=== PATIENT | male | born 1965 | race Two or more races ===

== ENCOUNTER → 2024-06-13 | Outpatient (CLI) | payer MEDICARE, MEDICAID, SELFPAY ==
--- NOTE | 2024-06-13 10:34 | MRI_ITS ---
PROCEDURE: PELVIS W/WO CONTRAST REASON FOR EXAM: eval extent of disease, XRT planning TECHNIQUE: Multiplanar, multisequence MRI of the prostate was performed before and following intravenous gadolinium-based contrast. Axial, coronal, and sagittal high-resolution T2-weighted images, axial T1-weighted images, and diffusion-weighted images with high B value were performed. COMPARISON: None. FINDINGS: Variable overall mild/moderate motion limitation, moderately involving the axial T2 sequence which is notably a baldwin sequence. The effect is notably magnified by the small size of the gland. Diffusion imaging is additionally mildly degraded by artifact related to bowel gas. Note also that the exam is limited by the absence of dynamic post-contrast imaging. Small amount of T1 bright presumed post biopsy blood products in the left lateral prostate, limiting evaluation of that area. Prostate dimensions 4.3 x 2.9 x 3.8 cm for estimated volume 25 mL. Interval placement of spacing material between the left anterolateral rectum and the left posterolateral prostate extending from the level of the base to apex with good separation in those areas. There is persistent direct contact of the right posterolateral prostate and right anterior rectum. Question a tiny area of anterior rectal wall infiltration inferiorly, Grade 1 (series 8, image 2). Peripheral Zone: Background changes of likely prostatitis. Additional areas of apparent restricted diffusion are without correlate on T2 and favored technical/artifactual, potentially related to bowel gas. Additional lesions as below: *Lesion 1: Ill-defined T2 hypointensity in the left greater than right posterolateral peripheral zones centered at the level of the mid gland but extending from base to apex is difficult to measure, spanning roughly 2.0 cm in the axial plane (series 8 image 16-18). A portion of this lesion small probably correlates with the small focus of PSMA uptake on recent PET/CT. *T2 score: 3. *DWI score: 3. *DCE: Not applicable. *Overall PI-RADS: PI-RADS 3. *Extracapsular extension: No definite extracapsular extension allowing for limitations, however there is capsular abutment greater than 1 cm which can be associated with microscopic extracapsular extension. Note that this includes immediate abutment of the left neurovascular bundle without definite involvement. Transition zone: Limited evaluation due to motion. Likely PI-RADS 2 findings. No definite correlate for the region of interest annotated on the outside xam performed 01/28/2024. Additional lesions as below: *Lesion 2: Ill-defined lesion in the right anterior greater than posterior peripheral zone far base spanning 1.4 cm (series 8 image 14). This is more conspicuous than on the prior exam. *T2 score: 4. *DWI score: 3. *DCE: Not applicable. *Overall PI-RADS: PI-RADS 4. *Extracapsular extension: No definite extracapsular extension allowing for limitations, however there is again capsular abutment greater than 1 cm, which can be associated with microscopic extracapsular extension. Notes that this includes immediate abutment of the base of the right seminal vesicle and the bladder, without definite involvement. Seminal vesicles: As above, otherwise grossly unremarkable.. Neurovascular bundles: As above, otherwise grossly unremarkable. Lymph nodes: Grossly unremarkable. Bladder: Grossly unremarkable. Bone marrow: Unremarkable. Other: Atherosclerosis. MRI/Pelvis W/WO Contrast IMPRESSION: 1. Limited exam as above due to a combination of motion and artifact related to bowel gas, compounded by the small size of the gland and a small amount of presumed post biopsy blood products. Note also alondra t an alternative PI-RADS algorithm was utilized due to the absence of dynamic postcontrast imaging. 2. Interval placement of spacing material between the left anterolateral rectum and the left posterolateral prostate extending from the level of the base to apex with good separation in those areas. There i s persistent direct contact of the right posterolateral prostate and right anterior rectum. Question a tiny area of ant erior rectal wall infiltration inferiorly, Grade 1. 3. Ill-defined 2.0 cm PI-RADS 3 lesion centered in the mid [id number] [id number] posterolateral peripheral zones favored to correspond to the focus of uptake on recent PSMA PET/CT (lesion 1). 4. Ill-defined 1.4 cm PI-RADS 3 lesion in the right anterior greater than poste rior peripheral zone far base (lesion 2). 5. No definite extracapsular extension allowing for limitations, however there is capsular abutment greater than 1 cm by both lesions which can be associated with microscopic extracapsular extension. Note that this includes immediate abutment of the left neurovascular bundle, base of the right seminal vesicles, and bladder, without definite involvement of these structures. 6. No gross pelvic lymphadenopathy. 7. Additional description as above. Reading Location: [id number]
[2024-06-13 11:34] VITALS: BP 111/70; PULSE 84; RESP 18; O2SAT 97
[2024-06-13 11:50] VITALS: BP 129/67; PULSE 84; RESP 18; O2SAT 96
[2024-06-13 12:02] VITALS: BP 118/65; PULSE 85; O2SAT 94
[2024-06-13 12:15] VITALS: BP 109/71; PULSE 84; O2SAT 95
[2024-06-13 12:29] VITALS: BP 115/66; PULSE 84; O2SAT 96
[2024-06-13 12:42] VITALS: BP 120/67; PULSE 84; O2SAT 95
== END | disposition home or self-care (01) ==
LOC: MRI 10:31
PROVIDERS: PCP Family Medicine; Referring Provider Student in an Organized Health Care Education/Training Program; Visit Provider Student in an Organized Health Care Education/Training Program
DX: C61 Malignant neoplasm of prostate (principal)
CPT/HCPCS: 72197; A9575

== ENCOUNTER → 2024-10-07 | Outpatient (CLI) | payer MEDICARE, MEDICAID, SELFPAY ==
--- OUTSIDE RECORDS SUMMARY | 2024-10-07 08:19 | XMS RPT_ITS | CCD ---
Author Organization [facility] Care Team Providers Care Commercial Hvac Technician Name Role Phone Bubba Tran Unavailable Unavailable Unavailable Unavailable Jimmy Van Unavailable Unavailab jennifer No, Physician Unavailable Unavailable Tourlas, Mars Unavailable Unavailabl e Tourtiburcio, Mars Unavailable UnavailJean-Claude Oconnor Unavailable Unavailable Jean-Claude Joya Unavailable Unavailable Marcus Leung Unavailable Unavailable Marcus Leung Unavailable Unavailable Bubba Tran Primary Care Provider Millie Mars Unavailable UnavailBubba Rosario Primary Care Provider Monie Waite Unavailable Monie Waite Primary Care Provider Monie Waite Unavailable Unavailable Monie Waite CNP Unavailable Monie Waite CNP Primary Care Provider Monie Waite Unavailable Unavailable Unavailable RitchieWalter L Unavailable Monie Waite CNP Unavailable Monie Waite CNP Primary Care Provider Mendez, Ms. Monie Wyatt Primary Care Unavailgabino e Mendez, MsReynold Wyatt Attending Unavailabl e Mendez, MsReynold Wyatt Referring Unavailabl e Roma, MsReynold Lee Attending Unavailable Grassick, MsReynold Lee Referring Unavailable Mendez, Ms. Monie Wyatt Primary Care Unavailabl e RITCHIE, Mrs. WALTER ROMANON Referring Unavailabl e RITCHIE, Mrs. WALTER BRAY Primary Care Unavailabl e RITCHIE, Mrs. WALTER BRAY Attending Unavailabl e RITCHIE, Mrs. WALTER BRAY Referring Unavailabl e RITCHIE, Mrs. WALTER ROMANON Primary Care Unavailabl e RITCHIE, Mrs. WALTER ROMANON Attending Unavailabl e Mendez PLATE SETTER, Monie L. Unavailable [place] ANNE MARIE, Walter Bray Primary Care Provider Adán Gorman MD Unavailable [phone] [place] .NET ARCHITECT-PLATE SETTER, Walter Blackman Primary Care Provider Ritchie .NET ARCHITECT-ANNE MARIE, Walter Blackman Unavailable Ritchie PLATE SETTER, Walter Bray Primary Care Provider Jeri TUCKER MPH, [facility] Primary Care Pro vider Jeri TUCKER, Fatimah Primary Care Provider [phone] Nely Ricardo MD Primary Care Provider [place] .NET ARCHITECT-PLATE SETTER, Walter Blackman Unavailable [phone] [place] .NET ARCHITECT-PLATE SETTER, Walter Blackman Unavailable [phone] [place] .NET ARCHITECT-ANNE MARIE, Walter Blackman Unavailable BRINA JAUREGUI Attending Unavailab le MALLAPAREDDI, FATIMAH Primary Care Unavailable Nely Ricardo MD Primary Care Provider Unavailable Primary Care Provider UnavailADÁN Marin Attending Unavailabl ADÁN Sanchez Referring Unavailabl e RITCHIE, WALTER BRAY Primary Care Unavailable MALLAPAREDDI, FATIMAH Primary Care Unavailable MALLAPAREDDI, FATIMAH Primary Care Unavailable MALLAPAREDDI, FATIMAH Primary Care Unavailable [facility] Referring Unavailable URADSTONEY Zheng Attending Unavailable RITCHIE, WALTER BRAY Primary Care Unavailable [facility] Admitting Unavailab NAS Guzman Attending Unavailab le MALLAPAREDDI, FATIMAH Primary Care Unavailable DAVION, NELY RIC Primary Care Unavailable FRANKIE SAN JR. Attending Unava ilable MALLAPAREDDI, FATIMAH NAG S Primary Care Unavail able GONZALEZ, AARTI Zapien Referring Unavailable DAVION, NELY L Primary Care Unavailable DAVION, NELY L Referring Unavailable DAVION, NELY L Primary Care Unavailable DAVION, NELY L Referring Unavailable DAVION, NELY L Primary Care Unavailable DAVION, NELY RIC Primary Care Unavailable ADÁN GORMAN Attending Unavailabl e DAVION, NELY RIC Primary Care Unavailable CHERYL FELICIANO Attending Unavailable DAVION, NELY RIC Primary Care Unavailable ED TAYLOR Attending Unavailable DAVION, NELY RIC Primary Care Unavailable ED TAYLOR Attending Unavailable JEREMY GILL Attending Unavailable MALLAPAREDDI, FATIMAH Primary Care Unavailable DAVION, NELY RIC Primary Care [facility]available [facility] Attending Unavailable MALLAPAREDDI, FATIMAH Primary Care Unavailable DAVION, NELY RIC Primary Care Unavailable DAVION, NELY RIC Primary Care Unavailable ADÁN GORMAN Attending UnavailNely Carter MD Primary Care Provider GONZALEZ, AARTI Zapien Referring Unavailable DAVION, NELY L Primary Care Unavailable GONZALEZ, AARTI Zapien Admitting Unavailable GONZALEZ, AARTI Zapien Attending Unavailable DAVION, NELY L Primary Care Unavailable GONZALEZ, AARTI Zapien Admitting Unavailable GONZALEZ, AARTI Zapien Attending Unavailable DAVION, NELY L Primary Care Unavailable MALLAPAREDDI, FATIMAH NAG S Attending Unavail able MALLAPAREDDI, FATIMAH NAG S Primary Care Unavail able GONZALEZ, AARTI Zapien Attending Unavailable MALLAPAREDDI, FATIMAH NAG S Referring Unavail able MALLAPAREDDI, FATIMAH NAG S Primary Care Unavail able GONZALEZ, AARTI Zapien Attending Unavailable DAVION, NELY L Primary Care Unavailable KRISHAN HAMILTON Attending Unavailable DAVION, NELY L Primary Care Unavailable GONZALEZ, AARTI Zapien Attending Unavailable DAVION, NELY L Primary Care Unavailable GONZALEZ, AARTI Zapien Attending Unavailable DAVION, NELY L Primary Care Unavailable DAVION, NELY L Attending Unavailable DAVION, NELY L Primary Care Unavailable Joby Espino Attending Unavailable Davion, Nely Primary Care Unavailable Joby Espino Referring Unavailable Davion, Nely Primary Care Unavailable Joby Espino Referring Unavailable Joby Espino Attending Unavailable Davion, Nely Primary Care Unavailable Joby Espino Attending Unavailable Kamryn Hines Attending Unavailable SrinivasJoby orosco Attending Unavailable Davion, Nely Primary Care Unavailable Srinivas, Joby Referring Unavailable Srinivas, Joby Attending Unavailable Davion, Nely Primary Care Unavailable Srinivas, Joby Referring Unavailable Srinivas, Joby Attending Unavailable Davion, Nely Primary Care Unavailable Srinivas, Joby Referring Unavailable Srinivas, Joby Attending Unavailable Davion, Nely Primary Care Unavailable Srinivas, Joby Referring Unavailable Davion, Nely Primary Care Unavailable Davion, Nely Referring Unavailable Srinivas, Joby Attending Unavailable Davion, Nely Referring Unavailable Davion, Nely Primary Care Unavailable Srinivas, Joby Attending Unavailable Davion, Nely Primary Care Unavailable Srinivas, Joby Attending Unavailable Davion, Nely Primary Care Unavailable Srinivas, Joby Attending Unavailable Srinivas, Joby Attending Unavailable Gonzalez IIAarti Referring Unavailable Srinivas, Joby Attending Unavailable Davion, Nely Primary Care Unavailable Srinivas, Joby Referring Unavailable Allergies Allergy Classification Reported Allergen(s) Allergy Type Date of Onset Reaction(s) Facility Angiotensin Converting Enzyme (ALYSSA) Inhibitors (8 sources) Lisinopril Drug Allergy 0 Other (See Comments) [facility] (20 sources) lisinopril; Translations: [lisinopril] Drug Allergy 0 Cough, Other (See Comments) [facility] (1 source) No Known Allergies; Translations: [No Known Allergies] Propensity to adverse reactions to drug (disorder) [facility] Medications Current Medications Medication Drug Class(es) Dates Sig (Normalized) Sig (Original) acetaminophen 325 mg / HYDROcodone bitartrate 5 mg oral tablet (8 sources) Opioid Agonist Start: 03-08-2024 End: 08-24-2024 take 1 tablet by mouth every six hours for pain HYDROcodone-acetam inophen ([place]) 5-325 mg tablet Indications: Prostate cancer (Multi) Take 1 tablet by mouth every 6 hours if needed for severe pain (7 - 10). 20 tablet 05/31/2024 08/24/2024 Discontinued (Med List Cleanup) albuterol 0.83 mg/ml inhalation solution (20 sources) beta2-Adrenergic Agonist Start: 02-19-2024 End: 02-18-2025 take 2.5 mg by inhalation every six hours as needed for chronic obstructive pulmonary disease and chronic obstructive pulmonary disease albuterol 2.5 mg /3 mL (0.083 %) nebulizer solution Indications: Chronic obstructive pulmonary disease, unspecified COPD type (Multi) Take 3 mL (2.5 mg) by nebulization every 6 hours if needed for wheezing. Every 4 to 6 hours as needed 75 mL 11 02/19/2024 02/18/2025 Active Start: 12-21-2019 End: 02-19-2024 take 3 mL by inhalation every four to six hours as needed albuterol 2.5 mg /3 mL (0.083 %) nebulizer solution Inhale 3 mL (2.5 mg). Every 4 to 6 hours as needed 12/21/2019 02/19/2024 Discontinued (Reorder) Start: 12-21-2019 Albuterol Sulf ate (2.5 MG/3ML) 0.083% Inhalation Nebulization Solution USE 1 UNIT DOSE IN NEBULIZER EVERY 4 TO 6 HOURS NEEDED. Quantity: 1 Refills: 1 Ordered: 05-Jul-2021 Fabiana Xie Start : 21-Dec-2019 Active Start: 11-28-2019 End: 08-24-2024 albuterol 90 mcg/actuation i nhaler Inhale 2 puffs. Every 44-6 hours as needed 11/28/2019 08/24/2024 Discontinued (Med List Cleanup) Start: 11-28-2019 take 2 puff(s) by in halation every four to six hours as needed Albuterol Sulfate HFA 108 (90 Base) MCG/ACT Inhalation Aerosol Solution INHALE 2 PUFFS EVERY 4-6 HOURS NEEDED. Quantity: 1 Refills: 1 Ordered: 28-Nov-2019 Monie Ingram Start : 28-Nov-2019 Active Start: 11-28-2019 take 2 puff(s) by in halation every four to six hours as needed Albuterol Sulfate HFA 108 (90 Base) MCG/ACT Inhalation Aerosol Solution INHALE 2 PUFFS EVERY 4-6 HOURS NEEDED. Quantity: 1 Refills: 1 Monie Ingram Start : 28-Nov-2019 Active 6.7 GM Inhaler take 2 puff(s) by in halation every four hours as needed albuterol 90 mcg/actuation inhaler Inhale 2 (two) puffs every 4 (four) hours as needed for shortness of breath . Active take 2.5 mg by inhal ation every six hours as needed for wheezing albuterol (PROVENTIL) 2.5 mg /3 mL (0.083 %) nebulizer solution Take 2.5 mg by nebulization every 6 (six) hours as needed for wheezing . 0 Active albuterol 90 mcg/actuation inhaler (14 sources) take 2 puff(s) by inhalation every four hours as needed albuterol 90 mcg/actuation inhaler Inhale 2 puffs every 4 (four) hours as needed for shortness of breath . 0 Active apixaban 5 mg oral tablet (20 sources) Factor Xa Inhibitor Start: 12-15-19 End: 02-19-20 take 1 tablet by mouth twice daily apixaban (Eliquis) 5 mg Tab Take 1 (one) tablet (5 mg total) by mouth 2 (two) times a day Blood thinner . 180 tablet 3 10/19/2023 Active atorvastatin 10 mg oral tablet (20 sources) HMG-CoA Reductase Inhibitor Start: 10-19-19 End: 01-11-20 take 1 tablet by mouth at bedtime atorvastatin (LIPITOR) 10 MG tablet Take 1 (one) tablet (10 mg total) by mouth at bedtime . 90 tablet 1 01/11/2024 Active Start: 12-15-2019 End: 10-17-2023 take 1 tablet by mouth at bedtime atorvastatin (LIPITOR) 10 MG tablet Take 1 (one) tablet (10 mg total) by mouth at bedtime . 90 tablet 07/20/2023 10/17/2023 Discontinued (Reorder (Suppress CancelRx Message to Pharmacy)) Start: 10-12-2019 End: 10-13-2019 take 10 mg by mouth once daily 10 mg, Oral, Daily, Fir st dose on Thu10/12/19 at 1200 calcium chloride 0.0014 meq/ml / potassium chloride 0.004 meq/ml / sodium chloride 0.103 meq/ml / sodium lactate 0.028 meq/ml injectable solution (2 sources) Start: 05-31-2024 End: 06-01-2024 take 100 mL intravenously every hour 100 mL/hr, intravenous, Continuous, Starting on Thu05/31/24 at 1100, For 1 day, Recovery (only) Start: 03-08-2024 End: 03-09-2024 take 100 mL intravenously every hour 100 mL/hr, intravenous, Continuous, Starting on Thu03/08/24 at 0930, For 1 day, Recovery (only) carvedilol 12.5 mg oral tablet (20 sources) alpha-Adrenergic Gricel, beta-Adrenergic Gricel Start: 03-01-2020 End: 10-18-2024 take 1 tablet by mouth twice daily carvedilol (Coreg) 12.5 mg tablet Take 1 tablet (12.5 mg) by mouth 2 times a day. 11/02/2020 Active Start: 02-24-2020 End: 02-23-2021 take 1 tablet by mouth twice daily carvediloL (COREG) 25 MG tablet Take 1 (one) tablet (25 mg total) by mouth 2 (two) times a day . 60 tablet 11 02/24/2020 02/23/2021 Active Start: 12-15-2019 End: 02-24-2020 take 1 tablet by mouth twice daily carvediloL (COREG) 12.5 MG tablet Take 1 (one) tablet (12.5 mg total) by mouth 2 (two) times a day . 180 tablet 3 12/15/2019 02/24/2020 Discontinued Start: 10-12-2019 End: 10-13-2019 take 12.5 mg by mouth twice daily at mealtime 12.5 mg, Oral, 2 times daily, First dose on Thu10/12/19 at 1200 Give carvedilol with food to reduce risk of hypotension / dizziness. Separate from admin of ALYSSA inhibitors by two hours. ciprofloxacin 500 mg oral tablet (1 source) Quinolone Antimicrobial Start: 02-15-2024 End: 02-18-2024 take 1 tablet by mouth twice daily ciprofloxacin (Cipro) 500 mg tablet Indications: Elevated PSA, between 10 and less than 20 ng/ml Take 1 tablet (500 mg) by mouth 2 times a day for 3 days. 6 tablet 02/15/2024 02/18/2024 Active empagliflozin 10 mg oral tablet (20 sources) Sodium-Glucose Cotransporter 2 Inhibitor Start: 04-25-2022 End: 10-17-2023 take 1 tablet by mouth once daily empagliflozin (Jardiance) 10 mg Tab Take 1 (one) tablet (10 mg total) by mouth daily . 90 tablet 3 02/05/2024 Active eplerenone 25 mg oral tablet (20 sources) Aldosterone Antagonist Start: 10-19-2023 take 1 tablet by mouth once daily eplerenone (Inspra) 25 MG tablet Take 1 (one) tablet (25 mg total) by mouth daily Taking whole tablet daily . 90 tablet 3 10/19/2023 Active Start: 11-02-2020 End: 03-08-2021 eplerenone (Inspra) 25 MG ta blet Take 1/2 tablet daily. . 90 tablet 3 11/02/2020 03/08/2021 Discontinued Start: 07-27-2020 End: 10-17-2023 take 1 tablet by mouth once daily eplerenone (Inspra) 25 MG tablet Take 1 (one) tablet (25 mg total) by mouth daily Taking whole tablet daily . 90 tablet 07/20/2023 10/17/2023 Discontinued (Reorder (Suppress CancelRx Message to Pharmacy)) ergocalciferol 1.25 mg oral capsule (20 sources) Provitamin D2 Compound Start: 02-10-2022 End: 07-15-2024 take 1 capsule by mouth every week ergocalciferol (ERGOCALCIFEROL) 1,250 mcg (50,000 unit) capsule Take 1 (one) capsule (50,000 Units total) by mouth once a week . 02/10/2022 07/15/2024 Discontinued (Patient's Request) Start: 10-04-2021 End: 07-15-2023 take 1 capsule by mouth every week ergocalciferol (Vitamin D-2) 1.25 MG (77896 UT) capsule Take 1 capsule (1,250 mcg) by mouth 1 (one) time per week. 0 10/04/2021 07/15/2023 Discontinued (Therapy completed) Start: 10-04-2021 take 1 capsule by mo uth every week Vitamin D (Ergocalciferol) 1.25 MG (90152 UT) Oral Capsule TAKE 1 CAPSULE Weekly Quantity: 5 Refills: 5 Ordered: 04-Oct-2021 Walter Correa Start : 04-Oct-2021 Active 4 ml furosemide 10 mg/ml injection (5 sources) Loop Diuretic Start: 10-12-2019 40 mg, Intrave nous, Every 12 hours scheduled, First dose on Thu10/12/19 at 1045, For 3 doses End: 12-15-2019 take 1 tablet by mouth once daily furosemide (LASIX) 20 MG tablet Take 20 mg by mouth daily For 5 days starting 10/07/19 . 0 12/15/2019 Discontinued (Discontinued by another clinician) labetalol hydrochloride 5 mg/ml injectable solution (2 sources) beta-Adrenergic Gricel Start: 05-31-2024 5 mg, intravenous, Administer over 1 Minutes, Once as needed, systolic blood pressure greater than 180 mmHg, dystolic blood pressure greater than 100 mmHg and heart rate greater than 60 BPM, Starting on Thu05/31/24 at 1042, For 1 dose, Recovery (only) Start: 03-08-2024 5 mg, intraven ous, Administer over 1 Minutes, Once as needed, systolic blood pressure greater than 180 mmHg, dystolic blood pressure greater than 100 mmHg and heart rate greater than 60 BPM, Starting on Thu03/08/24 at 0910, For 1 dose, Recovery (only) methocarbamol 750 mg oral tablet (2 sources) Muscle Relaxant Start: 01-16-2020 End: 01-26-2020 take 1 tablet by mouth three times daily as needed for muscle spasms methocarbamoL (Robaxin-750) 750 MG tablet Take 1 (one) tablet (750 mg total) by mouth 3 (three) times a day as needed for muscle spasms . 30 tablet 0 01/16/2020 01/26/2020 Active 1 ml morphine sulfate 4 mg/ml prefilled syringe (5 sources) Opioid Agonist Start: 05-31-2024 2 mg, intraven ous, Every 5 min PRN, pain moderate (4-6), first line, Starting on Thu05/31/24 at 1042, Recovery (only), Max total of 20 mg regardless of dose. Start: 05-31-2024 4 mg, intraven ous, Every 5 min PRN, pain severe (7-10), first line, Starting on Thu05/31/24 at 1042, Recovery (only), Max total of 20 mg regardless of dose. Start: 03-08-2024 2 mg, intraven ous, Every 5 min PRN, pain moderate (4-6), first line, Starting on Thu03/08/24 at 0910, Recovery (only), Max total of 20 mg regardless of dose. Start: 03-08-2024 4 mg, intraven ous, Every 5 min PRN, pain severe (7-10), first line, Starting on Thu03/08/24 at 0910, Recovery (only), Max total of 20 mg regardless of dose. Start: 01-16-2020 End: 01-16-2020 morphine syringe 4 mg nitrofurantoin, macrocrystals 25 mg / nitrofurantoin, monohydrate 75 mg oral capsule (1 source) Nitrofuran Antibacterial Start: 05-31-2024 End: 06-03-2024 take 1 capsule by mouth twice daily nitrofurantoin, macrocrystal-monohydrate, (Macrobid) 100 mg capsule Indications: Prostate cancer (Multi) Take 1 capsule (100 mg) by mouth 2 times a day for 3 days. 6 capsule 05/31/2024 06/03/2024 Active nitroglycerin 0.4 mg sublingual tablet (20 sources) Nitrate Vasodilator Start: 11-02-2020 End: 03-21-2022 nitroglycerin (Nitrostat) 0.[address] 1 tablet (0.4 mg) under the tongue every 5 minutes if needed. 03/21/2022 Active 2 ml ondansetron 2 mg/ml injection (5 sources) Serotonin-3 Receptor Antagonist Start: 05-31-2024 End: 05-31-2024 4 mg, intravenous, Once as needed, nausea/vomiting, first line, Starting on Thu05/31/24 at 1042, For 1 dose, Recovery (only), When administering via IV Push, administer over 3-5 minutes. Start: 03-08-2024 4 mg, intraven ous, Once as needed, nausea/vomiting, first line, Starting on Thu03/08/24 at 0910, For 1 dose, Recovery (only), When administering via IV Push, administer over 3-5 minutes. Start: 01-16-2020 End: 01-16-2020 ondansetron (ZOFRAN) injecti on 4 mg Start: 10-12-2019 End: 10-13-2019 take 1 tablet by mouth every six hours as needed 4 mg, Oral, Every 6 hours PRN, nausea, vomiting, Starting Thu10/12/19 at 0954 Orally disintegrating tablet: Open blister pack and place tablet on the tongue; tablet is formulated to dissolve on the tongue without water; do not split tablet. Formulation requires tablet remain in sealed package until immediately prior to dose being administered. oxyCODONE hydrochloride 5 mg oral tablet (2 sources) Opioid Agonist Start: 05-31-2024 take 1 tablet by mouth every four hours as needed 5 mg, oral, Every 4 hours PRN, pain mild (1-3), first line, Starting on Thu05/31/24 at 1042, Recovery (only), When able to take oral medications., If ordered PRN for pain, nurse is permitted to administer this medication for higher pain scores based on patient preference? Yes Start: 03-08-2024 take 1 tablet by key th every four hours as needed 5 mg, oral, Every 4 hours PRN, pain mild (1-3), first line, Starting on Thu03/08/24 at 0910, Recovery (only), When able to take oral medications., If ordered PRN for pain, nurse is permitted to administer this medication for higher pain scores based on patient preference? Yes promethazine (Phenergan) 6.2 5 mg in sodium chloride 0.9% 50 mL IV (2 sources) Start: 05-31-2024 6.25 mg, intra venous, Administer over 15 Minutes, Once as needed, Nausea/vomiting, second line, Starting on Thu05/31/24 at 1042, For 1 dose, Recovery (only) Start: 03-08-2024 6.25 mg, intra venous, Administer over 15 Minutes, Once as needed, Nausea/vomiting, second line, Starting on Thu03/08/24 at 0910, For 1 dose, Recovery (only) sacubitril 24 mg / valsartan 26 mg oral tablet (20 sources) Angiotensin 2 Receptor Gricel Start: 12-29-2019 End: 10-18-2024 take 1 tablet by mouth twice daily sacubitriL-valsartan (Entresto) 24-26 mg per tablet Take 1 (one) tablet by mouth 2 (two) times a day . 180 tablet 3 10/19/2023 10/18/2024 Active sildenafil 100 mg oral tablet (20 sources) Phosphodiesterase 5 Inhibitor Start: 01-29-2024 End: 07-20-2024 sildenafil (Viagra) 100 mg tablet Indications: Male erectile dysfunction, unspecified TAKE 1/4 to 1/2 TABLET DAILY 1 HOUR BEFORE NEEDED 30 tablet 5 07/20/2024 Active Start: 06-01-2023 End: 11-04-2023 sildenafil (Viagra) 100 mg t ablet Indications: Male erectile dysfunction, unspecified TAKE 1/4 to 1/2 TABLET DAILY 1 HOUR BEFORE NEEDED 10 tablet 2 11/04/2023 Active Start: 01-14-2023 sildenafil (Vi agra) 100 mg tablet Indications: Male erectile dysfunction, unspecified TAKE 1/4 to 1/2 TABLET DAILY 1 HOUR BEFORE NEEDED 10 tablet 1 01/14/2023 Active Start: 10-15-2022 End: 01-14-2023 sildenafil (Viagra) 100 mg t ablet Indications: Male erectile dysfunction, unspecified TAKE 1/4 to 1/2 TABLET DAILY 1 HOUR BEFORE NEEDED 10 tablet 1 10/15/2022 01/14/2023 Discontinued (Reorder) Start: 05-29-2020 take 0.25-0.5 tablet s by mouth once daily sildenafil (Viagra) 100 mg tablet Take by mouth if needed. TAKE 1/4 to 1/2 TABLET DAILY 1 HOUR BEFORE NEEDED 0 05/29/2020 Active take 1 tablet by key th once daily as needed sildenafiL (VIAGRA) 25 MG tablet Take 1 (one) tablet (25 mg total) by mouth daily as needed for erectile dysfunction . Active spironolactone 25 mg oral tablet (12 sources) Aldosterone Antagonist Start: 12-15-2019 End: 04-25-2021 take 1 tablet by mouth once daily spironolactone (Aldactone) 25 MG tablet Take 1 (one) tablet (25 mg total) by mouth daily For heart . 90 tablet 3 04/25/2020 04/25/2021 Active tiotropium Br/olodaterol HCl (STIOLTO RESPIMAT INHL) (20 sources) tiotropium Br/olodaterol HCl (STIOLTO RESPIMAT INHL) Inhale . Active tiotropium Br/ol odaterol HCl (STIOLTO RESPIMAT INHL) Inhale . 0 Active Completed/Discontinued Medications Medication Drug Class(es) Dates Sig (Normalized) Sig (Original) acetaminophen 325 mg oral tablet (3 sources) Start: 05-31-2024 End: 05-31-2024 take 975 mg by mouth once as needed for pain 975 mg, oral, Once, On Thu05/31/24 at 0900, For 1 dose, Preprocedure, Administer with small amount of water preoperatively., If ordered PRN for pain, nurse is permitted to administer this medication for higher pain scores based on patient preference? Yes Start: 03-08-2024 End: 03-08-2024 take 975 mg by mouth once as needed for pain 975 mg, oral, Once, On Thu03/08/24 at 0730, For 1 dose, Preprocedure, Administer with small amount of water preoperatively., If ordered PRN for pain, nurse is permitted to administer this medication for higher pain scores based on patient preference? Yes Start: 10-12-2019 End: 10-13-2019 take 1 tablet by mouth every four hours as needed 650 mg, Oral, Every 4 hours PRN, fever 100.4 F or greater, headaches, Starting Thu10/12/19 at 0954 albuterol 0.833 mg/ml / ipratropium bromide 0.167 mg/ml inhalant solution (3 sources) Anticholinergic, beta2-Adrenergic Agonist Start: 10-12-2019 End: 10-13-2019 take 3 mL by inhalation four times daily 3 mL, Inhalation, 4 times daily (RT), First dose on Thu10/12/19 at 1200 Start: 10-12-2019 End: 10-13-2019 take 3 mL by inhalation every two hours as needed 3 mL, Inhalation, Every 2 hour PRN (RT), wheezing, shortness of breath, Starting Thu10/12/19 at 0954 Start: 10-12-2019 End: 10-12-2019 ipratropium-albuteroL (DUO-N EB) 0.5-2.5 mg/3 ml nebulizer solution 3 mL aluminum hydroxide 40 mg/ml / magnesium hydroxide 40 mg/ml / simethicone 4 mg/ml oral suspension (1 source) Start: 10-12-2019 End: 10-13-2019 take 30 mL by mouth every four hours as needed 30 mL, Oral, Every 4 hours PRN, indigestion, Starting Thu10/12/19 at 0954 amiodarone hydrochloride 200 mg oral tablet (16 sources) Antiarrhythmic End: 10-12-2019 take 1 tablet by mouth once daily amiodarone (CORDARONE) 200 MG tablet Take 200 mg by mouth daily 0 10/12/2019 Discontinued aspirin 81 mg delayed release oral tablet (20 sources) Nonsteroidal Anti-inflammatory Drug Start: 10-12-2019 End: 10-13-2019 take 81 mg by mouth once daily 81 mg, Oral, Daily, First dose on Thu10/12/19 at 1200 DO NOT CRUSH OR CHEW. Aspirin 81 MG TA BS TAKE 1 TABLET DAILY. Quantity: 30 Refills: 0 Ordered: 14-Nov-2019 DO Active azithromycin 250 mg oral tablet (3 sources) Macrolide Antimicrobial Start: 10-09-2019 End: 10-13-2019 take 1 tablet by mouth once daily azithromycin (ZITHROMAX) 250 MG tablet Take 1 (one) tablet (250 mg total) by mouth daily for 4 days . 4 tablet 0 10/09/2019 10/13/2019 Discontinued (Stop Taking at Discharge) Start: 10-09-2019 End: 10-09-2019 azithromycin (ZITHROMAX) tab let 500 mg cefTRIAXone 1000 mg injection (1 source) Cephalosporin Antibacterial Start: 10-12-2019 End: 10-12-2019 cefTRIAXone (ROCEPHIN) IVPB 1 g (premix) doxycycline monohydrate 100 mg oral capsule (2 sources) Tetracycline-class Drug End: 10-13-2019 take 1 capsule by mouth twice daily doxycycline monohydrate (MONODOX) 100 MG capsule Take 100 mg by mouth 2 (two) times a day For 10 days starting 10/07/19 . 0 10/13/2019 Discontinued (Stop Taking at Discharge) 0.4 ml enoxaparin sodium 100 mg/ml prefilled syringe (1 source) Low Molecular Weight Heparin Start: 10-12-2019 End: 10-13-2019 inject 40 mg by subcutaneous injection once daily 40 mg, Subcutaneous, Daily, First dose on Thu10/12/19 at 1200 Administer in abdomen unless otherwise directed by prescriber. Notify physician if patient refuses. Indication: VTE Prophylaxis gadoterate meglumine (Dotarem) 0.5 mmol/mL contrast injection 15 mL (1 source) Start: 01-28-2024 End: 01-28-2024 inject 15 mL intravenously once 15 mL, intravenous, Once in imaging, Starting on Thu01/28/24 at 1231, For 1 dose, Administer undiluted as rapid I.V. bolus injection 100 ml levoFLOXacin 5 mg/ml injection (3 sources) Quinolone Antimicrobial Start: 05-31-2024 End: 05-31-2024 500 mg, intravenous, at 100 mL/hr, Administer over 60 Minutes, Once, On Thu05/31/24 at 0830, For 1 dose, Intraprocedure, premix bag, Dosing of this medication varies based on severity of illness. Does this patient have sepsis or concern for sepsis (probable or documented infection plus systemic manifestations of infection)? No, Suspected Indication (Select all that apply): Surgical Prophylaxis, Indications: Surgical Prophylaxis Start: 10-13-2019 End: 10-20-2019 take 1 tablet by mouth once daily levoFLOXacin (LEVAQU IN) 750 MG tablet Take 1 (one) tablet (750 mg total) by mouth daily for 7 days . 7 tablet 0 10/13/2019 10/20/2019 Active Start: 10-12-2019 End: 10-13-2019 take 750 mg intravenous route every twenty-four hours 750 mg, Intravenous, at 100 mL/hr, Every 24 hours, First dose on Thu10/12/19 at 1200 Indication: Community Acquired Pneumonia (CAP) lisinopril 5 mg oral tablet (16 sources) Angiotensin Converting Enzyme Inhibitor End: 10-12-2019 take 1 tablet by mouth twice daily lisinopril (PRINIVIL,ZESTRIL) 5 MG tablet Take 5 mg by mouth 2 (two) times a day 0 10/12/2019 Discontinued (Error) losartan potassium 25 mg oral tablet (10 sources) Angiotensin 2 Receptor Gricel Start: 12-15-2019 End: 12-29-2019 take 1 tablet by mouth once daily losartan (COZAAR) 25 MG tablet Take 1 (one) tablet (25 mg total) by mouth daily . 90 tablet 3 12/15/2019 12/29/2019 Discontinued Start: 10-13-2019 End: 10-13-2019 take 25 mg by mouth once daily 25 mg, Oral, Daily, Fir st dose on Thu10/13/19 at 0900 10 actuat olodaterol 0.0025 mg/actuat / tiotropium 0.0025 mg/actuat inhalation spray (12 sources) Anticholinergic, beta2-Adrenergic Agonist Start: 12-12-2019 End: 07-15-2023 tiotropium-olodateroL (Stiolto Respimat) 2.5-2.5 mcg/actuation mist inhaler Inhale 2 Inhalations once daily. 0 12/12/2019 07/15/2023 Discontinued (Therapy completed) Start: 12-12-2019 Stiolto Respim at 2.5-2.5 MCG/ACT Inhalation Aerosol Solution INHALE 2 PUFFS Daily Quantity: 1 Refills: 5 Ordered: 12-Dec-2019 Monie Ingram Start : 12-Dec-2019 Active pantoprazole 40 mg delayed release oral tablet (16 sources) Proton Pump Inhibitor End: 10-12-2019 take 1 tablet by mouth once daily pantoprazole (PROTONIX) 40 MG tablet Take 40 mg by mouth daily 0 10/12/2019 Discontinued (Error) perflutren lipid microspheres (Microco.sm) 0.143 mg/mL solution 0-10 mL of mixture (1 source) Start: 10-12-2019 End: 10-13-2019 perflutren lipid microspheres (DEFINManifact) 0.143 mg/mL solution 0-10 mL of mixture predniSONE 20 mg oral tablet (7 sources) Start: 11-28-2019 take 3 tablets by mouth once daily, then take 2 tablets by mouth once daily, then take 1 tablet by mouth once daily predniSONE 20 MG Oral Tablet TAKE 3 TABLETS DAILY FOR 3 DAYS, THEN 2 TABLETS DAILY FOR 3 DAYS, THEN 1 TABLET DAILY FOR 3 DAYS. Quantity: 18 Refills: 0 Monie Ingram Start : 28-Nov-2019 Active Start: 10-09-2019 End: 12-15-2019 predniSONE (DELTASONE) 10 mg tablet pack Take 4 pills p.o. in a.m. x3 days; take 3 pills p.o. in a.m. x3 days; take 2 pills p.o. in a.m. x3 days; take 1 pill p.o. in the a.m. x3 days; take 1/2 pill p.o. in a.m. x3 days then stop . 32 tablet 0 10/09/2019 12/15/2019 Discontinued (Therapy completed) Start: 10-09-2019 End: 10-09-2019 predniSONE (DELTASONE) table t 60 mg End: 10-09-2019 take 1 tablet by mouth once daily predniSONE (DELTASONE) 20 MG tablet Take 20 mg by mouth daily For 5 days starting 10/07/19 . 0 10/09/2019 Discontinued 1000 ml sodium chloride 9 mg /ml injection (2 sources) Start: 01-16-2020 End: 01-16-2020 sodium chloride 0.9% (NS) Start: 10-12-2019 End: 10-12-2019 sodium chloride 0.9% (NS) chapincito demetra 500 mL Problems Active Problems Problem Classification Problem Date Documented Date Episodic/Chronic Acute myocardial infarction (20 sources) Acute myocardial infarction of anterolateral wall; Translations: [Acute myocardial infarction] Onset: 05-29-2022 03-28-2015 Chronic Cancer of prostate (20 sources) Malignant tumor of prostate; Translations: [Malignant neoplasm of prostate] Onset: 04-06-2024 04-06-2024 Chronic Cardiac dysrhythmias (20 sources) Atrial fibrillation; Translations: [Unspecified atrial fibrillation] Onset: 09-11-2021 Chronic Chronic obstructive pulmonary disease and bronchiectasis (20 sources) Chronic obstructive lung disease; Translations: [Chronic airway obstruction, not elsewhere classified] Onset: 05-29-2022 Resolved: 08-24-2024 01-14-2023 Chronic Conduction disorders (20 sources) Automatic implantable cardiac defibrillator in situ; Translations: [Presence of automatic (implantable) cardiac defibrillator] Onset: 03-18-2016 03-18-2016 Chronic Congestive heart failure; nonhypertensive (20 sources) Congestive heart failure; Translations: [Chronic systolic heart failure] Onset: 12-15-2019 Resolved: 08-24-2024 12-15-2019 Chronic Coronary atherosclerosis and other heart disease (20 sources) Coronary arteriosclerosis; Translations: [Coronary arteriosclerosis in seminole artery] Onset: 12-17-2019 09-18-2016 Chronic Disorders of lipid metabolism (5 sources) Hypercholesterolemia; Translations: [Pure hypercholesterolemia, unspecified] Onset: 08-12-2023 08-12-2023 Chronic Essential hypertension (20 sources) Hypertensive disorder; Translations: [Essential hypertension] Onset: 03-21-2016 03-21-2016 Chronic Heart valve disorders (3 sources) Mitral valve regurgitation; Translations: [Nonrheumatic mitral (valve) insufficiency] Onset: 05-19-2023 04-08-2023 Chronic Hyperplasia of prostate (16 sources) Benign prostatic hyperplasia; Translations: [Benign prostatic hyperplasia without lower urinary tract symptoms] Onset: 12-02-2023 12-02-2023 Chronic Hypertension with complications and secondary hypertension (3 sources) Hypertensive heart failure; Translations: [Hypertensive heart disease with heart failure] Onset: 08-24-2024 08-24-2024 Chronic Immunizations and screening for infectious disease (9 sources) Patient encounter status; Translations: [Other specified vaccination] Episodic Nutritional deficiencies (19 sources) Vitamin D deficiency; Translations: [Unspecified vitamin D deficiency] Onset: 05-29-2022 05-29-2022 Chronic Other and ill-defined heart disease (1 source) Diastolic dysfunction; Translations: [Other ill-defined heart diseases] 08-12-2023 Chronic Other and ill-defined heart disease (4 sources) Other ill-defined heart diseases; Translations: [Other ill-defined heart diseases] Onset: 08-12-2023 Chronic Other lower respiratory disease (6 sources) Persistent cough; Translations: [Cough] Episodic Other lower respiratory disease (5 sources) Dyspnea; Translations: [Shortness of breath] Episodic Other male genital disorders (20 sources) Male erectile dysfunction, unspecified; Translations: [Impotence] Onset: 05-29-2022 01-14-2023 Chronic Other nutritional; endocrine; and metabolic disorders (19 sources) Hypocalcemia; Translations: [Hypocalcemia] Onset: 05-29-2022 05-29-2022 Chronic Other screening for suspected conditions (not mental disorders or infectious disease) (20 sources) CT of chest abnormal; Translations: [Nonspecific (abnormal) findings on radiological and other examination of other intrathoracic organs] Onset: 05-29-2022 05-29-2022 Chronic Spondylosis; intervertebral disc disorders; other back problems (1 source) Acute thoracic back pain; Translations: [Acute right-sided thoracic back pain] Episodic Past or Other Problems Problem Classification Problem Date Documented Da te Episodic/Chronic Complication of device; implant or graft (2 sources) Unspecified complication of cardiac and vascular prosthetic device, implant and graft, initial encounter; Translations: [Unspecified complication of cardiac and vascular prosthetic device, implant and graft, initial encounter] Onset: 01-17-2024 Episodic Coronary atherosclerosis and other heart disease (2 sources) History of coronary artery bypass grafting; Translations: [History of coronary artery bypass graft] Episodic Diabetes mellitus without complication (5 sources) Prediabetes; Translations: [Prediabetes] Onset: 08-12-2023 08-12-2023 Episodic Genitourinary symptoms and ill-defined conditions (7 sources) Nocturia; Translations: [Nocturia] Onset: 04-06-2024 04-06-2024 Episodic Open wounds of extremities (2 sources) Puncture wound without foreign body of left hand, initial encounter; Translations: [Puncture wound without foreign body of left hand, initial encounter] Onset: 08-15-2023 Episodic Other aftercare (2 sources) ab initio etl developer (current) use of anticoagulants; Translations: [ab initio etl developer (current) use of anticoagulants] Onset: 11-04-2023 Episodic Other aftercare (2 sources) Post-discharge follow-up; Translations: [Hospital discharge follow-up] Other and unspecified benign neoplasm (16 sources) Dermoid cyst of face; Translations: [Other benign neoplasm of skin of unspecified part of face] Onset: 07-11-2022 07-11-2022 Episodic Other circulatory disease (6 sources) H/O: heart disorder; Translations: [Other postprocedural status] Onset: 05-29-2022 05-29-2022 Episodic Other circulatory disease (20 sources) History of cardiomyopathy; Translations: [Other postprocedural status] Onset: 05-29-2022 Episodic Other lower respiratory disease (20 sources) Dyspnea on exertion; Translations: [Dyspnea, unspecified] Onset: 12-15-2019 12-15-2019 Episodic Other lower respiratory disease (1 source) Hypoxia; Translations: [Hypoxia] Episodic Other lower respiratory disease (16 sources) Cough; Translations: [Cough] Onset: 07-11-2022 07-11-2022 Episodic Other screening for suspected conditions (not mental disorders or infectious disease) (20 sources) Laboratory test result abnormal; Translations: [Patient encounter status] Onset: 08-12-2023 07-15-2023 Episodic Pneumonia (except that caused by tuberculosis or sexually transmitted disease) (20 sources) Infective pneumonia; Translations: [Community acquired pneumonia] Onset: 10-12-2019 10-12-2019 Episodic Septicemia (except in labor) (1 source) Sepsis; Translations: [Sepsis, due to unspecified organism, unspecified whether acute organ dysfunction present (HCC)] Episodic Unclassified (14 sources) Onset: 07-15-2023 Resolved: 07-20-2024 07-15-2023 NEGATED: Highlighted row has not occurred!Residual codes; unclassified (2 sources) Disease Episodic Results Test Name Value Interpretation Reference Range Facility Radiation Oncology Visiton 0 08-05-2024 Radiation Oncology Visit [facility] [address] [place] [address] OFFICE VISIT Date of Service: 08/05/24 0932 MR#: [id number] Acct: [id number] Name: AARTI GARCIA Rep #: [id number] : 1965 From: Joby Espino DO Age/Sex: 59/M Location: [facility] [place] Status: Signed Intake Vital Signs 06/27/24 16:01 07/01/24 12:29 08/05/24 09:34 Height 5 ft 11 in 5 ft 11 in 5 ft 11 in Weight: 156 lb 2 oz BMI 21.7 BP 99/62 Blood Pressure Location Lt brachial Position Sitting Respiration 16 Pulse 76 Pulse Source Monitor Temp 97.4 F L Temperature Source Temporal Artery Pulse Oximetry (%) 95 Oxygen Delivery Method room air Intake Visit Reasons: 1 MONTH F/U POST RT Is patient in pain?: No Allergies lisinopril Allergy (Mild, Verified 08/05/24 09:35) cough Medications ???Medication ???Instructions ???Recorded ???Confirmed ???Type albuterol sulfate 2.5 mg/3 mL 2.5 mg inhalation Q6H PRN 04/21/24 08/05/24 History (0.083 %) solution for nebulization albuterol sulfate 90 mcg/actuation 2 puff inhalation Q4-6H PRN /06/1408/05/24 History aerosol inhaler aspirin 81 mg tablet,delayed 81 mg PO QDAY 04/21/24 08/05/24 Hi story release (Adult Low Dose Aspirin) atorvastatin 10 mg tablet 10 mg PO QHS 04/21/24 08/05/24 His tory carvedilol 12.5 mg tablet 12.5 mg PO BID 04/21/24 08/05/24 H istory empagliflozin 10 mg tablet 10 mg PO QAM 04/21/24 08/05/24 His tory (Jardiance) eplerenone 25 mg tablet (Inspra) 25 mg PO QDAY 04/21/24 08/05/24 Hi story nitroglycerin 0.4 mg sublingual 0.4 mg sublingual Q5M PRN 04/21/24 08/05/24 History tablet sacubitril 24 mg-valsartan 26 mg 1 tab PO BID 04/21/24 08/05/24 His tory tablet (Entresto) sildenafil 100 mg tablet 100 mg PO QDAY PRN 04/21/24 History calcium acetate 667 mg tablet 667 mg PO ONCE 04/28/24 08/05/24 H istory [facility] Medical History Bronchitis COPD (chronic obstructive pulmonary disease) Pneumonia High cholesterol ICD (implantable cardioverter-defibrillat or) battery depletion Heart attack Nocturia Home Medications ???Medication ???Instructions ???Recorded ???Last Taken ???Type albuterol sulfate 2.5 mg/3 mL 2.5 mg inhalation Q6H PRN 04/21/24 Unknown History (0.083 %) solution for nebulization albuterol sulfate 90 mcg/actuation 2 puff inhalation Q4-6H PRN 06/14 Unknown History aerosol inhaler aspirin 81 mg tablet,delayed 81 mg PO QDAY 04/21/24 Unknown His tory release (Adult Low Dose Aspirin) atorvastatin 10 mg tablet 10 mg PO QHS 04/21/24 Unknown Hist ory carvedilol 12.5 mg tablet 12.5 mg PO BID 04/21/24 Unknown Hi story empagliflozin 10 mg tablet 10 mg PO QAM 04/21/24 Unknown Hist ory (Jardiance) eplerenone 25 mg tablet (Inspra) 25 mg PO QDAY 04/21/24 Unknown His tory nitroglycerin 0.4 mg sublingual 0.4 mg sublingual Q5M PRN 04/21/24 Unknown History tablet sacubitril 24 mg-valsartan 26 mg 1 tab PO BID 04/21/24 Unknown Hist ory tablet (Entresto) sildenafil 100 mg tablet 100 mg PO QDAY PRN 04/21/24 Unknow n History calcium acetate 667 mg tablet 667 mg PO ONCE 04/28/24 Unknown Hi story Allergy/AdvReac Type Severity Reaction Status Date / Time lisinopril Allergy Mild cough Verified 08/05/24 09:35 Family History Father Leukemia Brother Diabetes TYPE 1 Surgical History History of prostate biopsy History of cardiac cath History of removal of cyst Social History household members: spouse current occupational status: disabled Smoking Status: Former smoker quit date: 06/10/13 Tobacco: How many years used: 12 substance use type: does not use Diagnosis: Aarti Garcia is a 59 year old male diagnosed with 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 From 06/21/2024 ??? 07/01/2024 he received prostate SBRT. History of Present Illness: 01/28/2024: Patient completed MRI prostate.??? This demonstrated a limited exam due to prominent gas content in the rectum and motion artifact.??? There is a heterogeneous appearance of the transition zone consistent with BPH.??? There is a 0.7 cm T2 hypointense focus within the left apical to mid gland transition zone showing equivocal findings on diffusion weighted imaging consistent with PI- RADS 3 lesion.??? No extracapsular extension.??? No seminal vesicle invasion.??? No abnormally enlarged lymph nodes.??? PI-RADS 3 03/08/2024: Patient completed prostate biopsy.??? Pathology demonstrated Cedric (more content not included)... [facility] CARDIAC REMOTE DEVICE CHECKo n 07-20-2024 Remote Interrogation of ICD Notes/Summary: Stable Device function Est. Battery/Charge Time: 9.3 years/3.9 seconds Presenting EGM: /VS rate 60-70s bpm DYNAMOMETER TUNER: <0.1% AT/AF [place]: <0.1% since 04/15/24 AHR: 0 VHR: 0 Other Episodes: SVT: 1, EGM appears as SVT with 1:[address] conduction[address] Reviewed with Dr. Li who agrees that it appears to be SVT. V-V: 0 Histograms: Appropriate rate distribution Heart Failure Alerts: No Next remote: 10/19/24 Next In-clinic: due January 2025 NOV: 01/20/[address] Gorman at the [place] office Signature: Modesto CHAVEZ RN I have reviewed the device function, programmed parameters, and heart rhythm. Patient will return to the Device Clinic &/or remote follow up and provider visit per protocol. Mark Paz MD - 07/20/2024 Remote Interrogation of ICD Notes/Summary: Stable Device function Est. Battery/Charge Time: 9.3 years/3.9 seconds Presenting EGM: /VS rate 60-70s bpm DYNAMOMETER TUNER: <0.1% AT/AF [place]: <0.1% since 04/15/24 AHR: 0 VHR: 0 Other Episodes: SVT: 1, EGM appears as SVT with 1:[address] with [address]. Li who agrees that it appears to be SVT. V-V: 0 Histograms: Appropriate rate distribution Heart Failure Alerts: No Next remote: 10/19/24 Next In-clinic: due January 2025 NOV: 01/20/[address] Gorman at the [facility] Signature: Modesto CHAVEZ RN I have reviewed the device function, programmed parameters, and heart rhythm. Patient will return to the Device Clinic &/or remote follow up and provider visit per protocol. [facility] CARDIAC REMOTE DEVICE CHECKO rdered By: Mark Hensley on 07-20-2024 [facility] Work Phone: Radiation Oncology Visiton 0 07-01-2024 Radiation Oncology Visit [facility] [place] [place] [address] OFFICE VISIT Date of Service: 07/01/24 1326 MR#: [id number] Acct: [id number] Name: LAURAAARTI Rep #: [id number] : 1965 From: Joby Espino DO Age/Sex: 59/M Location: [facility] [place] Status: Signed End of Treatment Summary: Diagnosis: Aarti Garcia is a 58 year old male diagnosed with 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 Oncologic History: 01/28/2024: Patient completed MRI prostate.??? This demonstrated a limited exam due to prominent gas content in the rectum and motion artifact.??? There is a heterogeneous appearance of the transition zone consistent with BPH.??? There is a 0.7 cm T2 hypointense focus within the left apical to mid gland transition zone showing equivocal findings on diffusion weighted imaging consistent with PI- RADS 3 lesion.??? No extracapsular extension.??? No seminal vesicle invasion.??? No abnormally enlarged lymph nodes.??? PI-RADS 3 03/08/2024: Patient completed prostate biopsy.??? Pathology demonstrated [place] 3+3 adenocarcinoma involving about 5% of 1/multiple fragments in the left prostate, and involving less than 5% of 1/multiple fragments in the area of interest biopsy.??? Within the right prostate biopsy there is no evidence of carcinoma. Radiation Treatment History: The patient completed a course of external beam radiotherapy in our department. This treatment was delivered for curative intent. Treatment was given according to the following parameters: AARTI GARCIA received prostate SBRT consisting of 3625 cGy delivered in 5 fractions. He was treated with a VMAT plan using 6 FFF MV photons. The patient did not receive concurrent chemotherapy. Date of First Treatment: 06/21/2024 Date of Last Treatment: 07/01/2024 Total Elapsed Days (including weekend and holidays): 10 Missed Treatments: none Response and Tolerance: The patient tolerated this course of radiotherapy well overall without developing apparent treatment associated toxicities. Total weight change during therapy: N/A Disposition: The patient tolerated the planned course of radiation therapy well without unexpected toxicity in an appropriate time course. I reviewed management of potential toxicities and discussed expected timing for toxicity resolution. I will have AARTI follow-up in one month for a routine visit. AARTI will maintain follow up with all other providers. AARTI was instructed to call with any further questions or concerns in the interim. If we can provide any further information on this patient's course of care, please do not hesitate to ask. We would like to thank you very much for allowing us to participate in the care of this patient. Sincerely, Joby Espino DO, MS [employer] Supervisor, Department of Radiation Oncology [facility] 07/01/24 1329 Date Joby Espino DO Cosigner Signature: Date (if applicable) CC: Dr. Nely Ricardo MD; Dr. Aarti Gonzalez II, MD Normal [facility] Radiation Oncology Visit [facility] [address] [address] OFFICE VISIT Date of Service: 07/01/24 1228 MR#: [id number] Acct: [id number] Name: AARTI GARCIA Jeff Rep #: [id number] : 1965 From: Joby Espino DO Age/Sex: 59/M Location: [facility] [place] Status: Signed Intake Vital Signs 06/29/24 15:30 Height 5 ft 11 in Intake Visit Reasons: Amb Documentation Allergies lisinopril Allergy (Mild, Verified 06/27/24 16:00) cough PFSH PFSH Medical History Bronchitis COPD (chronic obstructive pulmonary disease) Pneumonia High cholesterol ICD (implantable cardioverter-defibrillat or) battery depletion Heart attack Nocturia Allergy/AdvReac Type Severity Reaction Status Date / Time lisinopril Allergy Mild cough Verified 06/27/24 16:00 Family History Father Leukemia Brother Diabetes TYPE 1 Surgical History History of prostate biopsy History of cardiac cath History of removal of cyst Social History household members: spouse current occupational status: disabled Smoking Status: Former smoker quit date: 06/10/13 Tobacco: How many years used: 12 substance use type: does not use Stereotactic Body Radiation Therapy Procedure - Prostate: DATE OF PROCEDURE: 07/01/2024 RADIATION ONCOLOGIST: Joby Espino D.O., M.S. ASSISTANTS: Radiation Physicist PRE-PROCEDURE DIAGNOSIS(ES): Intermediate risk prostate cancer POST-PROCEDURE DIAGNOSIS(ES): Intermediate risk prostate cancer INDICATIONS FOR PROCEDURE: The patient has clinically localized prostate cancer and has chosen to proceed with definitive Stereotactic Body Radiation Therapy (SBRT). PROCEDURE PERFORMED: Stereotactic body radiation therapy to the prostate CONSENT: Informed consent was obtained prior to the procedure. Procedure risks, benefits, alternatives and expected outcomes were discussed with the patient. All options have been reviewed and consent had been obtained prior to the procedure. Consent(s) were scanned into the electronic medical record. UNIVERSAL PROTOCOL / TIMEOUT: Pre-procedure verification is complete: patient verified and consents confirmed, procedure site was identified, timeout was called before the start of the procedure. ANESTHESIA: None RADIATION DOSE GIVEN: 725 cGy FRACTION: 5 of 5 CUMULATIVE DOSE: 3625 cGy PLANNED TOTAL DOSE: 3625 cGy DETAILS OF PROCEDURE: Aarti Garcia is a 59 year-old male who presented to our clinic today for the fifth fraction of stereotactic body radiation therapy for clinically localized prostate cancer. The patient reports no interval symptoms or problems since the last evaluation in our department. The patient was aligned in the vac bag on the treatment table. The therapists completed patient positioning. The treatment team then exited the treatment room. After verification of treatment parameters, a cone beam CT scan was obtained and aligned to fiducials. After accurate localization, the treatment proceeded. Treatment was delivered with multiarc VMAT radiation therapy utilizing 6 MV FFF beams. A dose of 725 cGy was delivered. The patient tolerated the procedure well. There were no acute complications, no blood loss, and no specimens were removed. CONDITION: The patient tolerated the procedure well and was in stable condition. ATTESTATION: I was present for all critical portions of the procedure including time out, CBCT and treatment delivery. PLAN: The patient will continue with stereotactic body radiation therapy that will be given 2-3 times per week. A total of 3625 cGy in 5 fractions is planned. Joby Espino DO, MS [employer] M[employer] Supervisor, Department of Radiation Oncology [facility] Coding Level of Care Code Radiation Tx Management x5 07/01/24 1229 Date Joby Espino DO Cosigner Signature: Date (if applicable) CC: Normal [facility] Radiation Oncology Visiton 0 06-29-2024 Radiation Oncology Visit [facility] [address] [place] [id number] OFFICE VISIT Date of Service: 06/29/24 1528 MR#: [id number] Acct: [id number] Name: LAURAAARTI Rep #: [id number] : 1965 From: Joby Espino DO Age/Sex: 59/M Location: [facility] [place] Status: Signed Intake Vital Signs 06/27/24 16:01 Height 5 ft 11 in Weight: 152 lb 1 oz BMI 21.2 BP 125/80 H Blood Pressure Location Rt brachial Position Sitting Respiration 18 Pulse 85 Pulse Source Monitor Temp 97.1 F L Temperature Source Temporal Artery Pulse Oximetry (%) 97 Oxygen Delivery Method room air Intake Visit Reasons: Amb Documentation Allergies lisinopril Allergy (Mild, Verified 06/27/24 16:00) cough PFSH PFSH Medical History Bronchitis COPD (chronic obstructive pulmonary disease) Pneumonia High cholesterol ICD (implantable cardioverter-defibrillat or) battery depletion Heart attack Nocturia Allergy/AdvReac Type Severity Reaction Status Date / Time lisinopril Allergy Mild cough Verified 06/27/24 16:00 Family History Father Leukemia Brother Diabetes TYPE 1 Surgical History History of prostate biopsy History of cardiac cath History of removal of cyst Social History household members: spouse current occupational status: disabled Smoking Status: Former smoker quit date: 06/10/13 Tobacco: How many years used: 12 substance use type: does not use Stereotactic Body Radiation Therapy Procedure - Prostate: DATE OF PROCEDURE: 06/29/2024 RADIATION ONCOLOGIST: Joby Espino D.O., M.S. ASSISTANTS: Radiation Physicist PRE-PROCEDURE DIAGNOSIS(ES): Intermediate risk prostate cancer POST-PROCEDURE DIAGNOSIS(ES): Intermediate risk prostate cancer INDICATIONS FOR PROCEDURE: The patient has clinically localized prostate cancer and has chosen to proceed with definitive Stereotactic Body Radiation Therapy (SBRT). PROCEDURE PERFORMED: Stereotactic body radiation therapy to the prostate CONSENT: Informed consent was obtained prior to the procedure. Procedure risks, benefits, alternatives and expected outcomes were discussed with the patient. All options have been reviewed and consent had been obtained prior to the procedure. Consent(s) were scanned into the electronic medical record. UNIVERSAL PROTOCOL / TIMEOUT: Pre-procedure verification is complete: patient verified and consents confirmed, procedure site was identified, timeout was called before the start of the procedure. ANESTHESIA: None RADIATION DOSE GIVEN: 725 cGy FRACTION: 4 of 5 CUMULATIVE DOSE: 2900 cGy PLANNED TOTAL DOSE: 3625 cGy DETAILS OF PROCEDURE: Aarti Garcia is a 59 year-old male who presented to our clinic today for the fourth fraction of stereotactic body radiation therapy for clinically localized prostate cancer. The patient reports no interval symptoms or problems since the last evaluation in our department. The patient was aligned in the vac bag on the treatment table. The therapists completed patient positioning. The treatment team then exited the treatment room. After verification of treatment parameters, a cone beam CT scan was obtained and aligned to fiducials. After accurate localization, the treatment proceeded. Treatment was delivered with multiarc VMAT radiation therapy utilizing 6 MV FFF beams. A dose of 725 cGy was delivered. The patient tolerated the procedure well. There were no acute complications, no blood loss, and no specimens were removed. CONDITION: The patient tolerated the procedure well and was in stable condition. ATTESTATION: I was present for all critical portions of the procedure including time out, CBCT and treatment delivery. PLAN: The patient will continue with stereotactic body radiation therapy that will be given 2-3 times per week. A total of 3625 cGy in 5 fractions is planned. Joby Espino DO, MS [employer] Supervisor, Department of Radiation Oncology [facility] Coding Level of Care Code Attention Clinical Lab Technologist Comment SBRT treatment 06/29/24 1530 Date Joby Espino DO Cosigner Signature: Date (if applicable) CC: Normal [facility] Radiation Oncology Visiton 0 06-27-2024 Radiation Oncology Visit [facility] [address] [place] [id number] OFFICE VISIT Date of Service: 06/27/24 155 MR#: [id number] Acct: [id number] Name: AARTI GARCIA Rep #: [id number] : 1965 From: Joby Espion DO Age/Sex: 59/M Location: [facility] [place] Status: Signed Intake Vital Signs 04/28/24 09:49 06/27/24 15:57 06/27/24 16:01 Height 5 ft 11 in 5 ft 11 in 5 ft 11 in Weight: 152 lb 1 oz BMI 21.2 BP 125/80 H Blood Pressure Location Rt brachial Position Sitting Respiration 18 Pulse 85 Pulse Source Monitor Temp 97.1 F L Temperature Source Temporal Artery Pulse Oximetry (%) 97 Oxygen Delivery Method room air Intake Visit Reasons: OTV Is patient in pain?: No Allergies lisinopril Allergy (Mild, Verified 06/27/24 16:00) cough Medications ???Medication ???Instructions ???Recorded ???Confirmed ???Type albuterol sulfate 2.5 mg/3 mL 2.5 mg inhalation Q6H PRN 04/21/24 06/27/24 History (0.083 %) solution for nebulization albuterol sulfate 90 mcg/actuation 2 puff inhalation Q4-6H PRN 06/1406/27/24 History aerosol inhaler aspirin 81 mg tablet,delayed 81 mg PO QDAY 04/21/24 06/27/24 Hi story release (Adult Low Dose Aspirin) atorvastatin 10 mg tablet 10 mg PO QHS 04/21/24 06/27/24 His tory carvedilol 12.5 mg tablet 12.5 mg PO BID 04/21/24 06/27/24 H istory empagliflozin 10 mg tablet 10 mg PO QAM 04/21/24 06/27/24 His tory (Jardiance) eplerenone 25 mg tablet (Inspra) 25 mg PO QDAY 04/21/24 06/27/24 Hi story nitroglycerin 0.4 mg sublingual 0.4 mg sublingual Q5M PRN 04/21/24 06/27/24 History tablet sacubitril 24 mg-valsartan 26 mg 1 tab PO BID 04/21/24 06/27/24 His tory tablet (Entresto) sildenafil 100 mg tablet 100 mg PO QDAY PRN 04/21/24 History calcium acetate 667 mg tablet 667 mg PO ONCE 04/28/24 06/27/24 H istory PFSH PFSH Medical History Bronchitis COPD (chronic obstructive pulmonary disease) Pneumonia High cholesterol ICD (implantable cardioverter-defibrillat or) battery depletion Heart attack Nocturia Home Medications ???Medication ???Instructions ???Recorded ???Last Taken ???Type albuterol sulfate 2.5 mg/3 mL 2.5 mg inhalation Q6H PRN 04/21/24 Unknown History (0.083 %) solution for nebulization albuterol sulfate 90 mcg/actuation 2 puff inhalation Q4-6H PRN 06/14 Unknown History aerosol inhaler aspirin 81 mg tablet,delayed 81 mg PO QDAY 04/21/24 Unknown His tory release (Adult Low Dose Aspirin) atorvastatin 10 mg tablet 10 mg PO QHS 04/21/24 Unknown Hist ory carvedilol 12.5 mg tablet 12.5 mg PO BID 04/21/24 Unknown Hi story empagliflozin 10 mg tablet 10 mg PO QAM 04/21/24 Unknown Hist ory (Jardiance) eplerenone 25 mg tablet (Inspra) 25 mg PO QDAY 04/21/24 Unknown His tory nitroglycerin 0.4 mg sublingual 0.4 mg sublingual Q5M PRN 04/21/24 Unknown History tablet sacubitril 24 mg-valsartan 26 mg 1 tab PO BID 04/21/24 Unknown Hist ory tablet (Entresto) sildenafil 100 mg tablet 100 mg PO QDAY PRN 04/21/24 Unknow n History calcium acetate 667 mg tablet 667 mg PO ONCE 04/28/24 Unknown Hi story Allergy/AdvReac Type Severity Reaction Status Date / Time lisinopril Allergy Mild cough Verified 06/27/24 16:00 Family History Father Leukemia Brother Diabetes TYPE 1 Surgical History History of prostate biopsy History of cardiac cath History of removal of cyst Social History household members: spouse current occupational status: disabled Smoking Status: Former smoker quit date: 06/10/13 Tobacco: How many years used: 12 substance use type: does not use Diagnosis: Aarti Garcia is a 59 year old male diagnosed with 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 Plan: Plan was made to complete definitive radiation with prostate SBRT consisting of 3625 cGy delivered in 5 fractions Treatment Data: Treatment Site: Prostate Current total dose/Total dose planned: 2175 cGy / 3625 cGy Fraction number: 3 / 5 Chemotherapy: none Subjective: Pain: 0 / 10 Fatigue: none Skin: no erythema, rash, desquamation GI: no diarrhea/constipation. No rectal pain or bleeding. No bloating or increased gas : no increase urinary symptoms. No dysuria or hematuria Objective: Weight: 152 lbs 1 oz Physical Exam: Gen: NAD Skin: no erythema, rash, desquamation. Labs: None Assessment Plan Assessment/Plan (1) Cancer of prostate with interm (more content not included)... Normal [facility] Radiation Oncology Visit [facility] [place] [address] OFFICE VISIT Date of Service: 06/27/24 1557 MR#: [id number] Acct: [id number] Name: AARTI GARCIA Rep #: [id number] : 1965 From: Joby Espino DO Age/Sex: 59/M Location: [facility] [place] Status: Signed Intake Vital Signs 04/28/24 09:49 Height 5 ft 11 in Intake Visit Reasons: OTV Allergies lisinopril Allergy (Mild, Verified 04/28/24 09:41) cough PFSH PFSH Medical History (Updated 04/28/24 @ 10:[address] Joby Espino, ) Bronchitis COPD (chronic obstructive pulmonary disease) Pneumonia High cholesterol ICD (implantable cardioverter-defibrillat or) battery depletion Heart attack Nocturia Allergy/AdvReac Type Severity Reaction Status Date / Time lisinopril Allergy Mild cough Verified 04/28/24 09:41 Family History (Updated 04/28/24 @ 09:47 by Samantha Peterson) Father Leukemia Brother Diabetes TYPE 1 Surgical History (Updated 04/28/24 @ 09:45 by Samantha Peterson) History of prostate biopsy History of cardiac cath History of removal of cyst Social History (Updated 04/28/24 @ 09:49 by Samantha Peterson) household members: spouse current occupational status: disabled Smoking Status: Former smoker quit date: 06/10/13 Tobacco: How many years used: 12 substance use type: does not use Stereotactic Body Radiation Therapy Procedure - Prostate: DATE OF PROCEDURE: 06/27/2024 RADIATION ONCOLOGIST: Joby Espino D.O., M.S. ASSISTANTS: Radiation Physicist PRE-PROCEDURE DIAGNOSIS(ES): Intermediate risk prostate cancer POST-PROCEDURE DIAGNOSIS(ES): Intermediate risk prostate cancer INDICATIONS FOR PROCEDURE: The patient has clinically localized prostate cancer and has chosen to proceed with definitive Stereotactic Body Radiation Therapy (SBRT). PROCEDURE PERFORMED: Stereotactic body radiation therapy to the prostate CONSENT: Informed consent was obtained prior to the procedure. Procedure risks, benefits, alternatives and expected outcomes were discussed with the patient. All options have been reviewed and consent had been obtained prior to the procedure. Consent(s) were scanned into the electronic medical record. UNIVERSAL PROTOCOL / TIMEOUT: Pre-procedure verification is complete: patient verified and consents confirmed, procedure site was identified, timeout was called before the start of the procedure. ANESTHESIA: None RADIATION DOSE GIVEN: 725 cGy FRACTION: 3 of 5 CUMULATIVE DOSE: 2175 cGy PLANNED TOTAL DOSE: 3625 cGy DETAILS OF PROCEDURE: Aarti Garcia is a 59 year-old male who presented to our clinic today for the third fraction of stereotactic body radiation therapy for clinically localized prostate cancer. The patient reports no interval symptoms or problems since the last evaluation in our department. The patient was aligned in the vac bag on the treatment table. The therapists completed patient positioning. The treatment team then exited the treatment room. After verification of treatment parameters, a cone beam CT scan was obtained and aligned to fiducials. After accurate localization, the treatment proceeded. Treatment was delivered with multiarc VMAT radiation therapy utilizing 6 MV FFF beams. A dose of 725 cGy was delivered. The patient tolerated the procedure well. There were no acute complications, no blood loss, and no specimens were removed. CONDITION: The patient tolerated the procedure well and was in stable condition. ATTESTATION: I was present for all critical portions of the procedure including time out, CBCT and treatment delivery. PLAN: The patient will continue with stereotactic body radiation therapy that will be given 2-3 times per week. A total of 3625 cGy in 5 fractions is planned. Joby Espino DO, Found[employer] Melt Supervisor, Department of Radiation Oncology [facility] Coding Level of Care Code Attention Clinical Lab Technologist Comment SBRT treatment 06/27/24 1557 Date Joby Riderigngordo Signature: Date (if applicable) CC: Normal [facility] Radiation Oncology Visiton 0 06-23-2024 Radiation Oncology Visit [facility] [place] [address] OFFICE VISIT Date of Service: 06/23/24 1508 MR#: [id number] Acct: [id number] Name: AARTI GARCIA Rep #: [id number] : 1965 From: Joby Espino DO Age/Sex: 59/M Location: [facility] [place] Status: Signed Intake Vital Signs 06/21/24 09:47 Height 5 ft 11 in Intake Visit Reasons: Amb Documentation Allergies lisinopril Allergy (Mild, Verified 04/28/24 09:41) cough PFSH PFSH Medical History (Updated 04/28/24 @ 10:[address] Joby Espino DO) Bronchitis COPD (chronic obstructive pulmonary disease) Pneumonia High cholesterol ICD (implantable cardioverter-defibrillat or) battery depletion Heart attack Nocturia Allergy/AdvReac Type Severity Reaction Status Date / Time lisinopril Allergy Mild cough Verified 04/28/24 09:41 Family History (Updated 04/28/24 @ 09:47 by Samantha Peterson) Father Leukemia Brother Diabetes TYPE 1 Surgical History (Updated 04/28/24 @ 09:45 by Samantha Peterson) History of prostate biopsy History of cardiac cath History of removal of cyst Social History (Updated 04/28/24 @ 09:49 by Samantha Peterson) household members: spouse current occupational status: disabled Smoking Status: Former smoker quit date: 06/10/13 Tobacco: How many years used: 12 substance use type: does not use Stereotactic Body Radiation Therapy Procedure - Prostate: DATE OF PROCEDURE: 06/23/2024 RADIATION ONCOLOGIST: Joby Espino D.O., M.S. ASSISTANTS: Radiation Physicist PRE-PROCEDURE DIAGNOSIS(ES): Intermediate risk prostate cancer POST-PROCEDURE DIAGNOSIS(ES): Intermediate risk prostate cancer INDICATIONS FOR PROCEDURE: The patient has clinically localized prostate cancer and has chosen to proceed with definitive Stereotactic Body Radiation Therapy (SBRT). PROCEDURE PERFORMED: Stereotactic body radiation therapy to the prostate CONSENT: Informed consent was obtained prior to the procedure. Procedure risks, benefits, alternatives and expected outcomes were discussed with the patient. All options have been reviewed and consent had been obtained prior to the procedure. Consent(s) were scanned into the electronic medical record. UNIVERSAL PROTOCOL / TIMEOUT: Pre-procedure verification is complete: patient verified and consents confirmed, procedure site was identified, timeout was called before the start of the procedure. ANESTHESIA: None RADIATION DOSE GIVEN: 725 cGy FRACTION: 2 of 5 CUMULATIVE DOSE: 1450 cGy PLANNED TOTAL DOSE: 3625 cGy DETAILS OF PROCEDURE: Aarti Garcia is a 59 year-old male who presented to our clinic today for the second fraction of stereotactic body radiation therapy for clinically localized prostate cancer. The patient reports no interval symptoms or problems since the last evaluation in our department. The patient was aligned in the vac bag on the treatment table. The therapists completed patient positioning. The treatment team then exited the treatment room. After verification of treatment parameters, a cone beam CT scan was obtained and aligned to fiducials. After accurate localization, the treatment proceeded. Treatment was delivered with multiarc VMAT radiation therapy utilizing 6 MV FFF beams. A dose of 725 cGy was delivered. The patient tolerated the procedure well. There were no acute complications, no blood loss, and no specimens were removed. CONDITION: The patient tolerated the procedure well and was in stable condition. ATTESTATION: I was present for all critical portions of the procedure including time out, CBCT and treatment delivery. PLAN: The patient will continue with stereotactic body radiation therapy that will be given 2-3 times per week. A total of 3625 cGy in 5 fractions is planned. Joby Espino DO, MS [employer] Melt Supervisor, Department of Radiation Oncology [facility] Coding Level of Care Code Radiation Tx Management x5 06/23/24 1503 Date Joby Riderigngordo Signature: Date (if applicable) CC: Normal [facility] Radiation Oncology Visiton 0 06-21-2024 Radiation Oncology Visit [facility] [place] [address] OFFICE VISIT Date of Service: 06/21/24945 MR#: [id number] Acct: [id number] Name: ARATI GARCIA Rep #: [id number] : 1965 From: Joby Espino DO Age/Sex: 59/M Location: [facility] [place] Status: Signed Intake Vital Signs 04/28/24 09:49 Height 5 ft 11 in Intake Visit Reasons: Amb Documentation Allergies lisinopril Allergy (Mild, Verified 04/28/24 09:41) cough PFSH PFSH Medical History (Updated 04/28/24 @ 10:[address] Joby Espino, ) Bronchitis COPD (chronic obstructive pulmonary disease) Pneumonia High cholesterol ICD (implantable cardioverter-defibrillat or) battery depletion Heart attack Nocturia Allergy/AdvReac Type Severity Reaction Status Date / Time lisinopril Allergy Mild cough Verified 04/28/24 09:41 Family History (Updated 04/28/24 @ 09:47 by Samantha Peterson) Father Leukemia Brother Diabetes TYPE 1 Surgical History (Updated 04/28/24 @ 09:45 by Samantha Peterson) History of prostate biopsy History of cardiac cath History of removal of cyst Social History (Updated 04/28/24 @ 09:49 by Samantha Peterson) household members: spouse current occupational status: disabled Smoking Status: Former smoker quit date: 06/10/13 Tobacco: How many years used: 12 substance use type: does not use Stereotactic Body Radiation Therapy Procedure - Prostate: DATE OF PROCEDURE: 06/21/2024 RADIATION ONCOLOGIST: Joby Espino D.O., M.S. ASSISTANTS: Radiation Physicist PRE-PROCEDURE DIAGNOSIS(ES): Intermediate risk prostate cancer POST-PROCEDURE DIAGNOSIS(ES): Intermediate risk prostate cancer INDICATIONS FOR PROCEDURE: The patient has clinically localized prostate cancer and has chosen to proceed with definitive Stereotactic Body Radiation Therapy (SBRT). PROCEDURE PERFORMED: Stereotactic body radiation therapy to the prostate CONSENT: Informed consent was obtained prior to the procedure. Procedure risks, benefits, alternatives and expected outcomes were discussed with the patient. All options have been reviewed and consent had been obtained prior to the procedure. Consent(s) were scanned into the electronic medical record. UNIVERSAL PROTOCOL / TIMEOUT: Pre-procedure verification is complete: patient verified and consents confirmed, procedure site was identified, timeout was called before the start of the procedure. ANESTHESIA: None RADIATION DOSE GIVEN: 725 cGy FRACTION: 1 of 5 CUMULATIVE DOSE: 725 cGy PLANNED TOTAL DOSE: 3625 cGy DETAILS OF PROCEDURE: Aarti Garcia is a 59 year-old male who presented to our clinic today for the first fraction of stereotactic body radiation therapy for clinically localized prostate cancer. The patient reports no interval symptoms or problems since the last evaluation in our department. The patient was aligned in the vac bag on the treatment table. The therapists completed patient positioning. The treatment team then exited the treatment room. After verification of treatment parameters, a cone beam CT scan was obtained and aligned to fiducials. After accurate localization, the treatment proceeded. Treatment was delivered with multiarc VMAT radiation therapy utilizing 6 MV FFF beams. A dose of 725 cGy was delivered. The patient tolerated the procedure well. There were no acute complications, no blood loss, and no specimens were removed. CONDITION: The patient tolerated the procedure well and was in stable condition. ATTESTATION: I was present for all critical portions of the procedure including time out, CBCT and treatment delivery. PLAN: The patient will continue with stereotactic body radiation therapy that will be given 2-3 times per week. A total of 3625 cGy in 5 fractions is planned. Joby Espino DO, Found[employer] Melt Supervisor, Department of Radiation Oncology [facility] Coding Level of Care Code Attention Clinical Lab Technologist Comment SBRT treatment 06/21/24 0947 Date Joby Sweet Signature: Date (if applicable) CC: Normal [facility] Pelvis W/WO Contraston 06-13 Pelvis W/WO Contrast [facility] Imaging Services [address] [place] [address] Pelvis W/WO Contrast MR#: [id number] Acct: [id number] Name: AARTI GARCIA Rep #: [id number] : 1965 M 58 From: Álvaro Espinosa MD PCP: Dr. Nely Ricardo MD Status: DEP CLI Study: Pelvis W/WO Contrast Date of Exam: 06/13/24 Exam# [id number] Ordering Dr: Joby Espino DO ADDENDUM by Dr. Álvaro Espinosa MD on 06/28/24 at 1346 IV contrast dose: 14 mL Clariscan. END OF ADDENDUM Reading Location: [facility] 06/28/24 1347 Date cc: Dr. Nely Ricardo MD; Dr. Joby Espino DO * Signed PROCEDURE: PELVIS W/WO CONTRAST REASON FOR EXAM: eval extent of disease, XRT planning TECHNIQUE: Multiplanar, multisequence MRI of the prostate was performed before and following intravenous gadolinium-based contrast. Axial, coronal, and sagittal high-resolution T2-weighted images, axial T1-weighted images, and diffusion- weighted images with high B value were performed. COMPARISON: None. FINDINGS: Variable overall mild/moderate motion limitation, moderately involving the axial T2 sequence which is notably a baldwin sequence. The effect is notably magnified by the small size of the gland. Diffusion imaging is additionally mildly degraded by artifact related to bowel gas. Note also that the exam is limited by the absence of dynamic post-contrast imaging. Small amount of T1 bright presumed post biopsy blood products in the left lateral prostate, limiting evaluation of that area. Prostate dimensions 4.3 x 2.9 x 3.8 cm for estimated volume 25 mL. Interval placement of spacing material between the left anterolateral rectum and the left posterolateral prostate extending from the level of the base to apex with good separation in those areas. There is persistent direct contact of the right posterolateral prostate and right anterior rectum. Question a tiny area of anterior rectal wall infiltration inferiorly, Grade 1 (series 8, image 2). Peripheral Zone: Background changes of likely prostatitis. Additional areas of apparent restricted diffusion are without correlate on T2 and favored technical/artifactual, potentially related to bowel gas. Additional lesions as below: *Lesion 1: Ill-defined T2 hypointensity in the left greater than right posterolateral peripheral zones centered at the level of the mid gland but extending from base to apex is difficult to measure, spanning roughly 2.0 cm in the axial plane (series 8 image 16-18). A portion of this lesion small probably correlates with the small focus of PSMA uptake on recent PET/CT. *T2 score: 3. *DWI score: 3. *DCE: Not applicable. *Overall PI-RADS: PI-RADS 3. *Extracapsular extension: No definite extracapsular extension allowing for limitations, however there is capsular abutment greater than 1 cm which can be associated with microscopic extracapsular extension. Note that this includes immediate abutment of the left neurovascular bundle without definite involvement. Transition zone: Limited evaluation due to motion. Likely PI-RADS 2 findings. No definite correlate for the region of interest annotated on the outside xam performed 01/28/2024. Additional lesions as below: *Lesion 2: Ill-defined lesion in the right anterior greater than posterior peripheral zone far base spanning 1.4 cm (series 8 image 14). This is more conspicuous than on the prior exam. *T2 score: 4. *DWI score: 3. *DCE: Not applicable. *Overall PI-RADS: PI-RADS 4. *Extracapsular extension: No definite extracapsular extension allowing for limitations, however there is again capsular abutment greater than 1 cm, which can be associated with microscopic extracapsular extension. Notes that this includes immediate abutment of the base of the right seminal vesicle and the bladder, without definite involvement. Seminal vesicles: As above, otherwise grossly unremarkable.. Neurovascular bundles: As above, otherwise grossly unremarkable. Lymph nodes: Grossly unremarkable. Bladder: Grossly unremarkable. Bone marrow: Unremarkable. Other: Atherosclerosis. MRI/Pelvis W/WO Contrast IMPRESSION: 1. Limited exam as above due to a combination of motion and artifact related to bowel gas, compounded by the small size of the gland and a small amount of presumed post biopsy blood products. Note also that an alternative PI- RADS algorithm was utilized due to the absence of dynamic postcontrast imaging. 2. Interval placement of spacing material between the left anterolateral rectum and the left posterolateral prostate extending from the level of the base to apex with good separation in those areas. There is persistent direct contact of the right posterolateral prostate and right anterior rectum. Questi (more content not included)... Normal [facility] PET/CT Tumor Base -Thigh Ini ton 05-24-2024 PET/CT Tumor Base -Thigh Init [facility] Imaging Services [address] [place], [place] [address] PET/CT Tumor Base -Thigh Init MR#: [id number] Acct: [id number] Name: AARTI GARCIA Rep #: [id number] : 1965 M 58 From: Joon Fitzgerald PCP: Dr. Nely Ricardo MD Status: REG RCR Study: PET/CT Tumor Base -Thigh Init Date of Exam: Exam# [id number] Ordering Dr: Joby Espino DO ADDENDUM by Dr. Joon Traore MD on 06/09/24 at 1313 Correction: The study was performed from the level of the skull base to the mid thigh. Reading Location: [address] 06/09/24 1313 Date cc: Dr. Nely Ricardo MD; Dr. Joby Espino DO * Signed EXAM: Whole-body F-18 PYL PET-CT CLINICAL HISTORY: High-risk prostate cancer staging. COMPARISON: None. TECHNIQUE: Whole-body F-18 PYLARIFY PET-CT. Dose: 9.943 mCi F-18 PYLARIFY intravenous. FINDINGS: At the prostate bed, the left posterior (peripheral) prostate shows a focus of hypermetabolic activity, with SUV max of 12.8. Elsewhere in the pelvis, no area of abnormal uptake is seen. The abdomen shows no focus of abnormal uptake. The thorax and neck show no foci of abnormal uptake. Additional: Prominent arterial calcification is seen; no evidence of abdominal aortic aneurysm. At least moderate coronary artery calcification is seen. Degenerative changes of the spine are most prominent at the cervical spine. PET/PET/CT Tumor Base -Thigh Init IMPRESSION: 1. Prominent focus of hypermetabolic activity of the left posterior (peripheral) prostate gland most consistent with malignancy. 2. No additional focus of abnormal uptake is seen. Reading Location: [address] CC: Dr. Nely Ricardo MD; Dr. Joby Espino DO Padded Box Sewer: Signed [facility] CNPN Telephone (RADWrappS) -------- AARTI GARCIA ([id number]) 1965 M Date Time Provider Department 04/28/24 GABBY DAVIS During your visit today, we recorded the following information about you: Mello Malik 04/28/2024 9:17 AM Signed Received a fax from Dr Wyman office for Radiation Oncology. Called and left his office a message that we are not in network with [facility] and he would need to go somewhere else Allergies As of Date: 04/28/2024 (Not on File) Date Reviewed: Never Reviewed Reason for Visit: Appointment [[id number]] Problem List As Of Date: 04/28/2024 (None) Encounter Status:Closed by MELLO MALIK on 04/28/24 Normal [facility] [place] PSA,Total- Diagnosticon 01-0 PSA, DIAGNOSTIC 22.00 ng/mL High 0.0-4.0 [facility] Comment on above: Result Comment: This test was performed using the TPSA assay method for the [employer] chemistry system. Values obtained with different assay methods cannot be used interchangably. When changing PSA assays in the course of monitoring a patient, additional sequential testing should be carried out to confirm baseline values. Performed By: #### L [phone] #### [facility] [address] [place], [address] Radiation Oncology Visiton 0 04-28-2024 Radiation Oncology Visit [facility] [address] [place] [address] OFFICE VISIT Date of Service: 04/28/24 0937 MR#: [id number] Acct: [id number] Name: AARTI GARCIA Rep #: [id number] : 1965 From: Joby Espino DO Age/Sex: 58/M Location: [facility] [place] Status: Signed Intake Vital Signs 04/28/24 09:49 Height 5 ft 11 in Weight: 150 lb 4 oz BMI 20.9 BP 102/59 L Blood Pressure Location Rt brachial Position Sitting Respiration 18 Pulse 68 Pulse Source Monitor Temp 97.5 F L Temperature Source Temporal Artery Pulse Oximetry (%) 98 Oxygen Delivery Method room air Intake Visit Reasons: PROSTATE CA Accompanied by: Is patient in pain?: No Allergies lisinopril Allergy (Mild, Verified 04/28/24 09:41) cough Medications ???Medication ???Instructions ???Recorded ???Confirmed ???Type albuterol sulfate 2.5 mg/3 mL 2.5 mg inhalation Q6H PRN 04/21/24 04/28/24 History (0.083 %) solution for nebulization albuterol sulfate 90 mcg/actuation 2 puff inhalation Q4-6H PRN 04/21/24 04/28/24 History aerosol inhaler aspirin 81 mg tablet,delayed 81 mg PO QDAY 04/21/24 04/28/24 History release (Adult Low Dose Aspirin) atorvastatin 10 mg tablet 10 mg PO QHS 04/21/24 04/28/24 History carvedilol 12.5 mg tablet 12.5 mg PO BID 04/21/24 04/28/24 History empagliflozin 10 mg tablet 10 mg PO QAM 04/21/24 04/28/24 History (Jardiance) eplerenone 25 mg tablet (Inspra) 25 mg PO QDAY 04/21/24 04/28/24 History nitroglycerin 0.4 mg sublingual 0.4 mg sublingual Q5M PRN 04/21/24 04/28/24 History tablet sacubitril 24 mg-valsartan 26 mg 1 tab PO BID 04/21/24 04/28/24 History tablet (Entresto) sildenafil 100 mg tablet 100 mg PO QDAY PRN 04/21/24 04/28/24 History calcium acetate 667 mg tablet 667 mg PO ONCE 04/28/24 04/28/24 History PFSH PFSH Medical History (Updated 04/28/24 @ 10:[address] Joby Espino, DO) Bronchitis COPD (chronic obstructive pulmonary disease) Pneumonia High cholesterol ICD (implantable cardioverter-defibrillat or) battery depletion Heart attack Nocturia Home Medications ???Medication ???Instructions ???Recorded ???Last Taken ???Type albuterol sulfate 2.5 mg/3 mL 2.5 mg inhalation Q6H PRN 04/21/24 Unknown History (0.083 %) solution for nebulization albuterol sulfate 90 mcg/actuation 2 puff inhalation Q4-6H PRN 04/21/24 Unknown History aerosol inhaler aspirin 81 mg tablet,delayed 81 mg PO QDAY 04/21/24 Unknown History release (Adult Low Dose Aspirin) atorvastatin 10 mg tablet 10 mg PO QHS 04/21/24 Unknown History carvedilol 12.5 mg tablet 12.5 mg PO BID 04/21/24 Unknown History empagliflozin 10 mg tablet 10 mg PO QAM 04/21/24 Unknown History (Jardiance) eplerenone 25 mg tablet (Inspra) 25 mg PO QDAY 04/21/24 Unknown History nitroglycerin 0.4 mg sublingual 0.4 mg sublingual Q5M PRN 04/21/24 Unknown History tablet sacubitril 24 mg-valsartan 26 mg 1 tab PO BID 04/21/24 Unknown History tablet (Entresto) sildenafil 100 mg tablet 100 mg PO QDAY PRN 04/21/24 Unknown History calcium acetate 667 mg tablet 667 mg PO ONCE 04/28/24 Unknown History Allergy/AdvReac Type Severity Reaction Status Date / Time lisinopril Allergy Mild cough Verified 04/28/24 09:41 Family History (Updated 04/28/24 @ 09:47 by Samantha Peterson) Father Leukemia Brother Diabetes TYPE 1 Surgical History (Updated 04/28/24 @ 09:45 by Samantha Peterson) History of prostate biopsy History of cardiac cath History of removal of cyst Social History (Updated 04/28/24 @ 09:49 by Samantha Peterson) household members: spouse current occupational status: disabled Smoking Status: Former smoker quit date: 06/10/13 Tobacco: How many years used: 12 substance use type: does not use Referring Provider: Aarti Gonzalez MD Diagnosis: Aarti Garcia is a 58 year old male diagnosed with 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 History of Present Illness: 01/28/2024: Patient completed MRI prostate.??? This demonstrated a limited exam due to prominent gas content in the rectum and motion artifact.??? There is a heterogeneous appearance of the transition zone consistent with BPH.??? There is a 0.7 cm T2 hypointense focus within the left apical to mid gland transition zone showing equivocal findings on diffusion weighted imaging consistent with PI- RADS 3 lesion.??? No extracapsular extension.??? No seminal vesicle invasion.??? No abnormally enlarged lymph nodes.??? PI-RADS 3 03/08/2024: Patient completed prostate biopsy.??? Pathology demonstrated Cedric 3+3 adenocarcinoma involving about 5% of 1/multiple fragments in the left prostate, and involving less than 5% (more content not included)... Normal [facility] CARDIAC REMOTE DEVICE CHECKo n 04-19-2024 Remote Interrogation of ICD Notes/Summary: Stable Device function Est. Battery/Charge Time: 9.6 Years/ 4 sec Presenting EGM: AP/VS 60's bpm DYNAMOMETER TUNER: <0.1% AT/AF Tyler: <0.1% AHR: 0 VHR: 2, review of egms appear as 14 beats NSVT with median V rates 205-240 bpm, no therapies V-V: 0 Histograms: 60-110 bpm Heart Failure Alerts: OptiVol is below the threshold Next In-clinic: 01/2025 NOV: 06/10/[address] Gorman Signature: Wojciech RANKINN RN I have reviewed the device function, programmed parameters, and heart rhythm. Patient will return to the Device Clinic &/or remote follow up and provider visit per protocol. PACEART Hensley, Mark Krupesh, MD - 04/19/2024 Remote Interrogation of ICD Notes/Summary: Stable Device function Est. Battery/Charge Time: 9.6 Years/ 4 sec Presenting EGM: AP/VS 60's bpm DYNAMOMETER TUNER: <0.1% AT/AF Tyler: <0.1% AHR: 0 VHR: 2, review of egms appear as 14 beats NSVT with median V rates 205-240 bpm, no therapies V-V: 0 Histograms: 60-110 bpm Heart Failure Alerts: OptiVol is below the threshold Next In-clinic: 01/2025 NOV: 06/10/[address] Gorman Signature: Wojciech RANKINN RN I have reviewed the device function, programmed parameters, and heart rhythm. Patient will return to the Device Clinic &/or remote follow up and provider visit per protocol. [facility] CARDIAC REMOTE DEVICE CHECKO rdered By: Mark Hensley on 04-19-2024 [facility] Work Phone: Surgical pathology studyon 1 05-08-2023 Surgical pathology study Pathology report.total SEE COMMENT Surgical Pathology Case: [id number] Authorizing Provider: Aarti Gonzalez MD Collected: 03/08/2024 0843 Ordering Location: [facility] Received: 03/08/2024 1643 Center OR Pathologist: Dima Zavala MD Specimens: A) - PROSTATE NEEDLE BIOPSY RIGHT B) - PROSTATE NEEDLE BIOPSY LEFT C) - PROSTATE BIOPSY TARGETED MALAIKA, AREA OF INTEREST#1 Path report.final diagnosis SEE COMMENT A. Prostate, right, biopsy: -- BENIGN PROSTATIC TISSUE. B. Prostate, left, biopsy: -- PROSTATIC ADENOCARCINOMA, ACINAR TYPE, CEDRIC SCORE 3 + 3 = 6, GRADE GROUP 1, INVOLVING ONE OF MULTIPLE FRAGMENTS AND LESS THAN 5% OF THE TISSUE SUBMITTED. C. Prostate, area of interest #1, biopsy: -- PROSTATIC ADENOCARCINOMA, ACINAR TYPE, CEDRIC SCORE 3 + 3 = 6, GRADE GROUP 1, INVOLVING ONE OF MULTIPLE FRAGMENTS AND LESS THAN 5% OF THE TISSUE SUBMITTED. Camp Advisor (parts B and C): Dr. Maria L Phan M.D. Note: PIN4 cocktail immunohistochemical stain (P63, 34BE12, AMACR) is performed, and supports the above diagnosis. The International Society of Urologic Pathologists has developed a prostate cancer grading system (the Grade Group System) which has been accepted by the World Health Organization. Shown below is a correlation between conventional [place] grading/scoring and the new Grade Group system: ? Grade Group 1 ([place] score <=6) ? Grade Group 2 (Cedric score 3+4=7) ? Grade Group 3 (Cedric score 4+3=7) ? Grade Group 4 (Cedric score 8) ? Grade Group 5 (Cedric scores 9-10) Laboratory comment By the signature on this report, the individual or group listed as making the Final Interpretation/Diagnosis certifies that they have reviewed this case. Path report.relevant Hx SEE COMMENT Pre-op diagnosis: Elevated PSA [R97.20] Path report.gross observation SEE COMMENT A: Received in formalin, labeled with the patient's name and hospital number, are multiple cylindrical fragments of stiles soft tissue measuring 1.5 cm, 1.4 cm, 1.2 cm, 1.0 cm, and 0.9 cm in length by less than 0.1 cm in diameter. The specimen is submitted in toto in one cassette. JEK B: Received in formalin, labeled with the patient's name and hospital number, are multiple cylindrical fragments of stiles soft tissue measuring 1.5 cm, 1.0 cm, 1.0 cm, 0.7 cm, 0.7 cm, and 0.6 cm in length by less than 0.1 cm in diameter. The specimen is submitted in toto in one cassette. JEK C: Received in formalin, labeled with the patient's name and hospital number, are multiple cylindrical fragments of stiles soft tissue measuring 1.6 cm, 1.0 cm, and 0.6 cm in length by less than 0.1 cm in diameter. The specimen is submitted in toto in one cassette. [facility] ASR DISCLAIMER One or more of the reagents used to perform assays on this specimen MAY have contained components considered to be analyte specific reagents (ASR's). ASR's have not been cleared or approved by the U.S. Food and Drug Administration. These assays were developed and their performance characteristics determined by the Department of Pathology at [facility]. The FDA does not require this test to go through premarket FDA review. This test is used for clinical purposes. It should not be regarded as investigational or for research. This laboratory is certified under the Clinical Laboratory Improvement Amendments (CLIA) as qualified to perform high complexity clinical laboratory testing. The assays were performed with appropriate positive and negative controls which stained appropriately. [facility] Comment on above: Order Comment: Pre-o p diagnosis: Elevated PSA [R97.20] Cardiac Device Check - MRIOr dered By: Frederick Connelly on 01-29-2024 [facility] Work Phone: Cardiac Device Check - MRIOr dered By: Frederick Connelly on 01-28-2024 [facility] Work Phone: Cardiac Device Check - MRIon 01-28-2024 Radiology Study observation (narrative) [facility] Work Phone: Radiology Study observation (narrative) [facility] Work Phone: MR PROSTATE WITH MALAIKA BOUNDAR IES IF PIRADS 3 OR ABOVEon 01-28-2024 MR PROSTATE WITH MALAIKA BOUNDARIES IF PIRADS 3 OR ABOVE Interpreted By: Dallas Marlow and Sheng Max STUDY: MR PROSTATE WITH MALAIKA BOUNDARIES IF PIRADS 3 OR ABOVE; 01/28/2024 12:53 pm INDICATION: Signs/Symptoms:elevated psa. PSA 18.81 on 10/16/2023 ,R97.20 Elevated prostate specific antigen (PSA) COMPARISON: None. ACCESSION NUMBER(S): [id number] ORDERING CLINICIAN: AARTI GONZALEZ TECHNIQUE: Multiplanar MRI of the pelvis was obtained including axial, sagittal and coronal T2 weighted SSFSE, axial and sagittal T2 FSE, axial DWI, pre and post gadolinium dynamic T1 GRE sequences. Multiparametric analysis was performed. 15 mL of Dotarem was administered intravenously without immediate complications. 3D post-processing was performed using [employer], on an independent workstation, for the purpose of enabling fusion with ultrasound, and provided it for review. FINDINGS: Significantly limited examination, due to prominent gaseous content in the rectum and motion artifacts. PROSTATE VOLUME: The prostate measures 3.8 x 3.4 x 4.8 cm. Prostate weight is estimated at 32.4g. PSA density is 0.58 ng/mL/g. PROSTATE PARENCHYMA: There is heterogeneous appearance of the transition zone, consistent with benign prostatic hyperplasia. A 0.7 cm T2 hypointense focus with the obscured margins is noted in the left apical to midgland transition zone (series 6, image 23), showing equivocal findings on diffusion-weighted imaging, consistent with a PI-RADS 3 lesion. The peripheral zone is diffusely heterogenous on T2WI, with bilateral polygonal and wedge-shaped T2-hypointense areas, that show no signs of abnormally restricted diffusion (PI-RADS 2). EXTRACAPSULAR EXTENSION: None. SEMINAL VESICLES: Within normal limits. PELVIC LYMPH NODES: No abnormally enlarged pelvic lymph nodes are identified. PERITONEUM: No free or loculated fluid collections are evident in the pelvis. OTHER ORGANS: None. BONES: No focal lesions are noted in the bone. Exam Quality: Is T2WI weighted imaging of diagnostic quality: Yes. T2WI assessment: Adequate. Is DWI of diagnostic quality: No. DWI assessment: Inadequate. Is DCE of diagnostic quality: Yes. DCE assessment: Adequate. PI-QUAL score: At least two sequences taken together are of diagnostic quality Comments: IMPRESSION: 1. A PI-RADS 3 lesion in the left apical to midgland transition zone. No definite signs of gross extracapsular extension. 2. No evidence of enlarged pelvic lymph nodes. PI-RADS v2.1 Assessment Categories PI-RADS 1 - Very low (clinically significant cancer is highly unlikely to be present) PI-RADS 2 - Low (clinically significant cancer is unlikely to be present) PI-RADS 3 - Intermediate (the presence of clinically significant cancer is equivocal) PI-RADS 4 - High (clinically significant cancer is likely to be present) PI-RADS 5 - Very high (clinically significant cancer is highly likely to be present) I personally reviewed the images/study and I agree with the findings as stated by Dr. Gonzales Dumont. This study was interpreted at [facility], [place], [place]. MACRO: None Signed by: Dallas Espinoza 01/28/2024 2:02 PM Dictation workstation: [id number] Normal [facility] MR Prostateon 01-28-2024 1. A PI-RADS 3 lesio n in the left apical to midgland transition zone. No definite signs of gross extracapsular extension. 2. No evidence of enlarged pelvic lymph nodes. PI-RADS v2.1 Assessment Categories PI-RADS 1 - Very low (clinically significant cancer is highly unlikely to be present) PI-RADS 2 - Low (clinically significant cancer is unlikely to be present) PI-RADS 3 - Intermediate (the presence of clinically significant cancer is equivocal) PI-RADS 4 - High (clinically significant cancer is likely to be present) PI-RADS 5 - Very high (clinically significant cancer is highly likely to be present) I personally reviewed the images/study and I agree with the findings as stated by Dr. Gonzales Dumont. This study was interpreted at [place], [place]. MACRO: None Signed by: Dallas Espinoza 01/28/2024 2:02 PM Dictation workstation: [id number] Interpreted By: Dallas Coates and Sheng Max STUDY: MR PROSTATE WITH MALAIKA BOUNDARIES IF PIRADS 3 OR ABOVE; 01/28/2024 12:53 pm INDICATION: Signs/Symptoms:elevated psa. PSA 18.81 on 10/16/2023 ,R97.20 Elevated prostate specific antigen (PSA) COMPARISON: None. ACCESSION NUMBER(S): [id number] ORDERING CLINICIAN: AARTI GONZALEZ TECHNIQUE: Multiplanar MRI of the pelvis was obtained including axial, sagittal and coronal T2 weighted SSFSE, axial and sagittal T2 FSE, axial DWI, pre and post gadolinium dynamic T1 GRE sequences. Multiparametric analysis was performed. 15 mL of Dotarem was administered intravenously without immediate complications. 3D post-processing was performed using [employer], on an independent workstation, for the purpose of enabling fusion with ultrasound, and provided it for review. FINDINGS: Significantly limited examination, due to prominent gaseous content in the rectum and motion artifacts. PROSTATE VOLUME: The prostate measures 3.8 x 3.4 x 4.8 cm. Prostate weight is estimated at 32.4g. PSA density is 0.58 ng/mL/g. PROSTATE PARENCHYMA: There is heterogeneous appearance of the transition zone, consistent with benign prostatic hyperplasia. A 0.7 cm T2 hypointense focus with the obscured margins is noted in the left apical to midgland transition zone (series 6, image 23), showing equivocal findings on diffusion-weighted imaging, consistent with a PI-RADS 3 lesion. The peripheral zone is diffusely heterogenous on T2WI, with bilateral polygonal and wedge-shaped T2-hypointense areas, that show no signs of abnormally restricted diffusion (PI-RADS 2). EXTRACAPSULAR EXTENSION: None. SEMINAL VESICLES: Within normal limits. PELVIC LYMPH NODES: No abnormally enlarged pelvic lymph nodes are identified. PERITONEUM: No free or loculated fluid collections are evident in the pelvis. OTHER ORGANS: None. BONES: No focal lesions are noted in the bone. Exam Quality: Is T2WI weighted imaging of diagnostic quality: Yes. T2WI assessment: Adequate. Is DWI of diagnostic quality: No. DWI assessment: Inadequate. Is DCE of diagnostic quality: Yes. DCE assessment: Adequate. PI-QUAL score: At least two sequences taken together are of diagnostic quality Comments: [facility] Dallas Marlow MD - 01/28/2024 Interpreted By: Dallas Marlow and Sheng Max STUDY: MR PROSTATE WITH MALAIKA BOUNDARIES IF PIRADS 3 OR ABOVE; 01/28/2024 12:53 pm INDICATION: Signs/Symptoms:elevated psa. PSA 18.81 on 10/16/2023 ,R97.20 Elevated prostate specific antigen (PSA) COMPARISON: None. ACCESSION NUMBER(S): [id number] ORDERING CLINICIAN: AARTI GONZALEZ TECHNIQUE: Multiplanar MRI of the pelvis was obtained including axial, sagittal and coronal T2 weighted SSFSE, axial and sagittal T2 FSE, axial DWI, pre and post gadolinium dynamic T1 GRE sequences. Multiparametric analysis was performed. 15 mL of Dotarem was administered intravenously without immediate complications. 3D post-processing was performed using [employer], on an independent workstation, for the purpose of enabling fusion with ultrasound, and provided it for review. FINDINGS: Significantly limited examination, due to prominent gaseous content in the rectum and motion artifacts. PROSTATE VOLUME: The prostate measures 3.8 x 3.4 x 4.8 cm. Prostate weight is estimated at 32.4g. PSA density is 0.58 ng/mL/g. PROSTATE PARENCHYMA: There is heterogeneous appearance of the transition zone, consistent with benign prostatic hyperplasia. A 0.7 cm T2 hypointense focus with the obscured margins is noted in the left apical to midgland transition zone (series 6, image 23), showing equivocal findings on diffusion-weighted imaging, consistent with a PI-RADS 3 lesion. The peripheral zone is diffusely heterogenous on T2WI, with bilateral polygonal and wedge-shaped T2-hypointense areas, that show no signs of abnormally restricted diffusion (PI-RADS 2). EXTRACAPSULAR EXTENSION: None. SEMINAL VESICLES: Within normal limits. PELVIC LYMPH NODES: No abnormally enlarged pelvic lymph nodes are identified. PERITONEUM: No free or loculated fluid collections are evident in the pelvis. OTHER ORGANS: None. BONES: No focal lesions are noted in the bone. Exam Quality: Is T2WI weighted imaging of diagnostic quality: Yes. T2WI assessment: Adequate. Is DWI of diagnostic quality: No. DWI assessment: Inadequate. Is DCE of diagnostic quality: Yes. DCE assessment: Adequate. PI-QUAL score: At least two sequences taken together are of diagnostic quality Comments: IMPRESSION: 1. A PI-RADS 3 lesion in the left apical to midgland transition zone. No definite signs of gross extracapsular extension. 2. No evidence of enlarged pelvic lymph nodes. PI-RADS v2.1 Assessment Categories PI-RADS 1 - Very low (clinically significant cancer is highly unlikely to be present) PI-RADS 2 - Low (clinically significant cancer is unlikely to be present) PI-RADS 3 - Intermediate (the presence of clinically significant cancer is equivocal) PI-RADS 4 - High (clinically significant cancer is likely to be present) PI-RADS 5 - Very high (clinically significant cancer is highly likely to be present) I personally reviewed the images/study and I agree with the findings as stated by Dr. Gonzales Dumont. This study was interpreted at [place], [place]. MACRO: None Signed by: Dallas Espinoza 01/28/2024 2:02 PM Dictation workstation: [id number] [facility] Work Phone: Radiology Study observation (narrative) [facility] Work Phone: MR ProstateOrdered By: Arelis Espinoza on 01-28-2024 [facility] Work Phone: BASIC METABOLIC PANELon 09- Anion gap [Moles/Vol] 14 mmol/L Normal 10-20 [facility] Comment on above: Order Comment: [facility] has implemented the eGFR calculation approach that does not have a coefficient for race that conforms to the NKF-ASN Task Force Recommendations. Performed By: #### [id number] #### LAB [address] [address] Bernardo Stephenson M.D. [id number] Calcium [Mass/Vol] 9.3 mg/dL Normal 8.4-10.2 [facility] Comment on above: Order Comment: [facility] has implemented the eGFR calculation approach that does not have a coefficient for race that conforms to the NKF-ASN Task Force Recommendations. Performed By: #### 4 [id number] #### LAB [address] [address] Bernardo Stephenson M.D. [id number] Chloride [Moles/Vol] 102 mmol/L Normal 98-108 [facility] Comment on above: Order Comment: [facility] has implemented the eGFR calculation approach that does not have a coefficient for race that conforms to the NKF-ASN Task Force Recommendations. Performed By: #### 4 [id number] #### LAB [address] [place], [place] [address] Bernardo Stephenson M.D. [id number] Creatinine [Mass/Vol] 0.98 mg/dL Normal 0.50-1.30 [facility] Comment on above: Order Comment: [facility] has implemented the eGFR calculation approach that does not have a coefficient for race that conforms to the NKF-ASN Task Force Recommendations. Performed By: #### 4 [id number] #### LAB [address] [address] Bernardo Stephenson M.D. [id number] EGFR 90 mL/min/1.73 m2 Normal >=60 [facility] Comment on above: Order Comment: [facility] has implemented the eGFR calculation approach that does not have a coefficient for race that conforms to the NKF-ASN Task Force Recommendations. Result Comment: Sharad mated GFR was calculated using the 2020 CKD-EPI creatinine equation. Performed By: #### 4 [id number] #### LAB [address] [address] Bernardo Stephenson M.D. [id number] Glucose [Mass/Vol] 99 mg/dL Normal 65-99 [facility] Comment on above: Order Comment: [facility] has implemented the eGFR calculation approach that does not have a coefficient for race that conforms to the NKF-ASN Task Force Recommendations. Performed By: #### 4 [id number] #### LAB [address] [address] Bernardo Stephenson M.D. [id number] HCO3 (Bld) [Moles/Vol] 25 mmol/L Normal 21-32 [facility] Comment on above: Order Comment: [facility] has implemented the eGFR calculation approach that does not have a coefficient for race that conforms to the NKF-ASN Task Force Recommendations. Performed By: #### 4 [id number] #### LAB [address] [address] Bernardo Stephenson M.D. [id number] Potassium [Moles/Vol] 4.5 mmol/L Normal 3.5-5.1 [facility] Comment on above: Order Comment: [facility] has implemented the eGFR calculation approach that does not have a coefficient for race that conforms to the NKF-ASN Task Force Recommendations. Performed By: #### 4 [id number] #### LAB [address] [address] Bernardo Stephenson M.D. [id number] Sodium [Moles/Vol] 136 mmol/L Normal 135-145 [facility] Comment on above: Order Comment: [facility] has implemented the eGFR calculation approach that does not have a coefficient for race that conforms to the NKF-ASN Task Force Recommendations. Performed By: #### 4 [id number] #### LAB [address] [address] Bernardo Stephenson M.D. [id number] Urea nitrogen [Mass/Vol] 15 mg/dL Normal 8-25 [facility] Comment on above: Order Comment: [facility] has implemented the eGFR calculation approach that does not have a coefficient for race that conforms to the NKF-ASN Task Force Recommendations. Performed By: #### 4 [id number] #### LAB [address] [address] Bernardo Stephenson M.D. [id number] Urea nitrogen/Creatinin e [Mass ratio] 15.3 mg/mg Normal 10.0-20.0 [facility] Comment on above: Order Comment: [facility] has implemented the eGFR calculation approach that does not have a coefficient for race that conforms to the NKF-ASN Task Force Recommendations. Performed By: #### 4 [id number] #### LAB [address] [address] Bernardo Stephenson M.D. [id number] CBC WITH AUTO DIFFERENTIALon 01-17-2024 AUTO NRBC 0.0 % [facility] Comment on above: Performed By: #### L [id number] #### MH LAB [address] [address] Bernardo Stephenson M.D. [id number] AUTO NRBC ABS COUNT 0.00 K/mcL Normal 0.00-0.00 [facility] Comment on above: Performed By: #### L [id number] #### LAB [address] [address] Bernardo Stephenson M.D. [id number] BASOPHILS ABSOLUTE COUNT 0.03 K/mcL Normal 0.00-0.30 [facility] Comment on above: Performed By: #### L [id number] #### LAB [address] [address] Bernardo Stephenson M.D. [id number] Basophils/100 WBC (Bld) 0.5 % [facility] Comment on above: Performed By: #### L [id number] #### LAB [address] [address] Bernardo Stephenson M.D. [id number] Eosinophils (Bld) [#/Vol] 0.16 10*3/uL Normal 0.00-0.50 [facility] Comment on above: Performed By: #### L [id number] #### LAB [address] [address] Bernardo Stephenson M.D. [id number] Eosinophils/100 WBC (Bld) 2.7 % Normal [facility] Comment on above: Performed By: #### L [id number] #### LAB [address] [address] Bernardo Stephenson M.D. [id number] Erythrocyte distribution width (RBC) [Ratio] 13.2 % Normal 11.6-14.8 [facility] Comment on above: Performed By: #### L [id number] #### LAB [address] [address] Bernardo Stephenson M.D. [id number] Hematocrit (Bld) [Volume fraction] 43.9 % Normal 41.0-53.0 [facility] Comment on above: Performed By: #### L [id number] #### LAB [address] [address] Bernardo Stephenson M.D. [id number] Hemoglobin (Bld) [Mass/Vol] 14.6 g/dL Normal 13.5-17.5 [facility] Comment on above: Performed By: #### L [id number] #### LAB [address] [place] [address] Bernardo Stephenson M.D. [id number] IG ABSOLUTE 0.02 K/mcL Normal 0.00-0.30 [facility] Comment on above: Performed By: #### L [id number] #### LAB [address] [place] [address] Bernardo Stephenson M.D. [id number] IG PERCENT 0.30 % Normal [facility] Comment on above: Result Comment: The IG parameter is the percentage of metamyelocytes, myelocytes and promyelocytes. An immature granulocyte count (IG) of 1% or more suggests the possibility of infection, an IG count of 3% is very likely related to an infection. Performed By: #### L [id number] #### LAB [address] [address] Bernardo Stephenson M.D. [id number] Lymphocytes (Bld) [#/Vol] 1.23 10*3/uL Normal 0.90-4.00 [facility] Comment on above: Performed By: #### L [id number] #### LAB [address] [address] Bernardo Stephenson M.D. [id number] Lymphocytes/100 WBC (Bld) 20.7 % Normal [facility] Comment on above: Performed By: #### L [id number] #### LAB [address] [address] Bernardo Stephenson M.D. [id number] MCH (RBC) [Entitic mass] 29.6 pg Normal 26.0-34.0 [facility] Comment on above: Performed By: #### L [id number] #### LAB [address] [address] Bernardo Stephenson M.D. [id number] MCV (RBC) [Entitic vol] 89.0 fL Normal 80.0-100.0 [facility] Comment on above: Performed By: #### L [id number] #### LAB [address] [place] [address] Bernardo Stephenson M.D. [id number] MEAN CORPUSCULAR HEMOGLOBIN CONC 33.3 g/dL Normal 31.0-37.0 [facility] Comment on above: Performed By: #### L [id number] #### LAB [address] [address] Bernardo Stephenson M.D. [id number] Monocytes (Bld) [#/Vol] 0.56 10*3/uL Normal 0.30-0.90 [facility] Comment on above: Performed By: #### L [id number] #### MH LAB [address] [address] Bernardo Stephenson M.D. [id number] Monocytes/100 WBC (Bld) 9.4 % Normal [facility] Comment on above: Performed By: #### L [id number] #### LAB [address] [address] Bernardo Stephenson M.D. [id number] NEUTROPHILS ABSOLUTE COUNT 3.94 K/mcL Normal 1.70-7.00 [facility] Comment on above: Performed By: #### L [id number] #### LAB [address] [address] Bernardo Stephenson M.D. [id number] Neutrophils/100 WBC (Bld) 66.4 % Normal [facility] Comment on above: Performed By: #### L [id number] #### LAB [address] [address] Bernardo Stephenson M.D. [id number] Platelet mean volume (Bld) [Entitic vol] 9.6 fL Normal 9.4-12.4 [facility] Comment on above: Performed By: #### L [id number] #### LAB [address] [address] Bernardo Stephenson M.D. [id number] Platelets (Bld) [#/Vol] 218 10*3/uL Normal 150-400 [facility] Comment on above: Performed By: #### L [id number] #### LAB [address] [address] Bernardo Stephenson M.D. [id number] RBC (Bld) [#/Vol] 4.93 10*6/uL Normal 4.50-5.90 [facility] Comment on above: Performed By: #### L [id number] #### LAB [address] [address] Bernardo Stephenson M.D. [id number] WBC (Bld) [#/Vol] 5.94 10*3/uL Normal 4.50-11.00 [facility] Comment on above: Performed By: #### L [id number] #### MH LAB [address] [address] Bernardo Stephenson M.D. [id number] ED Prov Noteon 01-17-2024 ED Prov Note [facility] ATTENDING NOTE: NAME: Aarti Garcia CSN: [id number] 58 y.o. PCP: Nely Ricardo MD History: Chief Complaint: Pacemaker Problem HPI: The history was obtained from the patient. Aarti is a 58 y.o. male who presents with a chief complaint of Pacemaker Problem. He had his pacemaker battery exchanged a few days ago. Pacemaker has been in since 2013 when he had sudden cardiac . Since he is brought in he said he felt what he thought were electric shocks. He denies having any symptoms before these. Denies any palpitations lightheadedness chest pain or shortness of breath. The sensations have been brief intermittent and severe occur randomly. He send a handful of them since pacemaker was put in. He send to be more right near the pacemaker implantation site itself as opposed to deep in his chest. PMHx: Past Medical History: Diagnosis Date Acute anterolateral myocardial infarction (HCC) Anoxic encephalopathy (HCC) CAD (coronary artery disease) CABG Cardiac arrest (HCC) Hyperlipidemia Hypertension ICD (implantable cardioverter-defibrillat or) in place 03/18/2016 Vertigo PMSx: Past Surgical History: Procedure Laterality Date CABG CARDIAC CATHETERIZATION CARDIAC DEFIBRILLATOR PLACEMENT CORONARY ANGIOPLASTY 2013 CORONARY ARTERY BYPASS GRAFT BARAJAS to LAD, VG to OM of circ and RCA EYE SURGERY HC LEFT HEART CATH N/A 11/30/2020 Procedure: Left Heart Cath; Surgeon: Rubén Martinez MD; Location: [facility]; Service: Cardiovascular PACEMAKER INSERTION and defilibrator [place] INSJ/RPLCMT PERM DFB W/TRNSVNS LDS 1/DUAL CHMBR N/A 01/13/2024 Procedure: ICD Generator Change; Surgeon: Nas Suh DO; Location: EP LAB; Service: Cardiovascular FAM. Hx: Family History Problem Relation Age of Onset Heart attack Father SOC. Hx: Social History Socioeconomic History Marital status: Tobacco Use Smoking status: Former Current packs/day: 0.00 Types: Cigarettes Quit date: 10/08/2012 Years since quittin.3 Smokeless tobacco: Never Vaping Use Vaping status: Former Substance and Sexual Activity Alcohol use: Yes Drug use: No MEDs: Previous Medications Medication Sig albuterol (PROVENTIL) 2.5 mg /3 mL (0.083 %) nebulizer solution Take 3 mL (2.5 mg total) by nebulization every 6 (six) hours as needed for wheezing . albuterol 90 mcg/actuation inhaler Inhale 2 (two) puffs every 4 (four) hours as needed for shortness of breath . aspirin 81 MG EC tablet Take 1 (one) tablet (81 mg total) by mouth daily . atorvastatin (LIPITOR) 10 MG tablet Take 1 (one) tablet (10 mg total) by mouth at bedtime . carvediloL (COREG) 12.5 MG tablet Take 1 (one) tablet (12.5 mg total) by mouth 2 (two) times a day . eplerenone (Inspra) 25 MG tablet Take 1 (one) tablet (25 mg total) by mouth daily Taking whole tablet daily . ergocalciferol (ERGOCALCIFEROL) 1,250 mcg (50,000 unit) capsule Take 1 (one) capsule (50,000 Units total) by mouth once a week . nitroGLYCERIN (NITROSTAT) 0.[address] 1 (one) tablet (0.4 mg total) under the tongue every 5 (five) minutes as needed for chest pain . sacubitriL-valsartan (Entresto) 24-26 mg per tablet Take 1 (one) tablet by mouth 2 (two) times a day . sildenafiL (VIAGRA) 25 MG tablet Take 1 (one) tablet (25 mg total) by mouth daily as needed for erectile dysfunction . tiotropium Br/olodaterol HCl (STIOLTO RESPIMAT INHL) Inhale . ALL: Allergies Allergen Reactions Lisinopril Other (See Comments) Cough ROS: Review of Systems Positives and pertinent negatives as per HPI. All other systems were reviewed and are negative. Physical Exam: No data found. Physical Exam General alert and cooperative HEENT oral mucosa is moist. He has no JVD. Chest his lungs are bilateral air. Pacemaker site looks clean dry and intact. Steri-Strips in place. No overlying erythema or fluctuance. Heart is regular without murmur Musculoskeletal no pitting edema or tenderness extremities Neuro alert and oriented x 3. Normal speech and gait. Laboratory & Radiological Imaging (if done): Labs Reviewed BASIC METABOLIC PANEL - Normal Narrative: [facility] has implemented the eGFR calculation approach that does not have a coefficient for race that conforms to the NKF-ASN Task Force Recommendations. MAGNESIUM LEVEL - Normal CBC AND DIFFERENTIAL Narrative: The following orders were created for panel order CBC w/ Diff. Procedure Abnormality Status --------- ------ CBC Auto Differential[[id number]] Final result Please view results for these tests on the individual orders. TROPONIN CBC WITH AUTO DIFFERENTIAL XR Chest 1 View Final Result No radiographic evidence for acute cardiopulmonary disease on this single view of the chest. Workstation ID: [id number] Procedures: Procedures Showed EKG ventricular (more content not included)... Normal [facility] MAGNESIUM LEVELon 01-17-2024 Magnesium [Mass/Vol] 2.2 mg/dL Normal 1.6-2.4 [facility] Comment on above: Performed By: #### 4 [id number] #### LAB [address] [place], [place] [address] Bernardo Stephenson M.D. [id number] TROPONINon 01-17-2024 BASELINE TROPONIN T NG/L 8 ng/L Normal <=22 [facility] Comment on above: Performed By: #### 4 [id number] #### LAB [address] [address] Bernardo Stephenson M.D. [id number] TROPONIN T INTERPRETATION Normal Normal [facility] Comment on above: Performed By: #### 4 [id number] #### LAB [address] [place], [place] [address] Bernardo Stephenson M.D. [id number] XR CHEST PA/APon 01-17-2024 XR CHEST PA/AP EXAMINATION: XR CHEST PA/AP 02/02/2021 1:19 pm HISTORY: ORDERING SYSTEM PROVIDED HISTORY: Chest pain rule out pneumonia, TECHNOLOGIST PROVIDED HISTORY: Illness/Other Reason for exam: Chest pain rule out pneumonia Cancer History: no Surgery, RadiationHistory: no heart/lung surg Encounter Type: Unknown Additional signs and symptoms: unknown ORDERING SYSTEM PROVIDED DIAGNOSIS CODES: COMPARISON: Chest x-ray dated 10/12/2019 FINDINGS: The heart size is normal. Cardiac pacemaker seen in place. Patient is post median sternotomy. No dense focal consolidation, pneumothorax or pleural effusion is seen on this single view of the chest. No acute osseous abnormality is seen. IMPRESSION: No radiographic evidence for acute cardiopulmonary disease on this single view of the chest. Workstation ID: [id number] Dictated by: LYRIC LERMA on Erin Jan 17, 2024 5:24:34 PM EDT Transcribed by: LYRIC LERMA on Erin Jan 17, 2024 5:24:34 PM EDT Finalized by: LYRIC LERMA on Erin Jan 17, 2024 5:24:34 PM EDT Normal [facility] Comment on above: Order Comment: Injur y/Trauma or Illness?:Illness/Other How long have you had these symptoms (acute/chronic)?:Acute Reason for exam?:FEELING ABNORAL PULSES FROM ICD History of cancer?:u Surgeries, chemotherapy, or radiation?:u Type of Exam?:Initial Additional signs and symptoms?:ABN FEELING IN CHEST H AND Yousuf 01-13-2024 H AND P Heart & Vascular Pre-procedural H&P Note [facility] Visit Date: 01/13/2024 Patient Name: Aarti Garcia : 1965 Reason for Visit: ICD generator change ASSESSMENT/PLAN: Ischemic cardiomyopathy HFrEF CABG Dual Chamber ICD Patient with dual chamber ICD (10/14/2013) that is at [facility]. Patient has continued requirement for dual chamber ICD given HFrEF and LVEF of 31% despite GDMT. Did have out of hospital arrest in the setting of [place]/CAD and had CABG 06/09/2013. -Dual chamber ICD generator change HPI: Aarti Garcia is a 58 y.o. male who presents today for dual chamber ICD generator change. Originally implanted 10/14/2013 due to HFrEF with <35% LVEF despite GDMT. His LVEF remains 31%. His QRS is 108 msec on most recent ECG. Plan for generator change today. Histories Past Medical History: Diagnosis Date Acute anterolateral myocardial infarction (HCC) Anoxic encephalopathy (HCC) CAD (coronary artery disease) CABG Cardiac arrest (HCC) Hyperlipidemia Hypertension ICD (implantable cardioverter-defibrillat or) in place 03/18/2016 Vertigo Past Surgical History: Procedure Laterality Date CABG CARDIAC CATHETERIZATION CARDIAC DEFIBRILLATOR PLACEMENT CORONARY ANGIOPLASTY 2013 CORONARY ARTERY BYPASS GRAFT BARAJAS to LAD, VG to OM of circ and RCA EYE SURGERY HC LEFT HEART CATH N/A 11/30/2020 Procedure: Left Heart Cath; Surgeon: Rubén Martinez MD; Location: [facility]; Service: Cardiovascular PACEMAKER INSERTION and defilibrator Family History Problem Relation Age of Onset Heart attack Father Social History Socioeconomic History Marital status: Tobacco Use Smoking status: Former Current packs/day: 0.00 Types: Cigarettes Quit date: 10/08/2012 Years since quittin.2 Smokeless tobacco: Never Vaping Use Vaping status: Former Substance and Sexual Activity Alcohol use: Yes Drug use: No Lisinopril Current Discharge Medication List CONTINUE these medications which have NOT CHANGED Details apixaban (Eliquis) 5 mg Tab Take 1 (one) tablet (5 mg total) by mouth 2 (two) times a day Blood thinner . Qty: 180 tablet, Refills: 3 aspirin 81 MG EC tablet Take 1 (one) tablet (81 mg total) by mouth daily . atorvastatin (LIPITOR) 10 MG tablet Take 1 (one) tablet (10 mg total) by mouth at bedtime . Qty: 90 tablet, Refills: 1 carvediloL (COREG) 12.5 MG tablet Take 1 (one) tablet (12.5 mg total) by mouth 2 (two) times a day . Qty: 180 tablet, Refills: 3 empagliflozin (Jardiance) 10 mg Tab Take 1 (one) tablet (10 mg total) by mouth daily . Qty: 90 tablet, Refills: 3 eplerenone (Inspra) 25 MG tablet Take 1 (one) tablet (25 mg total) by mouth daily Taking whole tablet daily . Qty: 90 tablet, Refills: 3 ergocalciferol (ERGOCALCIFEROL) 1,250 mcg (50,000 unit) capsule Take 1 (one) capsule (50,000 Units total) by mouth once a week . sacubitriL-valsartan (Entresto) 24-26 mg per tablet Take 1 (one) tablet by mouth 2 (two) times a day . Qty: 180 tablet, Refills: 3 albuterol (PROVENTIL) 2.5 mg /3 mL (0.083 %) nebulizer solution Take 3 mL (2.5 mg total) by nebulization every 6 (six) hours as needed for wheezing . albuterol 90 mcg/actuation inhaler Inhale 2 (two) puffs every 4 (four) hours as needed for shortness of breath . nitroGLYCERIN (NITROSTAT) 0.[address] 1 (one) tablet (0.4 mg total) under the tongue every 5 (five) minutes as needed for chest pain . Qty: 25 tablet, Refills: 3 Associated Diagnoses: Essential hypertension sildenafiL (VIAGRA) 25 MG tablet Take 1 (one) tablet (25 mg total) by mouth daily as needed for erectile dysfunction . tiotropium Br/olodaterol HCl (STIOLTO RESPIMAT INHL) Inhale . Allergies Allergen Reactions Lisinopril Other (See Comments) Cough Review of Systems Constitutional: Negative for chills, diaphoresis and fever. Cardiovascular: Negative for chest pain, dyspnea on exertion, irregular heartbeat, leg swelling, near-syncope, orthopnea, palpitations and syncope. Respiratory: Negative for shortness of breath. Hematologic/Lymphatic: Negative for bleeding problem. Musculoskeletal: Negative for falls and muscle weakness. Neurological: Negative for dizziness, light-headedness and weakness. Psychiatric/Behavioral: Negative for altered mental status and substance abuse. All other systems reviewed and are negative. PACU Vitals 01/13/24 1132 BP: 121/70 Pulse: 73 Temp: 97.8 degrees F (36.6 degrees C) SpO2: 96% Physical Exam Vitals reviewed. Constitutional: Appearance: He is well-developed. HENT: Head: Normocephalic. Eyes: General: Lids are normal. Conjunctiva/sclera: Conjunctivae normal. Neck: Vascular: No JVD. Cardiovascular: (more content not included)... Normal [facility] ICD GENERATOR CHANGEon 01-12 ICD GENERATOR CHANGE This is a summary report. The complete report is available in the patient's medical record. If you cannot access the medical record, please contact the sending organization for a detailed fax or copy. Procedure: Dual chamber ICD Generator Replacement Indication: Dual chamber ICD Generator at [facility] Recommendation: Follow-up Device clinic Sedation: Moderate ASA Classification: ASA 3: A patient with severe systemic disease. Mallampati Score: Class I: The entire tonsillar pillars, uvula, hard and soft palates are visualized . Sedation plan completed and reviewed with team prior to sedation. ASA status unchanged immediately prior to sedation administration. Heart, lungs and airway assessed prior to sedation. ASA Classification: III Procedure Details: Patient was administered pre-procedural cefazolin IV. The area was draped in the usual sterile fashion. Local anesthesia was utilized. An incision was made over the old pulse generator and carried down to expose the device. Minimal local bleeding was controlled with electrocautery. The old ICD pulse generator was disconnected from the chronic lead(s) and sensing and capture threshold was verified to be adequate. The new pulse generator was brought to the field, the lead(s) were connected to the appropriate lead receptacles, and the set screws firmly tightened to ensure adequate contact and stability. The pocket was copiously irrigated with antibiotic solution. The lead(s) and pulse generator were placed in the previously formed pocket. Sharp and sponge counts were noted to be correct. At this time the wound was closed in three layers with 2-0 AND 4-0 Vicryl. The patient tolerated the procedure well. The patient left the laboratory in stable condition and returned to their room for further observation and monitoring. Estimated Blood Loss: <10ml Complications: No immediate complications. Normal [facility] BASIC METABOLIC PANELon 12-19 Anion gap [Moles/Vol] 12 mmol/L Normal - [facility] Comment on above: Order Comment: [facility] has implemented the eGFR calculation approach that does not have a coefficient for race that conforms to the NKF-ASN Task Force Recommendations. Performed By: #### 4 6124 #### LAB [address] [address] Bernardo Stephenson M.D. [id number] Calcium [Mass/Vol] 9.0 mg/dL Normal 8.4-10.2 [facility] Comment on above: Order Comment: [facility] has implemented the eGFR calculation approach that does not have a coefficient for race that conforms to the NKF-ASN Task Force Recommendations. Performed By: #### 4 6124 #### LAB [address] [address] Bernardo Stephenson M.D. [id number] Chloride [Moles/Vol] 102 mmol/L Normal 98-108 [facility] Comment on above: Order Comment: [facility] has implemented the eGFR calculation approach that does not have a coefficient for race that conforms to the NKF-ASN Task Force Recommendations. Performed By: #### 4 6124 #### LAB [address] [address] Bernardo Stephenson M.D. [id number] Creatinine [Mass/Vol] 1.11 mg/dL Normal 0.50-1.30 [facility] Comment on above: Order Comment: [facility] has implemented the eGFR calculation approach that does not have a coefficient for race that conforms to the NKF-ASN Task Force Recommendations. Performed By: #### 4 6124 #### LAB [address] [address] Bernardo Stephenson M.D. [id number] EGFR 77 mL/min/1.73 m2 Normal >=60 [facility] Comment on above: Order Comment: [facility] has implemented the eGFR calculation approach that does not have a coefficient for race that conforms to the NKF-ASN Task Force Recommendations. Result Comment: Sharad mated GFR was calculated using the 2020 CKD-EPI creatinine equation. Performed By: #### 4 6124 #### LAB [address] [address] Bernardo Stephenson M.D. [id number] Glucose [Mass/Vol] 103 mg/dL High 65-99 [facility] Comment on above: Order Comment: [facility] has implemented the eGFR calculation approach that does not have a coefficient for race that conforms to the NKF-ASN Task Force Recommendations. Performed By: #### 4 6124 #### LAB [address] [address] Bernardo Stephenson M.D. [id number] HCO3 (Bld) [Moles/Vol] 27 mmol/L Normal 21-32 [facility] Comment on above: Order Comment: [facility] has implemented the eGFR calculation approach that does not have a coefficient for race that conforms to the NKF-ASN Task Force Recommendations. Performed By: #### 4 6124 #### LAB [address] [address] Bernardo Stephenson M.D. [id number] Potassium [Moles/Vol] 4.5 mmol/L Normal 3.5-5.1 [facility] Comment on above: Order Comment: [facility] has implemented the eGFR calculation approach that does not have a coefficient for race that conforms to the NKF-ASN Task Force Recommendations. Performed By: #### 4 6198 #### LAB [address] [address] Bernardo Stephenson M.D. [id number] Sodium [Moles/Vol] 136 mmol/L Normal 135-145 [facility] Comment on above: Order Comment: [facility] has implemented the eGFR calculation approach that does not have a coefficient for race that conforms to the NKF-ASN Task Force Recommendations. Performed By: #### 4 6172 #### MH LAB [address] [address] Bernardo Stephenson M.D. [id number] Urea nitrogen [Mass/Vol] 9 mg/dL Normal 8-25 [facility] Comment on above: Order Comment: [facility] has implemented the eGFR calculation approach that does not have a coefficient for race that conforms to the NKF-ASN Task Force Recommendations. Performed By: #### 4 6105 #### MH LAB [address] [address] Bernardo Stephenson M.D. [id number] Urea nitrogen/Creatinin e [Mass ratio] 8.1 mg/mg Low 10.0-20.0 [facility] Comment on above: Order Comment: [facility] has implemented the eGFR calculation approach that does not have a coefficient for race that conforms to the NKF-ASN Task Force Recommendations. Performed By: #### 4 6124 #### LAB [address] [address] Bernardo Stephenson M.D. [id number] CBC WITH AUTO DIFFERENTIALon 01-06-2024 AUTO NRBC 0.0 % [facility] Comment on above: Performed By: #### 4 6124 #### LAB [address] [address] Bernardo Stephenson M.D. [id number] AUTO NRBC ABS COUNT 0.00 K/mcL Normal 0.00-0.00 [facility] Comment on above: Performed By: #### 4 6124 #### LAB [address] [address] Bernardo Stephenson M.D. [id number] BASOPHILS ABSOLUTE COUNT 0.05 K/mcL Normal 0.00-0.30 [facility] Comment on above: Performed By: #### 4 6124 #### LAB [address] [address] Bernardo Stephenson M.D. [id number] Basophils/100 WBC (Bld) 0.8 % Normal [facility] Comment on above: Performed By: #### 4 6124 #### LAB [address] [address] Bernardo Stephenson M.D. [id number] Eosinophils (Bld) [#/Vol] 0.17 10*3/uL Normal 0.00-0.50 [facility] Comment on above: Performed By: #### 4 6122 #### LAB [address] [place] [address] Bernardo Stephenson M.D. [id number] Eosinophils/100 WBC (Bld) 2.6 % Normal [facility] Comment on above: Performed By: #### 4 6124 #### LAB [address] [address] Bernardo Stephenson M.D. [id number] Erythrocyte distribution width (RBC) [Ratio] 13.2 % Normal 11.6-14.8 [facility] Comment on above: Performed By: #### 4 6131 #### LAB [address] [address] Bernardo Stephenson M.D. [id number] Hematocrit (Bld) [Volume fraction] 46.7 % Normal 41.0-53.0 [facility] Comment on above: Performed By: #### 4 6124 #### LAB [address] [address] Bernardo Stephenson M.D. [id number] Hemoglobin (Bld) [Mass/Vol] 15.5 g/dL Normal 13.5-17.5 [facility] Comment on above: Performed By: #### 4 6126 #### LAB [address] [address] Bernardo Stephenson M.D. [id number] IG ABSOLUTE 0.01 K/mcL Normal 0.00-0.30 [facility] Comment on above: Performed By: #### 4 6124 #### LAB [address] [address] Bernardo Stephenson M.D. [id number] IG PERCENT 0.20 % Normal [facility] Comment on above: Result Comment: The IG parameter is the percentage of metamyelocytes, myelocytes and promyelocytes. An immature granulocyte count (IG) of 1% or more suggests the possibility of infection, an IG count of 3% is very likely related to an infection. Performed By: #### 4 3036 #### LAB [address] [address] Bernardo Stephenson M.D. [id number] Lymphocytes (Bld) [#/Vol] 1.07 10*3/uL Normal 0.90-4.00 [facility] Comment on above: Performed By: #### 4 4194 #### LAB [address] [address] Bernardo Stephenson M.D. [id number] Lymphocytes/100 WBC (Bld) 16.4 % Normal [facility] Comment on above: Performed By: #### 4 6124 #### MH LAB [address] [address] Bernardo Stephenson M.D. [id number] MCH (RBC) [Entitic mass] 30.3 pg Normal 26.0-34.0 [facility] Comment on above: Performed By: #### 4 6124 #### LAB [address] [address] Bernardo Stephenson M.D. [id number] MCV (RBC) [Entitic vol] 91.4 fL Normal 80.0-100.0 [facility] Comment on above: Performed By: #### 4 6124 #### LAB [address] [address] Bernardo Stephenson M.D. [id number] MEAN CORPUSCULAR HEMOGLOBIN CONC 33.2 g/dL Normal 31.0-37.0 [facility] Comment on above: Performed By: #### 4 5840 #### LAB [address] [address] Bernardo Stephenson M.D. [id number] Monocytes (Bld) [#/Vol] 0.57 10*3/uL Normal 0.30-0.90 [facility] Comment on above: Performed By: #### 4 0042 #### LAB [address] [address] Bernardo Stephenson M.D. [id number] Monocytes/100 WBC (Bld) 8.7 % Normal [facility] Comment on above: Performed By: #### 4 1234 #### LAB [address] [address] Bernardo Stephenson M.D. [id number] NEUTROPHILS ABSOLUTE COUNT 4.66 K/mcL Normal 1.70-7.00 [facility] Comment on above: Performed By: #### 4 2815 #### MH LAB [address] [id number] Bernardo Stephenson M.D. [id number] Neutrophils/100 WBC (Bld) 71.3 % Normal [facility] Comment on above: Performed By: #### 4 6124 #### LAB [address] [id number] Bernardo Stephenson M.D. [id number] Platelet mean volume (Bld) [Entitic vol] 9.6 fL Normal 9.4-12.4 [facility] Comment on above: Performed By: #### 4 6124 #### LAB [address] [id number] Bernardo Stephenson M.D. [id number] Platelets (Bld) [#/Vol] 215 10*3/uL Normal 150-400 [facility] Comment on above: Performed By: #### 4 6124 #### LAB [address] [address] Bernardo Stephenson M.D. [id number] RBC (Bld) [#/Vol] 5.11 10*6/uL Normal 4.50-5.90 [facility] Comment on above: Performed By: #### 4 6124 #### MH LAB [address] [address] Bernardo Stephenson M.D. [id number] WBC (Bld) [#/Vol] 6.53 10*3/uL Normal 4.50-11.00 [facility] Comment on above: Performed By: #### 4 6124 #### LAB [address] [address] Bernardo Stephenson M.D. [id number] XR CHEST 2 VIEWSon XR CHEST 2 VIEWS Interpreted By: Nando Flynn, STUDY: XR CHEST 2 VIEWS; 12/23/2023 3:47 pm INDICATION: Signs/Symptoms:CAD, elevated PSA. ,R97.20 Elevated prostate specific antigen (PSA),I25.10 Atherosclerotic heart disease of seminole coronary artery without angina pectoris COMPARISON: 11/30/2019 ACCESSION NUMBER(S): [id number] ORDERING CLINICIAN: AARTI GONZALEZ FINDINGS: Left-sided pacemaker in place. The sternal wires present CARDIOMEDIASTINAL SILHOUETTE: Cardiomediastinal silhouette is normal in size and configuration. LUNGS: The lungs are hyperinflated. There is no consolidation or effusion. There is no edema ABDOMEN: No remarkable upper abdominal findings. BONES: No acute osseous changes. IMPRESSION: Emphysematous changes in the lungs. No evidence of acute cardiopulmonary process. MACRO: None Signed by: Nando Birmingham 12/26/2023 5:34 PM Dictation workstation: [id number] [facility] CARDIAC REMOTE DEVICE CHECKo n 11-06-2023 Remote Interrogation of ICD - nearing THOM Notes/Summary: Stable Device function Presenting EGM: AP/VS rate 60s bpm AT/AF Tyler: 0% since 10/05/23 AHR: 0 VHR: 0 V-V: 0 Histograms: Appropriate rate distribution Heart Failure Alerts: No, OptiVol <60 Signature: Modesto CHAVEZ RN I have reviewed the device function, programmed parameters, and heart rhythm. Patient will return to the Device Clinic &/or remote follow up and provider visit per protocol. Mark Paz MD - 11/06/2023 Remote Interrogation of ICD - nearing THOM Notes/Summary: Stable Device function Presenting EGM: AP/VS rate 60s bpm AT/AF Tyler: 0% since 10/05/23 AHR: 0 VHR: 0 V-V: 0 Histograms: Appropriate rate distribution Heart Failure Alerts: No, OptiVol <60 Signature: Modesto CHAVEZ RN I have reviewed the device function, programmed parameters, and heart rhythm. Patient will return to the Device Clinic &/or remote follow up and provider visit per protocol. [facility] CARDIAC REMOTE DEVICE CHECKO rdered By: Mark Hensley on 11-06-2023 [facility] Work Phone: CARDIAC REMOTE DEVICE CHECKo n 11-05-2023 Radiology Study observation (narrative) [facility] CBC WITH AUTO DIFFERENTIALon 11-04-2023 AUTO NRBC 0.0 % [facility] Comment on above: Performed By: #### L [id number] #### MH LAB [address] [address] Bernardo Stephenson M.D. [id number] AUTO NRBC ABS COUNT 0.00 K/mcL Normal 0.00-0.00 [facility] Comment on above: Performed By: #### L [id number] #### LAB [address] [address] Bernardo Stephenson M.D. [id number] BASOPHILS ABSOLUTE COUNT 0.05 K/mcL Normal 0.00-0.30 [facility] Comment on above: Performed By: #### L [id number] #### LAB [address] [address] Bernardo Stephenson M.D. [id number] Basophils/100 WBC (Bld) 0.7 % Normal [facility] Comment on above: Performed By: #### L [id number] #### LAB [address] [place] [address] Bernardo Stephenson M.D. [id number] Eosinophils (Bld) [#/Vol] 0.13 10*3/uL Normal 0.00-0.50 [facility] Comment on above: Performed By: #### L [id number] #### LAB [address] [address] Bernardo Stephenson M.D. [id number] Eosinophils/100 WBC (Bld) 1.8 % Normal [facility] Comment on above: Performed By: #### L [id number] #### LAB [address] [place] [address] Bernardo Stephenson M.D. [id number] Erythrocyte distribution width (RBC) [Ratio] 13.2 % Normal 11.6-14.8 [facility] Comment on above: Performed By: #### L [id number] #### LAB [address] [address] Bernardo Stephenson M.D. [id number] Hematocrit (Bld) [Volume fraction] 45.3 % Normal 41.0-53.0 [facility] Comment on above: Performed By: #### L [id number] #### LAB [address] [address] Bernardo Stephenson M.D. [id number] Hemoglobin (Bld) [Mass/Vol] 15.4 g/dL Normal 13.5-17.5 [facility] Comment on above: Performed By: #### L [id number] #### MH LAB [address] [address] Bernardo Stephenson M.D. [id number] IG ABSOLUTE 0.04 K/mcL Normal 0.00-0.30 [facility] Comment on above: Performed By: #### L [id number] #### LAB [address] [address] Bernardo Stephenson M.D. [id number] IG PERCENT 0.50 % Normal [facility] Comment on above: Result Comment: The IG parameter is the percentage of metamyelocytes, myelocytes and promyelocytes. An immature granulocyte count (IG) of 1% or more suggests the possibility of infection, an IG count of 3% is very likely related to an infection. Performed By: #### L [id number] #### LAB [address] [address] Bernardo Stephenson M.D. [id number] Lymphocytes (Bld) [#/Vol] 1.11 10*3/uL Normal 0.90-4.00 [facility] Comment on above: Performed By: #### L [id number] #### LAB [address] [address] Bernardo Stephenson M.D. [id number] Lymphocytes/100 WBC (Bld) 15.1 % Normal [facility] Comment on above: Performed By: #### L [id number] #### LAB [address] [address] Bernardo Stephenson M.D. [id number] MCH (RBC) [Entitic mass] 29.9 pg Normal 26.0-34.0 [facility] Comment on above: Performed By: #### L [id number] #### LAB [address] [address] Bernardo Stephenson M.D. [id number] MCV (RBC) [Entitic vol] 88.0 fL Normal 80.0-100.0 [facility] Comment on above: Performed By: #### L [id number] #### LAB [address] [address] Bernardo Stephenson M.D. [id number] MEAN CORPUSCULAR HEMOGLOBIN CONC 34.0 g/dL Normal 31.0-37.0 [facility] Comment on above: Performed By: #### L [id number] #### LAB [address] [address] Bernardo Stephenson M.D. [id number] Monocytes (Bld) [#/Vol] 0.65 10*3/uL Normal 0.30-0.90 [facility] Comment on above: Performed By: #### L [id number] #### LAB [address] [address] Bernardo Stephenson M.D. [id number] Monocytes/100 WBC (Bld) 8.9 % Normal [facility] Comment on above: Performed By: #### L [id number] #### LAB [address] [address] Bernardo Stephenson M.D. [id number] NEUTROPHILS ABSOLUTE COUNT 5.36 K/mcL Normal 1.70-7.00 [facility] Comment on above: Performed By: #### L [id number] #### LAB [address] [address] Bernardo Stephenson M.D. [id number] Neutrophils/100 WBC (Bld) 73.0 % Normal [facility] Comment on above: Performed By: #### L [id number] #### LAB [address] [address] Bernardo Stephenson M.D. [id number] Platelet mean volume (Bld) [Entitic vol] 9.5 fL Normal 9.4-12.4 [facility] Comment on above: Performed By: #### L [id number] #### LAB [address] [address] Bernardo Stephenson M.D. [id number] Platelets (Bld) [#/Vol] 211 10*3/uL Normal 150-400 [facility] Comment on above: Performed By: #### L [id number] #### LAB [address] [place], [place] [address] Bernardo Stephenson M.D. [id number] RBC (Bld) [#/Vol] 5.15 10*6/uL Normal 4.50-5.90 [facility] Comment on above: Performed By: #### L [id number] #### MH LAB [address] [place], [place] [address] Bernardo Stephenson M.D. [id number] WBC (Bld) [#/Vol] 7.34 10*3/uL Normal 4.50-11.00 [facility] Comment on above: Performed By: #### L [id number] #### LAB [address] [place], [place] [address] Bernardo Stephenson M.D. [id number] Basic metabolic 2000 panelon 10-16-2023 Anion gap [Moles/Vol] 9 mmol/L Low 10-20 [facility] Comment on above: Performed By: #### 2 4321-2 #### MOISE THEODORE ([id number]) [facility] ([facility]) [facility] [place] [address] Calcium [Mass/Vol] 9.1 mg/dL Normal 8.6-10.3 [facility] Comment on above: Performed By: #### 2 4321-2 #### MOISE THEODORE ([id number]) [facility] ([facility]) [address] [place] [address] Chloride [Moles/Vol] 102 mmol/L Normal 98-107 [facility] Comment on above: Performed By: #### 2 4321-2 #### MOISE THEODORE ([id number]) [facility] ([facility]) [facility] [place] [address] CO2 [Moles/Vol] 29 mmol/L Normal 21-32 [facility] Comment on above: Performed By: #### 2 4321-2 #### MOISE THEODORE ([id number]) [facility] ([facility]) [address] [place] [address] Creatinine [Mass/Vol] 0.89 mg/dL Normal 0.50-1.30 [facility] Comment on above: Performed By: #### 2 4321-2 #### MOISE THEODORE ([id number]) [facility] ([facility]) [address] [place] [address] GFR/1.73 sq M.predicted MDRD (S/P/Bld) [Vol rate/Area] mL/min/{1.73_m2} Normal >60 [facility] Comment on above: Result Comment: Calc ulations of estimated GFR are performed using the 2020 CKD-EPI Study Refit equation without the race variable for the IDMS-Traceable creatinine methods. https://jasn.asnjournals.org/content//ASN.906219952 8 Performed By: #### 2 4321-2 #### MOISE THEODORE ([id number]) [facility] ([facility]) [address] [place] [address] Glucose [Mass/Vol] 87 mg/dL Normal 74-99 [facility] Comment on above: Performed By: #### 2 4321-2 #### MOISE THEODORE ([id number]) [facility] ([facility]) [address] [place] [address] Potassium [Moles/Vol] 4.2 mmol/L Normal 3.5-5.3 [facility] Comment on above: Performed By: #### 2 4321-2 #### MOISE THEODORE ([id number]) [facility] ([facility]) [address] [place] [address] Sodium [Moles/Vol] 136 mmol/L Normal 136-145 [facility] Comment on above: Performed By: #### 2 4321-2 #### MOISE THEODORE ([id number]) [facility] ([facility]) [address] [place] [address] Urea nitrogen [Mass/Vol] 12 mg/dL Normal 6-23 [facility] Comment on above: Performed By: #### 2 4321-2 #### MOISE THEODORE ([id number]) [facility] ([facility]) [facility] [place] [address] Lipid 1996 panelon 4 Cholesterol [Mass/Vol] 112 mg/dL Normal 0-199 [facility] Comment on above: Result Comment: Age Desirable Borderline High High 0-19 Y 0 - 169 170 - 199 >/= 200 20-24 Y 0 - 189 190 - 224 >/= 225 >24 Y 0 - 199 200 - 239 >/= 240 All ranges are based on fasting samples. Specific therapeutic targets will vary based on patient-specific cardiac risk. Pediatric guidelines reference:Pediatrics 2011, 128(S5).Adult guidelines reference: NCEP ATPIII Guidelines,LAURE 2001, 258:2486-97 Venipuncture immediately after or during the administration of Metamizole may lead to falsely low results. Testing should be performed immediately prior to Metamizole dosing. Performed By: #### 2 4331-1 #### MOISE THEODORE ([id number]) [facility] ([facility]) [address] [place] [address] Cholesterol in HDL [Mass/Vol] 41.0 mg/dL Normal [facility] Comment on above: Result Comment: Age Very Low Low Normal High 0-19 Y < 35 < 40 40-45 ---- 20-24 Y ---- < 40 >45 ---- >24 Y ---- < 40 40-60 >60 Performed By: #### 2 4331-1 #### MOISE THEODORE ([id number]) [facility] ([facility]) [facility] [place] [address] Cholesterol in LDL [Mass/Vol] 55 mg/dL Normal <=99 [facility] Comment on above: Result Comment: Near Borderline AGE Desirable Optimal High High Very High 0-19 Y 0 - 109 --- 110-129 >/= 130 ---- 20-24 Y 0 - 119 --- 120-159 >/= 160 ---- >24 Y 0 - 99 100-129 130-159 160-189 >/=190 Performed By: #### 2 4331-1 #### MOISE THEODORE (15228) [facility] ([facility]) [address] [place] [address] Cholesterol in VLDL [Mass/Vol] 16 mg/dL Normal 0-40 [facility] Comment on above: Performed By: #### 2 4331-1 #### MOISE THEODORE ([id number]) [facility] ([facility]) [address] [place] [address] CHOLESTEROL/HDL RATIO 2.7 Normal [facility] Comment on above: Result Comment: Ref Values Desirable < 3.4 High Risk > 5.0 Performed By: #### 2 4331-1 #### MOISE THEODORE ([id number]) [facility] ([facility]) [address] [place] [address]63 NON HDL CHOLESTEROL 71 mg/dL Normal 0-149 [facility] Comment on above: Result Comment: Age Desirable Borderline High High Very High 0-19 Y 0 - 119 120 - 144 >/= 145 >/= 160 20-24 Y 0 - 149 150 - 189 >/= 190 ---- >24 Y 30 mg/dL above LDL Cholesterol goal Performed By: #### 2 4331-1 #### MOISE THEODORE ([id number]) [facility] ([facility]) [address] [place] [address] Triglyceride [Mass/Vol] 78 mg/dL Normal 0-149 [facility] Comment on above: Result Comment: Age Desirable Borderline High High Very High 0 D-90 D 19 - 174 ---- ---- ---- 91 D- 9 Y 0 - 74 75 - 99 >/= 100 ---- 10-19 Y 0 - 89 90 - 129 >/= 130 ---- 20-24 Y 0 - 114 115 - 149 >/= 150 ---- >24 Y 0 - 149 150 - 199 200- 499 >/= 500 Venipuncture immediately after or during the administration of Metamizole may lead to falsely low results. Testing should be performed immediately prior to Metamizole dosing. Performed By: #### 2 4331-1 #### MOISE THEODORE ([id number]) [facility] ([facility]) [address] [place] [address] Prostate specific Agon 10-15 Prostate specific Ag [Mass/Vol] 18.81 ng/mL High <=4.00 [facility] Comment on above: Order Comment: The F DA requires that the method used for PSA assay be reported to the physician. Values obtained with different assay methods must not be used interchangeably. This test was performed at [facility] using the [employer] PSA assay is a two-site immunoenzymatic sandwich assay. The assay is approved for measurement of prostate-specific antigen (PSA)in serum and may be used in conjunction with a digital rectal examination in men 50 years and older as an aid in detection of prostate cancer. 7-[id number] inhibitors (e.g. Proscar, Finasteride, Avodart, Dutasteride and Kianna) for the treatment of BPH have been shown to lower PSA levels by an average of 50% after 6 months of treatment. Performed By: #### 2 [id number] #### PHIPPS EWELINA ([id number]) [facility] ([facility]) [address] [id number] ECG 12 leadon 04-25-2022 Atrial Rate [facility] P Wanette [facility] P-R Interval [facility] Q-T Interval [facility] Q-T Interval (corrected) [facility] QRS Duration [facility] QTC Calculation (Bezet) [facility] R Wanette [facility] T Wanette [facility] Ventricular Rate [facility] Office Visit (Family Medicin e)on 01-10-2022 Follow-up visit Diagnoses/Problems Hypocalcemia (275.41) (E83.51) Vitamin D deficiency (268.9) (E55.9) COPD (chronic obstructive pulmonary disease) (496) (J44.9) HTN (hypertension) (401.9) (I10) Orders COPD (chronic obstructive pulmonary disease), HTN (hypertension), Hypocalcemia, Vitamin D deficiency Follow-up visit in 6 months Outpatient Follow-up Status: Hold For - Scheduling Requested for: [id number] Hypocalcemia Basic Metabolic Panel; Status:Active; Requested for:[id number]; Vitamin D deficiency Vitamin D 25-Hydroxy; Status:Active; Requested for:[id number]; Provider Impressions COPD: Symptoms controlled, continue on Stiolto Respimat daily and albuterol inhaler and nebulizer as needed. Hypocalcemia: Will recheck BMP, instructed to follow high calcium diet. Vitamin D deficiency: Will recheck Vitamin D level, continue on Vitamin D3 supplement 56680 unit weekly HTN: Blood pressure well controlled no change to antihypertensive regimen. Follow up in 6 months Chief Complaint 3 month follow-up. History of Present Illness Aarti is a 56 yo male, here today fro 3 month follow up, at last appointment we discussed high calcium diet. Vitamin D was low he started on Vitamin D3 supplement. is compliant with medication. Has not changed diet. He states he is feeling good, blood pressure well controlled Follows with cardiology in [place], [facility] and is on Entresto Reports he has used nebulizer a few times in last three months due to coughing. denies swelling, SOB, or CP Review of Systems Constitutional: no chills, no fever and no night sweats. Cardiovascular: no chest pain, no intermittent leg claudication, no lower extremity edema, no palpitations and no syncope. Respiratory: no cough, no shortness of breath during exertion, no shortness of breath at rest and no wheezing. Gastrointestinal: no abdominal pain, no blood in stools, no constipation, no diarrhea, no melena, no nausea, no rectal pain and no vomiting. Genitourinary: no dysuria, no change in urinary frequency, no urinary hesitancy and no feelings of urinary urgency. Integumentary: no new skin lesions and no rashes. Neurological: no difficulty walking, no headache, no limb weakness, no numbness and no tingling. Psychiatric: no anxiety, no depression, no anhedonia and no substance use disorders. Active Problems Abnormal chest xray (793.2) (R93.89) Abnormal CT of the chest (793.2) (R93.89) Abnormal laboratory test (796.4) (R89.9) Acute [place] (410.90) (I21.9) AICD (automatic cardioverter/defibrillat or) present (V45.02) (Z95.810) CAD (coronary artery disease) (414.00) (I25.10) Colon cancer screening (V76.51) (Z12.11) COPD (chronic obstructive pulmonary disease) (496) (J44.9) Encounter for immunization (V03.89) (Z23) History of coronary artery bypass graft (V45.81) (Z95.1) History of ischemic cardiomyopathy (V45.89) (Z86.79) HTN (hypertension) (401.9) (I10) Hypocalcemia (275.41) (E83.51) Impotence (607.84) (N52.9) Vitamin D deficiency (268.9) (E55.9) Surgical History History of Cardiac catheterization History of Coronary artery bypass graft History of Eye surgery Family History Family history of malignant neoplasm of female genital organ (V16.49) (Z80.49) Family history of cardiac disorder (V17.49) (Z82.49) Family history of type 2 diabetes mellitus (V18.0) (Z83.3) Family history of type 1 diabetes mellitus (V18.0) (Z83.3) Social History Former smoker (V15.82) (Z87.891) No alcohol use No illicit drug use Allergies lisinopril Cough; Recorded By: Kaitlin Judge; 11/14/2019 7:42:27 AM Current Meds Medication NameInstructionReason Aspirin 81 MG TABSTAKE 1 TABLET DAILY.CAD (coronary artery disease) Atorvastatin Calcium 10 MG Oral TabletTAKE 1 TABLET DAILY.CAD (coronary artery disease) Albuterol Sulfate (2.5 MG/3ML) 0.083% Inhalation Nebulization SolutionUSE 1 UNIT DOSE IN NEBULIZER EVERY 4 TO 6 HOURS NEEDED.COPD (chronic obstructive pulmonary disease) Stiolto Respimat 2.5-2.5 MCG/ACT Inhalation Aerosol SolutionINHALE 2 PUFFS DailyCOPD (chronic obstructive pulmonary disease) Eliquis 5 MG Oral TabletTake 1 tablet twice dailyHistory of coronary artery bypass graft, History of ischemic cardiomyopathy Entresto 24-26 MG Oral TabletTAKE 1 TABLET BY MOUTH TWICE A DAYHTN (hypertension) Sildenafil Citrate 100 MG Oral TabletTAKE 1/4 to 1/2 TABLET DAILY 1 HOUR BEFORE NEEDEDImpotence Albuterol Sulfate HFA 108 (90 Base) MCG/ACT Inhalation Aerosol SolutionINHALE 2 PUFFS EVERY 4-6 HOURS NEEDED.PMH: History of persistent cough, PMH: History of shortness of breath Vitamin D (Ergocalciferol) 1.25 MG (79767 UT) Oral CapsuleTAKE 1 CAPSULE WeeklyVitamin D deficiency Carvedilol 12.5 MG Oral TabletTake 1 (one) tablet (12.5 mg total) by mouth 2 (two) times a day. Eplerenone 25 MG Oral TabletTAKE 1 TABLET DAILY. Vitals Vital Signs Recorded: 10Jan2022 09:15AM Heart Rate69 Bvwxyayz014 Tkitenebw26 Height5 ft 11 in Ffbxev205 (more content not included)... Normal Touchworks Tobacco Screening.on 022 Tobacco use status CPHS b) No -[facility] Work Phone: CALCIUM, IONIZEDon 2 CALCIUM, IONIZED 1.19 mmol/L Normal 1.10 - 1.33 [facility] Comment on above: Performed By: #### I ONC1 #### [facility] [address] [place] [address] Calcium, Ionized Levelon Calcium, Ionized Level 1.19 mmol/L See Below [facility] Work Phone: Comment on above: Reference Range: 1.1 0 - 1.33 Office Visit ([facility] Medicin e)on 10-04-2021 Follow-up visit Diagnoses/Problems COPD (chronic obstructive pulmonary disease) (496) (J44.9) CAD (coronary artery disease) (414.00) (I25.10) HTN (hypertension) (401.9) (I10) Hypocalcemia (275.41) (E83.51) Orders CAD (coronary artery disease), HTN (hypertension), Hypocalcemia Follow-up visit in 3 months Outpatient Follow-up Status: Hold For - Scheduling Requested for: 04Oct2021 Hypocalcemia Calcium, Ionized Level; Status:Active; Requested for:04Oct2021; Vitamin D 25-Hydroxy; Status:Active; Requested for:04Oct2021; Provider Impressions HTN: blood pressure well controlled, no change to antihypertensive regimen. COPD: continue on Stiolto daily and albuterol as needed. Hypocalcemia: will check ionized calcium and vitamin D3, encouraged increase dietary consumption of calcium . Follow up in 3 months. Chief Complaint 3 month follow-up. History of Present Illness Aarti is a 56 yo male here today fro 3 month follow up. PMHx significant fro COPD, CAD s/p CABG, [place], and HTN. Aarti reports he remains a nonsmoker, he denies any acute health concerns, Labs reviewed calcium level is low, patient reports poor dietary consumption. States he does not eat much nor does he eat dairy products. Review of Systems Constitutional: no chills, no fever and no night sweats. Cardiovascular: no chest pain, no intermittent leg claudication, no lower extremity edema, no palpitations and no syncope. Respiratory: no cough, no shortness of breath during exertion, no shortness of breath at rest and no wheezing. Gastrointestinal: no abdominal pain, no blood in stools, no constipation, no diarrhea, no melena, no nausea, no rectal pain and no vomiting. Genitourinary: no dysuria, no change in urinary frequency, no urinary hesitancy and no feelings of urinary urgency. Psychiatric: no anxiety, no depression, no anhedonia and no substance use disorders. Endocrine: no changes in appetite, no recent weight gain and no recent weight loss. Active Problems Abnormal chest xray (793.2) (R93.89) Abnormal CT of the chest (793.2) (R93.89) Abnormal laboratory test (796.4) (R89.9) Acute [place] (410.90) (I21.9) AICD (automatic cardioverter/defibrillat or) present (V45.02) (Z95.810) CAD (coronary artery disease) (414.00) (I25.10) Colon cancer screening (V76.51) (Z12.11) COPD (chronic obstructive pulmonary disease) (496) (J44.9) Encounter for immunization (V03.89) (Z23) History of coronary artery bypass graft (V45.81) (Z95.1) History of ischemic cardiomyopathy (V45.89) (Z86.79) HTN (hypertension) (401.9) (I10) Impotence (607.84) (N52.9) Surgical History History of Cardiac catheterization History of Coronary artery bypass graft History of Eye surgery Family History Family history of malignant neoplasm of female genital organ (V16.49) (Z80.49) Family history of cardiac disorder (V17.49) (Z82.49) Family history of type 2 diabetes mellitus (V18.0) (Z83.3) Family history of type 1 diabetes mellitus (V18.0) (Z83.3) Social History Former smoker (V15.82) (Z87.891) No alcohol use No illicit drug use Allergies lisinopril Cough; Recorded By: Kaitlin Judge; 11/14/2019 7:42:27 AM Current Meds Medication NameInstructionReason Aspirin 81 MG TABSTAKE 1 TABLET DAILY.CAD (coronary artery disease) Atorvastatin Calcium 10 MG Oral TabletTAKE 1 TABLET DAILY.CAD (coronary artery disease) Albuterol Sulfate (2.5 MG/3ML) 0.083% Inhalation Nebulization SolutionUSE 1 UNIT DOSE IN NEBULIZER EVERY 4 TO 6 HOURS NEEDED.COPD (chronic obstructive pulmonary disease) Stiolto Respimat 2.5-2.5 MCG/ACT Inhalation Aerosol SolutionINHALE 2 PUFFS DailyCOPD (chronic obstructive pulmonary disease) Eliquis 5 MG Oral TabletTake 1 tablet twice dailyHistory of coronary artery bypass graft, History of ischemic cardiomyopathy Entresto 24-26 MG Oral TabletTAKE 1 TABLET BY MOUTH TWICE A DAYHTN (hypertension) Sildenafil Citrate 100 MG Oral TabletTAKE 1/4 to 1/2 TABLET DAILY 1 HOUR BEFORE NEEDEDImpotence Albuterol Sulfate HFA 108 (90 Base) MCG/ACT Inhalation Aerosol SolutionINHALE 2 PUFFS EVERY 4-6 HOURS NEEDED.PMH: History of persistent cough, PMH: History of shortness of breath Carvedilol 12.5 MG Oral TabletTake 1 (one) tablet (12.5 mg total) by mouth 2 (two) times a day. Eplerenone 25 MG Oral TabletTAKE 1 TABLET DAILY. Vitals Vital Signs Recorded: 04Oct2021 08:52AM Heart Rate71 Wqqfvfal281 Pamiqorlb30 Height5 ft 11 in Uwqbpg012 lb 8 oz BMI Wwerodvjef09.85 kg/m2 BSA Calculated1.86 Tobacco Useb) No Physical Exam Constitutional: Alert and in no acute distress. Well developed, well nourished. Cardiovascular: Heart rate and rhythm were normal, normal S1 and S2, no gallops, no murmurs and no pericardial rub. Pedal pulses: Normal. No peripheral edema. Pulmonary: No respiratory distress. Auscultation of lungs: Abnormal. Auscultation of the lungs revealed expiratory wheezing. wheezing over both bases. Abdomen: Soft nontender; no abdominal mass palpated (more content not included)... Normal Ifbyphone Tobacco Screening.on 022 Tobacco use status CPHS b) No [facility] Work Phone: VITAMIN D, 25-HYDROXYon 09-18 VITAMIN D, 25-HYDROXY 20 ng/mL Abnormal [facility] Comment on above: Result Comment: . DEFICIENCY: < 20 NG/ML INSUFFICIENCY: 20-29 NG/ML SUFFICIENCY: 30-100 NG/ML THIS ASSAY ACCURATELY QUANTIFIES THE SUM OF VITAMIN D3, 25-HYDROXY AND VIT D2,25-HYDROXY. Performed By: #### V TDOH #### [address] [address] Vitamin D 25-Hydroxyon 10-04 25-hydroxyvitamin D3 [Mass/Vol] 20 ng/mL Abnormal [facility] Work Phone: Comment on above: .DEFICIENCY: < 20 NG /MLINSUFFICIENCY: 20-29 NG/MLSUFFICIENCY: 30-100 NG/MLTHIS ASSAY ACCURATELY QUANTIFIES THE SUM OFVITAMIN D3, 25-HYDROXY AND VIT D2,25-HYDROXY. ALBUMIN, URINE SPOTon 2021 ALBUMIN,URINE <7.0 Normal Not Established [facility] Comment on above: Performed By: #### A LBSP #### [address] [address] ALBUMIN/CREAT RATIO SEE COMMENT Normal 0.0 - 30.0 [facility] Comment on above: Result Comment: One or more analytes used in this calculation is outside of the analytical measurement range. Calculation cannot be performed. Performed By: #### A LBSP #### [address] [address] CREATININE,URINE 131.0 mg/dL Normal 20.0 - 370.0 [facility] Comment on above: Performed By: #### A LBSP #### [address] [address] COMPREHENSIVE PANELon 2021 Albumin [Mass/Vol] 4.0 g/dL Normal 3.4 - 5.0 [facility] Comment on above: Performed By: #### C MP #### [address] [address] ALP [Catalytic activity/Vol] 51 U/L Normal 33 - 120 [facility] Comment on above: Performed By: #### C MP #### [address] [address] ALT [Catalytic activity/Vol] 15 U/L Normal 10 - 52 [facility] Comment on above: Result Comment: Aimee ents treated with Sulfasalazine may generate falsely decreased results for ALT. Performed By: #### C MP #### [address] [address] Anion gap [Moles/Vol] 9 mmol/L Low 10 - 20 [facility] Comment on above: Performed By: #### C MP #### [address] [address] AST [Catalytic activity/Vol] 14 U/L Normal 9 - 39 [facility] Comment on above: Performed By: #### C MP #### [address] [address] Bilirubin [Mass/Vol] 1.5 mg/dL High 0.0 - 1.2 [facility] Comment on above: Performed By: #### C MP #### [address] [address] Calcium [Mass/Vol] 8.2 mg/dL Low 8.6 - 10.3 [facility] Comment on above: Performed By: #### C MP #### [address] [address] Chloride [Moles/Vol] 103 mmol/L Normal 98 - 107 [facility] Comment on above: Performed By: #### C MP #### [address] [address] Creatinine [Mass/Vol] 0.85 mg/dL Normal 0.50 - 1.30 [facility] Comment on above: Performed By: #### C MP #### [address] [address] eGFR MALE >90 Normal >90 [facility] Comment on above: Result Comment: CALC ULATIONS OF ESTIMATED GFR ARE PERFORMED USING THE 2020 CKD-EPI STUDY REFIT EQUATION WITHOUT THE RACE VARIABLE FOR THE IDMS-TRACEABLE CREATININE METHODS. https://jasn.asnjournals.org/content//ASN.346426613 8 Performed By: #### C MP #### [address] [address] Glucose [Mass/Vol] 90 mg/dL Normal 74 - 99 [facility] Comment on above: Performed By: #### C MP #### [address] [address] HCO3 (Bld) [Moles/Vol] 28 mmol/L Normal 21 - 32 [facility] Comment on above: Performed By: #### C MP #### [address] [address] Potassium [Moles/Vol] 3.9 mmol/L Normal 3.5 - 5.3 [facility] Comment on above: Performed By: #### C MP #### [address] [address] Protein [Mass/Vol] 6.6 g/dL Normal 6.4 - 8.2 [facility] Comment on above: Performed By: #### C MP #### [address] [address] Sodium [Moles/Vol] 136 mmol/L Normal 136 - 145 [facility] Comment on above: Performed By: #### C MP #### [address] [address] Urea nitrogen [Mass/Vol] 11 mg/dL Normal 6 - 23 [facility] Comment on above: Performed By: #### C MP #### [address] [address] Office Visit (Family Medicin e)on 07-05-2021 Follow-up visit Diagnoses/Problems COPD (chronic obstructive pulmonary disease) (496) (J44.9) HTN (hypertension) (401.9) (I10) at goal, continue current medication regimen. Orders COPD (chronic obstructive pulmonary disease) Renew: Albuterol Sulfate (2.5 MG/3ML) 0.083% Inhalation Nebulization Solution; USE 1 UNIT DOSE IN NEBULIZER EVERY 4 TO 6 HOURS NEEDED COPD (chronic obstructive pulmonary disease), HTN (hypertension) Follow-up visit in 3 months Outpatient Follow-up Status: Complete Done: 05Jul2021 History of coronary artery bypass graft, History of ischemic cardiomyopathy Renew: Eliquis 5 MG Oral Tablet; Take 1 tablet twice daily HTN (hypertension) Renew: Entresto 24-26 MG Oral Tablet; TAKE 1 TABLET BY MOUTH TWICE A DAY Albumin, Urine Spot; Status:Active; Requested for:05Jul2021; Comprehensive Metabolic Panel; Status:Active; Requested for:05Jul2021; Impotence Renew: Sildenafil Citrate 100 MG Oral Tablet; TAKE 1/4 to 1/2 TABLET DAILY 1 HOUR BEFORE NEEDED Provider Impressions follow up 3 months. CMP and albumin urine spot before next appt. We discussed signs and symptoms that would require an ER visit verses follow up here. He voiced understanding and agreement with the above plan. Chief Complaint 3 month med check. History of Present Illness Comorbid Illnesses: [place] 2013. Symptoms: denies impaired vision, denies dyspnea, denies chest pain, denies intermittent leg claudication and denies lower extremity edema. Associated symptoms include no headache, no focal neurologic deficits and no memory loss. Home monitoring: The patient is not checking blood pressure at home. Lifestyle: Diet: He does not have a healthy diet.Weight Issues: He does not have any weight concerns.Exercise: He does not exercise regularly.Smoking: He uses tobacco.Alcohol: He denies alcohol use.Drug Use: He denies drug use. Disease Management: the patient is doing well with his blood pressure goals. Goals for hypertension management: Blood pressure: at or near goal. Weight: at or near goal. Exercise: at or near goal. Diet: at or near goal. Review of Systems Cardiovascular: as noted in HPI. Respiratory: no cough, no shortness of breath during exertion, no shortness of breath at rest and no wheezing. Active Problems Abnormal chest xray (793.2) (R93.89) Abnormal CT of the chest (793.2) (R93.89) Abnormal laboratory test (796.4) (R89.9) Acute [place] (410.90) (I21.9) AICD (automatic cardioverter/defibrillat or) present (V45.02) (Z95.810) CAD (coronary artery disease) (414.00) (I25.10) Colon cancer screening (V76.51) (Z12.11) COPD (chronic obstructive pulmonary disease) (496) (J44.9) Encounter for immunization (V03.89) (Z23) History of coronary artery bypass graft (V45.81) (Z95.1) History of ischemic cardiomyopathy (V45.89) (Z86.79) HTN (hypertension) (401.9) (I10) Impotence (607.84) (N52.9) Surgical History History of Cardiac catheterization History of Coronary artery bypass graft History of Eye surgery Family History Family history of malignant neoplasm of female genital organ (V16.49) (Z80.49) Family history of cardiac disorder (V17.49) (Z82.49) Family history of type 2 diabetes mellitus (V18.0) (Z83.3) Family history of type 1 diabetes mellitus (V18.0) (Z83.3) Social History Former smoker (V15.82) (Z87.891) No alcohol use No illicit drug use Allergies lisinopril Cough; Recorded By: Kaitlin Judge; 11/14/2019 7:42:27 AM Current Meds Medication NameInstructionReason Aspirin 81 MG TABSTAKE 1 TABLET DAILY.CAD (coronary artery disease) Atorvastatin Calcium 10 MG Oral TabletTAKE 1 TABLET DAILY.CAD (coronary artery disease) Albuterol Sulfate (2.5 MG/3ML) 0.083% Inhalation Nebulization SolutionUSE 1 UNIT DOSE IN NEBULIZER EVERY 4 TO 6 HOURS NEEDED.COPD (chronic obstructive pulmonary disease) Stiolto Respimat 2.5-2.5 MCG/ACT Inhalation Aerosol SolutionINHALE 2 PUFFS DailyCOPD (chronic obstructive pulmonary disease) Eliquis 5 MG Oral TabletTake 1 tablet twice dailyHistory of coronary artery bypass graft, History of ischemic cardiomyopathy Entresto 24-26 MG Oral TabletTAKE 1 TABLET BY MOUTH TWICE A DAYHTN (hypertension) Sildenafil Citrate 100 MG Oral TabletTAKE 1/4 to 1/2 TABLET DAILY 1 HOUR BEFORE NEEDEDImpotence Albuterol Sulfate HFA 108 (90 Base) MCG/ACT Inhalation Aerosol SolutionINHALE 2 PUFFS EVERY 4-6 HOURS NEEDED.PMH: History of persistent cough, PMH: History of shortness of breath Carvedilol 12.5 MG Oral TabletTake 1 (one) tablet (12.5 mg total) by mouth 2 (two) times a day. Eplerenone 25 MG Oral TabletTAKE 1 TABLET DAILY. Vitals Vital Signs Recorded: 05Jul2021 09:54AM Heart Rate72 Qwgdggyv703 Daiedkkze53 Height5 ft 11 in Gupdrz492 lb 15.84 oz BMI Jblulfzdne65.48 kg/m2 BSA Calculated1.89 Tobacco Useb) No PHQ-2 #1. Over the last 2 weeks have you felt down, depressed or hopeless? (If yes, answer PHQ-9 below)No PHQ-2 #2. Over the last 2 weeks have you felt little interest or pl (more content not included)... Normal Ifbyphone Tobacco Screening.on Adult depression screening assessment No [facility] Work Phone: Tobacco use status CPHS b) No [email or web address] Work Phone: CBCon 06-19-2021 Erythrocyte distribution width (RBC) [Ratio] 14.0 % Normal 11.5 - 14.5 [facility] Comment on above: Performed By: #### C BC #### [address] [address] Hematocrit (Bld) [Volume fraction] 46.7 % Normal 41.0 - 52.0 [facility] Comment on above: Performed By: #### C BC #### [address] [address] Hemoglobin (Bld) [Mass/Vol] 15.5 g/dL Normal 13.5 - 17.5 [facility] Comment on above: Performed By: #### C BC #### [address] [address] MCHC (RBC) [Mass/Vol] 33.2 g/dL Normal 32.0 - 36.0 [facility] Comment on above: Performed By: #### C BC #### [address] [address] MCV (RBC) [Entitic vol] 92 fL Normal 80 - 100 [facility] Comment on above: Performed By: #### C BC #### [address] [address] Platelets (Bld) [#/Vol] 274 10*3/uL Normal 150 - 450 [facility] Comment on above: Performed By: #### C BC #### [address] [address] RBC 5.11 x10E12/L Normal 4.50 - 5.90 [facility] [place] Comment on above: Performed By: #### C BC #### [address] [address] WBC (Bld) [#/Vol] 5.2 10*3/uL Normal 4.4 - 11.3 [facility] Comment on above: Performed By: #### C BC #### [place] [id number] COMPREHENSIVE PANELon 2021 Albumin [Mass/Vol] 4.0 g/dL Normal 3.4 - 5.0 [facility] Comment on above: Performed By: #### C MP #### [address] [address] ALP [Catalytic activity/Vol] 65 U/L Normal 33 - 120 [facility] Comment on above: Performed By: #### C MP #### [address] [address] ALT [Catalytic activity/Vol] 31 U/L Normal 10 - 52 [facility] Comment on above: Result Comment: Aimee ents treated with Sulfasalazine may generate falsely decreased results for ALT. Performed By: #### C MP #### [address] [address] Anion gap [Moles/Vol] 10 mmol/L Normal 10 - 20 [facility] Comment on above: Performed By: #### C MP #### [address] [address] AST [Catalytic activity/Vol] 22 U/L Normal 9 - 39 [facility] Comment on above: Performed By: #### C MP #### [address] [address] Bilirubin [Mass/Vol] 1.4 mg/dL High 0.0 - 1.2 [facility] Comment on above: Performed By: #### C MP #### [address] [address] Calcium [Mass/Vol] 9.1 mg/dL Normal 8.6 - 10.3 [facility] Comment on above: Performed By: #### C MP #### [address] [address] Chloride [Moles/Vol] 103 mmol/L Normal 98 - 107 [facility] Comment on above: Performed By: #### C MP #### [address] [address] Creatinine [Mass/Vol] 0.79 mg/dL Normal 0.50 - 1.30 [facility] Comment on above: Performed By: #### C MP #### [address] [address] eGFR MALE >90 Normal >90 [facility] Comment on above: Result Comment: CALC ULATIONS OF ESTIMATED GFR ARE PERFORMED USING THE 2020 CKD-EPI STUDY REFIT EQUATION WITHOUT THE RACE VARIABLE FOR THE IDMS-TRACEABLE CREATININE METHODS. https://jasn.asnjournals.org/content/early//ASN.[email or web address] 8 Performed By: #### C MP #### [address] [address] Glucose [Mass/Vol] 93 mg/dL Normal 74 - 99 [facility] Comment on above: Performed By: #### C MP #### [address] [address] HCO3 (Bld) [Moles/Vol] 29 mmol/L Normal 21 - 32 [facility] Comment on above: Performed By: #### C MP #### [address] [place] [address] Potassium [Moles/Vol] 4.7 mmol/L Normal 3.5 - 5.3 [facility] Comment on above: Performed By: #### C MP #### [address] [address] Protein [Mass/Vol] 7.0 g/dL Normal 6.4 - 8.2 [facility] Comment on above: Performed By: #### C MP #### [address] [address] Sodium [Moles/Vol] 137 mmol/L Normal 136 - 145 [facility] Comment on above: Performed By: #### C MP #### [address] [address] Urea nitrogen [Mass/Vol] 6 mg/dL Normal 6 - 23 [facility] Comment on above: Performed By: #### C MP #### [address] [address] Laboratory - Chemistry and C hemistry - challengeon 06-19-2021 Albumin BCP dye [Mass/Vol] 4.0 g/dL 3.4 - 5.0 [facility] Work Phone: ALP [Catalytic activity/Vol] 65 U/L 33 - 120 [facility] Work Phone: [phone] ALT With P-5'-P [Catalytic activity/Vol] 31 U/L 10 - 52 [facility] Work Phone: [phone] Comment on above: Patients treated wit h Sulfasalazine may generate falsely decreased results for ALT. Anion gap [Moles/Vol] 10 mmol/L 10 - 20 [facility] Work Phone: AST With P-5'-P [Catalytic activity/Vol] 22 U/L 9 - 39 [facility] Work Phone: [phone] Bilirubin [Mass/Vol] 1.4 mg/dL above high threshold 0.0 - 1.2 [facility] Work Phone: Calcium [Mass/Vol] 9.1 mg/dL 8.6 - 10.3 [facility] Work Phone: Chloride [Moles/Vol] 103 mmol/L 98 - 107 [facility] Work Phone: CO2 [Moles/Vol] 29 mmol/L 21 - 32 [facility] Work Phone: Creatinine [Mass/Vol] 0.79 mg/dL See Below [facility] Work Phone: Comment on above: Reference Range: 0.5 0 - 1.30 Glucose [Mass/Vol] 93 mg/dL 74 - 99 [facility] Work Phone: Potassium [Moles/Vol] 4.7 mmol/L 3.5 - 5.3 [facility] Work Phone: Protein [Mass/Vol] 7.0 g/dL 6.4 - 8.2 [facility] Work Phone: Sodium [Moles/Vol] 137 mmol/L 136 - 145 [facility] Work Phone: Urea nitrogen [Mass/Vol] 6 mg/dL 6 - 23 [facility] Work Phone: Laboratory - Hematology and Cell countson 06-19-2021 Erythrocyte distribution width (RBC) [Ratio] 14.0 % See Below [facility] Work Phone: Comment on above: Reference Range: 11. 5 - 14.5 Hematocrit (Bld) [Volume fraction] 46.7 % See Below [facility] Work Phone: Comment on above: Reference Range: 41. 0 - 52.0 Hemoglobin (Bld) [Mass/Vol] 15.5 g/dL See Below [facility] Work Phone: [phone] Comment on above: Reference Range: 13. 5 - 17.5 MCHC (RBC) [Mass/Vol] 33.2 g/dL See Below [facility] Work Phone: Comment on above: Reference Range: 32. 0 - 36.0 MCV (RBC) [Entitic vol] 92 fL 80 - 100 [facility] Work Phone: Platelets (Bld) [#/Vol] 274 10*3/uL 150 - 450 [facility] Work Phone: RBC (Bld) [#/Vol] 5.11 {x10E12/L} See Below [facility] Work Phone: Comment on above: Reference Range: 4.5 0 - 5.90 WBC (Bld) [#/Vol] 5.2 10*3/uL 4.4 - 11.3 [facility] Work Phone: No Panel Informationon 06-19 >90 >90 [facility] Work Phone: Comment on above: CALCULATIONS OF SHARAD MATED GFR ARE PERFORMED USING THE 2020 CKD-EPI STUDY REFIT EQUATION WITHOUT THE RACE VARIABLE FOR THE IDMS-TRACEABLE CREATININE METHODS.https://jasn.asnjournals.org/content///ASN.[email or web address] Office Visit ([facility])on 03-20-2021 Follow-up visit Diagnoses/Problems HTN (hypertension) (401.9) (I10) AICD (automatic cardioverter/defibrillat or) present (V45.02) (Z95.810) CAD (coronary artery disease) (414.00) (I25.10) COPD (chronic obstructive pulmonary disease) (496) (J44.9) History of ischemic cardiomyopathy (V45.89) (Z86.79) Impotence (607.84) (N52.9) Orders AICD (automatic cardioverter/defibrillat or) present, CAD (coronary artery disease), COPD (chronic obstructive pulmonary disease), History of ischemic cardiomyopathy, HTN (hypertension), Impotence Follow-Up, Recheck Outpatient Follow-up 3 months Nonfasting labs soon Status: Hold For - Scheduling Requested for: 20Mar2021 HTN (hypertension) Complete Blood Count; Status:Active; Requested for:20Mar2021; Comprehensive Metabolic Panel; Status:Active; Requested for:20Mar2021; Provider Impressions Has been feeling well. Still at [facility] for cardiology. Sees Dr. Gorman and Ashanti FONG. COPD stable. No recent need for rescue inhaler or Stiolto LIpids and TSH OK UTD Cologuard 12/18/20 Recommended flu shot and COVID booster.. Follow up 3 months and as needed Chief Complaint 2 month. A telephone visit (audio only) between the patient (at the originating site) and the provider (at the distant site) was utilized to provide this telehealth service. Verbal consent was requested and obtained from AARTI GARCIA on this date, 03/20/2021 11:00 AM , for a telehealth visit. History of Present Illness Here per virtual visit telephone only with She for routine medcheck CAD/AICD/HISTORY [place] and CABG/ISCHEMIC CARDIOMYOPATHY/HTN - Had heart cath done 11/30/20 at [facility]. Finished cardiac rehab. Still sees Ashanti FONG and Dr. Gorman. Last visit 03/08/21. Said everything looks good. BP good at home <130/80. Has been checking about 3-4 times a week. Denies CP or SOB COPD - No further SOB. No problems. No recent need for breathing treatments. No further cough at night but will cough a little before going to bed. Has been doing well. Only using the Stiolto as needed. Hasn't seen the boxer operator recently. Has had virtual visit with Dr. Pride 01/04/2020. Discussed follow up with boxer operator. PFT's done 12/20/2019. IMPOTENCE - Viagra has been working well. If he takes it with food it seems to make him vomit. Takes it with gatorade. Sent the Cologuard in and report showing negative results 12/18/20. Has had both COVID vaccines. Hasn't had a booster yet. Hasn't had his flu shot yet. Encouraged to get this and his booster. Feeling well Review of Systems Review of Systems Constitutional: No fever. Eye: No recent visual problem. Respiratory: No shortness of breath. Cardiovascular: No chest pain. Gastrointestinal: No reflux, No nausea, No vomiting, No diarrhea, No constipation, No heartburn, No abdominal pain. Neurologic: No headache. Active Problems Abnormal chest xray (793.2) (R93.89) Abnormal CT of the chest (793.2) (R93.89) Abnormal laboratory test (796.4) (R89.9) Acute [place] (410.90) (I21.9) AICD (automatic cardioverter/defibrillat or) present (V45.02) (Z95.810) CAD (coronary artery disease) (414.00) (I25.10) Colon cancer screening (V76.51) (Z12.11) COPD (chronic obstructive pulmonary disease) (496) (J44.9) Encounter for immunization (V03.89) (Z23) History of coronary artery bypass graft (V45.81) (Z95.1) History of ischemic cardiomyopathy (V45.89) (Z86.79) HTN (hypertension) (401.9) (I10) Impotence (607.84) (N52.9) Surgical History History of Cardiac catheterization History of Coronary artery bypass graft History of Eye surgery Family History Family history of malignant neoplasm of female genital organ (V16.49) (Z80.49) Family history of cardiac disorder (V17.49) (Z82.49) Family history of type 2 diabetes mellitus (V18.0) (Z83.3) Family history of type 1 diabetes mellitus (V18.0) (Z83.3) Social History Former smoker (V15.82) (Z87.891) No alcohol use No illicit drug use Allergies lisinopril Cough; Recorded By: Kaitlin Judge; 11/14/2019 7:42:27 AM Current Meds Medication NameInstructionReason Aspirin 81 MG TABSTAKE 1 TABLET DAILY.CAD (coronary artery disease) Atorvastatin Calcium 10 MG Oral TabletTAKE 1 TABLET DAILY.CAD (coronary artery disease) Albuterol Sulfate (2.5 MG/3ML) 0.083% Inhalation Nebulization SolutionUSE 1 UNIT DOSE IN NEBULIZER EVERY 4 TO 6 HOURS NEEDED.COPD (chronic obstructive pulmonary disease) Stiolto Respimat 2.5-2.5 MCG/ACT Inhalation Aerosol SolutionINHALE 2 PUFFS DailyCOPD (chronic obstructive pulmonary disease) Eliquis 5 MG Oral TabletTake 1 tablet twice dailyHistory of coronary artery bypass graft, History of ischemic cardiomyopathy Entresto 24-26 MG Oral TabletTAKE 1 TABLET BY MOUTH TWICE A DAYHTN (hypertension) Sildenafil Citrate 100 MG Oral TabletTAKE 1/4 to 1/2 TABLET DAILY 1 HOUR BEFORE NEEDEDImpotence Albuterol Sulfate HFA 108 (90 Base) MCG/ACT Inhalation Aerosol SolutionINHALE 2 PUFFS EVERY 4-6 HOURS NEED (more content not included)... Normal Ifbyphone LIPID PANEL (CORONARY RISK 2 )on 03-06-2021 Cholesterol [Mass/Vol] 138 mg/dL Normal 0 - 199 [facility] Comment on above: Result Comment: . AGE DESIRABLE BORDERLINE HIGH HIGH 0-19 Y 0 - 169 170 - 199 >/= 200 20-24 Y 0 - 189 190 - 224 >/= 225 >24 Y 0 - 199 200 - 239 >/= 240 All ranges are based on fasting samples. Specific therapeutic targets will vary based on patient-specific cardiac risk. . Pediatric guidelines reference:Pediatrics 2011, 128(S5). Adult guidelines reference: NCEP ATPIII Guidelines, LAURE 2001, 258:2486-97 . Venipuncture immediately after or during the administration of Metamizole may lead to falsely low results. Testing should be performed immediately prior to Metamizole dosing. Performed By: #### L IPID #### [address] [address] Cholesterol in HDL [Mass/Vol] 54.0 mg/dL Normal [facility] Comment on above: Result Comment: . AGE VERY LOW LOW NORMAL HIGH 0-19 Y < 35 < 40 40-45 ---- 20-24 Y ---- < 40 >45 ---- >24 Y ---- < 40 40-60 >60 . Performed By: #### L IPID #### [address] [address] Cholesterol in LDL [Mass/Vol] 66 mg/dL Normal 0 - 99 [facility] Comment on above: Result Comment: . NEAR BORD AGE DESIRABLE OPTIMAL HIGH HIGH VERY HIGH 0-19 Y 0 - 109 --- 110-129 >/= 130 ---- 20-24 Y 0 - 119 --- 120-159 >/= 160 ---- >24 Y 0 - 99 100-129 130-159 160-189 >/=190 . Performed By: #### L IPID #### [address] [address] Cholesterol in VLDL [Mass/Vol] 18 mg/dL Normal 0 - 40 [facility] Comment on above: Performed By: #### L IPID #### [address] [address] Cholesterol.total/ Cholesterol in HDL [Mass ratio] 2.6 {ratio} Normal [facility] Comment on above: Result Comment: REF VALUES DESIRABLE < 3.4 HIGH RISK > 5.0 Performed By: #### L IPID #### [address] [address] Triglyceride [Mass/Vol] 91 mg/dL Normal 0 - 149 [facility] Comment on above: Result Comment: . AGE DESIRABLE BORDERLINE HIGH HIGH VERY HIGH 0 D-90 D 19 - 174 ---- ---- ---- 91 D- 9 Y 0 - 74 75 - 99 >/= 100 ---- 10-19 Y 0 - 89 90 - 129 >/= 130 ---- 20-24 Y 0 - 114 115 - 149 >/= 150 ---- >24 Y 0 - 149 150 - 199 200- 499 >/= 500 . Venipuncture immediately after or during the administration of Metamizole may lead to falsely low results. Testing should be performed immediately prior to Metamizole dosing. Performed By: #### L IPID #### [address] [address] Laboratory - Chemistry and C hemistry - challengeon 03-06-2021 TSH Qn 1.61 m[IU]/L See Below [facility] Work Phone: Comment on above: Reference Range: 0.4 4 - 3.98 TSH testing is performed using different testing methodology at [facility] than at other [facility]. Direct result comparisons should only be made within the same method. Lipid Panelon 03-06-2021 Cholesterol [Mass/Vol] 138 mg/dL 0 - 199 [facility] Work Phone: Comment on above: . AGE DESIRABLE BORD JOVANI HIGH HIGH 0-19 Y 0 - 169 170 - 199 >/= 200 20-24 Y 0 - 189 190 - 224 >/= 225 >24 Y 0 - 199 200 - 239 >/= 240 All ranges are based on fasting samples. Specific therapeutic targets will vary based on patient-specific cardiac risk.. Pediatric guidelines reference:Pediatrics 2011, 128(S5). Adult guidelines reference: NCEP ATPIII Guidelines, LAURE 2001, 258:2486-97. Venipuncture immediately after or during the administration of Metamizole may lead to falsely low results. Testing should be performed immediately prior to Metamizole dosing. Cholesterol in HDL [Mass/Vol] 54.0 mg/dL [facility] Work Phone: Comment on above: . AGE VERY LOW LOW N ORMAL HIGH 0-19 Y < 35 < 40 40-45 ---- 20- 24 Y ---- < 40 >45 ---- >24 Y ---- < 40 40-60 >60. Cholesterol in LDL [Mass/Vol] 66 mg/dL 0 - 99 [facility] Work Phone: Comment on above: . NEAR BORD AGE ELVER RABLE OPTIMAL HIGH HIGH VERY HIGH 0-19 Y 0 - 109 --- 110-129 >/= 130 ---- 20-24 Y 0 - 119 --- 120-159 >/= 160 ---- >24 Y 0 - 99 100-129 130-159 160-189 >/=190. Cholesterol.total/ Cholesterol in HDL [Mass ratio] 2.6 {ratio} [facility] Work Phone: Comment on above: REF VALUESDESIRABLE < 3.4HIGH RISK > 5.0 Triglyceride [Mass/Vol] 91 mg/dL 0 - 149 [facility] [employer] Phone: Comment on above: . AGE DESIRABLE BORD JOVANI HIGH HIGH VERY HIGH 0 D-90 D 19 - 174 ---- ---- ----91 D- 9 Y 0 - 74 75 - 99 >/= 100 ---- 10-19 Y 0 - 89 90 - 129 >/= 130 ---- 20-24 Y 0 - 114 115 - 149 >/= 150 ---- >24 Y 0 - 149 150 - 199 200- 499 >/= 500. Venipuncture immediately after or during the administration of Metamizole may lead to falsely low results. Testing should be performed immediately prior to Metamizole dosing. Lipid Panel 18 mg/dL 0 - 40 [facility] Work Phone: TSH WITH REFLEX TO FREE T4 I F ABNORMALon 03-06-2021 TSH Qn 1.61 m[IU]/L Normal 0.44 - 3.98 [facility] Comment on above: Result Comment: TSH testing is performed using different testing methodology at [facility] than at other [facility]. Direct result comparisons should only be made within the same method. Performed By: #### [facility] #### [id number] [place] [address] Tobacco Screening.on 021 Tobacco use status CPHS b) No [facility] Work Phone: Laboratory - Molecular patho logyon 12-10-2020 Noninvasive colorectal cancer DNA and occult blood screening Werner (Stl) [Interp] Negative Negative [facility] Work Phone: Comment on above: [facility] [employer] (CLIA #:[id number])[address] [place] [address] RACHELLE KWON , Clinical Laboratory Medical DirectorNEGATIVE TEST RESULT. A negative Cologuard result indicates a low likelihood that a colorectal cancer (CRC) or advanced adenoma (adenomatous polyps with more advanced pre-malignant features) is present. The chance that a person with a negative Cologuard test has a colorectal cancer is less than 1 in 1500 (negative predictive value >99.9%) or has an advanced adenoma is less than 5.3% (negative predictive value 94.7%). These data are based on a prospective cross-sectional study of 10,000 individuals at average risk for colorectal cancer who were screened with both Cologuard and colonoscopy. (Chelsea Lombardi, N Engl J Med 2014;370(14):5198-7532) The normal value (reference range) for this assay is negative.COLOGUARD RE-SCREENING RECOMMENDATION: Periodic colorectal cancer screening is an important part of preventive healthcare for asymptomatic individuals at average risk for colorectal cancer. Following a negative Cologuard result, the [place] [employer] and U.S. Multi-Society Task Force screening guidelines recommend a Cologuard re-screening interval of 3 years. References: [employer] [employer] Guideline for Colorectal Cancer Screening: https://www.cancer.org/cancer/hsgug-tziuyq-ahzevl/detection-diagnos is-staging/acs-recommendations.html.; Maurice DK, Kamini VAUGHN, Mary VELASCO, Colorectal Cancer Screening: Recommendations for Physicians and Patients from the U.S. Multi-Society Task Force on Colorectal Cancer Screening , Am J Gastroenterology 2017; 112:4910-2546.TEST DESCRIPTION: Composite algorithmic analysis of stool DNA-biomarkers with hemoglobin immunoassay. Quantitative values of individual biomarkers are not reportable and are not associated with individual biomarker result reference ranges. Cologuard is intended for colorectal cancer screening of adults of either sex, 45 years or older, who are at average-risk for colorectal cancer (CRC). Cologuard has been approved for use by the U.S. FDA. The performance of Cologuard was established in a cross sectional study of average-risk adults aged 50-84. Cologuard performance in patients ages 45 to 49 years was estimated by sub-group analysis of near-age groups. Colonoscopies performed for a positive result may find as the most clinically significant lesion: colorectal cancer [4.0%], advanced adenoma (including sessile serrated polyps greater than or equal to 1cm diameter) [20%] or non- advanced adenoma [31%]; or no colorectal neoplasia [45%]. These estimates are derived from a prospective cross-sectional screening study of 10,000 individuals at average risk for colorectal cancer who were screened with both Cologuard and colonoscopy. (Chelsea Land al, N Engl J Med 2014;370(14):6943-7755.) Cologuard may produce a false negative or false positive result (no colorectal cancer or precancerous polyp present at colonoscopy follow up). A negative Cologuard test result does not guarantee the absence of CRC or advanced adenoma (pre-cancer). The current Cologuard screening interval is every 3 years. ([place] [employer] and U.S. Multi-Society Task Force). Cologuard performance data in a 10,000 patient pivotal study using colonoscopy as the reference method can be accessed at the following location: [email or web address]/results. Additional description of the Cologuard test process, warnings and precautions can be found at [email or web address]. Basic metabolic 2000 panelOr dered By: Adán Gorman on 11-15-2020 Anion gap [Moles/Vol] 12 mmol/L 10 - 20 mmol/L [facility] Calcium [Mass/Vol] 8.9 mg/dL 8.4 - 10. 2 mg/dL [facility] Chloride [Moles/Vol] 104 mmol/L 98 - 108 mmol/L [facility] Creatinine [Mass/Vol] 0.84 mg/dL 0.50 - 1.30 [facility] GFR/1.73 sq M.predicted CKD-EPI (S/P/Bld) [Vol rate/Area] 99 >=60 mL/min/1.73 m2 [facility] Glucose [Mass/Vol] 97 mg/dL 65 - 99 mg/dL [facility] HCO3 [Moles/Vol] 27 mmol/L 21 - 32 mmol/L [facility] Interpretation and review of laboratory results Normal [facility] Potassium [Moles/Vol] 4.6 mmol/L 3.5 - 5.1 mmol/L [facility] Sodium [Moles/Vol] 138 mmol/L 135 - 145 mmol/L [facility] Urea nitrogen [Mass/Vol] 9 mg/dL 8 - 25 mg/dL [facility] Urea nitrogen/Creatinin e [Mass ratio] 10.7 mg/mg [facility] The eGFR should be u sed for monitoring renal function only and not for medication dosing. [facility] Otheron 07-04-2020 Implantable Lead Implant Date [facility] Implantable Lead Medical Transcriptionist [employer] [facility] Outpatient Device Clinic Ref erralon 07-04-2020 Date Time Interrogation Session [id number] [facility] Implantable Lead Model 5076 [employer] Novus [facility] Implantable Lead Model 6935M Sprint Quattro Secure S [facility] Implantable Lead Serial Number [id number] [facility] Implantable Lead Serial Number [id number] [facility] HEPATIC FUNCTION PANELon Albumin [Mass/Vol] 4.1 g/dL Normal 3.4 - 5.0 [facility] Comment on above: Performed By: #### H EPFP #### [address] [address] ALP [Catalytic activity/Vol] 65 U/L Normal 33 - 120 [facility] Comment on above: Performed By: #### H EPFP #### [address] [address] ALT [Catalytic activity/Vol] 32 U/L Normal 10 - 52 [facility] Comment on above: Result Comment: Aimee ents treated with Sulfasalazine may generate falsely decreased results for ALT. Performed By: #### H EPFP #### [address] [address] AST [Catalytic activity/Vol] 37 U/L Normal 9 - 39 [facility] Comment on above: Performed By: #### H EPFP #### [address] [address] Bilirubin [Mass/Vol] 0.9 mg/dL Normal 0.0 - 1.2 [facility] Comment on above: Performed By: #### H EPFP #### [address] [address] Bilirubin.direct [Mass/Vol] 0.1 mg/dL Normal 0.0 - 0.3 [facility] Comment on above: Performed By: #### H EPFP #### [address] [address] Protein [Mass/Vol] 6.8 g/dL Normal 6.4 - 8.2 [facility] Comment on above: Performed By: #### H EPFP #### [address] [address] LIPID PANEL (CORONARY RISK 2 )on 03-09-2020 Cholesterol [Mass/Vol] 165 mg/dL Normal 0 - 199 [facility] Comment on above: Result Comment: . AGE DESIRABLE BORDERLINE HIGH HIGH 0-19 Y 0 - 169 170 - 199 >/= 200 20-24 Y 0 - 189 190 - 224 >/= 225 >24 Y 0 - 199 200 - 239 >/= 240 All ranges are based on fasting samples. Specific therapeutic targets will vary based on patient-specific cardiac risk. . Pediatric guidelines reference:Pediatrics 2011, 128(S5). Adult guidelines reference: NCEP ATPIII Guidelines, LAURE 2001, 258:2486-97 . Venipuncture immediately after or during the administration of Metamizole may lead to falsely low results. Testing should be performed immediately prior to Metamizole dosing. Performed By: #### L IPID #### [address] [address] Cholesterol in HDL [Mass/Vol] 80.0 mg/dL Normal [facility] Comment on above: Result Comment: . AGE VERY LOW LOW NORMAL HIGH 0-19 Y < 35 < 40 40-45 ---- 20-24 Y ---- < 40 >45 ---- >24 Y ---- < 40 40-60 >60 . Performed By: #### L IPID #### [address] [address] Cholesterol in LDL [Mass/Vol] 52 mg/dL Normal 0 - 99 [facility] Comment on above: Result Comment: . NEAR BORD AGE DESIRABLE OPTIMAL HIGH HIGH VERY HIGH 0-19 Y 0 - 109 --- 110-129 >/= 130 ---- 20-24 Y 0 - 119 --- 120-159 >/= 160 ---- >24 Y 0 - 99 100-129 130-159 160-189 >/=190 . Performed By: #### L IPID #### [address] [address] Cholesterol in VLDL [Mass/Vol] 33 mg/dL Normal 0 - 40 [facility] Comment on above: Performed By: #### L IPID #### [address] [address] Cholesterol.total/ Cholesterol in HDL [Mass ratio] 2.1 {ratio} Normal [facility] Comment on above: Result Comment: REF VALUES DESIRABLE < 3.4 HIGH RISK > 5.0 Performed By: #### L IPID #### [address] [address] Triglyceride [Mass/Vol] 165 mg/dL High 0 - 149 [facility] Comment on above: Result Comment: . AGE DESIRABLE BORDERLINE HIGH HIGH VERY HIGH 0 D-90 D 19 - 174 ---- ---- ---- 91 D- 9 Y 0 - 74 75 - 99 >/= 100 ---- 10-19 Y 0 - 89 90 - 129 >/= 130 ---- 20-24 Y 0 - 114 115 - 149 >/= 150 ---- >24 Y 0 - 149 150 - 199 200- 499 >/= 500 . Venipuncture immediately after or during the administration of Metamizole may lead to falsely low results. Testing should be performed immediately prior to Metamizole dosing. Performed By: #### L IPID #### [address] [address] TSH WITH REFLEX TO FREE T4 I F ABNORMALon 03-09-2020 TSH Qn 1.06 m[IU]/L Normal 0.44 - 3.98 [facility] Comment on above: Result Comment: TSH testing is performed using different testing methodology at [facility] than at other [facility]. Direct result comparisons should only be made within the same method. Performed By: #### T HYDS #### [address] [address] BMPon 01-16-2020 Anion gap [Moles/Vol] 11 mmol/L 10 - 20 mmol/L [facility] Calcium [Mass/Vol] 9.2 mg/dL 8.4 - 10. 2 mg/dL [facility] Chloride [Moles/Vol] 107 mmol/L 98 - 108 mmol/L [facility] Creatinine [Mass/Vol] 0.90 mg/dL 0.50 - 1.30 [facility] GFR/1.73 sq M predicted among non-blacks MDRD (S/P/Bld) [Vol rate/Area] The eGFR should be used for monitoring renal function only and not for medication dosing. [facility] GFR/1.73 sq M.predicted CKD-EPI (S/P/Bld) [Vol rate/Area] 97 >=60 mL/min/1.73 m2 [facility] Glucose [Mass/Vol] 83 mg/dL 65 - 99 mg/dL [facility] HCO3 [Moles/Vol] 24 mmol/L 21 - 32 mmol/L [facility] Potassium [Moles/Vol] 4.7 mmol/L 3.5 - 5.1 mmol/L [facility] Sodium [Moles/Vol] 137 mmol/L 135 - 145 mmol/L [facility] Urea nitrogen [Mass/Vol] 9 mg/dL 8 - 25 mg/dL [facility] Urea nitrogen/Creatinin e [Mass ratio] 10.0 mg/mg [facility] CBC WITH AUTO DIFFERENTIALon 01-16-2020 Basophils (Bld) [#/Vol] 0.04 10*3/uL [facility] Basophils/100 WBC (Bld) 0.5 % [facility] Eosinophils (Bld) [#/Vol] 0.18 10*3/uL [facility] Eosinophils/100 WBC (Bld) 2.3 % [facility] Erythrocyte distribution width (RBC) [Entitic vol] 12.6 % 11.6 - 14.8 % [facility] Hematocrit (Bld) [Volume fraction] 44.4 % 41 - 53 % [facility] Hemoglobin (Bld) [Mass/Vol] 15.0 g/dL 13.5 - 17.5 g/dL [facility] Immature granulocytes (Bld) [#/Vol] 0.04 10*3/uL [facility] Immature granulocytes/100 WBC (Bld) 0.50 % [facility] Comment on above: The IG parameter is the percentage of metamyelocytes, myelocytes and promyelocytes. An immature granulocyte count (IG) of 1% or more suggests the possibility of infection, an IG count of 3% is very likely related to an infection. Lymphocytes (Bld) [#/Vol] 1.09 10*3/uL [facility] Lymphocytes/100 WBC (Bld) 13.6 % [facility] MCH (RBC) [Entitic mass] 31.1 pg 26 - 34 pg [facility] MCHC (RBC) [Mass/Vol] 33.8 g/dL 31 - 37 g/dL [facility] MCV (RBC) [Entitic vol] 92.1 fL 80 - 100 fL [facility] Monocytes (Bld) [#/Vol] 0.66 10*3/uL [facility] Monocytes/100 WBC (Bld) 8.3 % [facility] Neutrophils (Bld) [#/Vol] 5.98 10*3/uL [facility] Neutrophils/100 WBC (Bld) 74.8 % [facility] Nucleated RBC (Bld) [#/Vol] 0.00 10*3/uL [facility] Nucleated RBC/100 WBC (Bld) [Ratio] 0.0 % [facility] Platelet mean volume (Bld) [Entitic vol] 9.8 fL 9.4 - 12.4 fL [facility] Platelets (Bld) [#/Vol] 264 10*3/uL [facility] RBC (Bld) [#/Vol] 4.82 10*6/uL [facility] WBC (Bld) [#/Vol] 7.99 10*3/uL [facility] Hepatic Function Panel (LFT) on 01-16-2020 Albumin [Mass/Vol] 3.4 g/dL 3.2 - 5.2 g/dL [facility] ALP [Catalytic activity/Vol] 87 U/L 40 - 150 U/L [facility] ALT [Catalytic activity/Vol] 41 U/L 14 - 65 U/L [facility] AST [Catalytic activity/Vol] 34 U/L 0 - 45 U/L [facility] Bilirubin [Mass/Vol] 0.9 mg/dL 0 - 1.3 mg/dL [facility] Bilirubin.conjugat ed [Mass/Vol] 0.2 mg/dL 0 - 0.4 mg/dL [facility] Protein [Mass/Vol] 7.8 g/dL 6 - 8 g/dL [facility] Otheron 01-16-2020 Interpretation and review of laboratory results Normal [facility] PT/INRon 01-16-2020 INR Coag (PPP) [Relative time] 1.2 {INR} High [facility] Interpretation and review of laboratory results Abnormal [facility] PT Coag (PPP) [Time] 14.8 s High [facility] During the induction phase of oral anticoagulation, the INR may not reflect the anticoagulation status of the patient. Therapeutic ranges for INR's are: Most clinical situations: INR 2.0-3.0 Mechanical Prosthetic Valve: INR 2.5-3.5 Critical: INR >5.0 [facility] URINALYSISon 01-16-2020 Bacteria Auto Ql (U) None Seen None Seen /hpf [facility] Bilirubin Ql (U) Negative Negative [facility] Clarity Refractometry automated (U) Clear Clear [facility] Color (U) Alicja Abnormal Colorless, Yellow [facility] Glucose Auto test strip (U) [Mass/Vol] Negative Negative mg/dL [facility] Hemoglobin Auto test strip Ql (U) Negative Negative [facility] Hyaline casts Auto (Urine sed) [#/Area] 11-20 Abnormal 0 - 2 /lpf [facility] Interpretation and review of laboratory results Abnormal [facility] Ketones (U) [Mass/Vol] Negative Negative mg/dL [facility] Leukocyte esterase Auto test strip Ql (U) Negative Negative [facility] Mucus Auto (Urine sed) [#/Area] Rare None Seen, Rare /lpf [facility] Nitrite Auto test strip Ql (U) Negative Negative [facility] pH (U) 5.0 [pH] [facility] Protein (U) [Mass/Vol] Negative Negative mg/dL [facility] RBC Auto (Urine sed) [#/Area] 2 [facility] Specific gravity (U) [Rel density] 1.018 [facility] Urobilinogen (U) [Mass/Vol] <2.0 <2.0 mg/dL [facility] WBC Auto (Urine sed) [#/Area] 1 [facility] Microscopic examinat ion is performed on all urinalysis samples and only positive findings are reported. The test for blood on the chemical analytic portion of urinalysis may also be positive due to hemoglobinuria and myoglobinuria and if red blood cells are present they are quantified by microscopic examination. [facility] Narrative Note - Outpatient- Respiratory Therapyon 01-12-2020 Narrative Note - Outpatient-Respira tory Therapy Narrative Note: Discipline/ClinicRespira tory Therapy Description Was called to CPS by [employer] to give agitated saline and Definity IVP during and Echo. A #[id number] IV was started in the left forearm with one attempt, IV site flushed with sodium chloride without difficulty. Per the direction of the global position system technician 9ml of agitated saline was given IVP. Once the global position system technician was ready for the Definity 2ml was given per his direction, follow by a sodium chloride flush. Exam was then completed, IV was discontinued with the angio cath intact. IV site covered with 2x2 guaze and secured with band aide. Patient tolerated procedure well. Electronic Signatures: Darlene Momin (KORTNEY) (Signed 12-Jan-2020 09:01) Authored: Narrative Note - OP Last Updated: 12-Jan-2020 09: by Darlene Momin (KORTNEY) [facility] CT CHEST W CONTRASTon 2019 CT CHEST W CONTRAST Patient Name: AARTI GARCIA STUDY: CT CHEST W CONTRAST; 12/06/2019 2:54 pm INDICATION: Cough, SOB. COMPARISON: None. ACCESSION NUMBER(S): [id number] ORDERING CLINICIAN: MONIE WAITE TECHNIQUE: CT of the chest was performed. Sagittal and coronal reconstructions were generated. 90 cc Omnipaque 350 intravenous contrast given for the examination. FINDINGS: CHEST WALL AND LOWER NECK: Status post sternotomy. Left anterior chest wall pacer port. Surrounding streak artifact limits assessment of adjacent structures. No gross axillary adenopathy. MEDIASTINUM AND SHADY: 1.1 cm right paratracheal node image 78/[id number]. 1.6 cm precarinal node image 107/385. 1.1 cm right hilar node image 117/385. Probable small hiatal hernia. HEART AND VESSELS: Intracardiac pacer wires with tips in the right atrium and ventricle. Multifocal atherosclerotic calcifications including the coronary arteries. The heart is normal in size. No significant pericardial effusion. LUNGS, PLEURA, LARGE AIRWAYS: Moderate emphysematous changes. Patchy biapical presumed scarring. 1.3 cm nodular consolidation in the anteromedial right upper lobe. Additional small ill-defined nodular and ground-glass opacities scattered in both lungs. Patchy/nodular ill-defined infiltrate in the right lower lobe. Small area of ill-defined pleural-based thickening in the medial left lower lobe. Moderate left pleural effusion. Small right pleural effusion. Central airways are patent. Mild central bronchial wall thickening. UPPER ABDOMEN: Included liver is hypodense/fatty infiltrated. Isodense presumed splenule in the anterior left upper quadrant. Probable partial fold or septation in the gallbladder on the most caudal images. BONES: No focal concerning lytic or blastic lesion. IMPRESSION: Emphysema and scattered indeterminate infiltrates with [id number]-right pleural effusions. Correlation with clinical findings and follow-up to ensure resolution after appropriate treatment recommended. Mild lymphadenopathy, may be reactive. Attention at follow-up suggested. Probable small hiatal hernia. Other findings as described above. Electronically signed by: LACHELLE URBAN MD [facility] CHEST 2 VIEW PA AND LATon CHEST 2 VIEW PA AND LAT Patient Name: AARTI GARCIA STUDY: TH CHEST 2 VIEW PA AND LAT; 11/30/2019 4:27 pm INDICATION: COUGH. COMPARISON: 11/14/2019 ACCESSION NUMBER(S): [id number] ORDERING CLINICIAN: MONIE WAITE FINDINGS: The lungs are hyperinflated. There is biapical pleural thickening/scarring. No consolidation seen. There is a small left pleural effusion versus pleural thickening. The study pacemaker and median sternotomy wires present. The cardiac silhouette is within normal limits for size. There is no edema. IMPRESSION: Emphysematous changes in the lungs including hyperinflation and biapical scarring. Left pleural effusion versus pleural thickening Electronically signed by: NANDO BIRMINHGAM MD Normal [facility] IO EKG Electrocardiogram- 12 Leadon 11-28-2019 EKG study -[facility] Work Phone: Comment on above: Result document to b e provided separately IO EKG Electrocardiogram- 12 Lead -[facility] Work Phone: Comment on above: Result document to b e provided separately BASIC METABOLIC PANELon 10-19 Anion gap [Moles/Vol] 9 mmol/L Low 10 - 20 [facility] Comment on above: Performed By: #### B MP #### [address] [address] Calcium [Mass/Vol] 9.6 mg/dL Normal 8.6 - 10.3 [facility] Comment on above: Performed By: #### B MP #### [address] [address] Chloride [Moles/Vol] 103 mmol/L Normal 98 - 107 [facility] Comment on above: Performed By: #### B MP #### [address] [address] Creatinine [Mass/Vol] 1.06 mg/dL Normal 0.50 - 1.30 [facility] Comment on above: Performed By: #### B MP #### [address] [address] GFR- AM. >60 Normal >60 [facility] Comment on above: Result Comment: CALC ULATIONS OF ESTIMATED GFR ARE PERFORMED USING THE MDRD STUDY EQUATION FOR THE IDMS-TRACEABLE CREATININE METHODS. CLIN CHEM 2007;53:766-72 Performed By: #### B MP #### [address] [address] GFR-NON AM. >60 Normal >60 [facility] Comment on above: Performed By: #### B MP #### [address] [address] Glucose [Mass/Vol] 100 mg/dL High 74 - 99 [facility] Comment on above: Performed By: #### B MP #### [address] [address] HCO3 (Bld) [Moles/Vol] 28 mmol/L Normal 21 - 32 [facility] Comment on above: Performed By: #### B MP #### [address] [address] Potassium [Moles/Vol] 4.2 mmol/L Normal 3.5 - 5.3 [facility] Comment on above: Performed By: #### B MP #### [address] [address] Sodium [Moles/Vol] 136 mmol/L Normal 136 - 145 [facility] Comment on above: Performed By: #### B MP #### [address] [address] Urea nitrogen [Mass/Vol] 9 mg/dL Normal 6 - 23 [facility] Comment on above: Performed By: #### B MP #### [address] [address] BNPon 11-14-2019 Natriuretic peptide B (Bld) [Mass/Vol] 743 pg/mL High 0 - 99 [facility] Comment on above: Result Comment: . <1 00 pg/mL - Heart failure unlikely 100-299 pg/mL - Intermediate probability of acute heart . failure exacerbation. Correlate with clinical . context and patient history. >=300 pg/mL - Heart Failure likely. Correlate with clinical . context and patient history. BNP testing is performed using different testing methodology at [facility] than at other [facility]. Direct result comparisons should only be made within the same method. Performed By: #### B NP2 #### [address] [address] CBCon 11-14-2019 Erythrocyte distribution width (RBC) [Ratio] 13.1 % Normal 11.5 - 14.5 [facility] Comment on above: Performed By: #### C BC #### [address] [address] Hematocrit (Bld) [Volume fraction] 46.4 % Normal 41.0 - 52.0 [facility] Comment on above: Performed By: #### C BC #### [address] [address] Hemoglobin (Bld) [Mass/Vol] 15.6 g/dL Normal 13.5 - 17.5 [facility] Comment on above: Performed By: #### C BC #### [address] [address] MCHC (RBC) [Mass/Vol] 33.7 g/dL Normal 32.0 - 36.0 [facility] Comment on above: Performed By: #### C BC #### [address] [address] MCV (RBC) [Entitic vol] 93 fL Normal 80 - 100 [facility] Comment on above: Performed By: #### C BC #### [address] [address] Platelets (Bld) [#/Vol] 244 10*3/uL Normal 150 - 450 [facility] Comment on above: Performed By: #### C BC #### [address] [address] RBC (Bld) [#/Vol] 5.01 x10E12/L Normal 4.50 - 5.90 [facility] Comment on above: Performed By: #### C BC #### [address] [address] WBC (Bld) [#/Vol] 6.7 10*3/uL Normal 4.4 - 11.3 [facility] Comment on above: Performed By: #### C BC #### [address] [address] CHEST 2 VIEW PA AND LATon CHEST 2 VIEW PA AND LAT Patient Name: AARTI GARCIA STUDY: TH CHEST 2 VIEW PA AND LAT; 11/14/2019 9:40 am INDICATION: persistent cough. COMPARISON: 10/07/2019 ACCESSION NUMBER(S): [id number] ORDERING CLINICIAN: MONIE WAITE FINDINGS: PA and lateral chest. No focal infiltrate, pleural effusion or evidence of pneumothorax. Median sternotomy wires, surgical clips, left-sided pacing device. Hyperinflation of the lungs. The cardiac silhouette is normal in size. Osseous thorax appears intact. IMPRESSION: No acute cardiopulmonary process. Chronic changes of COPD. Electronically signed by: TESSA ROSS MD [facility] Cardiacon 11-14-2019 Natriuretic peptide B (Bld) [Mass/Vol] 743 pg/mL above high threshold 0 - 99 [facility] Work Phone: Comment on above: . <100 pg/mL - Heart failure [id number] pg/mL - Intermediate probability of acute heart. failure exacerbation. Correlate with clinical. context and patient history. >=300 pg/mL - Heart Failure likely. Correlate with clinical. context and patient history.BNP testing is performed using different testing methodology at [facility] than at other [facility]. Direct result comparisons should only be made within the same method. Hematologyon 11-14-2019 Hematocrit (Bld) [Volume fraction] 46.4 % See Below [facility] Work Phone: [phone] Comment on above: Reference Range: 41. 0 - 52.0 Hemoglobin (Bld) [Mass/Vol] 15.6 g/dL See Below [facility] Work Phone: [phone] Comment on above: Reference Range: 13. 5 - 17.5 MCV (RBC) [Entitic vol] 93 fL 80 - 100 [facility] Work Phone: [phone] Platelets (Bld) [#/Vol] 244 {x10E9/L} 150 - 450 [facility] Work Phone: [phone] RBC (Bld) [#/Vol] 5.01 {x10E12/L} See Below [facility] Work Phone: [phone] Comment on above: Reference Range: 4.5 0 - 5.90 WBC (Bld) [#/Vol] 6.7 {x10E9/L} 4.4 - 11.3 [facility] Work Phone: Metabolic Panelon 11-14-2019 Anion gap [Moles/Vol] 9 mmol/L below low threshold 10 - 20 [facility] Work Phone: Calcium [Mass/Vol] 9.6 mg/dL 8.6 - 10.3 [facility] Work Phone: Chloride [Moles/Vol] 103 mmol/L 98 - 107 [facility] Work Phone: CO2 [Moles/Vol] 28 mmol/L 21 - 32 [facility] Work Phone: Creatinine [Mass/Vol] 1.06 mg/dL See Below [facility] Work Phone: Comment on above: Reference Range: 0.5 0 - 1.30 Glucose [Mass/Vol] 100 mg/dL above high threshold 74 - 99 [facility] Work Phone: Potassium [Moles/Vol] 4.2 mmol/L 3.5 - 5.3 [facility] Work Phone: Sodium [Moles/Vol] 136 mmol/L 136 - 145 [facility] Work Phone: Urea nitrogen [Mass/Vol] 9 mg/dL 6 - 23 [facility] Work Phone: Otheron 11-14-2019 XR Chest 2 views Interpreted by: CODY11/14/19 11:22MRN: [id number] Name: AARTI GARCIA STUDY: CHEST 2 VIEW PA AND LAT; 11/14/2019 9:40 am INDICATION:persistent cough. COMPARISON:10/07/2019 ORDERING CLINICIAN:MONIE WAITE FINDINGS:PA and lateral chest. No focal infiltrate, pleural effusion orevidence of pneumothorax. Median sternotomy wires, surgical clips,left-sided pacing device. Hyperinflation of the lungs. The cardiacsilhouette is normal in size. Osseous thorax appears intact. IMPRESSION:No acute cardiopulmonary process. Chronic changes of COPD.Electronically signed by: CODY 11/14/19 11:22 Normal [facility] Work Phone: Erythrocyte distribution width (RBC) [Ratio] 13.1 % See Below [facility] Work Phone: Comment on above: Reference Range: 11. 5 - 14.5 MCHC (RBC) [Mass/Vol] 33.7 g/dL See Below [facility] Work Phone: Comment on above: Reference Range: 32. 0 - 36.0 >60 >60 [facility] Work Phone: Comment on above: CALCULATIONS OF SHARAD MATED GFR ARE PERFORMED USING THE MDRD STUDY EQUATION FOR THE IDMS-TRACEABLE CREATININE METHODS. CLIN CHEM 2007;53:766-72 EKGon 10-13-2019 Ordered by an unspecified provider. [facility] Sputum Aerobic Cultureon Bacteria identified Aer cx Nom (Sput) See Gram Stain Result [facility] Microscopic observation Gram stain Nom (Sput) Specimen screened and found unsatisfactory for culture. [facility] CBC WITH AUTO DIFFERENTIALon 10-12-2019 Basophils (Bld) [#/Vol] 0.04 10*3/uL [facility] Basophils/100 WBC (Bld) 0.3 % [facility] Eosinophils (Bld) [#/Vol] 0.09 10*3/uL [facility] Eosinophils/100 WBC (Bld) 0.7 % [facility] Erythrocyte distribution width (RBC) [Entitic vol] 13.2 % 11.6 - 14.8 % [facility] Hematocrit (Bld) [Volume fraction] 49.0 % 41 - 53 % [facility] Hemoglobin (Bld) [Mass/Vol] 16.0 g/dL 13.5 - 17.5 g/dL [facility] Immature granulocytes (Bld) [#/Vol] 0.12 10*3/uL [facility] Immature granulocytes/100 WBC (Bld) 0.90 % [facility] Comment on above: The IG parameter is the percentage of metamyelocytes, myelocytes and promyelocytes. An immature granulocyte count (IG) of 1% or more suggests the possibility of infection, an IG count of 3% is very likely related to an infection. Interpretation and review of laboratory results Abnormal [facility] Lymphocytes (Bld) [#/Vol] 1.69 10*3/uL [facility] Lymphocytes/100 WBC (Bld) 12.8 % [facility] MCH (RBC) [Entitic mass] 30.7 pg 26 - 34 pg [facility] MCHC (RBC) [Mass/Vol] 32.7 g/dL 31 - 37 g/dL [facility] MCV (RBC) [Entitic vol] 94.0 fL 80 - 100 fL [facility] Monocytes (Bld) [#/Vol] 0.90 10*3/uL [facility] Monocytes/100 WBC (Bld) 6.8 % [facility] Neutrophils (Bld) [#/Vol] 10.34 10*3/uL High [facility] Neutrophils/100 WBC (Bld) 78.5 % [facility] Nucleated RBC (Bld) [#/Vol] 0.00 10*3/uL [facility] Nucleated RBC/100 WBC (Bld) [Ratio] 0.0 % [facility] Platelet mean volume (Bld) [Entitic vol] 10.1 fL 9.4 - 12.4 fL [facility] Platelets (Bld) [#/Vol] 282 10*3/uL [facility] RBC (Bld) [#/Vol] 5.21 10*6/uL [facility] WBC (Bld) [#/Vol] 13.18 10*3/uL [facility] COVID-19, Molecular2019 Interpretation and review of laboratory results Normal [facility] SARS-CoV-2 Not Detected Not Detected [facility] Comment on above: This test was perfor med under the FDA's Emergency Use Authorization (EUA). Testing was performed using the [employer] ID NOW COVID-19 assay on the ID NOW platform. This test has not been approved for use in asymptomatic patients and its performance in this patient population has not been evaluated. Negative results do not rule out the presence of SARS-CoV-2/COVID-19. Fact sheets for the EUA can be found at the following links: For Healthcare Providers: https://www.fda.gov/media/126991/download For Patients: https://www.fda.gov/media/422194/download Chem 10-12-2019 Anion gap [Moles/Vol] 10 mmol/L 10 - 20 mmol/L [facility] Chloride [Moles/Vol] 106 mmol/L 98 - 108 mmol/L [facility] Creatinine [Mass/Vol] 1.01 mg/dL 0.50 - 1.30 [facility] GFR/1.73 sq M predicted among non-blacks MDRD (S/P/Bld) [Vol rate/Area] The eGFR should be used for monitoring renal function only and not for medication dosing. [facility] GFR/1.73 sq M.predicted CKD-EPI (S/P/Bld) [Vol rate/Area] 85 >=60 mL/min/1.73 m2 [facility] Glucose [Mass/Vol] 118 mg/dL High 65 - 99 mg/dL [facility] HCO3 [Moles/Vol] 26 mmol/L 21 - 32 mmol/L [facility] Interpretation and review of laboratory results Abnormal [facility] Potassium [Moles/Vol] 4.2 mmol/L 3.5 - 5.1 mmol/L [facility] Sodium [Moles/Vol] 138 mmol/L 135 - 145 mmol/L [facility] Urea nitrogen [Mass/Vol] 14 mg/dL 8 - 25 mg/dL [facility] Urea nitrogen/Creatinin e [Mass ratio] 13.9 mg/mg [facility] ECG 12-LEADon 10-12-2019 Atrial Rate 95 BPM [facility] P-R Interval 136 ms [facility] Q-T Interval 366 ms [facility] QRS Duration 100 ms [facility] QTC Calculation (Bezet) 459 ms [facility] R [place] 149 degrees [facility] T [place] 117 degrees [facility] Ventricular Rate 95 BPM [facility] Suspect arm lead reversal, interpretation assumes no reversal Normal sinus rhythm Anterolateral infarct , age undetermined Abnormal ECG ECG Cart Interpretation see physician note for interpretation. Confirmed by Carmelina Beach ([id number]) on 10/12/2019 11:14:22 AM [facility] Atrial Rate 94 BPM [facility] P [place] 53 degrees [facility] P-R Interval 142 ms [facility] Q-T Interval 362 ms [facility] QRS Duration 98 ms [facility] QTC Calculation (Bezet) 452 ms [facility] R [place] 33 degrees [facility] T [place] 95 degrees [facility] Ventricular Rate 94 BPM [facility] Normal sinus rhythm Left atrial enlargement Cannot rule out Anterior infarct , age undetermined Abnormal ECG ECG Cart Interpretation see physician note for interpretation. Confirmed by Carmelina Beach ([id number]) on 10/12/2019 11:14:13 AM [facility] ECHOCARDIOGRAM 2D COMPLETEon 10-12-2019 Aortic valve area 2.15952 cm [facility] AV mean gradient 1.06473 mmHg [facility] AV peak gradient 1.8765 mmHg [facility] EF 31.2201 % [facility] Patient Info Name: Clark GARCIA Age: 54 years : 1965 Gender: Male Ht: 180 cm Wt: 65 kg BSA: 1.79 m2 HR: 102 bpm BP: 112 / 70 mmHg Heart Rhythm: Sinus Rhythm Technical Quality: Poor Exam Date: 10/12/2019 12:09 PM Patient Status: Inpatient Ordering Physician: ALINE MCCLAIN Meat Inspector: Sarahi Montgomery RN, RCS Exam Type: ECHOCARDIOGRAM COMPLETE W CONTRAST Study Info Indications R06.00 - Dyspnea, unspecified Referring Physician: ALINE MCCLAIN; [id number] BMI: 20.00 kg/m2 Summary 1. Technically difficult echo windows, Definity used to optimize study. 2. LV appears dilated with global dysfunction with segmental features. Biplane LVEF 31%. 3. Mild RV enlargement with mild RV dysfunction. Device wire noted in right heart. 4. Elevated left atrial pressure. 5. There is mild tricuspid valve regurgitation. 6. There is pulmonary hypertension, estimated pulmonary arterial systolic pressure is 45 mmHg. 7. There is moderate mitral valve regurgitation. 8. Prior ejection fraction of 30% noted from nuclear stress perfusion study from 2016. History/Risk Factors Hypertension: Yes Myocardial Infarction ([place]): Yes Coronary Artery Disease (CAD) Yes History/Risk Factors Patient has prior CABG. Cardiac Arrest: Out of Hospital Prior Interventions CABG: Yes ICD: Yes Procedure(s): Complete two-dimensional, color flow and Doppler transthoracic echocardiogram is performed with contrast. Definity explained to patient. Patient verbalizes understanding and agrees to proceed. Definity 1.3ml/8.7ml normal sterile saline 2 ml total given IV over 30-60 seconds. Left Ventricle Left ventricular chamber dimension is mildly enlarged. Left ventricular systolic function is moderately reduced with an ejection fraction by Biplane Method of Discs of 31 %. Normal left ventricular mass. Left ventricular segmental wall motion is abnormal. The inferolateral wall, apical septum, apical anterior wall, apical cap, mid anterior wall, mid anterolateral wall, and mid anteroseptal are akinetic. The inferior wall, basal anterior wall, basal inferoseptal, mid inferoseptal, basal anterolateral wall, and basal anteroseptal are hypokinetic. The average E:e is >14 suggesting elevated left atrial pressure. Right Ventricle Device wire noted in right heart. Right ventricular chamber dimension is enlarged. Right ventricular systolic function is reduced. Left Atria Left atrial chamber dimension is mildly enlarged. Right Atria Right atrial chamber dimension is normal. Aortic Valve The aortic valve is trileaflet. There is no aortic valve stenosis with a peak velocity of 0.7 m/s, mean gradient of 1 mmHg, and aortic valve area of 2.08 cm2. There is no aortic valve regurgitation. Pulmonic Valve The pulmonic valve is normal. There is no pulmonic valve stenosis. There is no pulmonic regurgitation. Mitral Valve The mitral valve has normal leaflets. There is no mitral valve stenosis. There is moderate mitral valve regurgitation. Tricuspid Valve The tricuspid valve leaflets are normal. There is no significant tricuspid valve stenosis. There is mild tricuspid valve regurgitation. There is pulmonary hypertension, estimated pulmonary arterial systolic pressure is 45 mmHg. Pericardium/Pleural The pericardium appears normal. There is no pericardial effusion. Inferior Vena Cava Dilated inferior vena cava with <50% collapse upon inspiration consistent with elevated right atrial pressure. Aorta The aortic measurements are indexed to age and body surface area. The aortic root is normal measuring 2.99 cm with an index of 1.66 cm/m2. Wall Motion Scoring Wall Motion Scoring Index: 2.53 Left Ventricular Outflow Tract Name Value Normal LVOT 2D LVOT Diameter 2.11 cm LVOT Doppler LVOT Peak Velocity 0.50 m/s LVOT Peak Gradient 1 mmHg LVOT Mean Gradient 0 mmHg LVOT VTI 6.03 cm LVOT VTI/AV VTI Ratio 0.60 LVOT Stroke Volume 21.11 ml LVOT Stroke Index 11.54 ml/m2 LVOT CO 2.32 l/min LVOT CI 1.30 L/min/m2 Pulmonic Valve Name Value Normal PV Doppler PV Peak Velocity 47.96 cm/s PV Peak Gradient 1 mmHg Mitral Valve Name Value Normal MV Doppler MV Peak Velocity 121.10 cm/s MV Peak Gradient 6 mmHg MV Mean Gradient 2 mmHg MV VTI 14.59 cm MV Decel Hancock 1,046.05 cm/s2 MV PHT 27 ms MV Area (PHT) 8.08 cm2 4.00-5.00 MV Area (Cont Eq VTI) 1.45 cm2 MV Area Index (Cont Eq VTI) 0.81 cm2/m2 MV Regurgitation Doppler MR VTI 110.82 cm MR PISA Radius 0.65 cm MR PISA Alias Velocity 38.22 cm/s MR ERO (PISA) 0.24 cm2 MR Volume (PISA) 26.53 ml MV Diastolic Function MV E Peak Velocity 98.20 cm/s MV A Peak Velocity 44.26 cm/s MV E/A 2.22 MV Decel Time 94 ms MV Annular TDI MV Septal e' Velocity 4.86 cm/s >=8.00 MV E/e' (Septal) 20.20 <=8.00 MV Lateral e' Velocity 3.68 cm/s >=10.00 MV E/e' (Lateral) 26.67 <=8.00 MV e' Average 4.27 MV E/e' (Average) 23.43 Tricuspid Valve Name Value Normal TV Regurgitation Doppler TR Peak Velocity 304.91 cm/s TR Peak Gradient 37 mmHg Estimated PAP/RSVP RA Pressure 8 mmHg <=5 PA Systolic Pressure 45 mmHg <=36 RV Systolic Pressure 45 mmHg <36 TV Annular TDI TV Lateral Carmelina s' Velocity 5.37 cm/s 9.50-18.70 Aorta Name Value Normal Ascending Aorta Ao Root Diameter (2D) 2.99 cm 3.10-3.70 Ao Root Diam Index (2D) 1.66 cm/m2 1.50-1.90 Venous Name Value Normal IVC/SVC IVC Diameter (Exp 2D) 1.96 cm <=2.10 Aortic Valve Name Value Normal AV Doppler AV Peak Velocity 0.7 m/s AV Peak Gradient 2 mmHg AV Mean Gradient 1 mmHg AV VTI 10.13 cm AV Area (Cont Eq VTI) 2.08 cm2 AV Area Index (Cont Eq VTI) 1 cm2/m2 AV Area (Cont Eq Adrienne) 2.54 cm2 AV Area Index (Cont Eq Adrienne) 1 cm2/m2 LVOT Vmax/AV Vmax 0.73 LVOT VTI/AV VTI Ratio 0.60 AV Regurgitation 2D LVOT Area 3.50 cm2 Ventricles Name Value Normal LV Dimensions 2D/MM IVS Diastolic Thickness (2D) 0.82 cm 0.60-1.00 LVID Diastole (2D) 5.60 cm 4.20-5.80 LVIW Diastolic Thickness (2D) 0.88 cm 0.60-1.00 LVID Systole (2D) 4.76 cm 2.50-4.00 LVOT Diameter 2.11 cm LV Mass (2D Cubed) 177 g 88-224 LV Mass Index (2D Cubed) 99 g/m2 49-115 Relative Wall Thickness (2D) 0.31 <=0.42 LV Fractional Shortening/Ejection Fraction 2D/MM LV Fractional Shortening (2D) 15 % 25-43 LV EF (2D Teichshanez) 31 % 52-72 LV Diastolic Volume (4C MOD) 145 ml LV Systolic Volume (4C MOD) 101 ml LV EF (4C MOD) 30 % LV Diastolic Volume (2C MOD) 157 ml LV Systolic Volume (2C MOD) 109 ml LV EF (2C MOD) 30 % LV Diastolic Volume (BP MOD) 157.56 ml 62.00-150.00 LV Diastolic Volume Index (BP MOD) 87.84 ml/m2 34.00-74.00 LV Systolic Volume (BP MOD) 108.37 ml 21.00-61.00 LV Systolic Volume Index (BP MOD) 60.41 ml/m2 11.00-31.00 LV EF (BP MOD) 31 % 55-70 LV Diastolic Length (4C) 8.34 cm LV Systolic Length (4C) 7.92 cm LV Stroke Volume (4C MOD) 43.26 ml RV Dimensions 2D/MM RV Basal Diastolic Dimension 4.42 cm 2.50-4.10 TAPSE 1.44 cm >=1.70 Report Signatures Finalized by Kenzie Chambers MD on 10/12/2019 01:29 PM [place] - 10/12/2019 1:30 PM EDT Patient Info Name: AARTI GARCIA Age: 54 years : 1965 Gender: Male Ht: 180 cm Wt: 65 kg BSA: 1.79 m2 HR: 102 bpm BP: 112 / 70 mmHg Heart Rhythm: Sinus Rhythm Technical Quality: Poor Exam Date: 10/12/2019 12:09 PM Patient Status: Inpatient Ordering Physician: ALINE MCCLAIN Meat Inspector: Sarahi Montgomery RN, [facility] Exam Type: ECHOCARDIOGRAM COMPLETE W CONTRAST Study Info Indications R06.00 - Dyspnea, unspecified Referring Physician: ALINE MCCLAIN; [id number] BMI: 20.00 kg/m2 Summary 1. Technically difficult echo windows, Definity used to optimize study. 2. LV appears dilated with global dysfunction with segmental features. Biplane LVEF 31%. 3. Mild RV enlargement with mild RV dysfunction. Device wire noted in right heart. 4. Elevated left atrial pressure. 5. There is mild tricuspid valve regurgitation. 6. There is pulmonary hypertension, estimated pulmonary arterial systolic pressure is 45 mmHg. 7. There is moderate mitral valve regurgitation. 8. Prior ejection fraction of 30% noted from nuclear stress perfusion study from 2016. History/Risk Factors Hypertension: Yes Myocardial Infarction ([place]): Yes Coronary Artery Disease (CAD) Yes History/Risk Factors Patient has prior CABG. Cardiac Arrest: Out of Hospital Prior Interventions CABG: Yes ICD: Yes Procedure(s): Complete two-dimensional, color flow and Doppler transthoracic echocardiogram is performed with contrast. Definity explained to patient. Patient verbalizes understanding and agrees to proceed. Definity 1.3ml/8.7ml normal sterile saline 2 ml total given IV over 30-60 seconds. Left Ventricle Left ventricular chamber dimension is mildly enlarged. Left ventricular systolic function is moderately reduced with an ejection fraction by Biplane Method of Discs of 31 %. Normal left ventricular mass. Left ventricular segmental wall motion is abnormal. The inferolateral wall, apical septum, apical anterior wall, apical cap, mid anterior wall, mid anterolateral wall, and mid anteroseptal are akinetic. The inferior wall, basal anterior wall, basal inferoseptal, mid inferoseptal, basal anterolateral wall, and basal anteroseptal are hypokinetic. The average E:e is >14 suggesting elevated left atrial pressure. Right Ventricle Device wire noted in right heart. Right ventricular chamber dimension is enlarged. Right ventricular systolic function is reduced. Left Atria Left atrial chamber dimension is mildly enlarged. Right Atria Right atrial chamber dimension is normal. Aortic Valve The aortic valve is trileaflet. There is no aortic valve stenosis with a peak velocity of 0.7 m/s, mean gradient of 1 mmHg, and aortic valve area of 2.08 cm2. There is no aortic valve regurgitation. Pulmonic Valve The pulmonic valve is normal. There is no pulmonic valve stenosis. There is no pulmonic regurgitation. Mitral Valve The mitral valve has normal leaflets. There is no mitral valve stenosis. There is moderate mitral valve regurgitation. Tricuspid Valve The tricuspid valve leaflets are normal. There is no significant tricuspid valve stenosis. There is mild tricuspid valve regurgitation. There is pulmonary hypertension, estimated pulmonary arterial systolic pressure is 45 mmHg. Pericardium/Pleural The pericardium appears normal. There is no pericardial effusion. Inferior Vena Cava Dilated inferior vena cava with <50% collapse upon inspiration consistent with elevated right atrial pressure. Aorta The aortic measurements are indexed to age and body surface area. The aortic root is normal measuring 2.99 cm with an index of 1.66 cm/m2. Wall Motion Scoring Wall Motion Scoring Index: 2.53 Left Ventricular Outflow Tract Name Value Normal LVOT 2D LVOT Diameter 2.11 cm LVOT Doppler LVOT Peak Velocity 0.50 m/s LVOT Peak Gradient 1 mmHg LVOT Mean Gradient 0 mmHg LVOT VTI 6.03 cm LVOT VTI/AV VTI Ratio 0.60 LVOT Stroke Volume 21.11 ml LVOT Stroke Index 11.54 ml/m2 LVOT CO 2.32 l/min LVOT CI 1.30 L/min/m2 Pulmonic Valve Name Value Normal PV Doppler PV Peak Velocity 47.96 cm/s PV Peak Gradient 1 mmHg Mitral Valve Name Value Normal MV Doppler MV Peak Velocity 121.10 cm/s MV Peak Gradient 6 mmHg MV Mean Gradient 2 mmHg MV VTI 14.59 cm MV Decel Hancock 1,046.05 cm/s2 MV PHT 27 ms MV Area (PHT) 8.08 cm2 4.00-5.00 MV Area (Cont Eq VTI) 1.45 cm2 MV Area Index (Cont Eq VTI) 0.81 cm2/m2 MV Regurgitation Doppler MR VTI 110.82 cm MR PISA Radius 0.65 cm MR PISA Alias Velocity 38.22 cm/s MR ERO (PISA) 0.24 cm2 MR Volume (PISA) 26.53 ml MV Diastolic Function MV E Peak Velocity 98.20 cm/s MV A Peak Velocity 44.26 cm/s MV E/A 2.22 MV Decel Time 94 ms MV Annular TDI MV Septal e' Velocity 4.86 cm/s >=8.00 MV E/e' (Septal) 20.20 <=8.00 MV Lateral e' Velocity 3.68 cm/s >=10.00 MV E/e' (Lateral) 26.67 <=8.00 MV e' Average 4.27 MV E/e' (Average) 23.43 Tricuspid Valve Name Value Normal TV Regurgitation Doppler TR Peak Velocity 304.91 cm/s TR Peak Gradient 37 mmHg Estimated PAP/RSVP RA Pressure 8 mmHg <=5 PA Systolic Pressure 45 mmHg <=36 RV Systolic Pressure 45 mmHg <36 TV Annular TDI TV Lateral Carmelina s' Velocity 5.37 cm/s 9.50-18.70 Aorta Name Value Normal Ascending Aorta Ao Root Diameter (2D) 2.99 cm 3.10-3.70 Ao Root Diam Index (2D) 1.66 cm/m2 1.50-1.90 Venous Name Value Normal IVC/SVC IVC Diameter (Exp 2D) 1.96 cm <=2.10 Aortic Valve Name Value Normal AV Doppler AV Peak Velocity 0.7 m/s AV Peak Gradient 2 mmHg AV Mean Gradient 1 mmHg AV VTI 10.13 cm AV Area (Cont Eq VTI) 2.08 cm2 AV Area Index (Cont Eq VTI) 1 cm2/m2 AV Area (Cont Eq Adrienne) 2.54 cm2 AV Area Index (Cont Eq Adrienne) 1 cm2/m2 LVOT Vmax/AV Vmax 0.73 LVOT VTI/AV VTI Ratio 0.60 AV Regurgitation 2D LVOT Area 3.50 cm2 Ventricles Name Value Normal LV Dimensions 2D/MM IVS Diastolic Thickness (2D) 0.82 cm 0.60-1.00 LVID Diastole (2D) 5.60 cm 4.20-5.80 LVIW Diastolic Thickness (2D) 0.88 cm 0.60-1.00 LVID Systole (2D) 4.76 cm 2.50-4.00 LVOT Diameter 2.11 cm LV Mass (2D Cubed) 177 g 88-224 LV Mass Index (2D Cubed) 99 g/m2 49-115 Relative Wall Thickness (2D) 0.31 <=0.42 LV Fractional Shortening/Ejection Fraction 2D/MM LV Fractional Shortening (2D) 15 % 25-43 LV EF (2D Teicholz) 31 % 52-72 LV Diastolic Volume (4C MOD) 145 ml LV Systolic Volume (4C MOD) 101 ml LV EF (4C MOD) 30 % LV Diastolic Volume (2C MOD) 157 ml LV Systolic Volume (2C MOD) 109 ml LV EF (2C MOD) 30 % LV Diastolic Volume (BP MOD) 157.56 ml 62.00-150.00 LV Diastolic Volume Index (BP MOD) 87.84 ml/m2 34.00-74.00 LV Systolic Volume (BP MOD) 108.37 ml 21.00-61.00 LV Systolic Volume Index (BP MOD) 60.41 ml/m2 11.00-31.00 LV EF (BP MOD) 31 % 55-70 LV Diastolic Length (4C) 8.34 cm LV Systolic Length (4C) 7.92 cm LV Stroke Volume (4C MOD) 43.26 ml RV Dimensions 2D/MM RV Basal Diastolic Dimension 4.42 cm 2.50-4.10 TAPSE 1.44 cm >=1.70 Report Signatures Finalized by Kenzie Chambers MD on 10/12/2019 01:29 PM [facility] LEGIONELLA ANTIGEN, URINEon 10-12-2019 L. pneumophila Ag Ql (U) Negative Negative for Legionella antigen [facility] Comment on above: COMMENT: Results may be affected if patient is on diuretics. INTERPRETATION OF RESULTS: Test detects Legionella pneumophilia serogroup 1 antigens in urine. Legionnaires disease cannot be ruled out since other serogroups and species may also cause disease. Lactic Acid, Plasmaon 2019 Interpretation and review of laboratory results Normal [facility] Lactate [Moles/Vol] 1.7 mmol/L 0.6 - 2 mmol/L [facility] NT Pro BNPon 10-12-2019 Interpretation and review of laboratory results Abnormal [facility] Natriuretic peptide.B prohormone N-Terminal [Mass/Vol] 3202 pg/mL High 0 - 300 pg/mL [facility] Pride Study Cut-offs Rule In: < /= 50 Years >450 pg/mL 51 Years - 75 Years >900 pg/mL 76 Years - 99 Years >1800 pg/mL Rule Out: All patients <300 pg/mL [facility] Otheron 10-12-2019 Interpretation and review of laboratory results Normal [facility] Extra Tube Hold for add-ons. [facility] Comment on above: Auto resulted. S.PNEUMONIAE URINE ANTIGENon 10-12-2019 S. pneumoniae Ag Ql (U) Negative Presumptive Negative for Pneumococcal pneumoniae [facility] Comment on above: A negative result key ggests no current or recent pneumococcal infection. A negative result does not rule out Streptococcus pneumoniae infection since the antigen present in the sample may be below the detection limit of the test. XR CHEST AP/PA AND LATon Interface, Rad In Fu ji Speechq - 10/12/2019 9:28 AM EDT EXAMINATION: XR CHEST AP/PA AND LAT 10/12/2019 8:06 am HISTORY: ORDERING SYSTEM PROVIDED HISTORY: pna, TECHNOLOGIST PROVIDED HISTORY: Illness/Other Reason for exam: cough x 1 day, former smoker, SOB, on oxygen Cancer History: u Surgery, RadiationHistory: u Encounter Type: Initial Additional signs and symptoms: n ORDERING SYSTEM PROVIDED DIAGNOSIS CODES: COMPARISON: 10/09/2019 FINDINGS: Upright frontal and lateral views of the chest were obtained. CABG changes are present. Median sternotomy wires are intact. Left-sided dual-lead cardiac AICD is unchanged. Cardiac silhouette is unchanged. No pneumothorax or pulmonary vascular congestion. Prominent background interstitial markings are unchanged. They is similar to slightly increased patchy airspace disease in the left lung base. Right lung is clear. No sizable pleural effusion. IMPRESSION: Patchy airspace disease in the left lower lobe consistent with pneumonia in the appropriate clinical setting. This is superimposed on chronic interstitial lung disease. [facility]/s Workstation ID: [id number] [facility] Patchy airspace dise ase in the left lower lobe consistent with pneumonia in the appropriate clinical setting. This is superimposed on chronic interstitial lung disease. [facility]/[employer] Workstation ID: [id number] [facility] EXAMINATION: XR CHES T AP/PA AND LAT 10/12/2019 8:06 am HISTORY: ORDERING SYSTEM PROVIDED HISTORY: pna, TECHNOLOGIST PROVIDED HISTORY: Illness/Other Reason for exam: cough x 1 day, former smoker, SOB, on oxygen Cancer History: u Surgery, RadiationHistory: u Encounter Type: Initial Additional signs and symptoms: n ORDERING SYSTEM PROVIDED DIAGNOSIS CODES: COMPARISON: 10/09/2019 FINDINGS: Upright frontal and lateral views of the chest were obtained. CABG changes are present. Median sternotomy wires are intact. Left-sided dual-lead cardiac AICD is unchanged. Cardiac silhouette is unchanged. No pneumothorax or pulmonary vascular congestion. Prominent background interstitial markings are unchanged. They is similar to slightly increased patchy airspace disease in the left lung base. Right lung is clear. No sizable pleural effusion. [facility] BMPon 10-09-2019 Anion gap [Moles/Vol] 12 mmol/L 10 - 20 mmol/L [facility] Calcium [Mass/Vol] 8.6 mg/dL 8.4 - 10. 2 mg/dL [facility] Chloride [Moles/Vol] 105 mmol/L 98 - 108 mmol/L [facility] Creatinine [Mass/Vol] 1.03 mg/dL 0.50 - 1.30 [facility] GFR/1.73 sq M predicted among non-blacks MDRD (S/P/Bld) [Vol rate/Area] The eGFR should be used for monitoring renal function only and not for medication dosing. [facility] GFR/1.73 sq M.predicted CKD-EPI (S/P/Bld) [Vol rate/Area] 83 >=60 mL/min/1.73 m2 [facility] Glucose [Mass/Vol] 116 mg/dL High 65 - 99 mg/dL [facility] HCO3 [Moles/Vol] 24 mmol/L 21 - 32 mmol/L [facility] Interpretation and review of laboratory results Abnormal [facility] Potassium [Moles/Vol] 4.6 mmol/L 3.5 - 5.1 mmol/L [facility] Sodium [Moles/Vol] 136 mmol/L 135 - 145 mmol/L [facility] Urea nitrogen [Mass/Vol] 14 mg/dL 8 - 25 mg/dL [facility] Urea nitrogen/Creatinin e [Mass ratio] 13.6 mg/mg [facility] CBC WITH AUTO DIFFERENTIALon 10-09-2019 Basophils (Bld) [#/Vol] 0.05 10*3/uL [facility] Basophils/100 WBC (Bld) 0.4 % [facility] Eosinophils (Bld) [#/Vol] 0.06 10*3/uL [facility] Eosinophils/100 WBC (Bld) 0.4 % [facility] Erythrocyte distribution width (RBC) [Entitic vol] 13.3 % 11.6 - 14.8 % [facility] Hematocrit (Bld) [Volume fraction] 49.6 % 41 - 53 % [facility] Hemoglobin (Bld) [Mass/Vol] 16.5 g/dL 13.5 - 17.5 g/dL [facility] Immature granulocytes (Bld) [#/Vol] 0.10 10*3/uL [facility] Immature granulocytes/100 WBC (Bld) 0.70 % [facility] Comment on above: The IG parameter is the percentage of metamyelocytes, myelocytes and promyelocytes. An immature granulocyte count (IG) of 1% or more suggests the possibility of infection, an IG count of 3% is very likely related to an infection. Interpretation and review of laboratory results Abnormal [facility] Lymphocytes (Bld) [#/Vol] 0.77 10*3/uL Low [facility] Lymphocytes/100 WBC (Bld) 5.5 % [facility] MCH (RBC) [Entitic mass] 30.8 pg 26 - 34 pg [facility] MCHC (RBC) [Mass/Vol] 33.3 g/dL 31 - 37 g/dL [facility] MCV (RBC) [Entitic vol] 92.7 fL 80 - 100 fL [facility] Monocytes (Bld) [#/Vol] 0.64 10*3/uL [facility] Monocytes/100 WBC (Bld) 4.6 % [facility] Neutrophils (Bld) [#/Vol] 12.26 10*3/uL High [facility] Neutrophils/100 WBC (Bld) 88.4 % [facility] Nucleated RBC (Bld) [#/Vol] 0.00 10*3/uL [facility] Nucleated RBC/100 WBC (Bld) [Ratio] 0.0 % [facility] Platelet mean volume (Bld) [Entitic vol] 10.5 fL 9.4 - 12.4 fL [facility] Platelets (Bld) [#/Vol] 292 10*3/uL [facility] RBC (Bld) [#/Vol] 5.35 10*6/uL [facility] ealth WBC (Bld) [#/Vol] 13.88 10*3/uL [facility] COVID-19, Molecularon 2019 Interpretation and review of laboratory results Normal [facility] SARS-CoV-2 Not Detected Not Detected [facility] Comment on above: This test was perfor med under the FDA's Emergency Use Authorization (EUA). Testing was performed using the [place] ID NOW COVID-19 assay on the ID NOW platform. This test has not been approved for use in asymptomatic patients and its performance in this patient population has not been evaluated. Negative results do not rule out the presence of SARS-CoV-2/COVID-19. Fact sheets for the EUA can be found at the following links: For Healthcare Providers: https://www.fda.gov/media/108430/download For Patients: https://www.fda.gov/media/067517/download D-DIMER, QUANTITATIVEon 09-19 Fibrin D-dimer FEU (PPP) [Mass/Vol] 0.35 0.27 - 0.49 mcg/mL FEU [facility] Interpretation and review of laboratory results Normal [facility] A D-dimer concentrat ion of <0.5 micrograms per milliliter FEU is considered a low probability for pulmonary embolus (PE) and deep venous thrombosis (DVT). Results of this test should always be interpreted in conjunction with the patient's medical history,clinical presentation, and other findings. Clinical diagnosis should not be based on the results of the D-dimer alone. [facility] ECG 12-LEADon 10-09-2019 Atrial Rate 101 BPM [facility] P [place] 55 degrees [facility] P-R Interval 140 ms [facility] Q-T Interval 326 ms [facility] QRS Duration 98 ms [facility] QTC Calculation (Bezet) 422 ms [facility] R [place] 25 degrees [facility] T [place] 96 degrees [facility] Ventricular Rate 101 BPM [facility] Sin[facility] tachycardia wi th occasional Premature ventricular complexes Biatrial enlargement Septal infarct , age undetermined T wave abnormality, consider lateral ischemia Abnormal ECG ECG Cart Interpretation see physician note for interpretation. Confirmed by Carmelina Beach ([id number]) on 10/09/2019 3:36:33 PM [facility] Hepatic Function Panel (LFT) on 10-09-2019 Albumin [Mass/Vol] 3.3 g/dL 3.2 - 5.2 g/dL [facility] ALP [Catalytic activity/Vol] 77 U/L 40 - 150 U/L [facility] ALT [Catalytic activity/Vol] 43 U/L 14 - 65 U/L [facility] AST [Catalytic activity/Vol] 21 U/L 0 - 45 U/L [facility] Bilirubin [Mass/Vol] 1.0 mg/dL 0 - 1.3 mg/dL [facility] Bilirubin.conjugat ed [Mass/Vol] 0.2 mg/dL 0 - 0.4 mg/dL [facility] Interpretation and review of laboratory results Normal [facility] Protein [Mass/Vol] 7.3 g/dL 6 - 8 g/dL [facility] Otheron 10-09-2019 Extra Tube Hold for add-ons. [facility] Comment on above: Auto resulted. XR Chest 1 Viewon 10-09-2019 Interface, Rad In Fu ji Speechq - 10/09/2019 12:53 PM EDT EXAMINATION: XR CHEST PA/AP 10/09/2019 12:44 pm HISTORY: ORDERING SYSTEM PROVIDED HISTORY: sob, TECHNOLOGIST PROVIDED HISTORY: Illness/Other Reason for exam: sob Cancer History: u Surgery, RadiationHistory: u Encounter Type: Initial Additional signs and symptoms: n ORDERING SYSTEM PROVIDED DIAGNOSIS CODES: COMPARISON: 03/18/2016 FINDINGS: Left subclavian venous dual lead AICD remains unchanged, with leads in the RA and RV apex. Post CABG changes are again noted, with midline sternotomy wires. Left basilar atelectasis or airspace consolidation is noted, as well as a small left basilar pleural effusion. There is mild prominence of the interstitial markings in the lower lungs, suggestive of mild pulmonary edema. The heart is borderline enlarged. No pneumothorax. IMPRESSION: 1. Borderline cardiomegaly with mild prominence of the interstitial markings in the lower lungs, suggestive of mild pulmonary edema. AICD and post CABG changes. 2. Left basilar atelectasis or airspace consolidation, which may represent pneumonia, and a small left basilar pleural effusion. I recommend follow-up PA and lateral view chest radiographs in 6-8 weeks to further evaluate. Workstation ID: [id number] [facility] EXAMINATION: XR CHES T PA/AP 10/09/2019 12:44 pm HISTORY: ORDERING SYSTEM PROVIDED HISTORY: sob, TECHNOLOGIST PROVIDED HISTORY: Illness/Other Reason for exam: sob Cancer History: u Surgery, RadiationHistory: u Encounter Type: Initial Additional signs and symptoms: n ORDERING SYSTEM PROVIDED DIAGNOSIS CODES: COMPARISON: 03/18/2016 FINDINGS: Left subclavian venous dual lead AICD remains unchanged, with leads in the RA and RV apex. Post CABG changes are again noted, with midline sternotomy wires. Left basilar atelectasis or airspace consolidation is noted, as well as a small left basilar pleural effusion. There is mild prominence of the interstitial markings in the lower lungs, suggestive of mild pulmonary edema. The heart is borderline enlarged. No pneumothorax. [facility] 1. Borderline cardiomegaly with mild prominence of the interstitial markings in the lower lungs, suggestive of mild pulmonary edema. AICD and post CABG changes. 2. Left basilar atelectasis or airspace consolidation, which may represent pneumonia, and a small left basilar pleural effusion. I recommend follow-up PA and lateral view chest radiographs in 6-8 weeks to further evaluate. Workstation ID: [id number] [facility] BASIC METABOLIC PANELon - Anion gap [Moles/Vol] 12 mmol/L Normal 10 - 20 [facility] Comment on above: Performed By: #### B MP #### [address] [address] Calcium [Mass/Vol] 8.5 mg/dL Low 8.6 - 10.3 [facility] Comment on above: Performed By: #### B MP #### [address] [address] Chloride [Moles/Vol] 100 mmol/L Normal 98 - 107 [facility] Comment on above: Performed By: #### B MP #### [address] [address] Creatinine [Mass/Vol] 0.94 mg/dL Normal 0.50 - 1.30 [facility] Comment on above: Performed By: #### B MP #### [address] [address] GFR- AM. >60 Normal >60 [facility] Comment on above: Result Comment: CALC ULATIONS OF ESTIMATED GFR ARE PERFORMED USING THE MDRD STUDY EQUATION FOR THE IDMS-TRACEABLE CREATININE METHODS. CLIN CHEM 2007;53:766-72 Performed By: #### B MP #### [address] [address] GFR-NON AM. >60 Normal >60 [facility] Comment on above: Performed By: #### B MP #### [address] [address] Glucose [Mass/Vol] 103 mg/dL High 74 - 99 [facility] Comment on above: Performed By: #### B MP #### [address] [address] HCO3 (Bld) [Moles/Vol] 23 mmol/L Normal 21 - 32 [facility] Comment on above: Performed By: #### B MP #### [place] [address] Potassium [Moles/Vol] 4.5 mmol/L Normal 3.5 - 5.3 [facility] Comment on above: Performed By: #### B MP #### [place] [address] Sodium [Moles/Vol] 130 mmol/L Low 136 - 145 [facility] Comment on above: Performed By: #### B MP #### [place] [address] Urea nitrogen [Mass/Vol] 17 mg/dL Normal 6 - 23 [facility] Comment on above: Performed By: #### B MP #### [place] [address] BNPon 10-07-2019 Natriuretic peptide B (Bld) [Mass/Vol] 968 pg/mL High 0 - 99 [facility] Comment on above: Result Comment: . <1 00 pg/mL - Heart failure unlikely 100-299 pg/mL - Intermediate probability of acute heart . failure exacerbation. Correlate with clinical . context and patient history. >=300 pg/mL - Heart Failure likely. Correlate with clinical . context and patient history. BNP testing is performed using different testing methodology at [facility] than at other [facility]. Direct result comparisons should only be made within the same method. Performed By: #### B NP2 #### [place] [address] CBC AND DIFFERENTIALon 10-06 Basophils (Bld) [#/Vol] 0.10 10*3/uL Normal 0.00 - 0.10 [facility] Comment on above: Performed By: #### C BCDF #### [place] [id number] Basophils/100 WBC (Bld) 0.7 % Normal 0.0 - 2.0 [facility] Comment on above: Performed By: #### C BCDF #### [place] [address] Eosinophils (Bld) [#/Vol] 0.10 10*3/uL Normal 0.00 - 0.70 [facility] Comment on above: Performed By: #### C BCDF #### [address] [address] Eosinophils/100 WBC (Bld) 1.5 % Normal 0.0 - 6.0 [facility] Comment on above: Performed By: #### C BCDF #### [address] [address] Erythrocyte distribution width (RBC) [Ratio] 13.6 % Normal 11.5 - 14.5 [facility] Comment on above: Performed By: #### C BCDF #### [address] [address] Hematocrit (Bld) [Volume fraction] 43.7 % Normal 41.0 - 52.0 [facility] Comment on above: Performed By: #### C BCDF #### [address] [address] Hemoglobin (Bld) [Mass/Vol] 14.7 g/dL Normal 13.5 - 17.5 [facility] Comment on above: Performed By: #### C BCDF #### [address] [address] Lymphocytes (Bld) [#/Vol] 1.00 10*3/uL Low 1.20 - 4.80 [facility] Comment on above: Performed By: #### C BCDF #### [address] [address] Lymphocytes/100 WBC (Bld) 11.7 % Normal 13.0 - 44.0 [facility] Comment on above: Performed By: #### C BCDF #### [address] [address] MCHC (RBC) [Mass/Vol] 33.7 g/dL Normal 32.0 - 36.0 [facility] Comment on above: Performed By: #### C BCDF #### [address] [address] MCV (RBC) [Entitic vol] 93 fL Normal 80 - 100 [facility] Comment on above: Performed By: #### C BCDF #### [address] [address] Monocytes (Bld) [#/Vol] 0.70 10*3/uL Normal 0.10 - 1.00 [facility] Comment on above: Performed By: #### C BCDF #### [address] [address] Monocytes/100 WBC (Bld) 8.1 % Normal 2.0 - 10.0 [facility] Comment on above: Performed By: #### C BCDF #### [address] [address] Neutrophils (Bld) [#/Vol] 6.30 10*3/uL Normal 1.20 - 7.70 [facility] Comment on above: Result Comment: Perc ent differential counts (%) should be interpreted in the context of the absolute cell counts (cells/L). Performed By: #### C BCDF #### [address] [address] Neutrophils/100 WBC (Bld) 78.0 % Normal 40.0 - 80.0 [facility] Comment on above: Performed By: #### C BCDF #### [address] [address] Nucleated RBC/100 WBC (Bld) [Ratio] 0.1 /100 WBC Normal [facility] Comment on above: Performed By: #### C BCDF #### [address] [address] Platelets (Bld) [#/Vol] 227 10*3/uL Normal 150 - 450 [facility] Comment on above: Performed By: #### C BCDF #### [address] [address] RBC (Bld) [#/Vol] 4.72 x10E12/L Normal 4.50 - 5.90 [facility] Comment on above: Performed By: #### C BCDF #### [address] [address] WBC (Bld) [#/Vol] 8.1 10*3/uL Normal 4.4 - 11.3 [facility] Comment on above: Performed By: #### C BCDF #### [address] [address] CHEST 1 VIEWon 10-07-2019 CHEST 1 VIEW STUDY: Chest Radiograph; 10/07/2019 04:18 AM INDICATION: Line Placement. COMPARISON: 10/06/2019 XR Chest. ACCESSION NUMBER(S): [id number] ORDERING CLINICIAN: DAVID SCHMIDT MD TECHNIQUE: Frontal chest was obtained at 03:59 hours. FINDINGS: CARDIOMEDIASTINAL SILHOUETTE: Cardiomediastinal silhouette is normal in size and configuration. LUNGS: There is mild left basilar opacification suggesting a very small effusion and underlying atelectasis. Mild vascular congestion is questioned. There is left basilar opacification suggesting a small effusion and underlying volume loss, as well as possible consolidation. ABDOMEN: No remarkable upper abdominal findings. BONES: No acute osseous changes. IMPRESSION: Suspect mild vascular congestion. Very small left-sided pleural effusion. Signed by Basilia Sandhu M.D. Electronically signed by: BASILIA SANDHU MD [facility] Provider Note - ED v2on 09-18 Provider Note - ED v2 Provider Note - ED v2: Chart Review ED NOTES ED NOTES: HPI: 54-year-old male chief complaint of shortness of breath. Complains of primarily exertional dyspnea for about the past week. States he was seen in an urgent care 3 to 4 days ago and was diagnosed with bronchitis. He states they gave him a medicine for bronchitis and while he was taking that he was feeling much better. He is not sure of the medication. He does not use an inhaler. Does not report any wheezes. Does not report any chest pain. No radiating symptoms. He did have an open heart surgery about 6 years ago as well as a pacemaker. He quit smoking at that time. No back pain or jaw pain. No abdominal pain. No neurologic complaints. ROS: All systems are negative other than as noted in HPI. Physical Exam I have reviewed the triage vital signs. Const: Well nourished, well developed, appears stated age, no acute distress Eyes: PERRL, EOM intact, no conjunctival injection, vision grossly normal HENT: Neck supple without meningismus , Moist mucous membranes, no pharyengeal swelling or exudate CV: Regular rate and rhythm, Warm, well-perfused extremities. Chest non tender RESP: Lungs clear bilaterally, Unlabored respiratory effort. No wheezes. GI: soft, non-tender, non-distended, no masses : MSK: No gross deformities appreciated Skin: Warm, dry. No rashes Neuro: Alert and oriented x4, GCS 15 , cistern room operator II-XII grossly intact. Sensation and motor function of extremities grossly intact. Psych: Appropriate mood and affect. HISTORY OF PRESENTING ILLNESS AARTI is a 54 year old Male and was seen by me at 07-Oct-2019 04:22 for a chief complaint of shortness of breath (Seen at urgent care 4 days ago and received 4 pills. States SOB continues now that the pills are gone.)(1). Triage Information: Most recent Vital Sign Value Date Temp (F): 97.4 10-07-2019 04:27 Temp (C): 36.3 10-07-2019 04:27 Heart Rate (beats/min): 81 10-07-2019 04:27 Respirations (breaths/min): 20 10-07-2019 04:27 SpO2 (%): 99 10-07-2019 04:27 BP Systolic (mm Hg): 96 10-07-2019 04:27 BP Diastolic (mm Hg): 73 10-07-2019 04:27 PAST MEDICAL HISTORY ATTESTATION: I have reviewed and confirmed nurse's/medic's notes for patient's medications, allergies, medical history, and surgical history ALLERGIES/INTOLERANCES: No Known Allergies HEALTH HISTORY: No documented data. OUTPATIENT MEDICATIONS: Home Medications Review Status for Reconciliation: Not Done Med Status: Patient Currently Takes Medications Drug Name: Azithromycin 250 Mg Tablet Instructions: TAKE 2 TABLETS by mouth today, THEN take 1 TABLET once a day FOR the n Drug Name: albuterol 90 mcg/inh inhalation aerosol Instructions: 2 puff(s) inhaled every 4 hours, As Needed -for shortness of breath Drug Name: Deltasone 20 mg oral tablet Instructions: 1 tab(s) orally once a day Drug Name: doxycycline monohydrate 100 mg oral capsule Instructions: 1 cap(s) orally 2 times a day SIGNIFICANT EVENTS: Past Medical History Description:open heart Description:Bronchitis RESULTS/VITAL SIGNS RESULTS: Recent Lab Results: I have reviewed these laboratory results: Complete Blood Count + Differential 07-Oct-2019 04:47:00 ResultValue White Blood Cell Count 8.1 Nucleated Erythrocyte Count 0.1 Red Blood Cell Count 4.72 HGB 14.7 HCT 43.7 MCV 93 MCHC 33.7 PLT 227 RDW-CV 13.6 Neutrophil % 78.0 Lymphocyte % 11.7 Monocyte % 8.1 Eosinophil % 1.5 Basophil % 0.7 Neutrophil Count 6.30 Lymphocyte Count 1.00 L Monocyte Count 0.70 Eosinophil Count 0.10 Basophil Count 0.10 Basic Metabolic Panel 07-Oct-2019 04:47:00 ResultValue Glucose, Serum 103 H NA 130 L K 4.5 CL 100 Bicarbonate, Serum 23 Anion Gap, Serum 12 BUN 17 CREAT 0.94 GFR-Non >60 GFR- >60 Calcium, Serum 8.5 L Troponin I, Serum 07-Oct-2019 04:47:00 ResultValue Troponin I, Serum 0.03 Radiology Results: Impression: Suspect mild vascular congestion. Very small left-sided pleural effusion. Signed by Basilia Sandhu M.D. Xray Chest 1 View [Oct 07 2019 5:14AM] VITAL SIGNS: T PRBP SpO2O2(LPM) %FiO2 Method 07-Oct-2019 04:27:[id number] 99 room air, no respiratory support EKG INTERPRETATION: Impression: Sinus rhythm rate of 84, narrow complex, no ST elevation no ectopy. No chest pain. MEDICAL DECISION MAKING/ED COURSE MDM/ED COURSE: Patient without chest pain or increase edema or swelling. He was able to recall the antibiotic/medication that he was on. He states he was on azithromycin. States he was doing much better when taking that medication but shortly after he stopped his symptoms started to return. No fevers or chills. Will prescribe doxycycline, short course of prednisone and albuterol. Patient is also strongly recommended to follow-up with his primary care physician. He is probably overdue for a cardiology visit as well. CLINICAL IMPRESSION Diagnosis/Annotation: ED Dx Name:Dyspnea Code:R06.00 Dispostion: discharged Type: home ATTESTATION CRITICAL CARE TIME Is this a critically ill patient: no Electronic Signatures for Addendum Section: David Schmidt) (Signed Addendum 07-Oct-2019 06:49) Patient's BNP is elevated. His lungs however are very clear. There is no rails. No diminished breath sounds. He has no swelling in his legs. He is strongly recommended to follow-up with his marine design engineer. Electronic Signatures: David Schmidt) (Signed 07-Oct-2019 06:34) Authored: Provider Note - ED v2 Last Updated: 07-Oct-2019 06:49 by David Schmidt) References: 1. Data Referenced From Triage - ED 07-Oct-2019 04:27 Normal [facility] Risk Screen - Adult Emergenc yon 10-07-2019 Risk Screen - Adult Emergency Preferred Language: Preferred Language: Preferred Language for Discussing Health Care (patient/designee)Johan albrecht Advanced Directives: Advance Directive/DNRno Family Violence Adult: Abuse Screen: Are you or have you been threatened or abused physically, emotionally, or sexually by anyoneno Learning Assessment (Patient): Learning Assessment (Patient): Patient is Able to be Assessed for Learningyes Factors Influencing Readiness to Learnnone Factors that Impact Ability to Learnnone Devices/Methods Used to Communicatenone Learning Preferenceswritten material Cultural Considerationsnone Developmental Considerationsnone Episcopalian Considerationsnone Other Learnersnone Learning Assessment (Other Learner): Learning Assessment (Other Learner): Other learner availableno Pressure Injury/TB/Substance: Pressure Injury: Pressure Injury Present on Admissionno Do you have a coughyes... Has your cough lasted longer than 2 weeksno Admission Risk Screen: Significant IndicatorsComplete CAGE: CAGE: Is this an injured patient at a Trauma Center ([facility] /[place]): no Electronic Signatures: Roberta Trevino (SUPV) (Signed 07-Oct-2019 04:37) Authored: Preferred Language, Advanced Directives, Family Violence Adult, Learning Assessment (Patient), Learning Assessment (Other Learner), Pressure Injury/TB/Substance, CAGE Last Updated: 07-Oct-2019 04:37 by Roberta Trevino (SUPV) Normal [facility] TROPONIN Ion 10-07-2019 Troponin I.cardiac [Mass/Vol] 0.03 ng/mL Normal 0.00 - 0.03 [facility] Comment on above: Result Comment: LESS THAN 0.04 NG/ML: NEGATIVE REPEAT TESTING IN THREE TO SIX HOURS IF CLINICALLY INDICATED. 0.04 - 0.5 NG/ML: CONSISTENT WITH POSSIBLE CARDIAC DAMAGE AND POSSIBLE INCREASED CLINICAL RISK. SERIAL MEASUREMENTS MAY HELP ASSESS EXTENT OF MYOCARDIAL DAMAGE. >0.5 NG/ML: CONSISTENT WITH CARDIAC DAMAGE, INCREASED CLINICAL RISK AND MYOCARDIAL INFARCTION. SERIAL MEASUREMENTS MAY HELP ASSESS EXTENT OF MYOCARDIAL DAMAGE. . Note: Troponin I testing is performed using different testing methodology at [facility] than at other [facility]. Direct result comparisons should only be made within the same method. Performed By: #### T ROP2 #### [place] [id number] [place] [address] Triage - EDon 10-07-2019 Triage - ED Chart Review: CHIEF COMPLAINT AARTI GARCIA is a Male patient with a chief complaint of shortness of breath (Seen at urgent care 4 days ago and received 4 pills. States SOB continues now that the pills are gone.). Onset of the Complaint: 03-Oct-2019 Triage Date/Time: 07-Oct-2019 04:27 Pain Rating (0-10): 0 = None Vital Signs: Temperature: 97.4F ( 36.3C) taken oral Blood Pressure: 96/73 Mean: Heart Rate: 81 Respiratory Rate: 20 Pulse Oximetry: 99% on room air, no respiratory support. Height: 5 feet 11.00 inches. 180.3 CM Weight: 136.6 pounds. Calculated 62.0 kg. (stated) Calculated BMI (kg/m2): 19.072 Calculated BSA (m2) 1.76 Dylan Coma Scale: Best Eye Response: (E4) spontaneous Best Motor Response: (M6) obeys commands Best Verbal Response: (V5) oriented [place] Score: 15 Cough lasting greater than 3 weeks: yes Patient immunocompromised related to: N/A Allergies: no Mask applied: yes Patient has homicidal thoughts: no DERREK: 3 Symptoms Are POSITIVE For: dyspnea. Risk Screens Suicide Risk Screen In the Past Month: Have you wished you were or wished you could go to sleep and not wake up no In the Past Month: Have you had any actual thoughts of killing yourself no In Your Lifetime: Have you ever done anything, started to do anything, or prepared to do anything to end your life no Araiza Fall Scale Screening Has the patient fallen before (or is the patient in the ED as a result of a fall) has not had a fall Does the patient have an impaired gait does not have impaired gait Is the patient cognitively impaired not cognitively impaired Interventions: Araiza Fall Interventions: *patient oriented to surroundings and call system, * patient/family falls education completed and documented, *patients fall status communicated during bedside handoff, *whiteboard updated, *mode of toileting discussed with patient, *bed in low position with brakes locked, *call light in reach, * non-skid footwear PAIN Pain Scale Used: TRESA Pain Rating (0-10): 0 = None TRAVEL HISTORY Travel History Coronavirus Screening: no exposure or symptoms Past Medical History: Past Medical History Reviewedyes Bronchitis: Past Medical History, Active open heart: Past Medical History, Active Electronic Signatures: Roberta Trevino (SUPV) (Signed 07-Oct-2019 04:34) Authored: Triage, Past Medical History Last Updated: 07-Oct-2019 04:34 by Roberta Trevino (SUPV) [facility] FINGER, 3RD (MIDDLE)on 04-08 FINGER, 3RD (MIDDLE) Final ReportAccession No: [id number] Performed: Apr 08 2018 3:08PMExamination: LEFT FINGER, 3RD (MIDDLE)EXAM: FINGER, 3RD (MIDDLE) LEFTREASON FOR EXAM: injury.TECHNIQUE: 3 views left third digit.COMPARISON: None.FINDINGS: There is no evidence of acute displaced fracture or dislocation.There is soft tissues on about the digit. No foreign body identified.IMPRESSION:Ne gative radiographic evaluation for fracture.Interpreting Physician: MATILDE YO M.D.Trans: n/a : cc: Normal [facility] Device Checkon 01-03-2017 Date Time Interrogation Session [id number] 1 Invalid Interpretation Code [facility] Implantable Lead Implant Date [id number] 1 Invalid Interpretation Code [facility] Implantable Lead Medical Transcriptionist Medtronic Invalid Interpretation Code [facility] Implantable Lead Model 5076 CapSureFix Novus Invalid Interpretation Code [facility] Implantable Lead Model 6935M Sprint Quattro Secure S Invalid Interpretation Code [facility] Implantable Lead Serial Number [id number] Invalid Interpretation Code [facility] Implantable Lead Serial Number [id number] Invalid Interpretation Code [facility] Pulse (Heart Rate) Medtronic Invalid Interpretation Code [facility] Pulse (Heart Rate) [id number] Bib [address] Invalid Interpretation Code [facility] Pulse (Heart Rate) [id number] Invalid Interpretation Code [facility] Pulse (Heart Rate) Defibrillator Invalid Interpretation Code [facility] Pulse (Heart Rate) [id number] /min Invalid Interpretation Code [facility] Vital Signs Date Time Vital Sign Value Performing Clinician Facility 08-24-2024 10:130400 Body mass index (BMI) [Ratio] 21.42 kg/m2 Nely Ricardo MD Work Phone: [facility] 08-24-2024 10:13040 Body weight 69.4 kg Nely Ricardo MD Work Phone: [facility] 08-24-2024 10:13040 Diastolic blood pressure 68 mm[Hg] Nely Ricardo MD Work Phone: [facility] 08-24-2024 10:13040 Heart rate 68 /min Nely Ricardo MD Work Phone: [facility] 08-24-2024 10:13040 SaO2% (BldA) [Mass fraction] 95 % Nely Ricardo MD Work Phone: [facility] 08-24-2024 10:13-0400 Systolic blood pressure 110 mm[Hg] Nely Ricardo MD Work Phone: [facility] 07-15-2024 08:15-0400 Body height 180.3 cm Adán Gorman MD Work Phone: [facility] 07-15-2024 08:15-0400 Body mass index (BMI) [Ratio] 21.06 kg/m2 Adán Gorman MD Work Phone: [facility] 07-15-2024 08:15-0400 Body weight 68.49 kg Adán Gorman MD Work Phone: [facility] 07-15-2024 08:15-0400 Diastolic blood pressure 61 mm[Hg] Adán Gorman MD Work Phone: [facility] 07-15-2024 08:15-0400 Heart rate 70 /min Adán Gorman MD Work Phone: [facility] 07-15-2024 08:15-0400 SaO2% (BldA) [Mass fraction] 94 % Adán Gorman MD Work Phone: [facility] 07-15-2024 08:15-0400 Systolic blood pressure 99 mm[Hg] Adán Gorman MD Work Phone: [facility] 05-31-2024 11:45-0500 Diastolic blood pressure 68 mm[Hg] Aarti Gonzalez MD Work Phone: [facility] 05-31-2024 11:45-0500 Heart rate 68 /min Aarti Gonzalez MD Work Phone: [facility] 05-31-2024 11:45-0500 Respiratory rate 16 /min Aarti Gonzalez MD Work Phone: [facility] 05-31-2024 11:45-0500 SaO2% (BldA) [Mass fraction] 98 % Aarti Gonzalez MD Work Phone: [facility] 05-31-2024 11:45-0500 Systolic blood pressure 103 mm[Hg] Aarti Gonzalez MD Work Phone: [facility] 05-31-2024 10:58-0500 Body temperature 97.9 [degF] Aarti Gonzalez MD Work Phone: [facility] 05-31-2024 08:24-0500 Body height 180 cm Aarti Gonzalez MD Work Phone: [facility] 05-31-2024 08:24-0500 Body mass index (BMI) [Ratio] 21.08 kg/m2 Aarti Gonzalez MD Work Phone: [phone] [place] [address] 05-31-2024 08:24-0500 Body weight 68.3 kg Aarti Gonzalez MD Work Phone: [phone] [address] 04-06-2024 12:08-0500 Body mass index (BMI) [Ratio] 21 kg/m2 Aarti Gonzalez MD Work Phone: [facility] 04-06-2024 12:08-0500 Body weight 68.04 kg Aarti Gonzalez MD Work Phone: [facility] 04-06-2024 12:08-0500 Diastolic blood pressure 74 mm[Hg] Aarti Gonzalez MD Work Phone: [facility] 04-06-2024 12:08-0500 Respiratory rate 16 /min Aarti Gonzalez MD Work Phone: [facility] 04-06-2024 12:08-0500 Systolic blood pressure 122 mm[Hg] Aarti Gonzalez MD Work Phone: [facility] 03-08-2024 09:30-0500 Diastolic blood pressure 54 mm[Hg] Aarti Gonzalez MD Work Phone: [facility] 03-08-2024 09:30-0500 Heart rate 62 /min Aarti Gonzalez MD Work Phone: [facility] 03-08-2024 09:30-0500 Respiratory rate 18 /min Aarti Gonzalez MD Work Phone: [facility] 03-08-2024 09:30-0500 SaO2% (BldA) [Mass fraction] 98 % Aarti Gonzalez MD Work Phone: [facility] 03-08-2024 09:30-0500 Systolic blood pressure 108 mm[Hg] Aarti Gonzalez MD Work Phone: [facility] 03-08-2024 08:49-0500 Body temperature 97.3 [degF] Aarti Gonzalez MD Work Phone: [facility] 03-08-2024 07:26-0500 Body height 180 cm Aarti Gonzalez MD Work Phone: [facility] 03-08-2024 07:26-0500 Body mass index (BMI) [Ratio] 20.99 kg/m2 Aarti Gonzalez MD Work Phone: [facility] 03-08-2024 07:26-0500 Body weight 68 kg Aarti Gonzalez MD Work Phone: [facility] 02-19-2024 08:44-0400 Body height 180.3 cm Krishan Hamilton .NET ARCHITECT-PLATE SETTER Work Phone: [facility] 02-19-2024 08:44-0400 Body mass index (BMI) [Ratio] 21.03 kg/m2 Krishan Hamilton .NET ARCHITECT-PLATE SETTER Work Phone: [facility] 02-19-2024 08:44-0400 Body weight 68.4 kg Krishan Hamilton .NET ARCHITECT-PLATE SETTER Work Phone: [facility] 02-19-2024 08:44-0400 Diastolic blood pressure 63 mm[Hg] Krishan Hamilton .NET ARCHITECT-PLATE SETTER Work Phone: [facility] 02-19-2024 08:44-0400 Heart rate 78 /min Krishan Hamilton .NET ARCHITECT-PLATE SETTER Work Phone: [facility] 02-19-2024 08:44-0400 SaO2% (BldA) [Mass fraction] 97 % Krishan Hamilton .NET ARCHITECT-PLATE SETTER Work Phone: [facility] 02-19-2024 08:44-0400 Systolic blood pressure 117 mm[Hg] Krishan Hamilton .NET ARCHITECT-PLATE SETTER Work Phone: [facility] 01-28-2024 12:10-0400 Diastolic blood pressure 80 mm[Hg] [address] 01-28-2024 12:10-0400 Heart rate 70 /min [address] 01-28-2024 12:10-0400 SaO2% (BldA) [Mass fraction] 98 % [address] 01-28-2024 12:10-0400 Systolic blood pressure 132 mm[Hg] [address] 12-02-2023 14:03-0400 Body mass index (BMI) [Ratio] 20.78 kg/m2 Aarti Gonzalez MD Work Phone: [facility] 12-02-2023 14:03-0400 Body weight 67.59 kg Aarti Gonzalez MD Work Phone: [facility] 12-02-2023 14:03-0400 Diastolic blood pressure 50 mm[Hg] Aarti Gonzalez MD Work Phone: [facility] 12-02-2023 14:03-0400 Heart rate 73 /min Aarti Gonzalez MD Work Phone: [facility] 12-02-2023 14:03-0400 Systolic blood pressure 84 mm[Hg] Aarti Gonzalez MD Work Phone: [facility] 11-04-2023 10:21-0400 Body height 180.3 cm Fatimah Wilcox MD MPH Work Phone: [facility] 11-04-2023 10:21-0400 Body mass index (BMI) [Ratio] 20.93 kg/m2 Fatimah Wilcox MD MPH Work Phone: [facility] 11-04-2023 10:21-0400 Body weight 68.08 kg Fatimah Wilcox MD MPH Work Phone: [facility] 11-04-2023 10:21-0400 Diastolic blood pressure 50 mm[Hg] Fatimah Wilcox MD MPH Work Phone: [facility] 11-04-2023 10:21-0400 Heart rate 79 /min Fatimah Wilcox MD MPH Work Phone: [facility] 11-04-2023 10:21-0400 SaO2% (BldA) [Mass fraction] 97 % Fatimah Wilcox MD MPH Work Phone: [facility] 11-04-2023 10:21-0400 Systolic blood pressure 100 mm[Hg] Fatimah Wilcox MD MPH Work Phone: [facility] 08-12-2023 07:58-0400 Body mass index (BMI) [Ratio] 21.05 kg/m2 Klaus Bucio CNP Work Phone: [facility] 08-12-2023 07:58-0400 Body weight 68.45 kg Klaus Bucio CNP Work Phone: [facility] 08-12-2023 07:57-0400 Diastolic blood pressure 71 mm[Hg] Klaus Bucio CNP Work Phone: [facility] Comment on above: taken morning meds 08-12-2023 07:57-0400 Heart rate 71 /min Klaus Bucio CNP Work Phone: [facility] 08-12-2023 07:57-0400 SaO2% (BldA) [Mass fraction] 97 % Klaus Bcuio CNP Work Phone: [facility] 08-12-2023 07:57-0400 Systolic blood pressure 102 mm[Hg] Klaus Bucio CNP Work Phone: [facility] Comment on above: taken morning meds 07-15-2023 09:26-0400 Body mass index (BMI) [Ratio] 20.95 kg/m2 Fatimah Wilcox MD MPH Work Phone: [facility] 07-15-2023 09:26-0400 Body weight 68.13 kg Fatimah Wilcox MD MPH Work Phone: [facility] 07-15-2023 09:26-0400 Diastolic blood pressure 58 mm[Hg] Fatimah Wilcox MD MPH Work Phone: [facility] 07-15-2023 09:26-0400 Heart rate 69 /min Fatimah Wilcox MD MPH Work Phone: [facility] 07-15-2023 09:26-0400 SaO2% (BldA) [Mass fraction] 96 % Fatimah Wilcox MD MPH Work Phone: [facility] 07-15-2023 09:26-0400 Systolic blood pressure 106 mm[Hg] Fatimah Wilcox MD MPH Work Phone: [facility] 04-08-2023 13:08-0500 Body height 180.3 cm Adán Gorman MD Work Phone: [facility] 04-08-2023 13:08-0500 Body mass index (BMI) [Ratio] 21.09 kg/m2 Adán Gorman MD Work Phone: [facility] 04-08-2023 13:08-0500 Body weight 68.58 kg Adná Gorman MD Work Phone: [facility] 04-08-2023 13:08-0500 Diastolic blood pressure 71 mm[Hg] Adán Gorman MD Work Phone: [facility] 04-08-2023 13:08-0500 Heart rate 75 /min Adán Gorman MD Work Phone: [facility] 04-08-2023 13:08-0500 SaO2% (BldA) [Mass fraction] 98 % Adán Gorman MD Work Phone: [facility] 04-08-2023 13:08-0500 Systolic blood pressure 113 mm[Hg] Adán Gorman MD Work Phone: [facility] 01-14-2023 08:00-0400 Body height 180.3 cm Walter Fermin .NET ARCHITECT-PLATE SETTER Work Phone: [facility] 01-14-2023 08:00-0400 Body mass index (BMI) [Ratio] 20.52 kg/m2 Walter Fermin .NET ARCHITECT-PLATE SETTER Work Phone: [facility] 01-14-2023 08:00-0400 Body weight 66.72 kg Walter Fermin .NET ARCHITECT-PLATE SETTER Work Phone: [facility] 01-14-2023 08:00-0400 Diastolic blood pressure 64 mm[Hg] Walter Fermin .NET ARCHITECT-PLATE SETTER Work Phone: [facility] 01-14-2023 08:00-0400 Heart rate 71 /min Walter Fermin APRN-PLATE SETTER Work Phone: [facility] 01-14-2023 08:00-0400 SaO2% (BldA) [Mass fraction] 97 % Walter Cottond .NET ARCHITECT-PLATE SETTER Work Phone: [facility] 01-14-2023 08:00-0400 Systolic blood pressure 118 mm[Hg] Walter Cottond .NET ARCHITECT-PLATE SETTER Work Phone: [facility] 11-14-2022 08:51-0400 Body mass index (BMI) [Ratio] 20.47 kg/m2 Klaus Bucio PLATE SETTER Work Phone: [facility] 11-14-2022 08:51-0400 Body weight 66.59 kg Klaus Bucio PLATE SETTER Work Phone: [facility] 11-14-2022 08:51-0400 Diastolic blood pressure 56 mm[Hg] Klaus Bucio CNP Work Phone: [facility] 11-14-2022 08:51-0400 Heart rate 62 /min Klaus Bucio CNP Work Phone: [facility] 11-14-2022 08:51-0400 SaO2% (BldA) [Mass fraction] 95 % Klaus Bucio CNP Work Phone: [facility] 11-14-2022 08:51-0400 Systolic blood pressure 97 mm[Hg] Klaus Bucio CNP Work Phone: [facility] 07-11-2022 08:56-0400 Body height 180.3 cm Walteranna Cottond .NET ARCHITECT-PLATE SETTER Work Phone: [facility] 07-11-2022 08:56-0400 Body mass index (BMI) [Ratio] 21.35 kg/m2 Walteranna Cottond .NET ARCHITECT-PLATE SETTER Work Phone: [facility] 07-11-2022 08:56-0400 Body weight 69.45 kg Walter [place] .NET ARCHITECT-PLATE SETTER Work Phone: [facility] 07-11-2022 08:56-0400 Diastolic blood pressure 80 mm[Hg] Walter Fermin .NET ARCHITECT-PLATE SETTER Work Phone: [facility] 07-11-2022 08:56-0400 Heart rate 60 /min Walter Fermin .NET ARCHITECT-PLATE SETTER Work Phone: [facility] 07-11-2022 08:56-0400 Systolic blood pressure 118 mm[Hg] Walter Fermin .NET ARCHITECT-PLATE SETTER Work Phone: [facility] 04-25-2022 09:49-0500 Body mass index (BMI) [Ratio] 21.52 kg/m2 Klaus [facility] Work Phone: [facility] 04-25-2022 09:49-0500 Body weight 69.99 kg Klaus [facility] Work Phone: [facility] 04-25-2022 09:49-0500 Diastolic blood pressure 72 mm[Hg] Klaus [facility] Work Phone: [facility] 04-25-2022 09:49-0500 Heart rate 69 /min Klaus [facility] Work Phone: [facility] 04-25-2022 09:49-0500 SaO2% (BldA) [Mass fraction] 97 % Klaus [facility] Work Phone: [facility] 04-25-2022 09:49-0500 Systolic blood pressure 116 mm[Hg] Klaus [facility] PLATE SETTER Work Phone: [facility] 03-21-2022 07:38-0500 Body height 180.3 cm Adán Gorman MD Work Phone: [facility] 03-21-2022 07:38-0500 Body mass index (BMI) [Ratio] 21.62 kg/m2 Adán Gorman MD Work Phone: [facility] 03-21-2022 07:38-0500 Body weight 70.31 kg Adán Gorman MD Work Phone: [facility] 03-21-2022 07:38-0500 Diastolic blood pressure 55 mm[Hg] Adán Gorman MD Work Phone: [facility] 03-21-2022 07:38-0500 Heart rate 69 /min Adán Gorman MD Work Phone: [facility] 03-21-2022 07:38-0500 SaO2% (BldA) [Mass fraction] 97 % Adán Gorman MD Work Phone: [facility] 03-21-2022 07:38-0500 Systolic blood pressure 108 mm[Hg] Adán Gorman MD Work Phone: [facility] 01-10-2022 09:15-0400 Body height 180.34 cm Walter Blackman [place] Work Phone: [facility] Work Phone: 01-10-2022 09:15-0400 Body mass index (BMI) [Ratio] 22.1 kg/m2 Walter L Ritchie Work Phone: [facility] Work Phone: 01-10-2022 09:15-0400 Body surface area Derived from formula 1.91 m2 Walter Blackman Ritchie Work Phone: [facility] Work Phone: 01-10-2022 09:15-0400 Body weight 71.87 kg Walter Cottond Work Phone: [facility] Work Phone: 01-10-2022 09:15-0400 Diastolic blood pressure 62 mm[Hg] Walter L [place] Work Phone: [facility] Work Phone: 01-10-2022 09:15-0400 Heart rate 69 /min Walter L [place] Work Phone: [facility] Work Phone: 01-10-2022 09:15-0400 Systolic blood pressure 114 mm[Hg] Walter L [place] Work Phone: [facility] Work Phone: 10-04-2021 08:52-0400 Body height 180.34 cm Walter Fermin Work Phone: [facility] Work Phone: 10-04-2021 08:52-0400 Body mass index (BMI) [Ratio] 20.85 kg/m2 Walter Fermin Work Phone: [facility] Work Phone: 10-04-2021 08:52-0400 Body surface area Derived from formula 1.86 m2 Walter Fermin Work Phone: [facility] Work Phone: 10-04-2021 08:52-0400 Body weight 67.81 kg Walter Fermin Work Phone: [facility] Work Phone: 10-04-2021 08:52-0400 Diastolic blood pressure 64 mm[Hg] Walter Fermin Work Phone: [facility] Work Phone: 10-04-2021 08:52-0400 Heart rate 71 /min Walter Fermin Work Phone: [facility] Work Phone: 10-04-2021 08:52-0400 Systolic blood pressure 122 mm[Hg] Walter Cottond Work Phone: [facility] Work Phone: 09-11-2021 10:04-0400 Body height 180.3 cm Alicja Ream PLATE SETTER Work Phone: [facility] 09-11-2021 10:04-0400 Body mass index (BMI) [Ratio] 21.65 kg/m2 Alicja Ream PLATE SETTER Work Phone: [facility] 09-11-2021 10:04-0400 Body weight 70.4 kg Alicja Ream PLATE SETTER Work Phone: [facility] 09-11-2021 10:04-0400 Diastolic blood pressure 62 mm[Hg] Alicja Ream PLATE SETTER Work Phone: [facility] 09-11-2021 10:04-0400 Heart rate 81 /min Alicja Ream PLATE SETTER Work Phone: [facility] 09-11-2021 10:04-0400 SaO2% (BldA) [Mass fraction] 97 % Alicja Ream PLATE SETTER Work Phone: [facility] 09-11-2021 10:04-0400 Systolic blood pressure 101 mm[Hg] Alicja Ream PLATE SETTER Work Phone: [facility] 07-26-2021 07:49-0400 Body height 180.3 cm Jade Nicole CUSTOMER SUPPORT COORDINATOR Work Phone: [facility] 07-26-2021 07:49-0400 Body mass index (BMI) [Ratio] 21.34 kg/m2 Jade Nicole CUSTOMER SUPPORT COORDINATOR Work Phone: [facility] 07-26-2021 07:49-0400 Body weight 69.4 kg Jade Nicole CUSTOMER SUPPORT COORDINATOR Work Phone: [facility] 07-26-2021 07:49-0400 Diastolic blood pressure 70 mm[Hg] Jade Nicole CUSTOMER SUPPORT COORDINATOR Work Phone: [facility] 07-26-2021 07:49-0400 Heart rate 83 /min Jade Nicole CUSTOMER SUPPORT COORDINATOR Work Phone: [facility] 07-26-2021 07:49-0400 SaO2% (BldA) [Mass fraction] 98 % Jade Nicole CUSTOMER SUPPORT COORDINATOR Work Phone: [facility] 07-26-2021 07:49-0400 Systolic blood pressure 114 mm[Hg] Jade Nicole CUSTOMER SUPPORT COORDINATOR Work Phone: [facility] 07-05-2021 09:54-0400 Body height 180.34 cm Walter Fermin Work Phone: [facility] Work Phone: 07-05-2021 09:54-0400 Body mass index (BMI) [Ratio] 21.48 kg/m2 Walter Fermin Work Phone: [facility] Work Phone: 07-05-2021 09:54-0400 Body surface area Derived from formula 1.89 m2 Walter Fermin Work Phone: [facility] Work Phone: 07-05-2021 09:54-0400 Body weight 69.85 kg Walter Fermin Work Phone: [facility] Work Phone: 07-05-2021 09:54-0400 Diastolic blood pressure 68 mm[Hg] Waletr Fermin Work Phone: [facility] Work Phone: 07-05-2021 09:54-0400 Heart rate 72 /min Walter Fermin Work Phone: [facility] Work Phone: 07-05-2021 09:54-0400 Systolic blood pressure 122 mm[Hg] Walter Fermin Work Phone: [facility] Work Phone: 03-08-2021 08:18-0500 Body mass index (BMI) [Ratio] 21.62 kg/m2 Jade Nicole CUSTOMER SUPPORT COORDINATOR Work Phone: [facility] 03-08-2021 08:18-0500 Body weight 70.31 kg Jade Incole CUSTOMER SUPPORT COORDINATOR Work Phone: [facility] 03-08-2021 08:18-0500 Diastolic blood pressure 63 mm[Hg] Jade Nicole CUSTOMER SUPPORT COORDINATOR Work Phone: [facility] 03-08-2021 08:18-0500 Heart rate 70 /min Jade Nicole CUSTOMER SUPPORT COORDINATOR Work Phone: [facility] 03-08-2021 08:18-0500 SaO2% (BldA) [Mass fraction] 98 % Jade Nicole CUSTOMER SUPPORT COORDINATOR Work Phone: [facility] 03-08-2021 08:18-0500 Systolic blood pressure 114 mm[Hg] Jade FONG Work Phone: [facility] 01-17-2021 09:22-0400 Body height 180.34 cm Monie Waite Work Phone: [facility] Work Phone: 01-17-2021 09:22-0400 Body mass index (BMI) [Ratio] 21.56 kg/m2 Monie L Mendez Work Phone: [facility] Work Phone: 01-17-2021 09:22-0400 Body surface area Derived from formula 1.89 m2 Monie L Mendez Work Phone: [facility] Work Phone: 01-17-2021 09:22-0400 Body weight 70.11 kg Monie L Mendez Work Phone: [facility] Work Phone: 01-17-2021 09:22-0400 Diastolic blood pressure 72 mm[Hg] Monie L Mendez Work Phone: [facility] Work Phone: 01-17-2021 09:22-0400 Heart rate 84 /min Monie L Mendez Work Phone: [facility] Work Phone: 01-17-2021 09:22-0400 Systolic blood pressure 114 mm[Hg] Monie L Mendez Work Phone: [facility] Work Phone: 12-07-2020 08:13-0400 Body height 180.3 cm Isabella Darby RN [facility] 12-07-2020 08:13-0400 Body mass index (BMI) [Ratio] 20.93 kg/m2 Isabella Darby RN [facility] 12-07-2020 08:13-0400 Body weight 68.08 kg Isabella Darby RN [facility] 12-07-2020 08:13-0400 Diastolic blood pressure 56 mm[Hg] Isabella Wilner RN [facility] 12-07-2020 08:13-0400 Heart rate 79 /min Isabellalaurie Darby RN [facility] 12-07-2020 08:13-0400 Respiratory rate 14 /min Isabella Darby RN [facility] 12-07-2020 08:13-0400 SaO2% (BldA) [Mass fraction] 99 % Isabellalaurie Darby RN [facility] 12-07-2020 08:13-0400 Systolic blood pressure 117 mm[Hg] Isabellalaurie Alaston RN [facility] 11-15-2020 09:06-0400 Body height 180.3 cm Adán Gorman MD Work Phone: [facility] 11-15-2020 09:06-0400 Body mass index (BMI) [Ratio] 20.92 kg/m2 Adán Gorman MD Work Phone: [facility] 11-15-2020 09:06-0400 Body weight 68.04 kg Adán Gorman MD Work Phone: [facility] 11-15-2020 09:06-0400 Diastolic blood pressure 69 mm[Hg] Adán Gorman MD Work Phone: [facility] 11-15-2020 09:06-0400 Heart rate 72 /min Adán Gorman MD Work Phone: [facility] 11-15-2020 09:06-0400 SaO2% (BldA) [Mass fraction] 98 % Adán Gorman MD Work Phone: [facility] 11-15-2020 09:06-0400 Systolic blood pressure 111 mm[Hg] Adán Gorman MD Work Phone: [facility] 11-02-2020 08:25-0400 Body height 180.3 cm Isabella Darby RN [facility] 11-02-2020 08:25-0400 Body mass index (BMI) [Ratio] 20.52 kg/m2 Isabella Darby RN [facility] 11-02-2020 08:25-0400 Body weight 66.72 kg Isabellalaurie Alaston RN [facility] 11-02-2020 08:25-0400 Diastolic blood pressure 64 mm[Hg] Isabellalaurie Alaston RN [facility] 11-02-2020 08:25-0400 Heart rate 74 /min Isabellalaurie Alaston RN [facility] 11-02-2020 08:25-0400 Respiratory rate 14 /min Isabellalaurie Alaston RN [facility] 11-02-2020 08:25-0400 SaO2% (BldA) [Mass fraction] 97 % Isabellalaurie Alaston RN [facility] 11-02-2020 08:25-0400 Systolic blood pressure 100 mm[Hg] Isabella Wilner SHEETS [facility] 07-04-2020 02:27-0400 Heart rate Medtronic Stoney Pedersenvarinder [facility] 07-04-2020 02:27-0400 Heart rate [id number] [address] XT DR Stoney Li [facility] 07-04-2020 02:27-0400 Heart rate [id number] Stoney Souzarogerio [facility] 07-04-2020 02:27-0400 Heart rate Defibrillator Stoney Souzarogerio [facility] 07-04-2020 02:27-0400 Heart rate [id number] /min Stoney Souzarogerio [facility] 04-27-2020 07:54-0500 BMI (Body Mass Index) 21.48 kg/m2 Jade Whitex [facility] 04-27-2020 07:54-0500 Body weight 69.85 kg Jade Nicole [facility] 04-27-2020 07:54-0500 BP Diastolic 55 mm[Hg] Jade Nicole [facility] 04-27-2020 07:54-0500 BP Systolic 102 mm[Hg] Jade Nicole [facility] 04-27-2020 07:54-0500 Height 180.3 cm Jade Nicole [facility] 04-27-2020 07:54-0500 Pulse (Heart Rate) 77 /min Jade Nicole [facility] 04-27-2020 07:54-0500 Pulse Oximetry 94 % Jade Nicole [facility] 04-25-2020 16:12-0500 BMI (Body Mass Index) 21.2 kg/m2 Adán Gorman [facility] 04-25-2020 16:12-0500 Body weight 68.95 kg Adán Gorman [facility] 04-25-2020 16:12-0500 BP Diastolic 69 mm[Hg] Adán Gorman [facility] 04-25-2020 16:12-0500 BP Systolic 119 mm[Hg] Adán Gorman [facility] 04-25-2020 16:12-0500 Height 180.3 cm Adán Gorman [facility] 04-25-2020 16:12-0500 Pulse (Heart Rate) 84 /min Adán Gorman [facility] 04-25-2020 16:12-0500 Pulse Oximetry 97 % Adán Gorman [facility] 02-24-2020 08:52-0500 BMI (Body Mass Index) 20.18 kg/m2 Jade Whitex [facility] 02-24-2020 08:52-0500 Body weight 65.64 kg Jade Nicole [facility] 02-24-2020 08:52-0500 BP Diastolic 67 mm[Hg] Jade Nicole [facility] 02-24-2020 08:52-0500 BP Systolic 116 mm[Hg] Jade Nicole [facility] 02-24-2020 08:52-0500 Height 180.3 cm Jade Nicole [facility] 02-24-2020 08:52-0500 Pulse (Heart Rate) 76 /min Jade Nicole [facility] 02-24-2020 08:52-0500 Pulse Oximetry 97 % Jade Nicole [facility] 01-20-2020 09:09-0400 BP Diastolic 72 mm[Hg] Jade Nicole [facility] 01-20-2020 09:09-0400 BP Systolic 104 mm[Hg] Jade Nicole [facility] 01-20-2020 08:51-0400 BMI (Body Mass Index) 20.36 kg/m2 Jade Nicole [facility] 01-20-2020 08:51-0400 Body weight 66.22 kg Jade Nicole [facility] 01-20-2020 08:51-0400 Height 180.3 cm Jade Nicole [facility] 01-20-2020 08:51-0400 Pulse (Heart Rate) 87 /min Jade Nicole [facility] 01-20-2020 08:51-0400 Pulse Oximetry 98 % Jade Whitex [facility] 01-16-2020 10:02-0400 BP Diastolic 60 mm[Hg] Lilly Ahumada [facility] 01-16-2020 10:02-0400 BP Systolic 123 mm[Hg] Lilly Ahumada [facility] 01-16-2020 10:02-0400 Pulse (Heart Rate) 80 /min Lilly Ahumada [facility] 01-16-2020 10:02-0400 Pulse Oximetry 98 % Lilly Ahumada [facility] 01-16-2020 10:02-0400 Respiratory Rate 16 /min Lillyvirgilio Ahumada [facility] 01-16-2020 07:29-0400 BMI (Body Mass Index) 19.53 kg/m2 [facility] 01-16-2020 07:29-0400 Body Temperature 98.01 [degF] Lilly Ahumada [facility] 01-16-2020 07:29-0400 Body weight 63.5 kg Lilly [facility] 01-16-2020 07:29-0400 Height 180.3 cm Lilly [facility] 12-29-2019 14:34-0400 BMI (Body Mass Index) 19.67 kg/m2 Jade Whitex [facility] 12-29-2019 14:34-0400 Body weight 63.96 kg Jade Nicole [facility] 12-29-2019 14:34-0400 BP Diastolic 78 mm[Hg] Jade Nicole [facility] 12-29-2019 14:34-0400 BP Systolic 118 mm[Hg] Jade Nicole [facility] 12-29-2019 14:34-0400 Height 180.3 cm Jade Nicole [facility] 12-29-2019 14:34-0400 Pulse (Heart Rate) 89 /min Jade Nicole [facility] 12-29-2019 14:34-0400 Pulse Oximetry 98 % Jade Whitex [facility] 12-15-2019 16:30-0400 BMI (Body Mass Index) 19.67 kg/m2 Adán Gorman [facility] 12-15-2019 16:30-0400 Body weight 63.96 kg Adán Gorman [facility] 12-15-2019 16:30-0400 BP Diastolic 64 mm[Hg] Adán Gorman [facility] 12-15-2019 16:30-0400 BP Systolic 116 mm[Hg] Adán Gorman [facility] 12-15-2019 16:30-0400 Height 180.3 cm Adán Gorman [facility] 12-15-2019 16:30-0400 Pulse (Heart Rate) 94 /min Adán Gorman [facility] 12-15-2019 16:30-0400 Pulse Oximetry 97 % Adán Gorman [facility] 11-28-2019 16:58-0400 BMI (Body Mass Index) 19.87 kg/m2 Monie Waite [facility] Work Phone: 11-28-2019 16:58-0400 Body weight 64.61 kg Monie Waite [facility] Work Phone: 11-28-2019 16:58-0400 BP Diastolic 84 mm[Hg] Monie Waite [facility] Work Phone: 11-28-2019 16:58-0400 BP Systolic 128 mm[Hg] Monie Waite [facility] Work Phone: 11-28-2019 16:58-0400 BSA (Body Surface Area) 1.83 m2 Monie Waite [facility] Work Phone: 11-28-2019 16:58-0400 Height 180.34 cm Monie Waite [facility] Work Phone: 11-28-2019 16:58-0400 Pulse (Heart Rate) 120 /min Monie Waite [facility] Work Phone: 11-14-2019 10:17-0400 BMI (Body Mass Index) 19.43 kg/m2 Mars Pinto [facility] Work Phone: 11-14-2019 10:17-0400 Body weight 63.19 kg Mars Pinto [facility] Work Phone: 11-14-2019 10:17-0400 BP Diastolic 62 mm[Hg] Mars Caiolas [facility] Work Phone: 11-14-2019 10:17-0400 BP Systolic 108 mm[Hg] Mars Pinto [facility] Work Phone: 11-14-2019 10:17-0400 BSA (Body Surface Area) 1.81 m2 Mars Pinto [facility] Work Phone: 11-14-2019 10:17-0400 Height 180.34 cm Mars Pinto [facility] Work Phone: 11-14-2019 10:17-0400 Pulse (Heart Rate) 68 /min Mars Pinto [facility] Work Phone: 10-13-2019 07:21-0400 Respiratory Rate 16 /min [facility] 10-13-2019 06:56-0400 Body Temperature 97.5 [degF] [facility] 10-13-2019 06:56-0400 BP Diastolic 62 mm[Hg] [facility] 10-13-2019 06:56-0400 BP Systolic 116 mm[Hg] [facility] 10-13-2019 06:56-0400 Pulse (Heart Rate) 92 /min [facility] 10-13-2019 06:56-0400 Pulse Oximetry 93 % [facility] 10-13-2019 05:27-0400 BMI (Body Mass Index) 19.92 kg/m2 [facility] 10-13-2019 05:27-0400 Body weight 64.8 kg [facility] 10-12-2019 09:00-0400 Height 180.3 cm [facility] 10-09-2019 13:00-0400 BP Diastolic 74 mm[Hg] [facility] 10-09-2019 13:00-0400 BP Systolic 120 mm[Hg] [facility] 10-09-2019 13:00-0400 Pulse (Heart Rate) 96 /min [facility] 10-09-2019 13:00-0400 Pulse Oximetry 93 % [facility] 10-09-2019 11:42-0400 BMI (Body Mass Index) 18.13 kg/m2 [facility] 10-09-2019 11:42-0400 Body Temperature 97.5 [degF] [facility] 10-09-2019 11:42-0400 Body weight 58.[address] [facility] 10-09-2019 11:42-0400 Height 180.[address] [facility] 10-09-2019 11:42-0400 Respiratory Rate 20 /min [facility] Encounters Encounter Date Encounter Type Care Provider Facility Start: 08-24-2024 End: 08-24-2024 Office outpatient visit 25 minutes Nely Ricardo MD Work Phone: [facility] Comment on above: Hypertensive heart d isease with heart failure; Chronic systolic congestive heart failure; Chronic obstructive pulmonary disease, unspecified COPD type (Multi) Start: 08-24-2024 End: 08-24-2024 ambulatory [facility] Amb[facility] Start: 08-05-2024 End: 08-05-2024 ambulatory [facility] Start: 07-20-2024 End: 07-20-2024 ambulatory [facility] Ambulatory Start: 07-20-2024 End: 07-20-2024 Office outpatient visit 25 minutes Aarti Gonzalez MD Work Phone: [facility] Comment on above: Malignant neoplasm o f prostate (Multi) (Primary Dx); Male erectile dysfunction, unspecified; Elevated PSA, between 10 and less than 20 ng/ml Start: 07-19-2024 End: 07-20-2024 Cardiac Device Check Adán Gorman MD Work Phone: [facility] Start: 07-19-2024 End: 07-20-2024 Cardiac Device Check Adán Gorman MD Work Phone: [facility] Start: 07-15-2024 End: 07-15-2024 Office outpatient visit 25 minutes Adán Gorman MD Work Phone: [facility] Comment on above: Prostate cancer (HCC ) (Primary Dx); Atrial fibrillation, unspecified type (HCC); Ischemic cardiomyopathy; 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 Start: 07-15-2024 End: 07-15-2024 ambulatory NELY REED [facility] Ambulatory Start: 07-01-2024 ambulatory Nely Ricardo [facility] Start: 06-29-2024 ambulatory Nely Ricardo [facility] Start: 06-27-2024 End: 06-27-2024 ambulatory Nely Ricardo [facility] Start: 06-23-2024 ambulatory Nely Ricardo [facility] Start: 06-21-2024 ambulatory Joby [place] [facility]: [facility] Start: 06-17-2024 ambulatory Joby [place] Facility: [facility] Start: 2024 ambulatory Joby [place] [facility]: [facility] Start: 06-13-2024 End: 06-13-2024 ambulatory Joby [place] Facility:[facility] Start: 06-07-2024 ambulatory Joby [place] [facility] Start: 05-31-2024 End: 05-31-2024 Subsequent hospital visit by physician Aarti Gonzalez MD Work Phone: [facility] [place] Comment on above: Prostate cancer (Mul ti) (Primary Dx) Start: 05-26-2024 ambulatory [facility] Start: 05-13-2024 ambulatory NELY REED [facility] Ambulatory Start: 05-12-2024 ambulatory NELY [facility] Ambulatory Start: 04-28-2024 End: 04-28-2024 Telephone encounter Gabby Davis MD Work Phone: [facility] Comment on above: Appointment Start: 04-28-2024 End: 04-28-2024 ambulatory Joby Srinivas [facility] Start: 04-21-2024 ambulatory Kamryn Hines Facility [facility] Start: 04-15-2024 End: 04-19-2024 Cardiac Device Check Adán Gorman MD Work Phone: [facility] Start: 04-15-2024 End: 04-19-2024 Cardiac Device Check Adán Gorman MD Work Phone: [facility] Start: 04-06-2024 End: 04-06-2024 Office outpatient visit 15 minutes Aarti Gonzalez MD Work Phone: [facility] Comment on above: Elevated PSA, betwee n 10 and less than 20 ng/ml; Malignant neoplasm of prostate (Multi); Nocturia Start: 04-06-2024 End: 04-06-2024 ambulatory [facility] Ambulatory Start: 03-08-2024 End: 03-08-2024 Subsequent hospital visit by physician Aarti Gonzalez MD Work Phone: [facility] [place] Comment on above: Elevated PSA Start: 02-22-2024 ambulatory [facility] Start: 02-19-2024 End: 02-19-2024 Office outpatient visit 25 minutes Krishan Hamilton APRN-PLATE SETTER Work Phone: [facility] Comment on above: Colon cancer screeni ng (Primary Dx); Chronic obstructive pulmonary disease, unspecified COPD type (Multi); Elevated PSA, between 10 and less than 20 ng/ml Start: 02-19-2024 End: 02-19-2024 ambulatory KRISHAN HAMILTON [facility] Ambulatory Start: 02-19-2024 ambulatory [facility] Ambulatory Start: 02-15-2024 End: 02-15-2024 Office outpatient visit 25 minutes Aarti Gonzalez MD Work Phone: [facility] Comment on above: Elevated PSA, betwee n 10 and less than 20 ng/ml; BPH without obstruction/lower urinary tract symptoms Start: 02-15-2024 End: 02-15-2024 ambulatory [facility] Ambulatory Start: 02-05-2024 End: 02-05-2024 ambulatory [facility] Ambulatory Start: 01-28-2024 End: 01-28-2024 Subsequent hospital visit by physician [facility] Device Bedside [facility] Comment on above: Elevated PSA Start: 01-28-2024 End: 01-28-2024 ambulatory [facility] Start: 01-28-2024 End: 01-28-2024 Subsequent hospital visit by physician [facility] Device Bedside [facility] Comment on above: Elevated PSA Start: 01-28-2024 End: 01-28-[facility] Start: 01-28-2024 End: 01-28-2024 Subsequent hospital visit by physician [facility] Mri 3 [facility] Comment on above: Elevated PSA, betwee n 10 and less than 20 ng/ml Start: 01-28-2024 End: 01-28-2024 ambulatory AARTI GONZALEZ [facility] Start: 01-20-2024 End: 01-24-2024 ambulatory NELY REED [facility] Start: 01-17-2024 End: 01-17-2024 Emergency department patient visit [facility] Start: 01-13-2024 End: 01-13-2024 ambulatory NAS KENNEDY [facility] Start: 01-11-2024 End: 01-11-2024 Refill Maria Lares MA [facility] Comment on above: Medication Refill Start: 01-11-2024 ambulatory JEREMY [facility] Start: 01-08-2024 End: 01-08-2024 Documentation procedure Stoney Li MD Work Phone: [facility] Start: 01-06-2024 End: 01-10-2024 ambulatory [facility] Start: 01-05-2024 End: 01-11-2024 Admission to same day surgery center Sakshi Day RN [facility] Comment on above: ICD (implantable car dioverter-defibrillator) battery depletion (Primary Dx) Start: 12-23-2023 End: 12-23-2023 ambulatory AARTI Rupali GONZALEZ [facility] Start: 12-23-2023 End: 12-23-2023 Subsequent hospital visit by physician Joni X-Ray Fluoro 1 [facility] Comment on above: Elevated PSA, betwee n 10 and less than 20 ng/ml; Coronary artery disease, unspecified vessel or lesion type, unspecified whether angina present, unspecified whether seminole or transplanted heart Start: 12-02-2023 End: 12-02-2023 Office outpatient new 45 minutes Aarti Gonzalez MD Work Phone: [facility] Comment on above: BPH without obstruct ion/lower urinary tract symptoms (Primary Dx); Elevated PSA, between 10 and less than 20 ng/ml; Screening for prostate cancer Start: 12-02-2023 End: 12-02-2023 ambulatory [facility] Ambulatory Start: 11-05-2023 End: 11-06-2023 Cardiac Device Check Adán Gorman MD Work Phone: [facility] Start: 11-05-2023 End: 11-06-2023 Cardiac Device Check Adán Gorman MD Work Phone: [facility] Start: 11-04-2023 End: 11-08-2023 ambulatory [facility] Start: 11-04-2023 End: 11-04-2023 Office outpatient visit 25 minutes Fatimah Wilcox MD MPH Work Phone: [facility] Comment on above: Elevated PSA, betwee n 10 and less than 20 ng/ml (Primary Dx); Male erectile dysfunction, unspecified Start: 11-04-2023 End: 11-04-2023 ambulatory [facility] Ambulatory Start: 10-17-2023 End: 10-19-2023 Refill Adán Gorman MD Work Phone: [facility] Comment on above: Medication Refill Start: 10-16-2023 End: 10-16-2023 ambulatory [facility] Start: 09-11-2023 Refill Klaus ponce PLATE SETTER Work Phone: [facility] Comment on above: Medication Refill Start: 08-15-2023 End: 08-15-2023 Emergency department patient visit BRINA ARAIZA JAUREGUI [facility] Start: 08-12-2023 End: 08-12-2023 Office outpatient visit 25 minutes Klaus Bucio CNP Work Phone: [facility] Comment on above: Chronic systolic con gestive heart failure (HCC) (Primary Dx); Diastolic dysfunction; Screening for diabetes mellitus; Hypercholesterolemia; Prediabetes Start: 08-12-2023 End: 08-16-2023 [facility] Start: 07-27-2023 End: 07-28-2023 [facility] Start: 07-20-2023 Refill Adán lazcano MD Work Phone: [facility] Comment on above: Medication Refill Start: 07-15-2023 End: 07-15-2023 Office outpatient visit 25 minutes Fatimah Wilcox MD MPH Work Phone: [facility] Comment on above: Lipid screening (Patty kirstie Dx); Prostate cancer screening; Chronic obstructive pulmonary disease, unspecified COPD type (CMS/HCC); Atrial fibrillation, unspecified type (CMS/HCC); Primary hypertension Start: 05-19-2023 End: 05-19-2023 ambulatory ADÁNRONDA DAVIS [facility] Start: 04-08-2023 Documentation procedure Ed Amin tt RN [facility] Start: 04-08-2023 End: 04-08-2023 Office outpatient visit 25 minutes Adán Gorman MD Work Phone: [facility] Comment on above: Mitral valve insuffi ciency, unspecified etiology (Primary Dx); Atrial fibrillation, unspecified type (HCC); 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 Start: 01-14-2023 End: 01-14-2023 Office outpatient visit 15 minutes Walter Fermin APRN-PLATE SETTER Work Phone: [facility] Comment on above: Chronic obstructive pulmonary disease, unspecified COPD type (CMS/HCC) (Primary Dx); Male erectile dysfunction, unspecified; Primary hypertension Start: 11-14-2022 End: 11-14-2022 Office outpatient visit 25 minutes Klaus Bucio PLATE SETTER Work Phone: [facility] Comment on above: Chronic systolic con gestive heart failure (HCC) (Primary Dx) Start: 10-15-2022 Refill Jade Villafuerte ax CUSTOMER SUPPORT COORDINATOR Work Phone: [facility] Comment on above: Medication Refill Start: 07-11-2022 End: 07-11-2022 Office outpatient visit 15 minutes Walter Fermin .NET ARCHITECT-PLATE SETTER Work Phone: [facility] Comment on above: Chronic obstructive pulmonary disease, unspecified COPD type (CMS/HCC) (Primary Dx); Primary hypertension Start: 04-25-2022 End: 04-25-2022 Office outpatient visit 25 minutes Klaus Moy Fortunato PLATE SETTER Work Phone: [facility] Comment on above: Ischemic cardiomyopa thy (Primary Dx) Start: 03-21-2022 Documentation procedure Ed Amin tt RN [facility] Start: 03-21-2022 End: 03-21-2022 Office outpatient visit 25 minutes Adán Gorman MD Work Phone: [facility] Comment on above: Essential hypertensi on (Primary Dx); Ischemic cardiomyopathy; 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 WALTER BRAY RITCHIE Fa cility:[id number] Start: 11-07-2021 Refill Maria Lares MA [facility] Comment on above: Medication Refill Start: 10-04-2021 Office outpatient vi sit 15 minutes Walter Fermin Work Phone: [facility] Work Phone: Start: 10-04-2021 ambulatory Mrs. WALTER BRAY RITCHIE Fa cility:[id number] Start: 09-11-2021 End: 09-11-2021 Office outpatient visit 15 minutes Alicja Elena Sukhdev Ream PLATE SETTER Work Phone: [facility] Comment on above: Coronary artery dise ase, unspecified vessel or lesion type, unspecified whether angina present, unspecified whether seminole or transplanted heart (Primary Dx); Atrial fibrillation, unspecified type (HCC); HFrEF (heart failure with reduced ejection fraction) (HCC); History of ischemic cardiomyopathy; ICD (implantable cardioverter-defibrillator) in place; Benign essential HTN Start: 07-26-2021 End: 07-26-2021 Office outpatient visit 25 minutes Jade FONG Work Phone: [facility] Comment on above: Ischemic cardiomyopa thy (Primary Dx); Essential hypertension; ICD (implantable cardioverter-defibrillator) in place Start: 07-05-2021 Office outpatient vi sit 25 minutes Walter Fermin Work Phone: [facility] Work Phone: Start: 07-05-2021 ambulatory Ms. Rosa Brandon Fac ility:[id number] Start: 06-25-2021 Chart Update Monie Waite Work Phone: [facility] Work Phone: Start: 06-07-2021 Documentation procedure Zara davis RN [facility] Start: 03-20-2021 ambulatory Ms. Monie Wyatt Mendez Fa cility:[id number] Start: 03-08-2021 End: 03-08-2021 Office outpatient visit 25 minutes Jade Rivera CUSTOMER SUPPORT COORDINATOR Work Phone: [facility] Comment on above: Chronic systolic con gestive heart failure (HCC) (Primary Dx); Essential hypertension; ICD (implantable cardioverter-defibrillator) in place Start: 03-06-2021 Chart Update Monie Waite Work Phone: [facility] Work Phone: Start: 01-17-2021 Office outpatient vi sit 25 minutes Monie Waite Work Phone: [facility] Work Phone: Start: 01-17-2021 Patient encounter procedure Monie Waite Work Phone: [facility] Work Phone: Start: 12-18-2020 Chart Update Monie Waite Work Phone: [facility] Work Phone: Start: 12-07-2020 End: 12-07-2020 Clinical Support Isabella Darby RN [facility] Comment on above: Chronic systolic con gestive heart failure (HCC) (Primary Dx) Start: 11-15-2020 End: 11-15-2020 Documentation procedure Cheryl Feliciano RN [facility] Start: 11-15-2020 End: 11-15-2020 Office outpatient visit 40 minutes Adná Gorman MD Work Phone: [facility] Comment on above: Coronary artery dise ase involving seminole coronary artery of seminole heart without angina pectoris Start: 11-02-2020 End: 11-02-2020 Orders Only Jade Downing Nicole CUSTOMER SUPPORT COORDINATOR Work Phone: [facility] Comment on above: Chronic systolic con gestive heart failure (HCC) (Primary Dx) Start: 10-17-2020 End: 10-17-2020 Subsequent hospital visit by physician Bushra Hicks MD Work Phone: [facility] Comment on above: Arrived Start: 10-08-2020 End: 10-08-2020 Refill Adán Gorman MD Work Phone: [facility] Comment on above: Medication Refill Start: 07-04-2020 End: 07-04-2020 Orders Only Haleigh Sandoval Work Phone: [facility] Comment on above: Arrived Start: 04-27-2020 End: 04-27-2020 Office outpatient visit 25 minutes Jade Blackman. Nicole Work Phone: [facility] Comment on above: Chronic systolic con gestive heart failure (HCC) (Primary Dx); Essential hypertension; ICD (implantable cardioverter-defibrillator) in place Start: 04-25-2020 End: 04-25-2020 Office outpatient visit 25 minutes Adán Gorman Work Phone: [facility] Comment on above: Coronary artery dise ase involving seminole coronary artery of seminole heart without angina pectoris Start: 03-26-2020 End: 03-26-2020 Subsequent hospital visit by physician Bushra Hicks Work Phone: [facility] Comment on above: Arrived Start: 02-24-2020 End: 02-24-2020 Office outpatient visit 25 minutes Jade Rivera Work Phone: [facility] Comment on above: Chronic systolic con gestive heart failure (HCC) (Primary Dx); Essential hypertension; ICD (implantable cardioverter-defibrillator) in place Start: 01-20-2020 End: 01-20-2020 Office outpatient visit 25 minutes Jade Rivera Work Phone: [facility] Comment on above: Chronic systolic con gestive heart failure (HCC) (Primary Dx); Essential hypertension; ICD (implantable cardioverter-defibrillator) in place Start: 01-16-2020 End: 01-16-2020 Emergency department patient visit Lilly Ahumada Work Phone: [facility] Emergency Department Comment on above: Acute right-sided th oracic back pain (Primary Dx) Start: 12-29-2019 End: 12-29-2019 Office outpatient visit 40 minutes Adán Gorman Work Phone: [facility] Comment on above: Essential hypertensi on (Primary Dx); Chronic systolic congestive heart failure (HCC); ICD (implantable cardioverter-defibrillator) in place Start: 12-15-2019 End: 12-15-2019 Office outpatient visit 40 minutes Adán Gorman Work Phone: [facility] Comment on above: Coronary artery dise ase involving seminole coronary artery of seminole heart without angina pectoris (Primary Dx); Chronic systolic congestive heart failure (HCC); LOPEZ (dyspnea on exertion); ICD (implantable cardioverter-defibrillator) in place; Ischemic cardiomyopathy Start: 12-15-2019 End: 12-15-2019 Subsequent hospital visit by physician Bushra Hicks Work Phone: [facility] Comment on above: Arrived Start: 12-15-2019 End: 12-15-2019 Documentation procedure George Daniel [facility] Start: 11-28-2019 Patient encounter procedure Monie Waite -[facility] Work Phone: Start: 11-14-2019 Patient encounter procedure Monie Waite -[facility] Work Phone: Start: 10-12-2019 End: 10-13-2019 Emergency department patient visit Oswald Dominique Work Phone: [facility] Med Surg Oncology Comment on above: Sepsis, due to unspe cified organism, unspecified whether acute organ dysfunction present (HCC) (Primary Dx); Hypoxia; Pneumonia of left lower lobe due to infectious organism (HCC) Start: 10-09-2019 End: 10-09-2019 Emergency department patient visit Dianne Mulligan Work Phone: [facility] Emergency Department Comment on above: Pneumonia of left lo wer lobe due to infectious organism (HCC) (Primary Dx) Start: 04-08-2018 Patient encounter procedure Jean-Claude Joya Facility:[place] Start: 04-08-2018 End: 04-08-2018 Patient encounter procedure Jean-Claude Joya Work Phone: [facility] Start: 10-05-2017 End: 10-06-2017 Ambulatory Mars Pinto Facility:[facility] Start: 05-04-2017 Patient encounter procedure Marcus Leung Facility:[place] Start: 01-03-2017 Ambulatory REMOTE [facility] Start: 01-03-2017 End: 01-03-2017 Ambulatory Marcus Leung Work Phone: [facility] Start: 08-28-2016 End: 08-28-2016 Ambulatory Marcus Leung Work Phone: [facility] Start: 03-21-2016 End: 03-21-2016 Ambulatory Shellie Ko Work Phone: [facility] Start: 03-20-2016 End: 03-20-2016 Ambulatory Roshan Schroeder Work Phone: [facility] Start: 03-18-2016 End: 03-18-2016 Ambulatory Marcus Leung Work Phone: [facility] Start: 12-03-2015 End: 12-03-2015 Ambulatory Mark Hensley Work Phone: [facility] Start: 09-03-2015 End: 09-03-2015 Ambulatory Marcus Leung Work Phone: [facility] Start: 08-24-2015 End: 08-24-2015 Ambulatory Waqas Percy Herrera Work Phone: [facility] Start: 08-23-2015 End: 08-23-2015 Ambulatory Aaydshantelle Davis Kurt Work Phone: [facility] Start: 06-25-2015 End: 06-25-2015 Ambulatory Marcus Leung Work Phone: [facility] Start: 05-31-2015 End: 05-31-2015 Ambulatory Marcus Leung Work Phone: [facility] Procedures Date Procedure Procedure Detail Performing Clinician Start: 07-19-2024 CARDIAC REMOTE DEVICE CHECK Adán Gorman MD Work Phone: Start: 04-15-2024 CARDIAC REMOTE DEVICE CHECK Adán Gorman MD Work Phone: Start: 03-08-2024 PULSE OXIMETRY, SPOT Aarti Gonzalez MD Work Phone: Start: 02-05-2024 Follow-up visit Follow-up ADÁN GORMAN Start: 01-28-2024 Adrianna-px dev eval & prog sing/dual/multi lead dfb Nely Ricardo MD Work Phone: Start: 01-28-2024 Mri pelvis w/o & w/contrast material Aarti Gonzalez MD Work Phone: Start: 01-28-2024 Adrianna-px dev eval & prog sing/dual/multi lead dfb Nely Ricardo MD Work Phone: Start: 11-05-2023 CARDIAC REMOTE DEVICE CHECK Adán Gorman MD Work Phone: Start: 10-16-2023 Lipid 1996 panel - Serum or Plasma Fatimah Wilcox MD MPH Work Phone: Start: 05-29-2022 History of coronary artery bypass grafting History of coronary artery bypass graft Walter Fermin .NET ARCHITECT-PLATE SETTER Work Phone: Start: 05-29-2022 Laboratory test result abnormal Abnormal laboratory test Walter Fermin APRN-PLATE SETTER Work Phone: Start: 04-25-2022 Ecg routine ecg w/least 12 lds w/i&r Klaus Bucio PLATE SETTER Work Phone: Start: 03-06-2021 Lipid 1996 panel - Serum or Plasma Walter Fermin .NET ARCHITECT-PLATE SETTER Work Phone: Start: 07-04-2020 OUTPATIENT DEVICE CLINIC REFERRAL Device [facility] Start: 01-16-2020 Ct angiography chest w/contrast/noncontrast Lilly Ahumada Work Phone: Start: 01-16-2020 Urinalysis Lilly Ahumada Work Phone: Start: 01-16-2020 CT of urinary tract Lilly Ahumada Work Phone: Start: 01-16-2020 Basic metabolic 2000 panel - Serum or Plasma Lilly Ahumada Work Phone: Start: 01-16-2020 Complete blood count with white cell differential, automated Lilly Ahumada Work Phone: Start: 01-16-2020 Complete blood count with white cell differential, manual Lilly Ahumada Work Phone: Start: 01-16-2020 Hepatic function 2000 panel - Serum or Plasma Lilly Ahumada Work Phone: Start: 01-16-2020 INR in Platelet poor plasma by Coagulation assay Lilly Ahumada Work Phone: Start: 01-12-2020 Echocardiography Start: 11-28-2019 Xray Chest 2 View PA + Lateral Monie Waite Start: 10-13-2019 Electrocardiogram Provider Not In Syst em Start: 10-12-2019 Bacteria identified in Sputum by Aerobe culture Landon Syd Work Phone: Start: 10-12-2019 Contrast echocardiography Aline Bailey ller Work Phone: Start: 10-12-2019 Legionella antigen assay Alinerodolfo Reed David clarissa Work Phone: Start: 10-12-2019 Streptococcus pneumoniae antigen assay Alinerodolfo Reed Dimitri Work Phone: Start: 10-12-2019 End: 10-12-2019 Bacteria identified in Blood by Culture Aline Reed Dimitri Work Phone: Start: 10-12-2019 End: 10-12-2019 12 lead ECG Oswald Dominique Work Phone: Start: 10-12-2019 COVID-19, MOLECULAR Oswald Dominique Work Phone: Start: 10-12-2019 Lactate [Moles/volume] in Serum or Plasma Oswald Dominique Work Phone: Start: 10-12-2019 Standard chest X-ray Oswald Dominique Work Phone: Start: 10-12-2019 Basic metabolic 1998 panel - Serum or Plasma Oswald Dominique Work Phone: Start: 10-12-2019 Complete blood count with white cell differential, automated Oswald Dominique Work Phone: Start: 10-12-2019 Complete blood count with white cell differential, manual Oswald Dominique Work Phone: Start: 10-12-2019 LAVENDER TOP Oswald Dominique Work Phone: Start: 10-12-2019 LIGHT BLUE TOP Oswald Dominique Work Phone: Start: 10-12-2019 MINT GREEN TOP Oswald Dominique Work Phone: Start: 10-12-2019 Natriuretic peptide.B prohormone N-Terminal [Mass/volume] in Serum or Plasma Oswald Dominique Work Phone: Start: 10-12-2019 RAINBOW DRAW Oswald Syd Work Phone: Start: 10-09-2019 Radiologic exam chest single view Dianne uMlligan Work Phone: Start: 10-09-2019 Basic metabolic 2000 panel - Serum or Plasma Dianne Mulligan Work Phone: Start: 10-09-2019 Complete blood count with white cell differential, automated Dianne Mulligan Work Phone: Start: 10-09-2019 Complete blood count with white cell differential, manual Dianne Mulligan Work Phone: Start: 10-09-2019 COVID-19, MOLECULAR Dianne Mulligan Work Phone: Start: 10-09-2019 D-dimer assay, quantitative Dianne Mulligan Work Phone: Start: 10-09-2019 Hepatic function 2000 panel - Serum or Plasma Dianne Mulligan Work Phone: Start: 10-09-2019 LAVENDER TOP Dianne Mulligan Work Phone: Start: 10-09-2019 LIGHT BLUE TOP Dianne Mulligan Work Phone: Start: 10-09-2019 LIGHT GREEN TOP Dianne Mulligan Work Phone: Start: 10-09-2019 MINT GREEN TOP Dianne Mulligan Work Phone: Start: 10-09-2019 RAINBOW DRAW Dianne Mulligan Work Phone: Start: 10-09-2019 12 lead ECG Dianne Mulligan Work Phone: Start: 01-03-2017 End: 01-03-2017 PACEART DEVICE CHECK DEVICE CLINIC [facility] Cardiac catheterization Vera Waite Work Phone: Coronary artery bypass graft Mars Pinto History of coronary artery bypass grafting History of coronary artery bypass graft Monie Blackman Mendez Work Phone: Laboratory test resu lt abnormal Abnormal laboratory test Monie L Mendez Work Phone: Surgical procedure o n eye proper Mars Pinto Plan of Treatment Date Care Activity Detail Author Start: 2031 Pneumococcal Vaccine : Ped or At-Risk (2 of 2 - PPSV23) Pneumococcal Vaccine: Ped or At-Risk (2 of 2 - PPSV23) [facility] Start: 05-30-2031 DTaP/Tdap/Td Vaccine s (2 - Td or Tdap) DTaP/Tdap/Td Vaccines (2 - Td or Tdap) [facility] Start: 05-30-2031 Tetanus vaccination Tetanus: Every 1 0yrs [facility] Start: 05-30-2031 Urine microalbumin profile DTaP,Tdap,Td Vaccine (2 - Td or Tdap) [facility] Start: 10-15-2028 Lipid panel [facility] Start: 04-09-2027 Screening for malign ant neoplasm of colon [facility] Start: 01-16-2027 Diabetes Screening Diabetes Screenin g [facility] Start: 03-06-2026 Lipid panel Lipid Panel [facility] Start: 01-20-2025 End: 01-20-2025 Patient encounter procedure 01/20/2025 8:20 AM EDT Office Visit [facility] [address] [place] [phone] Adán Gorman MD [address] [address] [facility] Start: 12-19-2024 Influenza vaccination Influenz a Vaccine (Season Ended) [facility] Start: 10-19-2024 End: 07-20-2025 Prostate specific Ag [Mass/volume] in Serum or Plasma Prostate Specific Antigen Lab Routine Malignant neoplasm of prostate (Multi) Expected: 10/19/2024 (Approximate), Expires: 07/20/2025 [facility] Service Area Work Phone: Comment on above: Expected: 10/19/2024 (Approximate), Expires: 07/20/2025 Start: 10-15-2024 Creatinine measurement Creatinine Jennifer deleon [facility] Start: 10-15-2024 Potassium measurement Potassium Korin blackman [facility] Start: 08-24-2024 End: 08-24-2024 Patient encounter procedure 08/24/2024 10:20 AM EDT Office Visit [facility] [address] [place] [phone] Nely Ricardo MD [address] [facility], [address] [place] [address] [facility] Start: 08-18-2024 End: 02-18-2025 Basic metabolic 2000 panel - Serum or Plasma Basic Metabolic Panel Lab Routine Chronic obstructive pulmonary disease, unspecified COPD type (Multi) Expected: 08/18/2024 (Approximate), Expires: 02/18/2025 [facility] Work Phone: Comment on above: Expected: 08/18/2024 (Approximate), Expires: 02/18/2025 Start: 08-18-2024 End: 02-18-2025 CBC panel - Blood by Automated count CBC Lab Routine Chronic obstructive pulmonary disease, unspecified COPD type (Multi) Expected: 08/18/2024 (Approximate), Expires: 02/18/2025 [facility] Work Phone: Comment on above: Expected: 08/18/2024 (Approximate), Expires: 02/18/2025 Start: 08-18-2024 End: 02-18-2025 Prostate specific Ag [Mass/volume] in Serum or Plasma Prostate Specific Antigen Lab Routine Elevated PSA, between 10 and less than 20 ng/ml Expected: 08/18/2024 (Approximate), Expires: 02/18/2025 [facility] Work Phone: Comment on above: Expected: 08/18/2024 (Approximate), Expires: 02/18/2025 Start: 08-11-2024 Diabetes mellitus screening Diabetes Screening [facility] Start: 08-03-2024 End: 08-03-2024 Patient encounter procedure 08/03/2024 1:00 PM EDT Office Visit [facility] [address] [facility] [address] [place] [phone] Aarti Gonzalez MD [address] [place] [address] [facility] Start: 06-10-2024 End: 06-10-2024 Patient encounter procedure 06/10/2024 8:20 AM EST Office Visit [facility] [address] [place] [phone] Adán Gorman MD [address] [place] [id number] [facility] Start: 05-31-2024 End: 05-31-2024 Plmt interstitial dev radiat tx prostate 1/mult Insertion Fiducial Marker Prostate Prostate cancer (Multi) 05/31/2024 10:00 AM EST [facility] Start: 05-11-2024 End: 05-11-2024 Patient encounter procedure 05/11/2024 11:20 AM EST Office Visit [facility] [address] [place] [phone] Nely Ricardo MD [address] [facility], [address] [place] [phone] [facility] Start: 03-08-2024 End: 03-08-2024 Prostate needle biopsy any approach Biopsy Prostate Elevated PSA 03/08/2024 8:35 AM EST [facility] Start: 03-08-2024 End: 03-08-2024 Us guidance needle placement img s&i Creation [place] Hole with Insertion Electrography Lead and Navigation Elevated PSA 03/08/2024 8:35 AM EST [facility] Start: 03-08-2024 End: 03-08-2024 Us transrectal Ultrasonography Transrectal Prostate Elevated PSA 03/08/2024 8:35 AM EST [facility] Start: 02-19-2024 End: 02-18-2025 Cologuard colon cancer screening Cologuard colon cancer screening Lab Routine Colon cancer screening Expected: 02/19/2024 (Approximate), Expires: 02/18/2025 [facility] Service Area Work Phone: Comment on above: Expected: 02/19/2024 (Approximate), Expires: 02/18/2025 Start: 02-19-2024 End: 02-19-2024 Clinical Support [facility] Start: 02-05-2024 End: 02-05-2024 Patient encounter procedure 02/05/2024 9:00 AM EDT Office Visit [facility] [address] [place] [phone] Adán Gorman MD [address] [address] [facility] Start: 01-13-2024 End: 01-13-2024 Patient encounter procedure 01/13/2024 3:20 PM EDT Office Visit [facility] [address] [place] [address] [place] [phone] Adán Gorman MD [address] [place] [id number] [facility] Start: 01-13-2024 End: 01-13-2024 Admission to same day surgery center 01/13/2024 2:05 PM EDT - 01/13/2024 3:05 PM EDT Surgery [facility] Services [address] [place] [phone] Nas Suh DO [address] [place] [phone] ICD Generator Change [facility] Comment on above: ICD Generator Change Start: 01-13-2024 Subsequent hospital visit by physician 01/13/2024 2:05 PM EDT Hospital Encounter [facility] Procedural Care Unit [address] [place] [phone] Nas Suh DO [address] [place] [phone] [facility] Start: 12-20-2023 COVID-19 Vaccine ( season) COVID-19 Vaccine () [facility] Start: 12-20-2023 COVID-19 Vaccine () COVID-19 Vaccine () [facility] Start: 12-20-2023 Influenza vaccination [facility] Start: 12-11-2023 Screening for malign ant neoplasm of colon [facility] Start: 12-02-2023 End: 12-01-2024 MR Prostate MR prostate with malaika boundaries if pirads 3 or above Imaging Routine Elevated PSA, between 10 and less than 20 ng/ml Expected: 12/02/2023 (Approximate), Expires: 12/01/2024 [facility] Service Area Work Phone: Comment on above: Expected: 12/02/2023 (Approximate), Expires: 12/01/2024 Start: 11-05-2023 End: 11-05-2023 Patient encounter procedure 11/05/2023 5:30 AM EDT Appointment [facility] [address] [place] [address] [place] [phone] Stoney Li MD [address] [place], [place] [phone] [facility] Start: 10-21-2023 End: 10-21-2023 Patient encounter procedure 10/21/2023 9:00 AM EDT Office Visit [facility] [address] [place] [phone] Fatimah Wilcox MD MPH [address] [facility], [address] [place] [address] [facility] Start: 10-05-2023 End: 10-05-2023 Patient encounter procedure 10/05/2023 6:15 AM EDT Appointment [facility] [address] [facility] [place] [phone] Stoney Li MD [address] [place] [address] [facility] Start: 08-26-2023 End: 08-26-2023 Patient encounter procedure 08/26/2023 8:00 AM EDT Appointment [facility] [address] [facility] [place] [phone] Stoney Li MD [address] [place] [address] [facility] Start: 08-12-2023 End: 08-11-2024 Hemoglobin A1c/Hemoglobin.total in Blood [facility] Comment on above: Expected: 08/12/2023 , Expires: 08/11/2024 Start: 08-12-2023 End: 08-12-2023 Patient encounter procedure 08/12/2023 8:00 AM EDT Office Visit [facility] [address] [place] [address] [place] [phone] Klaus Bucio CNP [address] [place] [address] [facility] Start: 07-27-2023 End: 07-27-2023 Patient encounter procedure 07/27/2023 5:15 AM EDT Appointment [facility] [address] [place] [address] [place] [phone] Stoney Li MD [facility] [place] [address] [facility] Start: 07-15-2023 End: 07-14-2024 Basic metabolic 2000 panel - Serum or Plasma Basic Metabolic Panel Lab Routine Atrial fibrillation, unspecified type (CMS/HCC) Primary hypertension Expected: 07/15/2023 (Approximate), Expires: 07/14/2024 [facility] Work Phone: Comment on above: Expected: 07/15/2023 (Approximate), Expires: 07/14/2024 Start: 07-15-2023 End: 07-14-2024 Lipid 1996 panel - Serum or Plasma Lipid Panel Lab Routine Lipid screening Expected: 07/15/2023 (Approximate), Expires: 07/14/2024 [facility] Service Area Work Phone: Comment on above: Expected: 07/15/2023 (Approximate), Expires: 07/14/2024 Start: 07-15-2023 End: 07-14-2024 Prostate specific Ag [Mass/volume] in Serum or Plasma Prostate Specific Antigen, Screen Lab Routine Prostate cancer screening Expected: 07/15/2023 (Approximate), Expires: 07/14/2024 [facility] Work Phone: Comment on above: Expected: 07/15/2023 (Approximate), Expires: 07/14/2024 Start: 07-15-2023 End: 07-15-2023 Patient encounter procedure 07/15/2023 9:30 AM EDT Office Visit [facility] [address] [place] [id number] Walter Fermin, .NET ARCHITECT-PLATE SETTER [address] [facility], [address] [place] [address] [facility] Start: 05-19-2023 End: 05-19-2023 Patient encounter procedure 05/19/2023 8:00 AM EST Appointment [facility] [address] [place] [address] Adán Gorman MD [address] [address] [facility] Start: 05-12-2023 End: 05-12-2023 Patient encounter procedure 05/12/2023 9:45 AM EST Appointment [facility] [address] [place] [address] [place] [address] Stoney Li MD [address] [place] [address] [facility] Start: 04-08-2023 End: 04-08-2023 Patient encounter procedure 04/08/2023 1:40 PM EST Office Visit [facility] [address] [place] [address] [place] [address] Adán Gorman MD [address] [address] [facility] Start: 01-14-2023 End: 01-14-2023 Patient encounter procedure 01/14/2023 8:15 AM EDT Office Visit [facility] [address] [place] [address] Walter Fermin, .NET ARCHITECT-PLATE SETTER [address] [facility], [address] [place] [address] [facility] Start: 12-19-2022 COVID-19 Vaccine ( season) COVID-19 Vaccine ( season) [facility] Start: 12-19-2022 Influenza vaccination [facility] Start: 11-20-2022 End: 11-20-2022 Patient encounter procedure 11/20/2022 5:00 AM EDT Appointment [facility] [address] [place] [address] [place] [address] Stoney Li MD [address] [place] [address] [facility] Start: 11-14-2022 End: 11-14-2022 Patient encounter procedure 11/14/2022 9:00 AM EDT Office Visit [facility] [address] [place] [address] [place] [address] Klaus Bucio CNP [address] [place] [address] [facility] Start: 11-07-2022 End: 11-07-2022 Patient encounter procedure 11/07/2022 Office Visit Cardiology Klaus Bucio CNP [address] [place] [address] [facility] Start: 09-06-2022 Creatinine measurement Creatinine Le adrienne [facility] Start: 09-06-2022 Potassium measurement Potassium Leve l [facility] Start: 07-11-2022 EPV, Provider: Walter Fermin, Status: Pen, Time: 9:15 AM EPV, Provider: Walter Fermin, Status: Pen, Time: 9:15 AM [facility] Work Phone: Start: 06-27-2022 End: 06-27-2022 Patient encounter procedure 06/27/2022 Appointment Cardiology Stoney Li MD [address] [place] [id number] [facility] Start: 04-25-2022 End: 04-25-2022 Patient encounter procedure 04/25/2022 Office Visit Cardiology Klaus Bucio CNP [address] [place] [address] [facility] Start: 03-21-2022 End: 03-21-2022 Patient encounter procedure 03/21/2022 Office Visit Cardiology Adán Gorman MD [address] [address] [facility] Start: 03-14-2022 End: 09-11-2022 Complete blood count with white cell differential, manual CBC and differential Lab Routine Coronary artery disease, unspecified vessel or lesion type, unspecified whether angina present, unspecified whether seminole or transplanted heart Expected: 03/14/2022, Expires: 09/11/2022 [facility] Comment on above: Expected: 03/14/2022 , Expires: 09/11/2022 Start: 03-14-2022 End: 09-11-2022 Comprehensive metabolic 2000 panel - Serum or Plasma Comprehensive metabolic panel Lab Routine Coronary artery disease, unspecified vessel or lesion type, unspecified whether angina present, unspecified whether seminole or transplanted heart Expected: 03/14/2022, Expires: 09/11/2022 [facility] Comment on above: Expected: 03/14/2022 , Expires: 09/11/2022 Start: 03-14-2022 End: 09-11-2022 Lipid 1996 panel - Serum or Plasma Lipid Panel Lab Routine Coronary artery disease, unspecified vessel or lesion type, unspecified whether angina present, unspecified whether seminole or transplanted heart Expected: 03/14/2022, Expires: 09/11/2022 [facility] Work Phone: Comment on above: Expected: 03/14/2022 , Expires: 09/11/2022 Start: 01-03-2022 EPV, Provider: Walter Fermin, Status: Pen, Time: 8:45 AM EPV, Provider: Walter Fermin, Status: Pen, Time: 8:45 AM [facility] Work Phone: Start: 12-20-2021 End: 12-20-2021 Patient encounter procedure 12/20/2021 Appointment Cardiology Bushra Hicks MD [address] [place] [id number] [facility] Start: 12-19-2021 Influenza vaccination [facility] Start: 09-27-2021 EPV, Provider: Walter Fermin, Status: Pen, Time: 9:00 AM EPV, Provider: Walter Fermin, Status: Pen, Time: 9:00 AM [facility] Work Phone: Start: 09-13-2021 End: 09-13-2021 Patient encounter procedure 09/13/2021 Appointment Cardiology Stoney Li MD [address] [place] [address] [facility] Start: 09-09-2021 End: 09-09-2021 Patient encounter procedure 09/09/2021 Office Visit Cardiology Alicja Torres CNP [address] [place] [address] [facility] Start: 07-26-2021 End: 07-26-2021 Patient encounter procedure 07/26/2021 Office Visit Cardiology Jade Rivera CNS [address] [place] [address] [facility] Start: 07-17-2021 End: 07-17-2021 Patient encounter procedure 07/17/2021 Appointment Cardiology Stoney Li MD [address] [place] [address] [facility] Start: 07-05-2021 FUV, Provider: Fabiana Cade, Status: Pen, Time: 10:00 AM FUV, Provider: Fabiana Cade, Status: Pen, Time: 10:00 AM [facility] Work Phone: Start: 2021 Prostate specific antigen measurement Prostate Cancer Screening Discussion [facility] Start: 06-05-2021 End: 06-05-2021 Patient encounter procedure 06/05/2021 Appointment Cardiology Bushra Hicks MD [address] [place] [address] [facility] Start: 03-24-2021 COVID-19 Vaccine (3 - Booster for Moderna series) COVID-19 Vaccine (3 - Booster for Moderna series) [facility] Start: 03-20-2021 EPV, Provider: Monie Waite, Status: Pen, Time: 11:00 AM EPV, Provider: Monie Waite, Status: Pen, Time: 11:00 AM [facility] Work Phone: Start: 03-08-2021 End: 03-08-2021 Patient encounter procedure 03/08/2021 Office Visit Cardiology Jade Rivera, CUSTOMER SUPPORT COORDINATOR [address] [place] [address] [facility] Start: 02-22-2021 COVID-19 Vaccine (3 - Booster for Moderna series) COVID-19 Vaccine (3 - Booster for Moderna series) [facility] Start: 02-21-2021 End: 02-21-2021 Patient encounter procedure [facility] Start: 01-24-2021 End: 01-24-2021 Patient encounter procedure 01/24/2021 Appointment Cardiology Bushra Hicks MD [address] [place] [address] [phone] [facility] Start: 01-17-2021 EPV, Provider: Monie Waite, Status: Pen, Time: 9:30 AM EPV, Provider: Monie Waite, Status: Pen, Time: 9:30 AM [facility] Work Phone: Start: 01-11-2021 Echocardiography Echocardiogram [facility] Start: 12-19-2020 Influenza vaccination [facility] Start: 12-11-2020 Pneumococcal vaccination Pneumococcal Vaccine (2 of 2 - PCV) [facility] Start: 12-11-2020 Pneumococcal Vaccine : 50+ (2 of 2 - PCV) Pneumococcal Vaccine: 50+ (2 of 2 - PCV) [facility] Start: 12-11-2020 Pneumococcal Vaccine : Age 50+ (2 of 2 - PCV) Pneumococcal Vaccine: Age 50+ (2 of 2 - PCV) [facility] Start: 12-11-2020 Pneumococcal Vaccine : Ped or At-Risk (2 - PCV) Pneumococcal Vaccine: Ped or At-Risk (2 - PCV) [facility] Start: 12-11-2020 Pneumococcal Vaccine : Ped or At-Risk (2 of 2 - PCV) Pneumococcal Vaccine: Ped or At-Risk (2 of 2 - PCV) [facility] Start: 12-11-2020 Pneumococcal Vaccine : Pediatrics (0 to 5 Years) and At-Risk Patients (6 to 64 Years) (2 - PCV) Pneumococcal Vaccine: Pediatrics (0 to 5 Years) and At-Risk Patients (6 to 64 Years) (2 - PCV) [facility] Start: 12-11-2020 Pneumococcal Vaccine : Pediatrics (0 to 5 Years) and At-Risk Patients (6 to 64 Years) (2 of 2 - PCV) Pneumococcal Vaccine: Pediatrics (0 to 5 Years) and At-Risk Patients (6 to 64 Years) (2 of 2 - PCV) [facility] Start: 12-07-2020 End: 12-07-2020 Patient encounter procedure 12/07/2020 Office Visit Cardiology Jade Rivera CNS [address] [place] [address] [phone] [facility] Start: 11-30-2020 Subsequent hospital visit by physician 11/30/2020 Hospital Encounter Cardiology Rubén Martinez MD [address] [place] [address] [phone] [facility] Start: 11-17-2020 COVID-19 Vaccine (3 - Booster for Moderna series) COVID-19 Vaccine (3 - Booster for Moderna series) [facility] Start: 11-17-2020 COVID-19 Vaccine (3 - Moderna series) COVID-19 Vaccine (3 - Moderna series) [facility] Start: 11-15-2020 End: 11-15-2020 Patient encounter procedure [facility] Start: 11-02-2020 End: 11-02-2020 Patient encounter procedure 11/02/2020 Office Visit Cardiology Jade Rivera, CUSTOMER SUPPORT COORDINATOR [address] [place] [address] [phone] [facility] Start: 10-17-2020 End: 10-17-2020 Appointment 10/17/2020 Appointment Cardiology Bushra Hicks MD [address] [place] [address] [phone] [facility] Start: 07-27-2020 End: 07-27-2020 Office Visit 07/27/2020 Office Visit Cardiology Jade Rivera, CUSTOMER SUPPORT COORDINATOR [address] [place] [address] [phone] [facility] Start: 07-04-2020 End: 07-04-2020 Appointment 07/04/2020 Appointment Cardiology Stoney Li MD [address] [place] [address] [phone] [facility] Start: 04-27-2020 End: 04-27-2020 Office Visit 04/27/2020 Office Visit Cardiology Jade Rivera, CUSTOMER SUPPORT COORDINATOR [address] [place] [address] [phone] [facility] Start: 04-25-2020 End: 04-25-2020 Office Visit 04/25/2020 Office Visit Cardiology Adán Gorman MD [address] [place] [address] [phone] [facility] Start: 03-26-2020 End: 03-26-2020 Appointment 03/26/2020 Appointment Cardiology Bushra Hicks MD [address] [place] [address] [phone] [facility] Start: 02-24-2020 End: 02-24-2020 Office Visit 02/24/2020 Office Visit Cardiology Jade Rivera, CUSTOMER SUPPORT COORDINATOR [address] [place] [address] [phone] [facility] Start: 01-20-2020 End: 01-20-2020 Office Visit 01/20/2020 Office Visit Cardiology Jade Rivera, CUSTOMER SUPPORT COORDINATOR [address] [place] [address] [phone] [facility] Start: 12-29-2019 End: 12-29-2019 Office Visit 12/29/2019 Office Visit Cardiology Adán Gorman MD [address] [address] [phone] Jade Rivera, CUSTOMER SUPPORT COORDINATOR [address] [place] [address] [phone] [facility] Start: 12-20-2019 Influenza vaccinatio n given [facility] Start: 11-28-2019 Xray Chest 2 V iew PA + Lateral [facility] Work Phone: Start: 12-19-2017 Influenza vaccination SEQUENTI AL INFLUENZA VACCINE (#1) [facility] Start: 09-18-2017 CLASS III : OFFICE VISIT CLASS III : OFFICE VISIT [facility] Work Phone: Start: 05-04-2017 End: 05-04-2017 Ambulatory [facility] Start: 03-30-2017 End: 03-30-2017 [facility] Start: 03-02-2017 End: 03-02-2017 Ambulatory [facility] Start: 01-02-2017 Ambulatory 01/02/2017 Pac eArt Device Check Cardiology [facility] Start: 12-19-2016 Influenza vaccination SEQUENTI AL INFLUENZA VACCINE (#1) [facility] Work Phone: Start: 12-19-2016 SEQUENTIAL INFLUENZA VACCINE (#1) SEQUENTIAL INFLUENZA VACCINE (#1) [facility] Work Phone: Start: 2016 Administration of herpes zoster vaccine Zoster Vaccines (1 of 2) [facility] Start: 2016 Screening for malign ant neoplasm of colon [facility] Start: 2016 Shingrix Vaccine (1 of 2) Shingrix Vaccine (1 of 2) [facility] Start: 2016 Zoster Vaccines (1 o f 2) Zoster Vaccines (1 of 2) [facility] Start: 2011 Screening for malign ant neoplasm of colon [facility] Start: 1985 Hepatitis B Vaccine (1 of 3 - 19+ 3-dose series) Hepatitis B Vaccine (1 of 3 - 19+ 3-dose series) [facility] Start: 1985 Hepatitis B Vaccines (1 of 3 - 19+ 3-dose series) Hepatitis B Vaccines (1 of 3 - 19+ 3-dose series) [facility] Start: 1984 Anxiety Screening Anxiety Screening [facility] Start: 1984 Depression Screening Depression Scre ening [facility] Start: 1984 Diabetes mellitus screening Diabetes Screening [facility] Start: 1984 Hepatitis C antibody , confirmatory test Hepatitis C Screening [facility] Start: 1984 Hepatitis C screening Hepatitis C Sc reening [facility] Start: 1984 HIV screening HIV Screening [facility] Start: 1982 COVID-19 Vaccine (1 of 2) COVID-19 Vaccine (1 of 2) [facility] Start: 1981 HIV screening [facility] Scre[facility] Start: 1978 Adolescent depressio n screening assessment Depression Screening (PHQ9) [facility] Start: 1978 COVID-19 Vaccine (1) COVID-19 Vaccin e (1) [facility] Start: 1978 Depression screening using PHQ-9 (Patient Health Questionnaire 9) score [facility] Start: 1972 Pneumococcal Vaccine : Ped or At-Risk (1 of 2 - PPSV23) Pneumococcal Vaccine: Ped or At-Risk (1 of 2 - PPSV23) [facility] Start: 1969 History and physical examination, annual for health maintenance Wellness Visit [facility] Start: 1969 Medicare Wellness Visit Medicare Wel lness Visit [facility] Start: 1967 MMR Vaccines (1 of 1 - Standard series) MMR Vaccines (1 of 1 - Standard series) [facility] Start: 1966 CLASS III : ALT CLASS III : ALT [employer] Phone: Start: 1966 CLASS III : AST CLASS III : AST [employer] Work Phone: Start: 1966 CLASS III : CXR CLASS III : CXR [employer] Phone: Start: 1966 CLASS III : EKG CLASS III : EKG [employer] Phone: Start: 1966 CLASS III : PFT CLASS III : PFT [employer] Work Phone: Start: 1966 CLASS III : TSH CLASS III : TSH [employer] Phone: Start: 1966 Colonoscopy COLONOSCOPY [facility] Work Phone: Start: 1966 Hepatitis B Vaccines (1 of 3 - 3-dose series) Hepatitis B Vaccines (1 of 3 - 3-dose series) [facility] Start: 1966 HIV screening HIV Screening [facility] Start: 1966 Medicare Annual Wellness Visit Medicare Annual Wellness Visit (AWV) [facility] Start: 1966 Prostate specific antigen measurement PSA Level [facility] Start: 1966 Scre[facility] Work [facility]: Start: 1966 Screening for malign ant neoplasm of colon [facility] Start: 1966 TETANUS EVERY 10 YR TETANUS EVERY 10 YR [facility] Work Phone: Start: 1966 Tetanus vaccination [facility] Start: 1966 Yearly Adult Physical Yearly Adult P hysical [facility] Bacteria identified Cx Nom (Bld) [facility] End: 12-15-2020 Basic metabolic 2000 panel Basic Metabolic Panel Lab Routine 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 1 Occurrences starting 12/15/2019 until 12/15/2020 [facility] Comment on above: 1 Occurrences starti ng 12/15/2019 until 12/15/2020 End: 11-15-2021 Basic metabolic 2000 panel - Serum or Plasma Basic metabolic panel Lab Routine 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 1 Occurrences starting 11/15/2020 until 11/15/2021 [facility] Comment on above: 1 Occurrences starti ng 11/15/2020 until 11/15/2021 End: 12-15-2020 Complete blood count (hemogram) panel - Blood by Automated count CBC Lab Routine 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 1 Occurrences starting 12/15/2019 until 12/15/2020 [facility] Comment on above: 1 Occurrences starti ng 12/15/2019 until 12/15/2020 End: 11-15-2021 Complete blood count with white cell differential, manual CBC and differential Lab Routine 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 1 Occurrences starting 11/15/2020 until 11/15/2021 [facility] Comment on above: 1 Occurrences starti ng 11/15/2020 until 11/15/2021 End: 08-11-2024 Comprehensive metabolic 2000 panel - Serum or Plasma Comprehensive Metabolic Panel Lab Routine Chronic systolic congestive heart failure (HCC) Diastolic dysfunction 1 Occurrences starting 08/12/2023 until 08/11/2024 [facility] Work Phone: Comment on above: 1 Occurrences starti ng 08/12/2023 until 08/11/2024 Comprehensive metabo lic 2000 panel - Serum or Plasma Comprehensive Metabolic Panel Lab Routine Chronic systolic congestive heart failure (HCC) Diastolic dysfunction 08/12/2023 8:35 AM EDT [facility] End: 03-08-2024 Continuous Pulse oximetry, In Phase 1 Continuous Pulse oximetry, In Phase 1 Respiratory Care Routine Continuous until discontinued starting 03/08/2024 [facility] Work Phone: Comment on above: Continuous until dis continued starting 03/08/2024 End: 05-31-2024 Continuous Pulse oximetry, In Phase 1 Continuous Pulse oximetry, In Phase 1 Respiratory Care Routine Continuous until discontinued starting 05/31/2024 [facility] Work Phone: Comment on above: Continuous until dis continued starting 05/31/2024 CT of urinary tract CT Kidney St one [facility] 01/16/2020 8:03 AM EDT [facility] CTA Pulm Art and CT Abd Pelvis with IV contrast CTA Pulm Art and CT Abd Pelvis with IV contrast Imaging [facility] 01/16/2020 9:23 AM EDT [facility] End: 04-08-2024 Echocardiography Echocardiogram complete Echocardiography Routine Mitral valve insufficiency, unspecified etiology 1 Occurrences starting 04/08/2023 until 04/08/2024 [facility] Work Phone: Comment on above: 1 Occurrences starti ng 04/08/2023 until 04/08/2024 End: 03-08-2024 Glucose [Mass/volume] in Serum or Plasma POCT Glucose Point of Care Testing - Docked Device Routine Once (Lab) for 1 Occurrences starting 03/08/2024 until 03/08/2024 [facility] Service Area Work Phone: Comment on above: Once (Lab) for 1 Occ urrences starting 03/08/2024 until 03/08/2024 End: 05-31-2024 Glucose [Mass/volume] in Serum or Plasma POCT Glucose Point of Care Testing - Docked Device Routine Once (Lab) for 1 Occurrences starting 05/31/2024 until 05/31/2024 [facility] Service Area Work Phone: Comment on above: Once (Lab) for 1 Occ urrences starting 05/31/2024 until 05/31/2024 End: 12-15-2020 Lipid 1996 panel Lipid Panel Lab Routine 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 1 Occurrences starting 12/15/2019 until 12/15/2020 [facility] Comment on above: 1 Occurrences starti ng 12/15/2019 until 12/15/2020 End: 08-11-2024 Lipid 1996 panel - Serum or Plasma Lipid Panel Lab Routine Chronic systolic congestive heart failure (HCC) Hypercholesterolemia 1 Occurrences starting 08/12/2023 until 08/11/2024 [facility] Comment on above: 1 Occurrences starti ng 08/12/2023 until 08/11/2024 Lipid 1996 panel - Serum or Plasma Lipid Panel Lab Routine Chronic systolic congestive heart failure (HCC) Hypercholesterolemia 08/12/2023 8:35 AM EDT [facility] End: 12-14-2020 Natriuretic peptide.B prohormone N-Terminal [Mass/Vol] NT PRO BNP Lab Routine LOPEZ (dyspnea on exertion) 1 Occurrences starting 12/15/2019 until 12/14/2020 [facility] Comment on above: 1 Occurrences starti ng 12/15/2019 until 12/14/2020 End: 05-31-2024 Pulse oximetry, spot Pulse oximetry, spot Respiratory Care Routine Once for 1 Occurrences starting 05/31/2024 until 05/31/2024 [facility] Work Phone: Comment on above: Once for 1 Occurrenc es starting 05/31/2024 until 05/31/2024 Surgical pathology study Surgical Pathology Exam Pathology and Cytology Timed Elevated PSA Release Upon Ordering for 1 Occurrences starting 03/08/2024 [facility] Service Area Work Phone: Comment on above: Release Upon Orderin g for 1 Occurrences starting 03/08/2024 End: 12-23-2023 XR Chest 2 Views [facility] Area Work Phone: Comment on above: Once for 1 Occurrenc es starting 12/23/2023 until 12/23/2023 NEGATED: Highlighted row has been ruled out! Planned Goals not documented [facility] Work Phone: Immunizations Immunization Date Immunization Notes Care Provider Fa [facility] 05-30-2021 tetanus toxoid, redu sathya diphtheria toxoid, and acellular pertussis vaccine, adsorbed Zara Pandey RN [facility] 09-22-2020 Moderna SARS-CoV-2 Vaccination Adán Gorman MD Work Phone: [facility] 08-25-2020 Moderna SARS-CoV-2 Vaccination Adán Gorman MD Work Phone: [facility] 12-12-2019 pneumococcal polysaccharide vaccine, 23 valent; Translations: [Pneumococcal polysaccharide vaccine, 23 valent] Monie Waite Work Phone: [facility] Work Phone: Comment on above: Series: Payers Date Payer Category Payer Self-pay 2023 Medicare (Managed Care) 1.2. [id number] 2023 Medicare [id number] 2023 Unknown [id number] 2022 Medicare [id number] 2022 Medicare [id number] 2019 Medicaid [id number] 2019 Medicaid [id number]. [id number] 2019 Unknown [id number] 2017 Unknown 1966 Unknown [id number] 2. 840.1.789594.3.579.2.356 1966 Unknown [id number] 2. 840.1.287014.3.579.2.356 1966 Unknown [id number] 2. 840.1.669456.3.579.2.356 1966 Unknown [id number] 2.0.1.315969.3.579.2.356 1966 Unknown [id number] 2. 840.1.989349.3.579.2.902 1966 Unknown [id number] 2.16 840.1.578500.3.579.2.903 1966 Unknown [id number] 2.16 840.1.111690.3.579.2.903 1966 Unknown [id number] 2.16 840.1.528970.3.579.2.903 1966 Unknown [id number] 2.16. 840.1.887174.3.579.2.903 1966 Unknown [id number] 2.16. 840.1.527477.3.579.2.903 1966 Unknown [id number] 2.16. 840.1.777797.3.579.2.903 1966 Unknown [id number] 2.16. 840.1.420475.3.579.2.903 1966 Unknown [id number] 2.16. 840.1.191619.3.579.2.1245 1966 Unknown [id number] 2.16.8 40.1.397763.3.579.2.1245 1966 Unknown [id number] 2.16.8 40.1.736882.3.579.2.1245 1966 Unknown [id number] 2.16.8 40.1.538412.3.579.2.1245 1966 Unknown [id number] 2.16. 840.1.980421.3.579.2.903 1966 Unknown [id number] 2.16. 840.1.772936.3.579.2.903 1966 Unknown [id number] 2.16. 840.1.279506.3.579.2.903 1966 Unknown [id number] 2.16. 840.1.587115.3.579.2.903 1966 Unknown [id number] 2.16. 840.1.226986.3.579.2.903 1966 Unknown [id number] 2.16. 840.1.581952.3.579.2.903 1966 Unknown [id number] 2.16. 840.1.609425.3.579.2.903 1966 Unknown [id number] 2.16. 840.1.994841.3.579.2.903 1966 Unknown [id number] 2.16. 840.1.351139.3.579.2.903 1966 Unknown [id number] 2.16.8 40.1.672830.3.579.2.1243 1966 Unknown [id number] 2.16.8 40.1.922079.3.579.2.1243 1966 Unknown [id number] 2.16.8 40.1.354254.3.579.2.1243 1966 Unknown [id number] 2.16. 840.1.793631.3.579.2.1244 1966 Unknown [id number] 2.16. 840.1.888367.3.579.2.1244 1966 Unknown [id number] 2.16. 840.1.291479.3.579.2.124 1966 Unknown [id number] 2.16. 840.1.089408.3.579.2.1244 1966 Unknown [id number] 2.16. 840.1.782933.3.579.2.1244 1966 Unknown [id number] 2.16.8 40.1.552083.3.579.2.1244 1966 Unknown [id number] 2.16.8 40.1.318082.3.579.2.1244 Medicaid [id number] 2.1 6.840.1.692195.3.249.13 Unknown [id number] Unknown [id number] 2.16.8 40.1.491132.3.579.2.462 Unknown [id number] 2.16.8 40.1.574715.3.579.2.462 Unknown [id number] 2.16.8 40.1.622008.3.579.2.462 Unknown [id number] 2.16.8 40.1.150283.3.579.2.462 Unknown [id number] 2.16.8 40.1.395992.3.579.2.462 Unknown [id number] 2.16.8 40.1.717543.3.579.2.462 Unknown [id number] 2.16.8 40.1.718494.3.579.2.462 Unknown [id number] 2.16.8 40.1.488942.3.579.2.462 Unknown [id number] 2.16.8 40.1.201898.3.579.2.462 Unknown [id number] 2.16.8 40.1.313515.3.579.2.462 Unknown [id number] 2.16.8 40.1.146974.3.579.2.462 Unknown [id number] 2.16.8 40.1.062187.3.579.2.462 Unknown [id number] 2.16.8 40.1.450982.3.579.2.462 Social History Date Type Detail Facility Start: 09-18-2016 End: 05-31-2024 Tobacco smoking status NMIS Former smoker [facility] Work Phone: End: 10-08-2012 History of tobacco use Cigarette Smoker [facility] Work Phone: Start: 1965 Sex Assigned At Not on file [facility] [employer] Work Phone: Start: 10-09-2019 End: 04-25-2022 Alcohol intake Current non-drinker of alcohol (finding) [facility] Start: 09-01-2021 End: 08-24-2024 Exposure to SARS-CoV-2 (event) Not sure [facility] End: 10-08-2012 History of tobacco use Current smoker [facility] Start: 12-15-2019 End: 05-31-2024 Tobacco use and exposure Never used [facility] Start: 07-27-2020 End: 08-24-2024 Alcohol intake [facility] Start: 02-05-2024 End: 02-15-2024 Exposure to SARS-CoV-2 (event) Unable to assess [facility] Start: 04-25-2022 End: 08-24-2024 Tobacco use panel [facility] Start: 11-15-2020 Gender identity Identifies as male gender (finding) [facility] Start: 11-15-2020 Sexual orientation Heterosexual (fin ding) [facility] Start: 11-14-2022 End: 02-05-2024 Alcohol intake Current drinker of alcohol (finding) [facility] Start: 07-11-2022 Tobacco smoking status NHIS Never smoked tobacco [facility] Work Phone: Start: 07-15-2023 End: 08-24-2024 Alcohol intake Ex-drinker (finding) [facility] Work Phone: Tobacco smoking status NHIS Tobacco smoking consumption unknown [facility] NEGATED: Highlighted row - - -[facility] Work Phone: Medical Equipment Procedure Code Equipment Code Equipment Origin al Text Equipment Identifier Dates Mdt [id number] Ever a Xt Dr [id number] Start: 10-14-2013 Mdt 5076 Caps[employer] Novus [id number] Mdt 6935m [employer] Secure S [id number] t [id number] Ever a Xt Dr [id number] Start: 10-14-2013 Mdt 5076 [employer] Novus [id number] Mdt 6935m [employer] S [id number] t [id number] Ever a Xt Dr [id number] Start: 10-14-2013 Mdt 5076 [employer] Novus [id number] Mdt 6935m [employer] S [id number] t [id number] Ever a Xt Dr [id number] Start: 10-14-2013 Mdt 5076 [employer] Novus [id number] Mdt 6935m [employer] Secure S [id number] t [id number] Ever a Xt Dr [id number] Start: 10-14-2013 Mdt 5076 [employer] Novus [id number] Mdt 6935m [employer] Secure S [id number] Glen Kiva3n6 Ever a Xt Dr [id number] Start: 10-14-2013 Mdt 5076 [employer] Novus [id number] Mdt 6935m [employer] Secure S [id number] Mdt Cujm4o9 Ever a [address] [id number] Start: 10-14-2013 Mdt 5076 [employer] Novus [id number] Mdt 6935m [employer] S [id number] Mdt Vwqu4r1 Ever a Xt Dr [id number] Start: 10-14-2013 Mdt 5076 [employer] Novus [id number] Mdt 6935m [employer] S [id number] Mdt Pgzq4k0 Ever a Xt Dr [id number] Start: 10-14-2013 Mdt 5076 [employer] Novus [id number] Mdt 6935m [employer] S [id number] Mdt Ddfx0d0 Ever a [address] Dr [id number] Start: 10-14-2013 Mdt 5076 [employer] Novus [id number] Mdt 6935m [employer] S [id number] Mdt Rpeh9w2 Ever a Xt Dr [id number] Start: 10-14-2013 Mdt 5076 [employer] Novus [id number] Mdt 6935m [employer] S [id number] Mdt Pofd4c4 Ever a Xt Dr [id number] Start: 10-14-2013 Mdt 5076 [employer] Novus [id number] Mdt 6935m [employer] S [id number] Mdt Rovx1n2 Ever a Xt Dr [id number] Start: 10-14-2013 Mdt 5076 [employer] Novus [id number] Mdt 6935m [employer] S [id number] Mdt Hbqf8q7 Ever a Xt Dr [id number] Start: 10-14-2013 Mdt 5076 Caps[employer]fix Novus [id number] Mdt 6935m [employer] S [id number] Mdt Bhvq2k9 Ever a X[address] Dr [id number] 167486_imp Start: 10-14-2013 t 5076 Adalberto Gamboa [id number] 167487_[facility] Start: 10-13-2013 t 6935m [employer] Quwin Secure S [id number] 167488_[facility] Start: 10-13-2013 Closure 6/7fr Vascular Mynx W/Extra Leach Tank Tender Min Order 10 - [id number], 1324058_[facility] FDA Start: 11-30-2020 Cardiac Pacemaker-[id number]_[facility] Start: 01-13-2024 Defib Dsdi1s5 Evera Mri Xt - [id number] [id number]_[facility] Start: 01-13-2024 Comment on above: Description: AAIR<=> DDDR VF 1-6 35J Gold Markers, 1.2mm, Soft Tissue, 20cm 17ga [place], 3-Pk, Strl - [id number] 248313_[facility] Start: 05-31-2024 Functional Status Date Assessment Result Facility 08-24-2024 Patient Health Questionnaire 2 item (PHQ-2) [Reported] [facility] Work Phone: NEGATED: Highlighted row Functional performance Functional status health issues are not documented [facility] Work Phone: Mental Status Date Assessment Result Facility NEGATED: Highlighted row Cognitive function [Interpretation] Cognitive status health issues are not documented [facility] Work Phone: Clinical Notes 10-08-2020 to 08-24-2024 Nely Ricardo MD - 08/24/2024 10:20 AM Brien Gonzalez MD - 07/20/2024 3:15 PM EDTAssessment & Plan Note - Adán Gorman MD - 07/15/2024 8:58 AM EDTPatient Instructions Note Date & Type Note Facility 08-24-2024 History of Present illness Narrative Subjective Patient ID: Aarti Garcia is a 59 y.o. male who presents for COPD, Hypertension, and Hyperlipidemia. HPI Patient Health Questionnaire-2 Score: 0 (08/24/2024 10:12 AM) Cardiac disability On medicare hx of prostate cancer. S/P SBRT at [facility] finished on 07/01/24. Complaint of weaker urinary stream since finishing SBRT. PT had prostate MRI fusion bx and Path showed prostate cancer. [place] 6. Most recent PSA was 18.81 on 10/11. ED on viagra 100 mg CARD Automatic implanatable cardiac defibrillator ICD reports reviewed. 2 episodes NSVT on previous ICD report from March asymptomatic no therapy longest 14 beats. Patient essentially on maximal medical therapy guideline directed medical therapy. No A-fib Atrial Fibrillation (Hcc) Remote history of couple of hours of paroxysmal atrial fibrillation noted on pacemaker. Asymptomatic Oral anticoagulation stopped January 2024 due to significant surface bleeding after [place] scratch.. Restart if significant mount of A-fib seen on pacemaker reports. Low-dose aspirin therapy. [id number] score 3 Ischemic Cardiomyopathy Hx of [place]. Coronary Artery Disease Involving [place] Coronary Artery of [place] Heart Without Angina Pectoris Echocardiogram April 2023 enlarged LV EF reduced 30 to 35% mild mitral valve regurgitation only RVSP 21 mmHg. Repeat heart cath 2020 patent grafts medical therapy. Echo cardiogram summer 2019 ejection fraction 31%. Moderate mitral valve regurgitation moderate pulmonary hypertension. EF similar to nuclear stress test dating back 2015. Copd Former smoker quit 2013 Albuterol neb 2 to 3 times per month Does not see lung specialist Uses for cough Review of Systems Objective Visit Vitals BP 110/68 Pulse 68 Wt 69.4 kg (153 lb) SpO2 95% BMI 21.42 kg/m Smoking Status Former BSA 1.86 m Physical Exam Constitutional: Appearance: Normal appearance. HENT: Head: Normocephalic and atraumatic. Eyes: Conjunctiva/sclera: Conjunctivae normal. Pupils: Pupils are equal, round, and reactive to light. Cardiovascular: Rate and Rhythm: Normal rate and regular rhythm. Heart sounds: Normal heart sounds. Pulmonary: Effort: Pulmonary effort is normal. Breath sounds: Normal breath sounds. Lymphadenopathy: Cervical: No cervical adenopathy. Skin: Coloration: Skin is not jaundiced. Neurological: General: No focal deficit present. Mental Status: He is alert and oriented to person, place, and time. Psychiatric: Mood and Affect: Mood normal. Behavior: Behavior normal. Thought Content: Thought content normal. Judgment: Judgment normal. Assessment/Plan Diagnoses and all orders for this visit: Hypertensive heart disease with heart failure Chronic systolic congestive heart failure Chronic obstructive pulmonary disease, unspecified COPD type (Multi) P20 today Nely Ricardo MD 08/24/24 10:28 AM documented in this encounter [facility] Work Phone: 07-20-2024 History of Present illness Narrative Subjective Patient ID: Aarti Garica is a 59 y.o. male. HPI Patient is here for hx of prostate cancer. S/P SBRT at [facility] finished on 07/01/24. Complaint of weaker urinary stream since finishing SBRT. PT had prostate MRI fusion bx and Path showed prostate cancer. [place] 6. Most recent PSA was 18.81 on 10/11. This is the only PSA he has had. LUTS sx are mild and stable and not bothersome. . Denies urgency and frequency. Denies dysuria. Denies hematuria. Nocturia x1. No medication for LUT'S. No hx of kidney stones. ED is not an issue. Viagra is helpful. Energy level is good. Review of Systems Constitutional: Negative for chills and fever. HENT: Negative. Eyes: Negative. Respiratory: Negative for cough and shortness of breath. Cardiovascular: Negative for chest pain and leg swelling. Gastrointestinal: Negative for nausea. Endocrine: Negative. Genitourinary: Negative for difficulty urinating. Negative except for documented in HPI Allergic/Immunologic: Negative. Neurological: Alert & oriented X 3 Hematological: Denies blood thinners Psychiatric/Behavioral: Negative. Objective Physical Exam No PE done given the virtual nature of visit. Assessment/Plan Diagnoses and all orders for this visit: Malignant neoplasm of prostate (Multi) Male erectile dysfunction, unspecified Elevated PSA, between 10 and less than 20 ng/ml All available PSA values reviewed, Options discussed. Questions answered. Reviewed notes from XRT oncology Diet changes for prostate health discussed and educational information given. Pros/Cons of prostate health supplements discussed. Treatment options for LUTS reviewed-offered Flomax for weak stream-Will hold off Discussed timed voiding. Discussed fluid and caffeine intake Treatment options for ED reviewed. Sildenafil Rx given 100mg. Has used in past Lifestyle change to help prevent UTIs discussed. Encouraged fluid intake-No UTI sx F/U 4 months with PSA virtual documented in this encounter [facility] Work Phone: 07-15-2024 Evaluation + Plan note Associated Problem(s): 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 Reviewed. [facility] 07-15-2024 Evaluation + Plan note Associated Problem(s): Ischemic cardiomyopathy No angina no signs of any fluid overload. Tolerates guideline directed medical therapy no significant lightheadedness blood pressure runs low but no lightheadedness. [facility] 07-15-2024 Miscellaneous Notes Associated Problem(s): 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 Reviewed. Associated Problem(s): Ischemic cardiomyopathy No angina no signs of any fluid overload. Tolerates guideline directed medical therapy no significant lightheadedness blood pressure runs low but no lightheadedness. Associated Problem(s): Atrial fibrillation (HCC) Continue to follow on ICD reports. documented in this encounter [facility] 07-15-2024 Evaluation + Plan note Associated Problem(s): Atrial fibrillation (HCC) Continue to follow on ICD reports. [facility] 07-15-2024 Note [facility] [address] [facility] [address] [facility] [id number] Subjective: Aarti Garcia is a 59 y.o. male seen in the office today for Chief Complaint Patient presents with Follow-up 6 mo -no complaints Cardiac garzon doing well. Denies any lightheadedness no chest pain no particular shortness of breath no palpitations no evidence of any recurrent A-fib. Implantable defibrillator. ICD reports reviewed. 2 episodes NSVT on previous ICD report from March asymptomatic no therapy longest 14 beats. Patient essentially on maximal medical therapy guideline directed medical therapy. No A-fib Stable cardiac garzon no changes see back in 6 months. Overview of Problems Addressed: Problem Prostate Cancer (Hcc) Radiation therapy. 2023. Denominational Atrial Fibrillation (Hcc) Remote history of couple of hours of paroxysmal atrial fibrillation noted on pacemaker. Asymptomatic Oral anticoagulation stopped January 2024 due to significant surface bleeding after [place] scratch.. Restart if significant mount of A-fib seen on pacemaker reports. Low-dose aspirin therapy. [id number] score 3 Ischemic Cardiomyopathy Hx of [place]. Coronary Artery Disease Involving [place] Coronary Artery of [place] Heart Without Angina Pectoris Echocardiogram April 2023 enlarged LV EF reduced 30 to 35% mild mitral valve regurgitation only RVSP 21 mmHg. Repeat heart cath 2020 patent grafts medical therapy. Echo cardiogram summer 2019 ejection fraction 31%. Moderate mitral valve regurgitation moderate pulmonary hypertension. EF similar to nuclear stress test dating back 2015. had out of hospital cardiac arrest in 2013. He had severe anoxic encephalopathy initially. He underwent initial catheterization ultimately had bypass surgery. Left internal mammary artery graft was placed to left anterior descending, vein graft and obtuse marginal, vein graft to the PDA branch of the right. He has an ICD placed for primary prevention. Repeat heart catheterization March 2016 with 3 of 3 patent grafts ejection fraction 30%. LV filling pressure was normal. Continue medical therapy is recommended. Prophylactic ICD Assessment & Plan: Reviewed Atrial fibrillation (HCC) Continue to follow on ICD reports. Ischemic cardiomyopathy No angina no signs of any fluid overload. Tolerates guideline directed medical therapy no significant lightheadedness blood pressure runs low but no lightheadedness. 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 Reviewed. Histories: Past Medical History: Diagnosis Date Acute anterolateral myocardial infarction (HCC) Anoxic encephalopathy (HCC) CAD (coronary artery disease) CABG Cardiac arrest ([facility]) Hyperlipidemia Hypertension ICD (implantable cardioverter-defibrillator) in place 03/18/2016 Vertigo Past Surgical History: Procedure Laterality Date CABG CARDIAC CATHETERIZATION CARDIAC DEFIBRILLATOR PLACEMENT CORONARY ANGIOPLASTY 2013 CORONARY ARTERY BYPASS GRAFT BARAJAS to LAD, VG to OM of circ and RCA EYE SURGERY HC LEFT HEART CATH N/A 11/30/2020 Procedure: Left Heart Cath; Surgeon: Rubén Martinez MD; Location: [facility]; Service: Cardiovascular PACEMAKER INSERTION and defilibrator [place] INSJ/RPLCMT PERM DFB W/TRNSVNS LDS 1/DUAL CHMBR N/A 01/13/2024 Procedure: ICD Generator Change; Surgeon: Nas Suh DO; Location: EP LAB; Service: Cardiovascular Family History Problem Relation Age of Onset Heart attack Father Social History[1] Patient's Medications New Prescriptions No medications on file Previous Medications ALBUTEROL (PROVENTIL) 2.5 MG /3 ML (0.083 %) NEBULIZER SOLUTION Take 3 mL (2.5 mg total) by nebulization every 6 (six) hours as needed for wheezing . ALBUTEROL 90 MCG/ACTUATION INHALER Inhale 2 (two) puffs every 4 (four) hours as needed for shortness of breath . ASPIRIN 81 MG EC TABLET Take 1 (one) tablet (81 mg total) by mouth daily . ATORVASTATIN (LIPITOR) 10 MG TABLET Take 1 (one) tablet (10 mg total) by mouth at bedtime . CARVEDILOL (COREG) 12.5 MG TABLET Take 1 (one) tablet (12.5 mg total) by mouth 2 (two) times a day . EMPAGLIFLOZIN (JARDIANCE) 10 MG TAB Take 1 (one) tablet (10 mg total) by mouth daily . EPLERENONE (INSPRA) 25 MG TABLET Take 1 (one) tablet (25 mg total) by mouth daily Taking whole tablet daily . NITROGLYCERIN (NITROSTAT) 0.[address] 1 (one) tablet (0.4 mg total) under the tongue every 5 (five) minutes as needed for chest pain . SACUBITRIL-VALSARTAN (ENTRESTO) 24-26 MG PER TABLET Take 1 (one) tablet by mouth 2 (two) times a day . SILDENAFIL (VIAGRA) 25 MG TABLET Take 1 (one) tablet (25 mg total) by mouth daily as needed for erectile dysfunction . TIOTROPIUM BR/OLODATEROL HCL (STIOLTO RESPIMAT INHL) Inhale . Modified Medications No medications on file Discontinued Medic (more content not included)... [facility] 07-15-2024 History of Present illness Narrative [facility] [address] [facility] [address] [facility] [id number] Subjective: Aarti Garcia is a 59 y.o. male seen in the office today for Chief Complaint Patient presents with Follow-up 6 mo -no complaints Cardiac garzon doing well. Denies any lightheadedness no chest pain no particular shortness of breath no palpitations no evidence of any recurrent A-fib. Implantable defibrillator. ICD reports reviewed. 2 episodes NSVT on previous ICD report from March asymptomatic no therapy longest 14 beats. Patient essentially on maximal medical therapy guideline directed medical therapy. No A-fib Stable cardiac garzon no changes see back in 6 months. Overview of Problems Addressed: Problem Prostate Cancer (Hcc) Radiation therapy. 2023. Denominational Atrial Fibrillation (Hcc) Remote history of couple of hours of paroxysmal atrial fibrillation noted on pacemaker. Asymptomatic Oral anticoagulation stopped January 2024 due to significant surface bleeding after [place] scratch.. Restart if significant mount of A-fib seen on pacemaker reports. Low-dose aspirin therapy. [id number] score 3 Ischemic Cardiomyopathy Hx of [place]. Coronary Artery Disease Involving [place] Coronary Artery of [place] Heart Without Angina Pectoris Echocardiogram April 2023 enlarged LV EF reduced 30 to 35% mild mitral valve regurgitation only RVSP 21 mmHg. Repeat heart cath 2020 patent grafts medical therapy. Echo cardiogram summer 2019 ejection fraction 31%. Moderate mitral valve regurgitation moderate pulmonary hypertension. EF similar to nuclear stress test dating back 2016. had out of hospital cardiac arrest in 2013. He had severe anoxic encephalopathy initially. He underwent initial catheterization ultimately had bypass surgery. Left internal mammary artery graft was placed to left anterior descending, vein graft and obtuse marginal, vein graft to the PDA branch of the right. He has an ICD placed for primary prevention. Repeat heart catheterization March 2016 with 3 of 3 patent grafts ejection fraction 30%. LV filling pressure was normal. Continue medical therapy is recommended. Prophylactic ICD Assessment & Plan: Reviewed Atrial fibrillation (HCC) Continue to follow on ICD reports. Ischemic cardiomyopathy No angina no signs of any fluid overload. Tolerates guideline directed medical therapy no significant lightheadedness blood pressure runs low but no lightheadedness. 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 Reviewed. Histories: Past Medical History: Diagnosis Date Acute anterolateral myocardial infarction (HCC) Anoxic encephalopathy (HCC) CAD (coronary artery disease) CABG Cardiac arrest (HCC) Hyperlipidemia Hypertension ICD (implantable cardioverter-defibrillator) in place 03/18/2016 Vertigo Past Surgical History: Procedure Laterality Date CABG CARDIAC CATHETERIZATION CARDIAC DEFIBRILLATOR PLACEMENT CORONARY ANGIOPLASTY 2013 CORONARY ARTERY BYPASS GRAFT BARAJAS to LAD, VG to OM of circ and RCA EYE SURGERY HC LEFT HEART CATH N/A 11/30/2020 Procedure: Left Heart Cath; Surgeon: Rubén Martinez MD; Location: [facility]; Service: Cardiovascular PACEMAKER INSERTION and defilibrator NH INSJ/RPLCMT PERM DFB W/TRNSVNS LDS 1/DUAL CHMBR N/A 01/13/2024 Procedure: ICD Generator Change; Surgeon: Nas Suh DO; Location: [facility]; Service: Cardiovascular Family History Problem Relation Age of Onset Heart attack Father Social History[1] Patient's Medications New Prescriptions No medications on file Previous Medications ALBUTEROL (PROVENTIL) 2.5 MG /3 ML (0.083 %) NEBULIZER SOLUTION Take 3 mL (2.5 mg total) by nebulization every 6 (six) hours as needed for wheezing . ALBUTEROL 90 MCG/ACTUATION INHALER Inhale 2 (two) puffs every 4 (four) hours as needed for shortness of breath . ASPIRIN 81 MG EC TABLET Take 1 (one) tablet (81 mg total) by mouth daily . ATORVASTATIN (LIPITOR) 10 MG TABLET Take 1 (one) tablet (10 mg total) by mouth at bedtime . CARVEDILOL (COREG) 12.5 MG TABLET Take 1 (one) tablet (12.5 mg total) by mouth 2 (two) times a day . EMPAGLIFLOZIN (JARDIANCE) 10 MG TAB Take 1 (one) tablet (10 mg total) by mouth daily . EPLERENONE (INSPRA) 25 MG TABLET Take 1 (one) tablet (25 mg total) by mouth daily Taking whole tablet daily . NITROGLYCERIN (NITROSTAT) 0.[address] 1 (one) tablet (0.4 mg total) under the tongue every 5 (five) minutes as needed for chest pain . SACUBITRIL-VALSARTAN (ENTRESTO) 24-26 MG PER TABLET Take 1 (one) tablet by mouth 2 (two) times a day . SILDENAFIL (VIAGRA) 25 MG TABLET Take 1 (one) tablet (25 mg total) by mouth daily as needed for erectile dysfunction . TIOTROPIUM BR/OLODATEROL HCL (STIOLTO RESPIMAT INHL) Inhale . Modified Medications No medications on file Discontinued Medications ERGOCALCIFEROL (ERGOCALCIFEROL) 1,250 MCG (50,000 UNIT) CAPSULE Take 1 (one) capsule (50,000 Units total) by mouth once a week . Allergies[2] Review of Systems Constitutional: Negative for malaise/fatigue. Cardiovascular: Negative for chest pain, dyspnea on exertion, leg swelling and palpitations. Neurological: Negative for dizziness. Objective: Physical Exam Vitals and nursing note reviewed. Constitutional: General: He is not in acute distress. Appearance: He is not diaphoretic. Comments: No acute distress Body mass index is 19.67 kg/m . HENT: Head: Normocephalic. Eyes: General: No scleral icterus. Comments: Pupils equal. Neck: Vascular: No JVD. Cardiovascular: Rate and Rhythm: Regular rhythm. Pulses: Radial pulses are 2+ on the right side and 2+ on the left side. Heart sounds: S1 normal and S2 normal. No murmur heard. No gallop. No S3 or S4 sounds. Comments: Feet warm bilateral. Soft 1/6 short systolic murmur left lower sternal border. Pulse regular neck veins not elevated lungs are clear no significant pedal edema. Pulmonary: Effort: No respiratory distress. Breath sounds: Normal breath sounds. No stridor. No wheezing or rales. Abdominal: General: There is no distension. Palpations: Abdomen is soft. Tenderness: There is no abdominal tenderness. There is no guarding. Musculoskeletal: General: No tenderness. Skin: General: Skin is warm and dry. Neurological: Mental Status: He is alert and oriented to person, place, and time. Vitals: Vitals: 07/15/24 0815 BP: 99/61 BP Location: Right arm Patient Position: Sitting BP Cuff Size: Adult Pulse: 70 SpO2: 94% Weight: 68.5 kg (151 lb) Height: 5' 11 Body mass index is 21.06 kg/m . No orders of the defined types were placed in this encounter. Follow Up Ordered: Return in about 6 months (around 01/15/2025). Adán Gorman MD [1] Social History Tobacco Use Smoking status: Former Current packs/day: 0.00 Types: Cigarettes Quit date: 10/08/2012 Years since quittin.7 Smokeless tobacco: Never Vaping Use Vaping status: Former Substance Use Topics Alcohol use: Not Currently Drug use: No [2] Allergies Allergen Reactions Lisinopril Other (See Comments) Cough Review of Systems Constitutional: Negative for malaise/fatigue. Cardiovascular: Negative for chest pain, dyspnea on exertion, leg swelling and palpitations. Neurological: Negative for dizziness. documented in this encounter [facility] 07-12-2024 Instructions Dedra Nettles MA - 07/12/2024 8:34 AM EDT How to Contact your Care Team: Provider: Dr. Adán Gorman MD Director Of Neighborhood Service Center: Latasha SHEETS web marketing assistant: Dedra documented in this encounter [facility] 05-31-2024 Miscellaneous Notes Insertion Fiducial Marker Prostate Operative Note Date: 05/31/2024 OR Location: [facility] OR Name: Aarti Garcia, : 1965, Age: 58 y.o., , Sex: male Diagnosis Pre-op Diagnosis * Prostate cancer (Multi) [C61] Post-op Diagnosis * Prostate cancer (Multi) [C61] Procedures Insertion Fiducial Marker Prostate [id number] - [place] PLMT INTERSTITIAL DEV RADIAT [place] PROSTATE 1/MULT Surgeons * Aarti Rupali Lisa - Primary Resident/Fellow/Other Fashion Adviser: Surgeons and Role: * No surgeons found with a matching role * Staff: Mold Blower: Tequila Saxena Person: Jimmy Anesthesia Staff: Anesthesiologist: Ezio Phipps MD Procedure Summary Anesthesia: Anesthesia type not filed in the log. ASA: II Estimated Blood Loss: 0mL Intra-op Medications: Administrations occurring from 0930 to 0945 on 05/31/24: * No intraprocedure medications in log * Anesthesia Record Intraprocedure I/O Totals None Implants: Implants Type Name Action Serial No. Implant GOLD MARKERS, 1.2MM, SOFT TISSUE, 20CM 17GA NEEDLES, 3-PK, STRL - [id number] Implanted Indications: Aarti Garcia is an 58 y.o. male who is having surgery for Prostate cancer (Multi) [C61]. The patient was seen in the preoperative area. The risks, benefits, complications, treatment options, non-operative alternatives, expected recovery and outcomes were discussed with the patient. The possibilities of reaction to medication, pulmonary aspiration, injury to surrounding structures, bleeding, recurrent infection, the need for additional procedures, failure to diagnose a condition, and creating a complication requiring transfusion or operation were discussed with the patient. The patient concurred with the proposed plan, giving informed consent. The site of surgery was properly noted/marked if necessary per policy. The patient has been actively warmed in preoperative area. Anesthetic: General Estimated blood loss: Minimal. Complications: None. Pre-Op Diagnosis: Prostate cancer. Post-Op Diagnosis: Prostate cancer. Operation: ULTRASOUND GUIDED TRANSPERNINEAL PLACEMENT OF SPACEOAR AND FIDUCIAL MARKERS Physician: Lisa Anesthesia: General INDICATIONS AND CONSENT: patient has a history of prostate cancer who now presents for treatment. After the risks, benefits, alternatives and indications for the procedure were explained, he consented. PROCEDURE: The subject was positioned in the dorsal lithotomy position. A bilateral pudendal nerve block was performed using standard technique (1% lidocaine solution) The needle was advanced to the mid perineum region and an adequate dose of Lidocaine was injected. Once this area became anesthetized (~5 min), the needle was advanced until it was proximal to the pudendal nerve, and an additional dose of Lidocaine was injected. Once the area was completely anesthetized (~5 min), placement of SpaceOAR commence. Intra-Service Prior to needle insertion, an axial measurement of the space between the prostate (mid gland) and rectum was noted. SpaceOAR hydrogel was prepared as described in the creative services coordinator s Instructions For Use while the patient was prepped. With the subject maintained in the dorsal lithotomy position, the transrectal ultrasound (TRUS) probe was positioned to enable visual guidance of the needle into the space between the prostate and the rectum. Under transrectal ultrasound guidance, the 15 cm 18G needle was inserted through the rectourethralis muscle and the needle tip advanced into the perirectal fat inferior to the prostate all by using a transperineal approach and with side-fire transrectal ultrasound guidance. The needle position was confirmed in both sagittal and axial meeks. Saline was used to dissect the space between the Denonvilliers fascia and anterior rectal wall ( hydrodissection ). A space was created with hydrodissection. With the needle tip at mid gland, the axial field was viewed to confirm the needle was not in the rectal wall (movement of the needle tip without corresponding movement of the rectal wall will confirm perirectal placement). While maintaining the desired position, aspiration was done to ensure that the needle was not in vascular space. The assembled SpaceOAR delivery system was then attached to the 18G needle. Under ultrasound guidance (sagittal plane), a smooth, continuous injection technique was used to dispense the SpaceOAR hydrogel into the space between the prostate and rectum (Denonvilliers fascia and the anterior rectal wall). The entire syringe contents (10 mL total) were injected without stopping. Optimal visualization of the needle during hydrogel administration was maintained at all times. An axial measurement of the space between the prostate (mid gland) and rectum immediately post-SpaceOAR injection was noted. No suspected penetration or compromise of the rectal wall occurred. Post-Service He will continue ciprofloxacin 500 mg twice daily until gone and follow-up next week for his pre IMRT imaging for planning with Radiation Oncologist The patient tolerated the procedure well. There were no complications. Attending Attestation: I was present for the entire procedure. Aarti Gonzalez No outpatient medications have been marked as taking for the 05/31/24 encounter (Hospital Encounter). NPO Instructions: Do not eat any food after midnight the night before your surgery/procedure. You may have clear liquids until TWO hours before surgery/procedure. This includes water, black tea/coffee, (no milk or cream) apple juice and electrolyte drinks (Gatorade). Additional Instructions: Will need diesel pile driver operator home, will receive call day before surgery with arrival time documented in this encounter [facility] Work Phone: 05-31-2024 Note Formatting of this n ote is different from the original. Insertion Fiducial Marker Prostate Operative Note Date: 05/31/2024 OR Location: [facility] OR Name: Aarti Garcia, : 1965, Age: 58 y.o., , Sex: male Diagnosis Pre-op Diagnosis * Prostate cancer (Multi) [C61] Post-op Diagnosis * Prostate cancer (Multi) [C61] Procedures Insertion Fiducial Marker Prostate 85492 - [place] PLMT INTERSTITIAL DEV RADIAT [place] PROSTATE 1/MULT Surgeons * Aarti Gonzalez - Primary Resident/Fellow/Other Fashion Adviser: Surgeons and Role: * No surgeons found with a matching role * Staff: Mold Blower: Tequila Saxena Person: Jimmy Anesthesia Staff: Anesthesiologist: Ezio Phipps MD Procedure Summary Anesthesia: Anesthesia type not filed in the log. ASA: II Estimated Blood Loss: 0mL Intra-op Medications: Administrations occurring from 0930 to 0945 on 05/31/24: * No intraprocedure medications in log * Anesthesia Record Intraprocedure I/O Totals None Implants: Implants Type Name Action Serial No. Implant GOLD MARKERS, 1.2MM, SOFT TISSUE, 20CM 17GA NEEDLES, 3-PK, STRL - [id number] Implanted Indications: Aarti Garcia is an 58 y.o. male who is having surgery for Prostate cancer (Multi) [C61]. The patient was seen in the preoperative area. The risks, benefits, complications, treatment options, non-operative alternatives, expected recovery and outcomes were discussed with the patient. The possibilities of reaction to medication, pulmonary aspiration, injury to surrounding structures, bleeding, recurrent infection, the need for additional procedures, failure to diagnose a condition, and creating a complication requiring transfusion or operation were discussed with the patient. The patient concurred with the proposed plan, giving informed consent. The site of surgery was properly noted/marked if necessary per policy. The patient has been actively warmed in preoperative area. Anesthetic: General Estimated blood loss: Minimal. Complications: None. Pre-Op Diagnosis: Prostate cancer. Post-Op Diagnosis: Prostate cancer. Operation: ULTRASOUND GUIDED TRANSPERNINEAL PLACEMENT OF SPACEOAR AND FIDUCIAL MARKERS Physician: Lisa Anesthesia: General INDICATIONS AND CONSENT: patient has a history of prostate cancer who now presents for treatment. After the risks, benefits, alternatives and indications for the procedure were explained, he consented. PROCEDURE: The subject was positioned in the dorsal lithotomy position. A bilateral pudendal nerve block was performed using standard technique (1% lidocaine solution) The needle was advanced to the mid perineum region and an adequate dose of Lidocaine was injected. Once this area became anesthetized (~5 min), the needle was advanced until it was proximal to the pudendal nerve, and an additional dose of Lidocaine was injected. Once the area was completely anesthetized (~5 min), placement of SpaceOAR commence. Intra-Service Prior to needle insertion, an axial measurement of the space between the prostate (mid gland) and rectum was noted. SpaceOAR hydrogel was prepared as described in the creative services coordinator s Instructions For Use while the patient was prepped. With the subject maintained in the dorsal lithotomy position, the transrectal ultrasound (TRUS) probe was positioned to enable visual guidance of the needle into the space between the prostate and the rectum. Under transrectal ultrasound guidance, the 15 cm 18G needle was inserted through the rectourethralis muscle and the needle tip advanced into the perirectal fat inferior to the prostate all by using a transperineal approach and with side-fire transrectal ultrasound guidance. The needle position was confirmed in both sagittal and axial meeks. Saline was used to dissect the space between the Denonvilliers fascia and anterior rectal wall ( hydrodissection ). A space was created with hydrodissection. With the needle tip at mid gland, the axial field was viewed to confirm the needle was not in the rectal wall (movement of the needle tip without corresponding movement of the rectal wall will confirm perirectal placement). While maintaining the desired position, aspiration was done to ensure that the needle was not in vascular space. The assembled SpaceOAR delivery system was then attached to the 18G needle. Under ultrasound guidance (sagittal plane), a smooth, continuous injection technique was used to dispense the SpaceOAR hydrogel into the space between the prostate and rectum (Denonvilliers fascia and the anterior rectal wall). The entire syringe contents (10 mL total) were injected without stopping. Optimal visualization of the needle during hydrogel administration was maintained at all times. An axial measurement of the space between the prostate (mid gland) and rectum immediately post-SpaceOAR injection was noted. No suspected penetration or compromise of the rectal wall occurred. Post-Service He will continue ciprofloxacin 500 mg twice daily until gone and follow-up next week for his pre IMRT imaging for planning with Radiation Oncologist The patient tolerated the procedure well. There were no complications. Attending Attestation: I was present for the entire procedure. Aarti Gonzalez [facility] Work Phone: 05-31-2024 History and physical note History Of Present Illness Aarti Garcia is a 58 y.o. male presenting with elevated PSA. Past Medical History Past Medical History: Diagnosis Date COPD (chronic obstructive pulmonary disease) (Multi) Coronary artery disease Hyperlipidemia Hypertension Myocardial infarction (Multi) Type 2 diabetes mellitus Surgical History Past Surgical History: Procedure Laterality Date CARDIAC DEFIBRILLATOR PLACEMENT OTHER SURGICAL HISTORY 11/14/2019 Coronary artery bypass graft OTHER SURGICAL HISTORY 11/14/2019 Eye surgery OTHER SURGICAL HISTORY 01/17/2021 Cardiac catheterization Social History He reports that he has never smoked. He has never used smokeless tobacco. He reports that he does not currently use alcohol. He reports that he does not use drugs. Family History Family History Problem Relation Name Age of Onset Other (cancer of female genital organ) Mother Other (cardiac disorder) Father Diabetes type II Father Diabetes type I Brother Allergies Lisinopril Review of Systems Constitutional: Negative for chills and fever. HENT: Negative. Eyes: Negative. Respiratory: Negative for cough and shortness of breath. Cardiovascular: Negative for chest pain and leg swelling. Gastrointestinal: Negative for nausea. Endocrine: Negative. Genitourinary: Negative for difficulty urinating. Negative except for documented in HPI Allergic/Immunologic: Negative. Neurological: Alert & oriented X 3 Hematological: Denies blood thinners Psychiatric/Behavioral: Negative. Physical Exam Vitals and nursing note reviewed. Pulmonary: Effort: Pulmonary effort is normal. Abdominal: Palpations: Abdomen is soft. Tenderness: There is no abdominal tenderness. Genitourinary: Comments: Kidneys non palpable bilaterally Bladder non palpable or tender Neurological: Mental Status: He is alert. Last Recorded Vitals Weight 68 kg (150 lb). Assessment/Plan Assessment & Plan Prostate cancer (Multi) Aarti Gonzalez MD [facility] Work Phone: 05-31-2024 History and physical note History Of Present Illness Aarti Garcia is a 58 y.o. male presenting with elevated PSA. Past Medical History Past Medical History: Diagnosis Date COPD (chronic obstructive pulmonary disease) (Multi) Coronary artery disease Hyperlipidemia Hypertension Myocardial infarction (Multi) Type 2 diabetes mellitus Surgical History Past Surgical History: Procedure Laterality Date CARDIAC DEFIBRILLATOR PLACEMENT OTHER SURGICAL HISTORY 11/14/2019 Coronary artery bypass graft OTHER SURGICAL HISTORY 11/14/2019 Eye surgery OTHER SURGICAL HISTORY 01/17/2021 Cardiac catheterization Social History He reports that he has never smoked. He has never used smokeless tobacco. He reports that he does not currently use alcohol. He reports that he does not use drugs. Family History Family History Problem Relation Name Age of Onset Other (cancer of female genital organ) Mother Other (cardiac disorder) Father Diabetes type II Father Diabetes type I Brother Allergies Lisinopril Review of Systems Constitutional: Negative for chills and fever. HENT: Negative. Eyes: Negative. Respiratory: Negative for cough and shortness of breath. Cardiovascular: Negative for chest pain and leg swelling. Gastrointestinal: Negative for nausea. Endocrine: Negative. Genitourinary: Negative for difficulty urinating. Negative except for documented in HPI Allergic/Immunologic: Negative. Neurological: Alert & oriented X 3 Hematological: Denies blood thinners Psychiatric/Behavioral: Negative. Physical Exam Vitals and nursing note reviewed. Pulmonary: Effort: Pulmonary effort is normal. Abdominal: Palpations: Abdomen is soft. Tenderness: There is no abdominal tenderness. Genitourinary: Comments: Kidneys non palpable bilaterally Bladder non palpable or tender Neurological: Mental Status: He is alert. Last Recorded Vitals Weight 68 kg (150 lb). Assessment/Plan Assessment & Plan Prostate cancer (Multi) Aarti Gonzalez MD documented in this encounter [facility] Work Phone: 05-25-2024 Note Formatting of this n ote is different from the original. No outpatient medications have been marked as taking for the 05/31/24 encounter (Hospital Encounter). NPO Instructions: Do not eat any food after midnight the night before your surgery/procedure. You may have clear liquids until TWO hours before surgery/procedure. This includes water, black tea/coffee, (no milk or cream) apple juice and electrolyte drinks (Gatorade). Additional Instructions: Will need diesel pile driver operator home, will receive call day before surgery with arrival time [facility] 04-28-2024 Telephone encounter Note Received a fax from Dr Wyman office for Radiation Oncology. Called and left his office a message that we are not in network with [facility] and he would need to go somewhere else [facility] 04-28-2024 Miscellaneous Notes Received a fax from Dr Wyman office for Radiation Oncology. Called and left his office a message that we are not in network with [facility] and he would need to go somewhere else documented in this encounter [facility] 04-06-2024 History of Present illness Narrative Subjective Patient ID: Aarti Garcia is a 58 y.o. male. HPI Patient is here for prostate MRI fusion bx results. Path showed prostate cancer. Cedric 6. Most recent PSA was 18.81 on 10/11. This is the only PSA he has had. Never had a bx of the prostate. No fhx of prostate cancer. Chronic BPH sx are mild and stable and not bothersome. . Denies urgency and frequency. Denies dysuria. Denies hematuria. Nocturia x1. No medication for LUT'S. No hx of kidney stones. ED is not an issue. No medication is required. Energy level is good Review of Systems Constitutional: Negative for chills and fever. HENT: Negative. Eyes: Negative. Respiratory: Negative for cough and shortness of breath. Cardiovascular: Negative for chest pain and leg swelling. Gastrointestinal: Negative for nausea. Endocrine: Negative. Genitourinary: Negative for difficulty urinating. Negative except for documented in HPI Allergic/Immunologic: Negative. Neurological: Alert & oriented X 3 Hematological: Entresto Psychiatric/Behavioral: Negative. Objective Physical Exam Vitals and nursing note reviewed. Pulmonary: Effort: Pulmonary effort is normal. Abdominal: Palpations: Abdomen is soft. Tenderness: There is no abdominal tenderness. Genitourinary: Comments: Kidneys non palpable bilaterally Bladder non palpable or tender Neurological: Mental Status: He is alert. Assessment/Plan Diagnoses and all orders for this visit: Elevated PSA, between 10 and less than 20 ng/ml Malignant neoplasm of prostate (Multi) Nocturia Treatment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 MRI and the device clinical nurse checked both pacemaker and ICD and set pacemaker back into the routine that it was before MRI and turned ICD back on. KATIE [facility] Work Phone: 01-28-2024 Nurse Note Patient is alert and able to make needs known; has a non-conditional pacemaker and ICD. Patient has been consented by the Radiologist for MRI. At approximately 10:20 the device clinical nurse arrive checked patient's pacemaker and ICD, interrogated both and turned ICD off and set pacemaker at AOO 70 beats per minute for MRI, per device nurse. KATIE Patient has a non-conditional pacemaker and ICD and will be monitoring by the device clinical nurse, due to his non-conditional pacemaker and ICD. KATIE Patient was unable to have MRI done, because his pacemaker and ICD was put in, in less than six weeks and the devices has to be put in at lest six weeks. Therefore, the device clinical nurse turned on back patient's ICD and set the pacemaker back to the routine that it was, per device nurse. KATIE Patient will be having MRI done. At approximately 11:58 the device clinical nurse checked patient's pacemaker and ICD, interrogated both and turned ICD off and set pacemaker at AOO 70 beats per minute for MRI, per device nurse. KATIE Patient completed MRI and the device clinical nurse checked both pacemaker and ICD and set pacemaker back into the routine that it was before MRI and turned ICD back on. KATIE documented in this encounter [facility] Work Phone: 01-08-2024 Note Mr. Garcia is a 58 y .o. gentleman who is s/p a dual chamber ICD placed in 2013 for primary prevention. Device reached THOM and he is due for a generator change. Shared Decision Making: Discussed risks/benefits of a generator change with patient which includes, but is not limited to: Infection, bleeding, lead damage requiring new leads, [place], stroke, . Patient understands these risks and is interested in pursuing the generator change. AUTHENTICATED BY STONEY LI, ON 01/08/2024 11:48:16 [facility] 01-08-2024 History of Present illness Narrative Mr. Garcia is a 58 y.o. gentleman who is s/p a dual chamber ICD placed in 2013 for primary prevention. Device reached THOM and he is due for a generator change. Shared Decision Making: Discussed risks/benefits of a generator change with patient which includes, but is not limited to: Infection, bleeding, lead damage requiring new leads, [place], stroke, . Patient understands these risks and is interested in pursuing the generator change. documented in this encounter [facility] 12-02-2023 History of Present illness Narrative Subjective Patient ID: Aarti Garcia is a 58 y.o. male. HPI Patient is here to establish for elevated PSA. Most recent PSA was 18.81 on 10/11. This is the only PSA he has had. Never had a bx of the prostate. No fhx of prostate cancer. Chronic BPH sx are mild and stable and not bothersome. . Denies urgency and frequency. Denies dysuria. Denies hematuria. Nocturia x1. No medication for LUT'S. No hx of kidney stones. ED is not an issue. No medication is required. Energy level is good. Review of Systems Constitutional: Negative for chills and fever. HENT: Negative. Eyes: Negative. Respiratory: Negative for cough and shortness of breath. Cardiovascular: Negative for chest pain and leg swelling. Gastrointestinal: Negative for nausea. Endocrine: Negative. Genitourinary: Negative for difficulty urinating. Negative except for documented in HPI Allergic/Immunologic: Negative. Neurological: Alert & oriented X 3 Hematological: Denies blood thinners Psychiatric/Behavioral: Negative. Objective Physical Exam Vitals and nursing note reviewed. Constitutional: General: He is not in acute distress. Appearance: Normal appearance. Pulmonary: Effort: Pulmonary effort is normal. Abdominal: Tenderness: There is no abdominal tenderness. Genitourinary: Comments: Kidneys non palpable bilaterally Bladder non palpable or tender Scrotum no mass, No hydrocele Epididymis- No spermatocele. Non Tender. Testicles: No mass. WNL Urethra: No discharge Penis within normal limits... No lesions. Circumcised Prostate - symmetric, no nodules. Flat. Smooth Seminal Vesicals: No mass. Sphincter tone: normal Neurological: Mental Status: He is alert. Assessment/Plan Diagnoses and all orders for this visit: BPH without obstruction/lower urinary tract symptoms Elevated PSA, between 10 and less than 20 ng/ml - Referral to Urology Screening for prostate cancer All available PSA values reviewed, Options discussed. Questions answered. MRI ordered Pros and cons of prostate biopsy reviewed. Other options discussed. Questions answered Diet changes for prostate health discussed and educational information given. Pros/Cons of prostate health supplements discussed. Treatment options for LUTS reviewed Discussed timed voiding. Discussed fluid and caffeine intake Treatment options for ED reviewed. Lifestyle change to help prevent UTIs discussed. Encouraged fluid intake. Past CT from 2019 reviewed-No urologic issues BMP reviewed-WNL F/U after Prostae MRI documented in this encounter [facility] Work Phone: 11-04-2023 History of Present illness Narrative Subjective Patient ID: Aarti Garcia is a 58 y.o. male who presents for Follow-up (Pt is here today for 6 month OV. Colonoscopy needs ordered. Lipids good 10/15/28). HPI Here for follow up. Discussed results with patient. PSA elevated to 18. No previous test result. Wakes up couple of times at night. But no other symptoms. Referral to Urology provided. Other labs overall in normal ranges. No acute concerns expressed. Uses sildenafil for ED. Has nitrostat but has not used it so far. Review of Systems ROS negative except discussed above in HPI. Vitals: 11/04/23 1021 BP: 100/50 Pulse: 79 SpO2: 97% Objective Physical Exam Constitutional: Appearance: Normal appearance. Cardiovascular: Rate and Rhythm: Normal rate and regular rhythm. Pulses: Normal pulses. Heart sounds: Normal heart sounds. Pulmonary: Effort: Pulmonary effort is normal. Breath sounds: Normal breath sounds. Neurological: Mental Status: He is alert. Assessment/Plan Aarti was seen today for follow-up. Diagnoses and all orders for this visit: Elevated PSA, between 10 and less than 20 ng/ml (Primary) - Referral to Urology; Future Male erectile dysfunction, unspecified - sildenafil (Viagra) 100 mg tablet; TAKE 1/4 to 1/2 TABLET DAILY 1 HOUR BEFORE NEEDED Follow up in [address] Ricardo. Discussed with patient that I will be leaving [facility] at the end of November. Discussed options to transfer care. Fatimah Wilcox MD MPH documented in this encounter [facility] Work Phone: 08-12-2023 History of Present illness Narrative [facility] CARDIOLOGY HEART FAILURE CLINIC NAME: Aarti Garcia DATE OF : 1965 MEDICAL RECORD#: [id number] [employer]: Adán Gorman MD TODAY'S DATE: 08/11/2023 Reason for Visit/Chief Complaint: No chief complaint on file. No cardiac complaints today He presents today for a follow up visit at the heart failure clinic for HFrEF diagnosed with his [place] in 2013.. remains reduced on echo 04/2023 along with with Gr I diastolic dysfunction and Mild MVR. Dual ICD : RVP <0.1% QRS 100's ms -He is here with his today . -He ambulated with no assistive devices to the office -His weight is 150# , stable since his last chf clinic visit in October 2022. Wt Readings from Last 3 Encounters: 08/12/23 68.4 kg (150 lb 14.4 oz) 04/08/23 68.6 kg (151 lb 3.2 oz) 12/03/22 66.2 kg (146 lb) 11/14/2022 146# BP 102/71 Comment: taken morning meds Pulse 71 Wt 68.4 kg (150 lb 14.4 oz) SpO2 97% BMI 21.05 kg/m ASSESSMENT Aarti Garcia is a 58 y.o. male with: CHF Overview: HFrEF Etiology: ischemic Most recent known EF: 30-35% on echo 04/2023 (gr I dd, mild MVR) 28-30% on heart cath 11/2020 31% on echo 09/2019 20-25% on echo 05/2013 Non-ischemic etiology: N/A Stage: C NYHA Class: II Guideline directed therapy includes: PRIOR to visit today, (CHANGES will be listed under PLAN below) ALYSSA/ARB/ARNI Entresto 24/26 mg twice daily BB Carvedilol 12.5 mg twice daily Aldosterone antagonist Eplerenone 25 mg daily SGLT 2 inhibitor Jardiance 10 mg daily (samples given 03/21/2022) Diuretic N/A Potassium N/A Other cardiac medications include: PRIOR to visit today, (CHANGES will be listed under PLAN below) Eliquis 5 mg twice a day Aspirin 81 mg daily Atorvastatin 10 mg daily PLAN - check labs today CMP, lipid panel and HgbA1c today (family hx of Type I diabetes) - continue to move/exercise 30 minutes most days of the week -Device clinic will let EP know when it is time to change your ICD and EP will see you FOLLOW UP Follow-up with Dr. Gorman Nov 2023 as directed (last seen 03/2023) Follow up with the heart failure clinic in May 2024 (sooner if needed)- this will alternate every [address] Gorman. HISTORY OF PRESENT ILLNESS Aarti Garcia is a 57 y.o. 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 12/29/2019 Initial visit in CHF clinic Mr. Garcia presents after a recent OV with Dr. Gorman. At that visit, he had evidence of congestion with increased shortness of breath. His Optivol was elevated and his defibrillator showed intermittent a fib. He was started on spironolactone and Eliquis 03/21/2022: Dr Gorman: stable, but not on max GDMT (no SGLTi yet) -samples of Jardiance given to patient, recommended BMP and f/u with CHF clinic 2022----- 04/25/2022 CHF clinic: his wt is stable at 154# . He tolerated the 2 wks of samples of Jardiance Dr Gorman gave him and would like to continue these. Rx for Jardiance 10 mg daily sent to pharmacy. 10/27/2022 ER with syncope r/t intoxication -IV fluids administered and pt was discharged 11/14/2022 CHF clinic: Wt 146# -denies congestive symptoms -denies CP or indigestion (his previous [place] symptom) -coughs when laying down at night occ (thick mucous), uses his nebulizer and it improves- average of about twice a month -tolerating meds. Typically hypotensive, but asymptomatic besides a syncopal episode a couple of weeks ago when he was drinking alcohol in his barn (hiding it from his ). We discussed the toxic effects it can have on his heart and he does not plan to do that again. -He denies dysuria or symptoms of yeast infections, although he reported recently having very dry uncomfortable skin on his scrotum that he informed his of yesterday. We had a discussion about side effects of Jardiance that concerns me. He would like to continue Jardiance for now, but will need to trial off of it if this occurs again. -no elevated Optivol readings on his most recent ICD check 09/2022. 15 months of battery life. AP 12.9%, DYNAMOMETER TUNER <0.1%, no VHR episodes 11/30/2022 ER insect bite, possible tick LLE -placed on amoxicillin x 21 days incase of Lyme's 12/03/2022 ER foreign body sensation, Right eye tearing ans swelling lower lid. Started when cutting trees. Stye noted on R lower lid. No foreign body-flushed w saline, negative fluorescein uptake. Erythromycin oint DC w antibiotic drops and ketorolac drops for pain. F/U w Dr Hastings (hordeolum internum Right lower eyelid 04/08/2023 Dr Gorman Wt 151# Yearly follow up: Ischemic CMP: on excellent regimen for reduced EF. Denies CP. Recheck echo in near future. Atrial fib: none noted on pacemaker check Follow up around 11/202308/12/2023 CHF clinic: Wt 150# -No hospitalizations for heart failure since last office visit -updated echo 05/19/2023: EF 30-35% (does not qualify for BIV ICD at this point) -denies congestive complaints today -has not even needed his nebulizer in months -no urinary issues with Jardiance - only lightheaded if he bends over then gets up too quickly -Reviewed dual ICD check from 07/27/2023 : 6 months on battery, AP 39.2%, RVP <0.1%, Atrial fib burden 0%. Histogram: 60-110 bpm. No heart failure alerts PLAN: - check labs today CMP, lipid panel and HgbA1c today (family hx of Type I diabetes) - continue to move/exercise 30 minutes most days of the week -Device clinic will let EP know when it is time to change your ICD and EP will see you SUBJECTIVE Today, 08/12/2023, in addition to the above HPI He denies chest discomfort, fatigue, shortness of breath, cough, orthopnea, bendopnea, lower extremity edema, palpitations, lightheadedness, dizziness or syncope. If he coughs when laying down, his nebulizer helps. He has not needed his nebulizer in months (08/12/2023 He denies abdominal distention, nausea, vomiting, constipation, or diarrhea. He denies dysuria. Denies frequent UTI's or yeast infections, although see above for scrotal dryness issues noted Review of Systems: All systems were reviewed and are noted to be negative unless otherwise stated in HPI. MEDICAL HISTORY PERTINENT TO CHF CLINIC Essential hypertension: controlled to hypotensive but asymptomatic CAD - Hx cardiac arrest, CABG 11/2020 heart catheterization: grafts x 3 patent with moderate disease in the prox SVG graft that is not known Hyperlipidemia- on atorvastatin 10 mg daily 03/21/2022: TC 155, Trig 124, HDL 73, LDL 57 Diabetes- Hgb A1C none documented-will draw today Family history of Type I diabetes Sleep Apnea- N/A Atrial fibrillation-paroxysmal , on Eliquis for OAC Device- Dual chamber ICD 09/2013 for secondary prevention 07/27/2023 Remote transmission MDT dual chamber ICD - nearing THOM Est. Battery Time: 6 months (2.83V) charge time: 4.7 sec Presenting EGM: AP/VS rate 60's bpm AP: 39.2% RVP: <0.1% AFib [place]: 0% AHR Episodes: 0 VHR Episodes: 0 Short V - V: 0 Sensing, Thresholds, Impedances: Stable Histograms: 60-110 bpm Heart Failure Alerts: No, OptiVol < Threshold Medications per EPIC: Eliquis, BASA, Coreg, Entresto NOV: 08/12/23 with Sil Bucio CNP/Yearly In Clinic Device Check Due: March 2024 Notes/Summary: 05/19/23 Echo EF 30-35%; Hx CABG OBJECTIVE BP 102/71 Comment: taken morning meds Pulse 71 Wt 68.4 kg (150 lb 14.4 oz) SpO2 97% BMI 21.05 kg/m Pulse Readings from Last 3 Encounters: 08/12/23 71 04/08/23 75 12/03/22 67 BP Readings from Last 3 Encounters: 08/12/23 102/71 04/08/23 113/71 12/03/22 (!) 126/57 Wt Readings from Last 3 Encounters: 08/12/23 68.4 kg (150 lb 14.4 oz) 04/08/23 68.6 kg (151 lb 3.2 oz) 12/03/22 66.2 kg (146 lb) PHYSICAL EXAM Constitutional: Well appearing, thin, no acute distress Head: Normocephalic and atraumatic. Edentulous Eyes: Conjunctivae are normal Neck: No elevated jugular venous distension, no hepatojugular reflux Cardiovascular: regular rate and rhythm, S1, S2 , no murmurs noted Lungs: clear to ausculation, no crackles noted. Extremities: no peripheral edema, warm, no vascular discoloration Abdominal: non tender, flat, soft Musculoskeletal: Normal range of motion. No cyanosis. Neurological: AOx3, moving all extremities normally Skin: Warm, dry, intact Psychiatric: Normal mood and affect, appropriate conversation CURRENT MEDICATIONS Current Outpatient Medications Medication Sig Dispense Refill albuterol (PROVENTIL) 2.5 mg /3 mL (0.083 %) nebulizer solution Take 3 mL (2.5 mg total) by nebulization every 6 (six) hours as needed for wheezing . albuterol 90 mcg/actuation inhaler Inhale 2 (two) puffs every 4 (four) hours as needed for shortness of breath . apixaban (Eliquis) 5 mg Tab Take 1 (one) tablet (5 mg total) by mouth 2 (two) times a day Blood thinner . 180 tablet 0 aspirin 81 MG EC tablet Take 1 (one) tablet (81 mg total) by mouth daily . atorvastatin (LIPITOR) 10 MG tablet Take 1 (one) tablet (10 mg total) by mouth at bedtime . 90 tablet 0 carvediloL (COREG) 12.5 MG tablet Take 1 (one) tablet (12.5 mg total) by mouth 2 (two) times a day . 180 tablet 3 empagliflozin (Jardiance) 10 mg Tab Take 1 (one) tablet (10 mg total) by mouth daily . 90 tablet 3 eplerenone (Inspra) 25 MG tablet Take 1 (one) tablet (25 mg total) by mouth daily Taking whole tablet daily . 90 tablet 0 ergocalciferol (ERGOCALCIFEROL) 1,250 mcg (50,000 unit) capsule Take 1 (one) capsule (50,000 Units total) by mouth once a week . nitroGLYCERIN (NITROSTAT) 0.[address] 1 (one) tablet (0.4 mg total) under the tongue every 5 (five) minutes as needed for chest pain . 25 tablet 3 sacubitriL-valsartan (Entresto) 24-26 mg per tablet Take 1 (one) tablet by mouth 2 (two) times a day . 180 tablet 0 sildenafiL (VIAGRA) 25 MG tablet Take 1 (one) tablet (25 mg total) by mouth daily as needed for erectile dysfunction . tiotropium Br/olodaterol HCl (STIOLTO RESPIMAT INHL) Inhale . No current facility-administered medications for this visit. Allergies Allergen Reactions Lisinopril Other (See Comments) Cough CARDIAC TESTING EKG 12-lead Final Result by Interface, Lab Results In [place] [facility] (10/28/2022 2150) Echocardiogram complete w contrast Final Result by Myriam Dominique MD (05/19/2023 1412) Cardiac Catheterization Final Result by Rubén Martinez MD (11/30/2020 1014) Left Heart Cath Final Result by Marie Pillai MA (09/18/2016 1713) 06/13/2013 Echocardiogram (pre open heart) Ef 20-25% 10/12/2019 Echocardiogram Summary 1. Technically difficult echo windows, Definity used to optimize study. 2. LV appears dilated with global dysfunction with segmental features. Biplane LVEF 31%. 3. Mild RV enlargement with mild RV dysfunction. Device wire noted in right heart. 4. Elevated left atrial pressure. 5. There is mild tricuspid valve regurgitation. 6. There is pulmonary hypertension, estimated pulmonary arterial systolic pressure is 45 mmHg. 7. There is moderate mitral valve regurgitation. 8. Prior ejection fraction of 30% noted from nuclear stress perfusion study from 2016. 12/18/2020 heart cath Impressions and Recommendations: #1. Moderately severe LV systolic dysfunction with an estimated LV ejection fraction of 28-30%. 2. Normal left ventricular end-diastolic pressure. 3. Severe seminole multivessel coronary artery disease. 4. Patent left internal mammary graft to the mid left anterior descending. 5. Patent saphenous vein graft to the obtuse marginal branch of the circumflex, reidentification of moderate disease in the proximal body of the graft. 6. Patent saphenous vein graft to the right coronary artery, reidentification of moderate disease in the proximal body of the graft. An ongoing course of guideline directed optimal medical therapy with aggressive risk factor modification. When compared to left heart catheterization from 2016 no angiographic evidence of disease progression 05/19/2023 Echocardiogram 1. Enlarged LV chamber size. Normal wall thickness. Systolic function is severely reduced with global hypokinesis. Estimated ejection fraction of 30 to 35%. 2. The left ventricular diastolic function is grade I diastolic dysfunction, consistent with low or normal atrial pressures. 3. Right ventricular size and systolic function are normal. 4. There is mild mitral valve regurgitation. 5. There is no pulmonary hypertension, estimated right ventricle systolic pressure is 21 mmHg. EKGS 11/30/2020: Atrial paced 73 bpm, pr 153, qrs 96, qtc 431 04/25/2022: NSR 74 bpm, NH 102, QRS 154, QTC 490 10/27/2022 normal sinus rhythm 74 bpm NH 142, QRS 106, QTc 441 MEDICAL/SOCIAL HISTORY Past Medical History: Diagnosis Date Acute anterolateral myocardial infarction (HCC) Anoxic encephalopathy (HCC) CAD (coronary artery disease) CABG Cardiac arrest (HCC) Hyperlipidemia Hypertension ICD (implantable cardioverter-defibrillator) in place 03/18/2016 Vertigo Past Surgical History: Procedure Laterality Date CABG CARDIAC CATHETERIZATION CARDIAC DEFIBRILLATOR PLACEMENT CORONARY ANGIOPLASTY 2013 CORONARY ARTERY BYPASS GRAFT BARAJAS to LAD, VG to OM of circ and RCA EYE SURGERY HC LEFT HEART CATH N/A 11/30/2020 Procedure: Left Heart Cath; Surgeon: Rubén Martinez MD; Location: [facility]; Service: Cardiovascular PACEMAKER INSERTION and defilibrator Social History Tobacco Use Smoking status: Former Types: Cigarettes Quit date: 10/08/2012 Years since quittin.8 Smokeless tobacco: Never Vaping Use Vaping Use: Former Substance Use Topics Alcohol use: Yes Drug use: No LAB REVIEW Recent labs reviewed with patient: Lab Results Component Value Date GLUCOSE 103 (H) 04/23/2022 CALCIUM 9.0 04/23/2022 NA 139 04/23/2022 K 4.3 04/23/2022 CL 105 04/23/2022 BUN 5 (L) 10/27/2022 CREATININE 0.96 10/27/2022 EGFR 101 04/23/2022 Lab Results Component Value Date ALT 31 03/21/2022 AST 18 03/21/2022 ALKPHOS 63 03/21/2022 BILITOT 1.4 (H) 03/21/2022 NT pro BNP 3,202 on 10/12/2019 NT Pro BNP 2,259 on 12/28/2019 TSH 1.06 on 03/09/2020 ([facility]) No results found for: HGBA1C Lab Results Component Value Date CHOL 155 03/21/2022 LDLCALC 57 03/21/2022 TRIG 124 03/21/2022 HDL 73 03/21/2022 Lab Results Component Value Date INR 1.2 (H) 01/16/2020 INR 1.1 06/27/2014 PROTIME 14.8 (H) 01/16/2020 PROTIME 14.3 06/27/2014 Lab Results Component Value Date TROPONINI 7 10/27/2022 Lab Results Component Value Date WBC 5.68 10/27/2022 HGB 15.9 10/27/2022 HCT 46.2 10/27/2022 MCV 91.3 10/27/2022 PLT 212 10/27/2022 RBC 5.06 10/27/2022 CHF OVERVIEW - He lives with his in a one story home - and pt share the cooking. They limit sodium intake. He does eat some convenience foods at times. -Takes meds 5 am and 6 pm - He drinks water. He gave up mt dew and excessive coffee. He does not drink ETOH -He stopped smoking in 2013 after [place]. - He sleeps on a futon with one pillow. -Does not wear oxygen or CPAP - Typical activity in a day includes: he walks 6 laps around 2 [address] property almost daily- takes about 20 minutes. Otherwise he works around the house and watches videos and watch TV. -He does not keep a daily log of weight, HR or BP. He has a scale and BP cuff 20 minutes were spent w/ the patient and his . Over half of this time was spent in counseling regarding medication therapy, treatments, activity, diet planning including teaching and review of reports with patient. There is collaboration between the CUSTOMER SUPPORT COORDINATOR and the consulting/collaborating physician regarding this patient's plan of care. Thank you for allowing us to participate in the care of our patient. Please call if you have any further questions. Signature: KHADIJAH Renteria, ANNE MARIE [facility] [phone] documented in this encounter [facility] 08-11-2023 Instructions Klaus Bucio CNP - 08/11/2023 8:49 AM EDT - check labs today CMP, lipid panel and Hgb A1c today -Device clinic will let EP know when it is time to change your ICD and EP will see you Encouraged patient to walk at least 2 minutes 4 times a day to begin. Recommend slowly increasing each week as able. Walk at a pace that you can talk without becoming short of breath. Goal over time will be ~ 30 minutes at least 5 days a week or approx 150 minutes a week per [place] [employer] guidelines. Remember to: Weight yourself each morning after you have used the restroom and before you eat Check your blood pressure and heart rate 2 hours after your morning medications Please bring this log to your next appointment Encouraged to call CHF clinic with: - weight gain 2-3# overnight or 5# weight gain in one week. -increasing shortness of breath -new cough that does not get better in a day or two -increasing lower extremity edema (swelling) - irregular heart beats or palpitations (fast heart beats ) that will not go away -abdominal distention (tightness, firmness) Please call the heart failure clinic with any questions regarding your visit, weight/Blood pressure logs, medication refills, or medication questions. [phone] -PLEASE LEAVE A DETAILED MESSAGE and we will return your call within 24 hours M-F. We call in between seeing patients so please be patient with us. For weekend or holiday questions, call [phone] documented in this encounter [facility] 07-15-2023 History of Present illness Narrative Subjective Patient ID: Aarti Garcia is a 58 y.o. male who presents for Follow-up (PT is here today for 6 month FUV. Used to see another provider in the office. ). HPI Here for follow up. Overall feeling well. No acute concerns expressed. CHF: A.Fib: HTN: Managed by cardiology. Under control. On Eliquis - no bleeding episodes. Denies recent palpitations. Fasting labs ordered. Review of Systems ROS negative except discussed above in HPI. Vitals: 07/15/23 0926 BP: 106/58 Pulse: 69 SpO2: 96% Objective Physical Exam Constitutional: Appearance: Normal appearance. Cardiovascular: Rate and Rhythm: Normal rate and regular rhythm. Pulmonary: Effort: Pulmonary effort is normal. Breath sounds: Normal breath sounds. Musculoskeletal: Cervical back: Normal range of motion and neck supple. Lymphadenopathy: Cervical: No cervical adenopathy. Neurological: Mental Status: He is alert. Assessment/Plan Aarti was seen today for follow-up. Diagnoses and all orders for this visit: Lipid screening (Primary) - Lipid Panel; Future Prostate cancer screening - Prostate Specific Antigen, Screen; Future Chronic obstructive pulmonary disease, unspecified COPD type (CMS/HCC) Atrial fibrillation, unspecified type (CMS/HCC) - Basic Metabolic Panel; Future Primary hypertension - Basic Metabolic Panel; Future Other orders - Follow Up In Primary Care - Health Maintenance Follow up in 6 months. Fatimah Wilcox MD MPH documented in this encounter [facility] Work Phone: 04-08-2023 Evaluation + Plan note Associated Problem(s): 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 No chest pains. He is happy his exercise level. Says he can do a flight of stairs with no problem. No significant lightheadedness. [facility] 04-08-2023 Evaluation + Plan note Associated Problem(s): Atrial fibrillation (HCC) Tolerating no A-fib noticed on pacemaker check. [facility] 04-08-2023 Miscellaneous Notes Associated Problem(s): 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 No chest pains. He is happy his exercise level. Says he can do a flight of stairs with no problem. No significant lightheadedness. Associated Problem(s): Atrial fibrillation (HCC) Tolerating no A-fib noticed on pacemaker check. documented in this encounter [facility] 04-08-2023 History of Present illness Narrative [facility] [address] [facility] [address] [facility] [id number] Subjective: Aarti Garcia is a 57 y.o. male seen in the office today for Chief Complaint Patient presents with Follow-up Yearly ov // patient has no cardiac concerns today History of ischemic cardiomyopathy. Done well over the last year did have 1 episode of drinking beer exuberance was intoxicated in the emergency room. Says he is not drinking at the present time. Seen today with his . No chest pain says he feels great he is on excellent regimen related to his reduced ejection fraction heart failure. No chest pains Will recheck echo in the near future has been 3-1/2 years. See how his EF is doing on the mitral regurgitation. Otherwise no changes keep regular follow-up with heart failure clinic. Will see back periodically. Overview of Problems Addressed: Problem Atrial Fibrillation (Hcc) Remote history of couple of hours of paroxysmal atrial fibrillation noted on pacemaker. Asymptomatic Oral anticoagulation. Low-dose aspirin therapy. Coronary Artery Disease Involving [place] Coronary Artery of [place] Heart Without Angina Pectoris Repeat heart cath 2020 patent grafts medical therapy. Echo cardiogram summer 2019 ejection fraction 31%. Moderate mitral valve regurgitation moderate pulmonary hypertension. EF similar to nuclear stress test dating back 2015. had out of hospital cardiac arrest in 2013. He had severe anoxic encephalopathy initially. He underwent initial catheterization ultimately had bypass surgery. Left internal mammary artery graft was placed to left anterior descending, vein graft and obtuse marginal, vein graft to the PDA branch of the right. He has an ICD placed for primary prevention. Repeat heart catheterization March 2016 with 3 of 3 patent grafts ejection fraction 30%. LV filling pressure was normal. Continue medical therapy is recommended. Prophylactic ICD Assessment & Plan: As above. Atrial fibrillation (HCC) Tolerating no A-fib noticed on pacemaker check. 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 No chest pains. He is happy his exercise level. Says he can do a flight of stairs with no problem. No significant lightheadedness. Histories: Past Medical History: Diagnosis Date Acute anterolateral myocardial infarction (HCC) Anoxic encephalopathy (HCC) CAD (coronary artery disease) CABG Cardiac arrest (HCC) Hyperlipidemia Hypertension ICD (implantable cardioverter-defibrillator) in place 03/18/2016 Vertigo Past Surgical History: Procedure Laterality Date CABG CARDIAC CATHETERIZATION CARDIAC DEFIBRILLATOR PLACEMENT CORONARY ANGIOPLASTY 2013 CORONARY ARTERY BYPASS GRAFT BARAJAS to LAD, VG to OM of circ and RCA EYE SURGERY HC LEFT HEART CATH N/A 11/30/2020 Procedure: Left Heart Cath; Surgeon: Rubén Martinez MD; Location: [facility]; Service: Cardiovascular PACEMAKER INSERTION and defilibrator Family History Problem Relation Age of Onset Heart attack Father Social History Tobacco Use Smoking status: Former Types: Cigarettes Quit date: 10/08/2012 Years since quittin.5 Smokeless tobacco: Never Vaping Use Vaping Use: Former Substance Use Topics Alcohol use: Yes Drug use: No Patient's Medications New Prescriptions No medications on file Previous Medications ALBUTEROL (PROVENTIL) 2.5 MG /3 ML (0.083 %) NEBULIZER SOLUTION Take 3 mL (2.5 mg total) by nebulization every 6 (six) hours as needed for wheezing . ALBUTEROL 90 MCG/ACTUATION INHALER Inhale 2 (two) puffs every 4 (four) hours as needed for shortness of breath . APIXABAN (ELIQUIS) 5 MG TAB Take 1 (one) tablet (5 mg total) by mouth 2 (two) times a day Blood thinner . ASPIRIN 81 MG EC TABLET Take 1 (one) tablet (81 mg total) by mouth daily . ATORVASTATIN (LIPITOR) 10 MG TABLET Take 1 (one) tablet (10 mg total) by mouth daily . CARVEDILOL (COREG) 12.5 MG TABLET Take 1 (one) tablet (12.5 mg total) by mouth 2 (two) times a day . EPLERENONE (INSPRA) 25 MG TABLET Take 1 (one) tablet (25 mg total) by mouth daily Taking whole tablet daily . ERGOCALCIFEROL (ERGOCALCIFEROL) 1,250 MCG (50,000 UNIT) CAPSULE Take 1 (one) capsule (50,000 Units total) by mouth once a week . NITROGLYCERIN (NITROSTAT) 0.[address] 1 (one) tablet (0.4 mg total) under the tongue every 5 (five) minutes as needed for chest pain . SACUBITRIL-VALSARTAN (ENTRESTO) 24-26 MG PER TABLET Take 1 (one) tablet by mouth 2 (two) times a day . SILDENAFIL (VIAGRA) 25 MG TABLET Take 1 (one) tablet (25 mg total) by mouth daily as needed for erectile dysfunction . TIOTROPIUM BR/OLODATEROL HCL (STIOLTO RESPIMAT INHL) Inhale . Modified Medications Modified Medication Previous Medication EMPAGLIFLOZIN (JARDIANCE) 10 MG TAB empagliflozin (Jardiance) 10 mg Tab Take 1 (one) tablet (10 mg total) by mouth daily . Take 1 (one) tablet (10 mg total) by mouth daily . Discontinued Medications No medications on file Allergies Allergen Reactions Lisinopril Other (See Comments) Cough Review of Systems Constitutional: Negative for malaise/fatigue. Cardiovascular: Negative for chest pain, dyspnea on exertion, irregular heartbeat, leg swelling and palpitations. Respiratory: Negative for shortness of breath. Neurological: Negative for dizziness and light-headedness. Objective: Physical Exam Vitals and nursing note reviewed. Constitutional: General: He is not in acute distress. Appearance: He is not diaphoretic. Comments: No acute distress Body mass index is 19.67 kg/m . HENT: Head: Normocephalic. Eyes: General: No scleral icterus. Comments: Pupils equal. Neck: Vascular: No JVD. Cardiovascular: Rate and Rhythm: Regular rhythm. Pulses: Radial pulses are 2+ on the right side and 2+ on the left side. Heart sounds: S1 normal and S2 normal. No murmur heard. No gallop. No S3 or S4 sounds. Comments: Feet warm bilateral. Soft 1/6 short systolic murmur left lower sternal border. Pulse regular neck veins not elevated lungs are clear no significant pedal edema. Pulmonary: Effort: No respiratory distress. Breath sounds: Normal breath sounds. No stridor. No wheezing or rales. Abdominal: General: There is no distension. Palpations: Abdomen is soft. Tenderness: There is no abdominal tenderness. There is no guarding. Musculoskeletal: General: No tenderness. Skin: General: Skin is warm and dry. Neurological: Mental Status: He is alert and oriented to person, place, and time. Vitals: Vitals: 04/08/23 1308 BP: 113/71 BP Location: Left arm Patient Position: Sitting BP Cuff Size: Adult Pulse: 75 SpO2: 98% Weight: 68.6 kg (151 lb 3.2 oz) Height: 5' 11 Body mass index is 21.09 kg/m . Orders Placed This Encounter Procedures Echocardiogram complete Standing Status: Future Standing Expiration Date: 04/08/2024 Order Specific Question: Reason for exam Answer: Valve disease/murmur Order Specific Question: Release to patient Answer: Immediate Follow Up Ordered: Return in about 8 months (around 12/08/2023). Adán Gorman MD Review of Systems Constitutional: Negative for malaise/fatigue. Cardiovascular: Negative for chest pain, dyspnea on exertion, irregular heartbeat, leg swelling and palpitations. Respiratory: Negative for shortness of breath. Neurological: Negative for dizziness and light-headedness. documented in this encounter [facility] 04-08-2023 History of Present illness Narrative Images from the original note were not included. PRELIMINARY REVIEW: Routed to EP for review/signature. AARTI GARCIA was seen at [facility] on Saturday, April 08, 2023. The patient's underlying rhythm was SR rate 60s bpm. This evaluation showed the patient was not pacing dependent. The evaluation results are as follows: ICD - Medtronic [id number] Bib MARTINEZ DR (On Alert). This device was implanted on 10/14/2013 and is 113 months old. The battery voltage was 2.84 V (recommended replacement = 2.73 V). Atrial Lead - Medtronic 5076 CapSureFix Novus. This lead was implanted on 10/14/2013. A pacing threshold of 0.75 V @ 0.4 ms was determined during today's evaluation. The P wave was sensed at 6.375 mV. The lead impedance was 418 ?. Right Ventricular Lead - Medtronic 6935M Sprint Quattro Secure S. This lead was implanted on 10/14/2013. A pacing threshold of 0.75 V @ 0.4 ms was determined during today's evaluation. The R wave was sensed at 7.25 mV. The lead impedance was 456 ?. A dual chamber ICD routine In Clinic Device Check - OV with Dr. Lenehan to follow Full Interrogation with Iterative adjustment completed Device Site: left chest without signs or symptoms of infection or erosion. Est. Battery: 8 months (2.85 V), charge time: 4.6 sec Underlying Rhythm: SR rate 60s bpm Presenting EGM: AP/VS rate 70s bpm AP: 24.0% RVP: <0.1% AFib [place]: <0.1% AHR Episodes: 0 VHR Episodes: 0 Short V - V: 0 Sensing, Thresholds, Impedances: stable Histograms: primarily 60 - 120 bpm Heart Failure Alerts: No Medications per EPIC: Eliquis, Baby ASA, Coreg, Entresto Device tones demonstrated and discussed what to do if receives a shock; verbalized understanding. Notes/Summary: 10/2020 Cardiac Cath EF - 28-30% Signature: Renetta CHAVEZ, RN ___I have reviewed the device function, programmed parameters and heart rhythm. ___Pt will return to the Device Clinic per protocol or as directed. ___No changes made.Generated on: 04/08/2023 1:06 PM Eastern Standard Time documented in this encounter [facility] 03-30-2023 Instructions Dedra Nettles MA - 03/30/2023 10:24 AM EST How to Contact your Care Team: Provider: Dr. Adán Gorman MD Director Of Neighborhood Service Center: Lupis Brown RN documented in this encounter [facility] 01-14-2023 History of Present illness Narrative Subjective Patient ID: Aarti Garcia is a 57 y.o. male who presents for COPD (6 month). COPD Patient complains of non-productive cough. Symptoms began chronic. Patient uses 1 pillows at night. Patient currently is not on home oxygen therapy.. Respiratory history: COPD. Quit smoking in 2013 Following with cardiology, compliant with medications. Stopped drinking alcohol on October 21, 2022 Review of Systems Constitutional: Negative for activity change, fatigue and fever. Eyes: Negative for visual disturbance. Respiratory: Positive for cough (chronic). Negative for chest tightness, shortness of breath and wheezing. Cardiovascular: Negative for chest pain, palpitations and leg swelling. Musculoskeletal: Negative for arthralgias and myalgias. Skin: Negative. Neurological: Negative for dizziness, weakness, light-headedness, numbness and headaches. Objective BP 118/64 (Patient Position: Sitting) Pulse 71 Ht 1.803 m (5' 11) Wt 66.7 kg (147 lb 1.6 oz) SpO2 97% BMI 20.52 kg/m Physical Exam Vitals reviewed. Constitutional: Appearance: Normal appearance. Cardiovascular: Rate and Rhythm: Normal rate. Rhythm irregular. Pulses: Normal pulses. Pulmonary: Effort: Pulmonary effort is normal. Breath sounds: Normal breath sounds. Abdominal: General: Bowel sounds are normal. Palpations: Abdomen is soft. Tenderness: There is no abdominal tenderness. Skin: General: Skin is warm and dry. Neurological: Mental Status: He is alert and oriented to person, place, and time. Psychiatric: Mood and Affect: Mood normal. Assessment/Plan Diagnoses and all orders for this visit: Chronic obstructive pulmonary disease, unspecified COPD type (CMS/HCC) -Symptoms controlled on current treatment Male erectile dysfunction, unspecified - sildenafil (Viagra) 100 mg tablet; TAKE 1/4 to 1/2 TABLET DAILY 1 HOUR BEFORE NEEDED Caution do not take Sildenafil with Nitroglycerin Primary hypertension -Blood pressure controlled on current antihypertensive, following with cardiology Other orders - Follow Up In Primary Care - Follow Up In Primary Care - Health Maintenance; Future documented in this encounter [facility] Work Phone: 11-14-2022 Instructions Klaus Bucio CNP - 11/14/2022 9:32 AM EDT PLEASE STOP Jardiance if your dry skin on the scrotum does not improve with Aquaphor lotion Please call the CHF clinic also- may need an antifungal cream (lotrimin antifungal cream may be ok but I would check with a pharmacist first to be sure it is ok -you may need a prescription cream.) Please call the heart failure clinic with any questions regarding your visit, weight/Blood pressure logs, medication refills, or medication questions. [phone] W will check an echo in 2023 prior to your next ICD change. If your heart pump (EF) is still low, (below 35%) they may consider upgrading your ICD to a BIV ICD (adding a 3rd lead). documented in this encounter [facility] 11-14-2022 History of Present illness Narrative [facility]ARD[facility] HEART FAILURE CLINIC NAME: Aarti Garcai DATE OF : 1965 MEDICAL RECORD#: [id number] [employer]: Adán Gorman MD TODAY'S DATE: 11/14/2022 Reason for Visit/Chief Complaint: No chief complaint on file. He presents today for a follow up visit at the heart failure clinic for HFrEF diagnosed with his [place] in 2013.. He also has pulmonary HTN with moderatve mitral valve regurgitation (echo 09/2019) -He is here with his today . -He ambulated with no assistive devices to the office -His weight is 146# , down 8# since his last visit in Apr 2022. Wt Readings from Last 3 Encounters: 11/14/22 66.6 kg (146 lb 12.8 oz) 10/27/22 72.6 kg (160 lb) 04/25/22 70 kg (154 lb 4.8 oz) BP (!) 97/56 Pulse 62 Wt 66.6 kg (146 lb 12.8 oz) SpO2 95% BMI 20.47 kg/m ASSESSMENT Aarti Garcia is a 57 y.o. male with: CHF Overview: HFrEF Etiology: ischemic Most recent known EF: 28-30% on heart cath 11/2020 31% on echo 09/2019 20-25% on echo 05/2013 Non-ischemic etiology: N/A Stage: C NYHA Class: II Guideline directed therapy includes: PRIOR to visit today, (CHANGES will be listed under PLAN below) ALYSSA/ARB/ARNI Entresto 24/26 mg twice daily BB Carvedilol 12.5 mg twice daily Aldosterone antagonist Eplerenone 25 mg daily SGLT 2 inhibitor Jardiance 10 mg daily (samples given 03/21/2022) Diuretic N/A Potassium N/A Other cardiac medications include: PRIOR to visit today, (CHANGES will be listed under PLAN below) Eliquis 5 mg twice a day Aspirin 81 mg daily Atorvastatin 10 mg daily PLAN -Encouraged abstaining from alcohol, which he plans to do. -Recheck an echo in 2023 as he will need an ICD generator change in the next 15 months - watch QRS, which is widening. May benefit to upgrade to a BIV device when due for generator change. -PLEASE STOP Jardiance IF your dry skin on the scrotum does not improve with Aquaphor lotion -Please call the CHF clinic also- may need an antifungal cream (lotrimin antifungal cream may be ok but I would check with a pharmacist first to be sure it is ok -you may need a prescription cream.) -refilled his cardiac meds FOLLOW UP Follow-up with Dr. Gorman yearly as directed (Mar 2023)-will make appt today Follow up with the heart failure clinic yearly in September 2023 (sooner if needed)- this will alternate every [address] Gorman. HISTORY OF PRESENT ILLNESS Aarti Garcia is a 57 y.o. male with a history of asthma, anoxic encephalopathy after cardiac arrest 2013, [place]/CAD/CABG, ischemic cardiomyopathy, dual chamber ICD (02/2016), paroxysmal atrial fib on Eliquis, HTN, HLD, & eye surgery 12/29/2019 Initial visit in CHF clinic Mr. Garcia presents after a recent OV with Dr. Gorman. At that visit, he had evidence of congestion with increased shortness of breath. His Optivol was elevated and his defibrillator showed intermittent a fib. He was started on spironolactone and Eliquis 03/21/2022: Dr Gorman: stable, but not on max GDMT (no SGLTi yet) -samples of Jardiance given to patient, recommended BMP and f/u with CHF clinic 2022----- 04/25/2022 CHF clinic: his wt is stable at 154# . He tolerated the 2 wks of samples of Jardiance Dr Gorman gave him and would like to continue these. Rx for Jardiance 10 mg daily sent to pharmacy. 10/27/2022 ER with syncope r/t intoxication -IV fluids administered and pt was discharged 11/14/2022 CHF clinic: Wt 146# -denies congestive symptoms -denies CP or indigestion (his previous [place] symptom) -coughs when laying down at night occ (thick mucous), uses his nebulizer and it improves- average of about twice a month -tolerating meds. Typically hypotensive, but asymptomatic besides a syncopal episode a couple of weeks ago when he was drinking alcohol in his barn (hiding it from his ). We discussed the toxic effects it can have on his heart and he does not plan to do that again. -He denies dysuria or symptoms of yeast infections, although he reported recently having very dry uncomfortable skin on his scrotum that he informed his of yesterday. She gave him aquaphor lotion that was helpful. He denies fever or chills. States it was like sunburned skin that was peeling but improved today. Was slightly erythemic but not cracked. We had a discussion about side effects of Jardiance that concerns me. He would like to continue Jardiance for now, but will need to trial off of it if this occurs again. -no elevated Optivol readings on his most recent ICD check 09/2022. 15 months of battery life. AP 12.9%, DYNAMOMETER TUNER <0.1%, no VHR episodes SUBJECTIVE Today, 11/14/2022, in addition to the above HPI He denies chest discomfort, fatigue, shortness of breath, cough, orthopnea, bendopnea, lower extremity edema, palpitations, lightheadedness, dizziness or syncope. If he coughs when laying down, his nebulizer helps. He denies abdominal distention, nausea, vomiting, constipation, or diarrhea. He denies dysuria. Denies frequent UTI's or yeast infections, although see above for scrotal dryness issues noted Review of Systems: All systems were reviewed and are noted to be negative unless otherwise stated in HPI. OBJECTIVE BP (!) 97/56 Pulse 62 Wt 66.6 kg (146 lb 12.8 oz) SpO2 95% BMI 20.47 kg/m Pulse Readings from Last 3 Encounters: 11/14/22 62 10/27/22 74 04/25/22 69 BP Readings from Last 3 Encounters: 11/14/22 (!) 97/56 10/27/22 108/61 04/25/22 116/72 Wt Readings from Last 3 Encounters: 11/14/22 66.6 kg (146 lb 12.8 oz) 10/27/22 72.6 kg (160 lb) 04/25/22 70 kg (154 lb 4.8 oz) PHYSICAL EXAM Constitutional: Well appearing, thin, no acute distress Head: Normocephalic and atraumatic. Edentulous Eyes: Conjunctivae are normal Neck: No elevated jugular venous distension, no hepatojugular reflux Cardiovascular: regular rate and rhythm, S1, S2 , no murmurs noted Lungs: clear to ausculation, no crackles noted. Extremities: no peripheral edema, warm, no vascular discoloration Abdominal: non tender, flat, soft Musculoskeletal: Normal range of motion. No cyanosis. Neurological: AOx3, moving all extremities normally Skin: Warm, dry, intact Psychiatric: Normal mood and affect, appropriate conversation CURRENT MEDICATIONS Current Outpatient Medications Medication Sig Dispense Refill albuterol (PROVENTIL) 2.5 mg /3 mL (0.083 %) nebulizer solution Take 3 mL (2.5 mg total) by nebulization every 6 (six) hours as needed for wheezing . albuterol 90 mcg/actuation inhaler Inhale 2 (two) puffs every 4 (four) hours as needed for shortness of breath . apixaban (Eliquis) 5 mg Tab Take 1 (one) tablet (5 mg total) by mouth 2 (two) times a day Blood thinner . 180 tablet 3 aspirin 81 MG EC tablet Take 1 (one) tablet (81 mg total) by mouth daily . atorvastatin (LIPITOR) 10 MG tablet Take 1 (one) tablet (10 mg total) by mouth daily . 90 tablet 3 carvediloL (COREG) 12.5 MG tablet Take 1 (one) tablet (12.5 mg total) by mouth 2 (two) times a day . 180 tablet 3 empagliflozin (Jardiance) 10 mg Tab Take 1 (one) tablet (10 mg total) by mouth daily . 90 tablet 3 eplerenone (Inspra) 25 MG tablet Take 1 (one) tablet (25 mg total) by mouth daily Taking whole tablet daily . 90 tablet 3 ergocalciferol (ERGOCALCIFEROL) 1,250 mcg (50,000 unit) capsule Take 1 (one) capsule (50,000 Units total) by mouth once a week . nitroGLYCERIN (NITROSTAT) 0.[address] 1 (one) tablet (0.4 mg total) under the tongue every 5 (five) minutes as needed for chest pain . 25 tablet 3 sacubitriL-valsartan (Entresto) 24-26 mg per tablet Take 1 (one) tablet by mouth 2 (two) times a day . 180 tablet 3 sildenafiL (VIAGRA) 25 MG tablet Take 1 (one) tablet (25 mg total) by mouth daily as needed for erectile dysfunction . tiotropium Br/olodaterol HCl (STIOLTO RESPIMAT INHL) Inhale . No current facility-administered medications for this visit. Allergies Allergen Reactions Lisinopril Other (See Comments) Cough CARDIAC TESTING EKG 12-lead Final Result by Interface, Lab Results In [place] [facility] (10/28/2022 2150) Echocardiogram complete w contrast Final Result by Kenzie Chambers MD (10/12/2019 1330) Cardiac Catheterization Final Result by Rubén Martinez MD (11/30/2020 1014) Left Heart Cath Final Result by Marie Pillai MA (09/18/2016 1713) 06/13/2013 Echocardiogram (pre open heart) Ef 20-25% 10/12/2019 Echocardiogram Summary 1. Technically difficult echo windows, Definity used to optimize study. 2. LV appears dilated with global dysfunction with segmental features. Biplane LVEF 31%. 3. Mild RV enlargement with mild RV dysfunction. Device wire noted in right heart. 4. Elevated left atrial pressure. 5. There is mild tricuspid valve regurgitation. 6. There is pulmonary hypertension, estimated pulmonary arterial systolic pressure is 45 mmHg. 7. There is moderate mitral valve regurgitation. 8. Prior ejection fraction of 30% noted from nuclear stress perfusion study from 2016. 12/18/2020 heart cath Impressions and Recommendations: #1. Moderately severe LV systolic dysfunction with an estimated LV ejection fraction of 28-30%. 2. Normal left ventricular end-diastolic pressure. 3. Severe seminole multivessel coronary artery disease. 4. Patent left internal mammary graft to the mid left anterior descending. 5. Patent saphenous vein graft to the obtuse marginal branch of the circumflex, reidentification of moderate disease in the proximal body of the graft. 6. Patent saphenous vein graft to the right coronary artery, reidentification of moderate disease in the proximal body of the graft. An ongoing course of guideline directed optimal medical therapy with aggressive risk factor modification. When compared to left heart catheterization from 2016 no angiographic evidence of disease progression EKGS 11/30/2020: Atrial paced 73 bpm, pr 153, qrs 96, qtc 431 04/25/2022: NSR 74 bpm, NH 102, QRS 154, QTC 490 MEDICAL/SOCIAL HISTORY Past Medical History: Diagnosis Date Acute anterolateral myocardial infarction (HCC) Anoxic encephalopathy (HCC) CAD (coronary artery disease) CABG Cardiac arrest (HCC) Hyperlipidemia Hypertension ICD (implantable cardioverter-defibrillator) in place 03/18/2016 Vertigo Past Surgical History: Procedure Laterality Date CABG CARDIAC CATHETERIZATION CARDIAC DEFIBRILLATOR PLACEMENT CORONARY ANGIOPLASTY 2013 CORONARY ARTERY BYPASS GRAFT BARAJAS to LAD, VG to OM of circ and RCA EYE SURGERY HC LEFT HEART CATH N/A 11/30/2020 Procedure: Left Heart Cath; Surgeon: Rubén Martinez MD; Location: [facility]; Service: Cardiovascular PACEMAKER INSERTION and defilibrator Social History Tobacco Use Smoking status: Former Types: Cigarettes Quit date: 10/08/2012 Years since quittin.1 Smokeless tobacco: Never Vaping Use Vaping Use: Former Substance Use Topics Alcohol use: Yes Drug use: No LAB REVIEW Recent labs reviewed with patient: Lab Results Component Value Date GLUCOSE 103 (H) 04/23/2022 CALCIUM 9.0 04/23/2022 NA 139 04/23/2022 K 4.3 04/23/2022 CL 105 04/23/2022 BUN 5 (L) 10/27/2022 CREATININE 0.96 10/27/2022 EGFR 101 04/23/2022 Lab Results Component Value Date ALT 31 03/21/2022 AST 18 03/21/2022 ALKPHOS 63 03/21/2022 BILITOT 1.4 (H) 03/21/2022 NT pro BNP 3,202 on 10/12/2019 NT Pro BNP 2,259 on 12/28/2019 TSH 1.06 on 03/09/2020 ([facility]) No results found for: HGBA1C Lab Results Component Value Date CHOL 155 03/21/2022 LDLCALC 57 03/21/2022 TRIG 124 03/21/2022 HDL 73 03/21/2022 Lab Results Component Value Date INR 1.2 (H) 01/16/2020 INR 1.1 06/27/2014 PROTIME 14.8 (H) 01/16/2020 PROTIME 14.3 06/27/2014 Lab Results Component Value Date TROPONINI 7 10/27/2022 Lab Results Component Value Date WBC 5.68 10/27/2022 HGB 15.9 10/27/2022 HCT 46.2 10/27/2022 MCV 91.3 10/27/2022 PLT 212 10/27/2022 RBC 5.06 10/27/2022 MEDICAL HISTORY PERTINENT TO CHF CLINIC Essential hypertension: controlled to hypotensive but asymptomatic CAD - Hx cardiac arrest, CABG 11/2020 heart catheterization: grafts x 3 patent with moderate disease in the prox SVG graft that is not known Hyperlipidemia- on atorvastatin 10 mg daily 03/21/2022: TC 155, Trig 124, HDL 73, LDL 57 Diabetes- Hgb A1C none documented Sleep Apnea- N/A Atrial fibrillation-paroxysmal , on Eliquis for OAC Device- Dual chamber ICD 09/2013 for secondary prevention 10/09/2022: Remote transmission MDT dual chamber ICD Est. Battery Time: 15 months (2.89V) charge time: 4.4 sec Presenting EGM: /VS rate 70's bpm AP: 12.9% RVP: <0.1% AFib Tyler: <0.1% AHR Episodes: 0 VHR Episodes: 0 Short V - V: 0 Sensing, Thresholds, Impedances: Stable Histograms: 60-120 bpm Heart Failure Alerts: OptiVol <60 Medications per EPIC: Eliquis, BASA, Coreg, Entresto Yearly In Clinic Device Check Due: 03/2023 Notes/Summary: 11/30/20 Cath EF=28-30% Signature: Modesto CHAVEZ, RN Notes/Summary: 10/12/2019 Echo EF - 31% CHF OVERVIEW - He lives with his in a one story home - and pt share the cooking. They limit sodium intake. He does eat some convenience foods at times. - He drinks water. He gave up mt dew and excessive coffee. He does not drink ETOH -He stopped smoking in 2013 after [place]. - He sleeps on a futon with one pillow. - Typical activity in a day includes: he walks 6 laps around 2 [address] property almost daily- takes about 20 minutes. Otherwise he works around the house and watches videos and watch TV. -He does not keeps a daily log of weight, HR or BP. He has a scale and BP cuff 22 minutes were spent w/ the patient and his . Over half of this time was spent in counseling regarding medication therapy, treatments, activity, diet planning including teaching and review of reports with patient. There is collaboration between the CUSTOMER SUPPORT COORDINATOR and the consulting/collaborating physician regarding this patient's plan of care. Thank you for allowing us to participate in the care of our patient. Please call if you have any further questions. Signature: KHADIJAH Renteria, ANNE MARIE [facility] [phone] documented in this encounter [facility] 07-11-2022 History of Present illness Narrative Subjective Patient ID: Aarti Garcia is a 57 y.o. male who presents for Hypertension (6 month follow-up), COPD, and Hypocalcemia. COPD Patient complains of denies cough, SOB, or difficulty with stairs. Symptoms began several years ago. Patient uses 1 pillows at night. Patient currently is not on home oxygen therapy.. Respiratory history: frequent episodes of bronchitis. Stopped smoking in 2013 Hypertension Patient is here for follow-up of elevated blood pressure. He is not exercising and is not adherent to a low-salt diet. Blood pressure is well controlled at home. Cardiac symptoms: none. Patient denies chest pain, dyspnea, fatigue, irregular heart beat, lower extremity edema, and palpitations. Cardiovascular risk factors: hypertension and male gender. Use of agents associated with hypertension: none. History of target organ damage: prior coronary revascularization. Review of Systems Constitutional: Negative for activity change, appetite change and fever. HENT: Negative. Respiratory: Negative for cough, chest tightness, shortness of breath and wheezing. Cardiovascular: Negative for chest pain, palpitations and leg swelling. Gastrointestinal: Negative for abdominal pain, diarrhea, nausea and vomiting. Endocrine: Negative for cold intolerance and heat intolerance. Genitourinary: Negative for difficulty urinating. Skin: Negative. Negative for color change. Neurological: Positive for numbness (has ocassionally had numbness to right arm). Negative for dizziness and light-headedness. Hematological: Does not bruise/bleed easily. Objective BP 118/80 (Patient Position: Sitting) Pulse 60 Ht 1.803 m (5' 11) Wt 69.4 kg (153 lb 1.6 oz) BMI 21.35 kg/m Physical Exam Constitutional: General: He is not in acute distress. Appearance: Normal appearance. He is normal weight. Eyes: Conjunctiva/sclera: Conjunctivae normal. Pupils: Pupils are equal, round, and reactive to light. Cardiovascular: Rate and Rhythm: Normal rate and regular rhythm. Pulses: Normal pulses. Pulmonary: Effort: Pulmonary effort is normal. No respiratory distress. Breath sounds: Normal breath sounds. Abdominal: General: Bowel sounds are normal. Palpations: Abdomen is soft. Tenderness: There is no abdominal tenderness. Musculoskeletal: Cervical back: Normal range of motion. No tenderness. Right lower leg: No edema. Left lower leg: No edema. Skin: General: Skin is warm and dry. Coloration: Skin is not pale. Neurological: Mental Status: He is alert and oriented to person, place, and time. Assessment/Plan Diagnoses and all orders for this visit: Chronic obstructive pulmonary disease, unspecified COPD type (CMS/HCC) -Symptoms well controlled on current treatment. -Continue Stiolto respimat and albuterol as needed Primary hypertension -Follows with cardiology, blood pressure well controlled on current antihypertensive regimen Other orders - Follow Up In Primary Care; Future documented in this encounter [facility] Work Phone: 07-11-2022 Instructions CEZAR Casanova - 07/11/2022 9:15 AM EDT Continue heart healthy diet Recommend exercise daily documented in this encounter [facility] Work Phone: 04-25-2022 Instructions Klaus Bucio CNP - 04/25/2022 10:23 AM EST Encouraged to call CHF clinic with: - weight gain 2-3# overnight or 5# weight gain in one week. -increasing shortness of breath -new cough that does not get better in a day or two -increasing lower extremity edema (swelling) - irregular heart beats or palpitations (fast heart beats ) that will not go away -abdominal distention (tightness, firmness) Encouraged to call CHF clinic with weight gain 2-3# overnight or 5# weight gain in one week. Remember to: Weight yourself each morning after you have used the restroom and before you eat Check your blood pressure and heart rate 2 hours after your morning medications Please bring this log to your next appointment Please call the heart failure clinic with any questions regarding your visit, weight/Blood pressure logs, medication refills, or medication questions. [phone] Remember the side effects of Jardiance/Farxiga we discussed and let us know if you have any trouble with burning upon urination, lightheadedness, dizziness or low blood pressures or lower extremity or foot wounds. documented in this encounter [facility] 04-25-2022 History of Present illness Narrative [facility] CARDIOLOGY HEART FAILURE CLINIC NAME: Aarti Garcia DATE OF : 1965 MEDICAL RECORD#: [id number] [employer]: Adán Gorman MD TODAY'S DATE: 04/25/2022 Reason for Visit/Chief Complaint: Congestive Heart Failure (Pt states that he does not have any concerns today. He was last seen in July. He was started on Jardiance by Telma. He was given 2 weeks of samples he has been done with those for a few days. He is on Medicaid so he should be able to obtain from pharmacy ) He presents today for a follow up visit at the heart failure clinic for HFrEF. He also has pulmonary HTN with moderatve mitral valve regurgitation (echo 09/2019) -He is here with his today . -He ambulated with no assistive devices to the office -His weight has been stable since the last visit in July 2021. HISTORY OF PRESENT ILLNESS Aarti Garcia is a 56 y.o. 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 10/11-10/13/2019 hospitalization for community acquired pneumonia. Dc'd on Levaquin 12/29/2019 CHF clinic: to be evaluated for a sleep study. Losartan stopped to start Entresto 24/26 mg BID, currently taking carvedilol 12.5 mg BID and Spironolactone 25 mg daily 02/24/2020 CHF clinic : Carvedilol increased to 25 mg BID 02/2021 CHF clinic phone call : legs weak with increased coreg, decreased to 12.5 mg BID 03/08/2021 Heart failure clinic: . No changes. Continued Carvedilol 12.5 mg BID, Entresto 24/26 mg BID and spironolactone 25 mg daily. 05/30/2021 ER for cat bite/cellulitis 07/26/2021: CHF clinic: stable, no changes 03/21/2022: Dr Gorman: stable, but not on max GDMT (no SGLTi yet) -samples of Jardiance given to patient, recommended BMP and f/u with CHF clinic 04/25/2022 CHF clinic: his wt is stable at 155# . He tolerated the 2 wks of samples of Jardiance Dr Gorman gave him and would like to continue these. Rx for Jardiance 10 mg daily sent to pharmacy. ASSESSMENT Aarti Garcia is a 56 y.o. male with: CHF Overview: HFrEF Etiology: ischemic Most recent known EF: 31% on echo 09/2019 Non-ischemic etiology: N/A Stage: C NYHA Class: II PLAN: -Recheck an echo this year - watch QRS, which is widening. May benefit to upgrade to a BIV device when due for generator change. Guideline directed therapy includes: ALYSSA/ARB/ARNI Entresto 24/26 mg twice daily BB Carvedilol 12.5 mg twice daily Aldosterone antagonist Eplerenone 25 mg daily SGLT 2 inhibitor Jardiance 10 mg daily (samples given 03/21/2022) Diuretic N/A Potassium N/A Nitrate N/A Vasodilator N/A Medication changes this visit: No changes, will continue with a prescription- pt is to call with an cost issues Labs to be drawn: BMP 04/23/2022 (Cr 0.90, K 4.3) Activity goal: continue to walk daily and stay active. Patient encouraged : pay attention to s/s of ischemia (indigestion is his symptom). -Encourage to check his weight & VS 2-3 times a week since he does have a scale and cuff at home. We discussed: + symptoms to monitor and report. + discussed side effects of Jardiance and encouraged patient to call CHF clinic or PCP with any issues that may be related- not to ignore dysuria. FOLLOW-UP SCHEDULE: Follow-up with Dr. Gorman yearly as directed (Mar 2023) Follow up with the heart failure clinic in in 6 months, sooner if needed. SUBJECTIVE Today, 04/25/2022, he reports he has been feeling well from a cardiac standpoint. His [place] symptom was indigestion. He has occasional indigestion now but it is not severe like it was prior to his [place] and it does not last. He denies chest discomfort, fatigue, shortness of breath, cough, orthopnea, bendopnea, lower extremity edema, palpitations, lightheadedness, dizziness or syncope. If he coughs when laying down, his nebulizer helps. He denies abdominal distention, nausea, vomiting, constipation, or diarrhea. He denies dysuria. Review of Systems: All systems were reviewed and are noted to be negative unless otherwise stated in HPI. OVERVIEW - He lives with his in a one story home - and pt share the cooking. They limit sodium intake. He does eat some convenience foods at times. - He drinks water. He gave up mt dew and excessive coffee. He does not drink ETOH -He stopped smoking in 2013 after [place]. - He sleeps on a futon with one pillow. - Typical activity in a day includes: he walks 6 laps around 2 [address] property almost daily- takes about 20 minutes. Otherwise he works around the house and watches videos and watch TV. -He does not keeps a daily log of weight, HR or BP. He has a scale and BP cuff OBJECTIVE BP 116/72 Pulse 69 Wt 70 kg (154 lb 4.8 oz) SpO2 97% BMI 21.52 kg/m Pulse Readings from Last 3 Encounters: 04/25/22 69 03/21/22 69 09/11/21 81 BP Readings from Last 3 Encounters: 04/25/22 116/72 03/21/22 (!) 108/55 09/11/21 101/62 Wt Readings from Last 3 Encounters: 04/25/22 70 kg (154 lb 4.8 oz) 03/21/22 70.3 kg (155 lb) 09/11/21 70.4 kg (155 lb 3.2 oz) PHYSICAL EXAM: Constitutional: Well appearing, no acute distress Head: Normocephalic and atraumatic. Edentulous Eyes: Conjunctivae are normal Neck: No elevated jugular venous distension, no hepatojugular reflux Cardiovascular: regular rate and rhythm, S1, S2 , no murmurs noted Lungs: clear to ausculation, no crackles noted. Extremities: no peripheral edema, warm, no vascular discoloration Abdominal: non tender, flat, soft/distended Musculoskeletal: Normal range of motion. No cyanosis. Neurological: AOx3, moving all extremities normally Skin: Warm, dry, intact Psychiatric: Normal mood and affect, appropriate conversation ___ Other Medical History: Essential hypertension: controlled CAD - Hx cardiac arrest, CABG Hyperlipidemia- on atorvastatin 10 mg daily 03/21/2022: TC 155, Trig 124, HDL 73, LDL 57 Diabetes- Hgb A1C none documented Sleep Apnea- N/A Atrial fibrillation-paroxysmal , on Eliquis for OAC Device- Dual chamber ICD 09/2015 for secondary prevention A dual chamber ICD routine In Clinic Device Check - 03/21/2022 Full Interrogation with Iterative adjustment completed Device Site: left chest without signs or symptoms of infection or erosion. Est. Battery: 1.8 years Underlying Rhythm: SR rate 60s bpm Presenting EGM: AP/VS rate 80s bpm AP: 13.4% RVP: <0.1% AFib Tyler: <0.1% AHR Episodes: 0 VHR Episodes: 3 new since previous remote transmission, no treated; available EGMs appear NSVT duration of 2 seconds and avg. V-rate 207 - 269 bpm Short V - V: 1 Sensing, Thresholds, Impedances: stable Histograms: primarily 60 - 120 bpm Heart Failure Alerts: No Medications per EPIC: Eliquis, Baby ASA, Coreg, Entresto Device tones demonstrated and discussed what to do if receives a shock; verbalized understanding. Notes/Summary: 10/12/2019 Echo EF - 31% CURRENT MEDICATIONS; Current Outpatient Medications Medication Sig Dispense Refill albuterol (PROVENTIL) 2.5 mg /3 mL (0.083 %) nebulizer solution Take 3 mL (2.5 mg total) by nebulization every 6 (six) hours as needed for wheezing . albuterol 90 mcg/actuation inhaler Inhale 2 (two) puffs every 4 (four) hours as needed for shortness of breath . apixaban (Eliquis) 5 mg Tab Take 1 (one) tablet (5 mg total) by mouth 2 (two) times a day Blood thinner . 180 tablet 3 aspirin 81 MG EC tablet Take 1 (one) tablet (81 mg total) by mouth daily . atorvastatin (LIPITOR) 10 MG tablet Take 1 (one) tablet (10 mg total) by mouth daily . 90 tablet 3 carvediloL (COREG) 12.5 MG tablet Take 1 (one) tablet (12.5 mg total) by mouth 2 (two) times a day . 180 tablet 3 eplerenone (Inspra) 25 MG tablet Take 1 (one) tablet (25 mg total) by mouth daily Taking whole tablet daily . 90 tablet 3 ergocalciferol (ERGOCALCIFEROL) 1,250 mcg (50,000 unit) capsule Take 1 (one) capsule (50,000 Units total) by mouth once a week . nitroGLYCERIN (NITROSTAT) 0.[address] 1 (one) tablet (0.4 mg total) under the tongue every 5 (five) minutes as needed for chest pain . 25 tablet 3 sacubitriL-valsartan (Entresto) 24-26 mg per tablet Take 1 (one) tablet by mouth 2 (two) times a day . 180 tablet 3 sildenafiL (VIAGRA) 25 MG tablet Take 1 (one) tablet (25 mg total) by mouth daily as needed for erectile dysfunction . tiotropium Br/olodaterol HCl (STIOLTO RESPIMAT INHL) Inhale . empagliflozin (Jardiance) 10 mg Tab Take 1 (one) tablet (10 mg total) by mouth daily . 90 tablet 3 No current facility-administered medications for this visit. Allergies Allergen Reactions Lisinopril Other (See Comments) Cough CARDIAC TESTING INCLUDES: ECG 12 Lead Final Result by Interface, Lab Results In [facility] (11/30/2020 1634) Echocardiogram complete w contrast Final Result by Kenzie Chambers MD (10/12/2019 1330) Cardiac Catheterization Final Result by Rubén Martinez MD (11/30/2020 1014) Left Heart Cath Final Result by Marie Pillai MA (09/18/2016 1713) 10/12/2019 Echocardiogram Summary 1. Technically difficult echo windows, Definity used to optimize study. 2. LV appears dilated with global dysfunction with segmental features. Biplane LVEF 31%. 3. Mild RV enlargement with mild RV dysfunction. Device wire noted in right heart. 4. Elevated left atrial pressure. 5. There is mild tricuspid valve regurgitation. 6. There is pulmonary hypertension, estimated pulmonary arterial systolic pressure is 45 mmHg. 7. There is moderate mitral valve regurgitation. 8. Prior ejection fraction of 30% noted from nuclear stress perfusion study from 2016. 12/18/2020 heart cath Impressions and Recommendations: #1. Moderately severe LV systolic dysfunction with an estimated LV ejection fraction of 28-30%. 2. Normal left ventricular end-diastolic pressure. 3. Severe seminole multivessel coronary artery disease. 4. Patent left internal mammary graft to the mid left anterior descending. 5. Patent saphenous vein graft to the obtuse marginal branch of the circumflex, reidentification of moderate disease in the proximal body of the graft. 6. Patent saphenous vein graft to the right coronary artery, reidentification of moderate disease in the proximal body of the graft. An ongoing course of guideline directed optimal medical therapy with aggressive risk factor modification. When compared to left heart catheterization from 2015 no angiographic evidence of disease progression EKG's: 11/30/2020: Atrial paced 73 bpm, pr 153, qrs 96, qtc 431 04/25/2022: NSR 74 bpm, NH 102, QRS 154, QTC 490 OTHER HISTORIES Past Medical History: Diagnosis Date Acute anterolateral myocardial infarction (HCC) Anoxic encephalopathy (HCC) CAD (coronary artery disease) CABG Cardiac arrest (HCC) ICD (implantable cardioverter-defibrillator) in place 03/18/2016 Vertigo Past Surgical History: Procedure Laterality Date CABG CARDIAC CATHETERIZATION CARDIAC DEFIBRILLATOR PLACEMENT CORONARY ANGIOPLASTY 2013 CORONARY ARTERY BYPASS GRAFT BARAJAS to LAD, VG to OM of circ and RCA EYE SURGERY LEFT HEART CATH N/A 11/30/2020 Procedure: Left Heart Cath; Surgeon: Rubén Martinez MD; Location: HYBRID PACKAGING INSPECTOR; Service: Cardiovascular PACEMAKER INSERTION and defilibrator Social History Tobacco Use Smoking Status Former Types: Cigarettes Quit date: 10/08/2012 Years since quittin.5 Smokeless Tobacco Never LAB REVIEW: Recent labs reviewed with patient: Lab Results Component Value Date GLUCOSE 103 (H) 04/23/2022 CALCIUM 9.0 04/23/2022 NA 139 04/23/2022 K 4.3 04/23/2022 CL 105 04/23/2022 BUN 10 04/23/2022 CREATININE 0.90 04/23/2022 EGFR 101 04/23/2022 Lab Results Component Value Date ALT 31 03/21/2022 AST 18 03/21/2022 ALKPHOS 63 03/21/2022 BILITOT 1.4 (H) 03/21/2022 NT pro BNP 3,202 on 10/12/2019 NT Pro BNP 2,259 on 12/28/2019 TSH 1.06 on 03/09/2020 ([facility]) No results found for: HGBA1C Lab Results Component Value Date CHOL 155 03/21/2022 LDLCALC 57 03/21/2022 TRIG 124 03/21/2022 HDL 73 03/21/2022 Lab Results Component Value Date INR 1.2 (H) 01/16/2020 INR 1.1 06/27/2014 PROTIME 14.8 (H) 01/16/2020 PROTIME 14.3 06/27/2014 No results found for: CKTOTAL, CKMB, HSCRP, TROPONINI Lab Results Component Value Date WBC 7.35 03/21/2022 HGB 15.2 03/21/2022 HCT 44.4 03/21/2022 MCV 92.3 03/21/2022 PLT 220 03/21/2022 RBC 4.81 03/21/2022 25 minutes were spent w/ the patient and his . Over half of this time was spent in counseling regarding medication therapy, treatments, activity, diet planning including teaching and review of reports with patient. There is collaboration between the CUSTOMER SUPPORT COORDINATOR and the consulting/collaborating physician regarding this patient's plan of care. Thank you for allowing us to participate in the care of our patient. Please call if you have any further questions. Signature: KHADIJAH Renteria, PLATE SETTER [facility] [phone] documented in this encounter [facility] 03-21-2022 Evaluation + Plan note Associated Problem(s): ICD (implantable cardioverter-defibrillator) in place Clinic check today 13% atrial paced no right ventricular paced. A. fib burden undetectable ventricular high rate episodes 3 duration less than 2 seconds. Continue to follow. [facility] 03-21-2022 Miscellaneous Notes Associated Problem(s): ICD (implantable cardioverter-defibrillator) in place Clinic check today 13% atrial paced no right ventricular paced. A. fib burden undetectable ventricular high rate episodes 3 duration less than 2 seconds. Continue to follow. Associated Problem(s): Atrial fibrillation (HCC) Reviewed. Associated Problem(s): 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 No angina. Associated Problem(s): Ischemic cardiomyopathy Patient continues to do well. Functional class II. Happy with his activities with daily living. No angina no signs of any fluid retention. Does have documented moderate severe LV dysfunction. History of the heart catheterization November 2020 patent grafts medical therapy recommended. Ventriculogram moderately severe LV systolic dysfunction EF 28-30%. Echocardiogram reviewed from 2019 moderate mitral valve regurgitation EF 31% stable. Plan check BMP today. If acceptable good candidate for Jardiance 10 mg daily that would put him on the 4 pillars of treatment for reduced ejection fraction heart failure consisting of Entresto Coreg Inspra and Jardiance. Patient agreeable with that. Otherwise arrange follow-up with heart failure clinic. Pacemaker ICD check today. documented in this encounter [facility] 03-21-2022 History of Present illness Narrative Images from the original note were not included. PRELIMINARY REVIEW: Routed to for review/signature. AARTI GARCIA was seen at [facility] on Monday, March 21, 2022. The patient's underlying rhythm was SR rate 60s bpm. This evaluation showed the patient was not pacing dependent. The evaluation results are as follows: ICD - Medtronic [id number] Bib [address] DR (On Alert). This device was implanted on 10/14/2013 and is 101 months old. The battery voltage was 2.91 V (recommended replacement = 2.73 V). Atrial Lead - Medtronic [id number] CapSureFix [employer]. This lead was implanted on 10/14/2013. A pacing threshold of 0.75 V @ 0.4 ms was determined during today's evaluation. The P wave was sensed at 5.25 mV. The lead impedance was 418 ?. Right Ventricular Lead - Medtronic 6935M Sprint Quattro Secure S. This lead was implanted on 10/14/2013. A pacing threshold of 0.75 V @ 0.4 ms was determined during today's evaluation. The R wave was sensed at 7.375 mV. The lead impedance was 475 ?. A dual chamber ICD routine In Clinic Device Check - OV with Dr. Gorman prior Full Interrogation with Iterative adjustment completed Device Site: left chest without signs or symptoms of infection or erosion. Est. Battery: 1.8 years Underlying Rhythm: SR rate 60s bpm Presenting EGM: AP/VS rate 80s bpm AP: 13.4% RVP: <0.1% AFib [place]: <0.1% AHR Episodes: 0 VHR Episodes: 3 new since previous remote transmission, no treated; available EGMs appear NSVT duration of 2 seconds and avg. V-rate 207 - 269 bpm Short V - V: 1 Sensing, Thresholds, Impedances: stable Histograms: primarily 60 - 120 bpm Heart Failure Alerts: No Medications per EPIC: Eliquis, Baby ASA, Coreg, Entresto Device tones demonstrated and discussed what to do if receives a shock; verbalized understanding. Notes/Summary: 10/12/2019 Echo EF - 31% Signature: Renetta CHAVEZ, RN ___I have reviewed the device function, programmed parameters and heart rhythm. ___Pt will return to the Device Clinic per protocol or as directed. ___Changes made per Protocol and approved. AT/AF Daily Tyler Alert turned offGenerated on: 03/21/2022 8:51 AM Eastern Standard Time documented in this encounter [facility] 03-21-2022 Evaluation + Plan note Associated Problem(s): Atrial fibrillation (HCC) Reviewed. [facility] 03-21-2022 History of Present illness Narrative [facility] [address]) [facility] [address] [facility] [id number] Subjective: Aarti Garcia is a 56 y.o. male seen in the office today for Chief Complaint Patient presents with Follow-up 6 mo device check after ov -no complaints Follow-up. Overview of Problems Addressed: Problem Atrial Fibrillation (Hcc) Remote history of couple of hours of paroxysmal atrial fibrillation noted on pacemaker. Asymptomatic Oral anticoagulation. Low-dose aspirin therapy. Icd (Implantable Cardioverter-Defibrillator) in Place Ischemic Cardiomyopathy Hx of [place]. Coronary Artery Disease Involving [place] Coronary Artery of [place] Heart Without Angina Pectoris Repeat heart cath 2020 patent grafts medical therapy. Echo cardiogram summer 2019 ejection fraction 31%. Moderate mitral valve regurgitation moderate pulmonary hypertension. EF similar to nuclear stress test dating back 2016. had out of hospital cardiac arrest in 2013. He had severe anoxic encephalopathy initially. He underwent initial catheterization ultimately had bypass surgery. Left internal mammary artery graft was placed to left anterior descending, vein graft and obtuse marginal, vein graft to the PDA branch of the right. He has an ICD placed for primary prevention. Repeat heart catheterization March 2016 with 3 of 3 patent grafts ejection fraction 30%. LV filling pressure was normal. Continue medical therapy is recommended. Prophylactic ICD Assessment & Plan: Add Jardiance 10 mg daily if lab okay. Ischemic cardiomyopathy Patient continues to do well. Functional class II. Happy with his activities with daily living. No angina no signs of any fluid retention. Does have documented moderate severe LV dysfunction. History of the heart catheterization November 2020 patent grafts medical therapy recommended. Ventriculogram moderately severe LV systolic dysfunction EF 28-30%. Echocardiogram reviewed from 2019 moderate mitral valve regurgitation EF 31% stable. Plan check BMP today. If acceptable good candidate for Jardiance 10 mg daily that would put him on the 4 pillars of treatment for reduced ejection fraction heart failure consisting of Entresto Coreg Inspra and Jardiance. Patient agreeable with that. Otherwise arrange follow-up with heart failure clinic. Pacemaker ICD check today. 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 No angina. Atrial fibrillation (HCC) Reviewed. ICD (implantable cardioverter-defibrillator) in place Clinic check today 13% atrial paced no right ventricular paced. A. fib burden undetectable ventricular high rate episodes 3 duration less than 2 seconds. Continue to follow. Histories: Past Medical History: Diagnosis Date Acute anterolateral myocardial infarction (HCC) Anoxic encephalopathy (HCC) CAD (coronary artery disease) CABG Cardiac arrest (HCC) ICD (implantable cardioverter-defibrillator) in place 03/18/2016 Vertigo Past Surgical History: Procedure Laterality Date CABG CARDIAC CATHETERIZATION CARDIAC DEFIBRILLATOR PLACEMENT CORONARY ANGIOPLASTY 2013 CORONARY ARTERY BYPASS GRAFT BARAJAS to LAD, VG to OM of circ and RCA EYE SURGERY HC LEFT HEART CATH N/A 11/30/2020 Procedure: Left Heart Cath; Surgeon: Rubén Martinez MD; Location: [facility]; Service: Cardiovascular PACEMAKER INSERTION and defilibrator Family History Problem Relation Age of Onset Heart attack Father Social History Tobacco Use Smoking status: Former Types: Cigarettes Quit date: 10/08/2012 Years since quittin.4 Smokeless tobacco: Never Vaping Use Vaping Use: Former Substance Use Topics Alcohol use: No Alcohol/week: 0.0 standard drinks Drug use: No Patient's Medications New Prescriptions No medications on file Previous Medications ALBUTEROL (PROVENTIL) 2.5 MG /3 ML (0.083 %) NEBULIZER SOLUTION Take 3 mL (2.5 mg total) by nebulization every 6 (six) hours as needed for wheezing . ALBUTEROL 90 MCG/ACTUATION INHALER Inhale 2 (two) puffs every 4 (four) hours as needed for shortness of breath . APIXABAN (ELIQUIS) 5 MG TAB Take 1 (one) tablet (5 mg total) by mouth 2 (two) times a day Blood thinner . ASPIRIN 81 MG EC TABLET Take 1 (one) tablet (81 mg total) by mouth daily . ATORVASTATIN (LIPITOR) 10 MG TABLET Take 1 (one) tablet (10 mg total) by mouth daily . CARVEDILOL (COREG) 12.5 MG TABLET Take 1 (one) tablet (12.5 mg total) by mouth 2 (two) times a day . EPLERENONE (INSPRA) 25 MG TABLET Take 1 (one) tablet (25 mg total) by mouth daily Taking whole tablet daily . ERGOCALCIFEROL (ERGOCALCIFEROL) 1,250 MCG (50,000 UNIT) CAPSULE Take 1 (one) capsule (50,000 Units total) by mouth once a week . SACUBITRIL-VALSARTAN (ENTRESTO) 24-26 MG PER TABLET Take 1 (one) tablet by mouth 2 (two) times a day . SILDENAFIL (VIAGRA) 25 MG TABLET Take 1 (one) tablet (25 mg total) by mouth daily as needed for erectile dysfunction . TIOTROPIUM BR/OLODATEROL HCL (STIOLTO RESPIMAT INHL) Inhale . Modified Medications Modified Medication Previous Medication NITROGLYCERIN (NITROSTAT) 0.4 MG SL TABLET nitroGLYCERIN (NITROSTAT) 0.[address] 1 (one) tablet (0.4 mg total) under the tongue every 5 (five) minutes as needed for chest pain . Place 1 (one) tablet (0.4 mg total) under the tongue every 5 (five) minutes as needed for chest pain . Discontinued Medications No medications on file Allergies Allergen Reactions Lisinopril Other (See Comments) Cough Review of Systems Constitutional: Negative for malaise/fatigue. Cardiovascular: Negative for chest pain, dyspnea on exertion, leg swelling and palpitations. Neurological: Negative for dizziness. Objective: Physical Exam Vitals and nursing note reviewed. Constitutional: General: He is not in acute distress. Appearance: He is not diaphoretic. Comments: No acute distress Body mass index is 19.67 kg/m . HENT: Head: Normocephalic. Eyes: General: No scleral icterus. Comments: Pupils equal. Neck: Vascular: No JVD. Cardiovascular: Rate and Rhythm: Regular rhythm. Pulses: Radial pulses are 2+ on the right side and 2+ on the left side. Heart sounds: S1 normal and S2 normal. No murmur heard. No gallop. No S3 or S4 sounds. Comments: Feet warm bilateral. Soft 1/6 short systolic murmur left lower sternal border. Pulse regular neck veins not elevated lungs are clear no significant pedal edema. Pulmonary: Effort: No respiratory distress. Breath sounds: Normal breath sounds. No stridor. No wheezing or rales. Abdominal: General: There is no distension. Palpations: Abdomen is soft. Tenderness: There is no abdominal tenderness. There is no guarding. Musculoskeletal: General: No tenderness. Skin: General: Skin is warm and dry. Neurological: Mental Status: He is alert and oriented to person, place, and time. Vitals: Vitals: 03/21/22 0738 BP: (!) 108/55 BP Location: Right arm Patient Position: Sitting BP Cuff Size: Adult Pulse: 69 SpO2: 97% Weight: 70.3 kg (155 lb) Height: 5' 11 Body mass index is 21.62 kg/m . Orders Placed This Encounter Procedures Basic Metabolic Panel Standing Status: Standing Number of Occurrences: 1 Standing Expiration Date: 03/22/2023 Order Specific Question: Release to patient Answer: Immediate Follow Up Ordered: Return in about 1 year (around 03/21/2023). Adán Gorman MD Review of Systems Constitutional: Negative for malaise/fatigue. Cardiovascular: Negative for chest pain, dyspnea on exertion, leg swelling and palpitations. Neurological: Negative for dizziness. documented in this encounter [facility] 03-21-2022 Evaluation + Plan note Associated Problem(s): 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 No angina. [facility] 03-21-2022 Evaluation + Plan note Associated Problem(s): Ischemic cardiomyopathy Patient continues to do well. Functional class II. Happy with his activities with daily living. No angina no signs of any fluid retention. Does have documented moderate severe LV dysfunction. History of the heart catheterization November 2020 patent grafts medical therapy recommended. Ventriculogram moderately severe LV systolic dysfunction EF 28-30%. Echocardiogram reviewed from 2019 moderate mitral valve regurgitation EF 31% stable. Plan check BMP today. If acceptable good candidate for Jardiance 10 mg daily that would put him on the 4 pillars of treatment for reduced ejection fraction heart failure consisting of Entresto Coreg Inspra and Jardiance. Patient agreeable with that. Otherwise arrange follow-up with heart failure clinic. Pacemaker ICD check today. [facility] 03-21-2022 Instructions Dedra Nettles MA - 03/21/2022 7:38 AM EST How to Contact your Care Team: Provider: Dr. Adán Gorman MD Director Of Neighborhood Service Center: Lupis Brown RN documented in this encounter [facility] 09-11-2021 History of Present illness Narrative General Cardiology Clinic Follow-up Heart & Vascular [facility] 09/11/2021 Alicja Torres CNP [address] [place] [address] Medical Office [facility] [id number] Patient: Aarti Garcia Date of : 1965 (56 y.o.) PCP: Monie Waite CNP Assessment & Plan CAD -Most recent cath Nov 2020 showed patent grafts 3/3 and no disease progression when compared to his cath from 2016 -Denies chest pain of any kind -Continue Aspirin 81 mg daily, Atorvastatin 10 mg daily -Patient will be due to update blood work prior to his next appt with Dr Gorman Hx ischemic cardiomyopathy with ICD in place HFrEF -Patient denies SOB, peripheral edema, chest pain, orthopnea. Tries to follow heart healthy diet -Weight has remained stable ~155 lb -No sign of volume overload on exam -Follows with our CHF clinic -Continue current cardiac regimen without change -Due to device check this month per spouse Essential HTN -BP soft but acceptable in the clinic today at 100/62. Patient states he spot checks his BP at home and it never runs under 100 systolically. He feels great, denies dizziness -Continue Entresto 24-26 mg BID Atrial fibrillation -HR acceptable in the clinic today at 81 -Denies any issues with current medications -Continue Eliquis 5 mg BID -Continue Coreg 12.5 mg BID without change Follow-up: Dr Gorman ~ 6 months Chief Complaint: Follow-up (Pt complains of no cardiac symptoms today. Check up. ) Subjective History of Present Illness: Aarti Garcia is a 56 y.o. male with a PMH of HFrEF, HTN, atrial fibrillation on Eliquis, CAD in which he had an out of hospital cardiac arrest in 2013. He had severe anoxic encephalopathy initially. He underwent initial catheterization ultimately had bypass surgery. Left internal mammary artery graft was placed to left anterior descending, vein graft and obtuse marginal, vein graft to the PDA branch of the right. He has an ICD placed for primary prevention. Repeat heart catheterization March 2016 with 3 of 3 patent grafts ejection fraction 30%. He last saw Dr. Gorman in October 2020 in which he complained of increased SOB, weakness. LHC was updated Nov 2020 which showed patent grafts and no disease progression when compared to cath from 2015. He was continued on medical therapy. He last followed with heart failure clinic last month and appeared to have been doing well. He is being seen in the office today for routine follow up. Today in the office Aarti reports that he is doing well from a cardiovascular standpoint. He has been cautious of his diet and does not add salt to his food. He uses a salt substitute and reports he used to be a big coffee and pop drinker but has also cut that out. He denies chest pain, SOB, dizziness, palpitations, orthopnea, edema. He appears euvolemic on exam. His VS are acceptable at today's visit. Objective Tobacco Use Smoking Status Former Pack years: 0.00 Types: Cigarettes Quit date: 10/08/2012 Years since quittin.9 Smokeless Tobacco Never ECG 12 Lead Final Result by Interface, Lab Results In [place] [facility] (11/30/2020 1634) Echocardiogram complete w contrast Final Result by Kenzie Chambers MD (10/12/2019 1330) Cardiac Catheterization Final Result by Rubén Martinez MD (11/30/2020 1014) Left Heart Cath Final Result by Marie Pillai MA (09/18/2016 1713) HOME Medications: Patient's Medications New Prescriptions No medications on file Previous Medications ALBUTEROL (PROVENTIL) 2.5 MG /3 ML (0.083 %) NEBULIZER SOLUTION Take 2.5 mg by nebulization every 6 (six) hours as needed for wheezing . ALBUTEROL 90 MCG/ACTUATION INHALER Inhale 2 puffs every 4 (four) hours as needed for shortness of breath . APIXABAN (ELIQUIS) 5 MG TAB Take 1 (one) tablet (5 mg total) by mouth 2 (two) times a day Blood thinner . ASPIRIN 81 MG EC TABLET Take 81 mg by mouth daily ATORVASTATIN (LIPITOR) 10 MG TABLET Take 1 (one) tablet (10 mg total) by mouth daily . CARVEDILOL (COREG) 12.5 MG TABLET Take 1 (one) tablet (12.5 mg total) by mouth 2 (two) times a day . EPLERENONE (INSPRA) 25 MG TABLET Take 1 (one) tablet (25 mg total) by mouth daily Taking whole tablet daily . SACUBITRIL-VALSARTAN (ENTRESTO) 24-26 MG PER TABLET Take 1 (one) tablet by mouth 2 (two) times a day . SILDENAFIL (VIAGRA) 25 MG TABLET Take 25 mg by mouth daily as needed for erectile dysfunction . TIOTROPIUM BR/OLODATEROL HCL (STIOLTO RESPIMAT INHL) Inhale . Modified Medications No medications on file Discontinued Medications No medications on file Physical Examination: BP 101/62 (BP Location: Right arm, Patient Position: Sitting, BP Cuff Size: Adult) Pulse 81 Ht 5' 11 Wt 70.4 kg (155 lb 3.2 oz) SpO2 97% BMI 21.65 kg/m Constitutional: Appears well-developed and well-nourished. No distress. Head: Normocephalic and atraumatic. Cardiovascular: Normal rate and regular rhythm. Exam reveals no gallop and no friction rub. No murmur heard. No peripheral edema. No JVD noted Pulmonary/Chest: Effort normal and breath sounds normal. No respiratory distress. No wheezes. No rales. Abdominal: Soft. Bowel sounds are normal. There is no abdominal tenderness. Musculoskeletal: Normal range of motion. Neurological: AOx3, moving all ext. Skin: Skin is warm and dry. No rash noted. Psychiatric: Normal mood and affect. Lab Results Component Value Date CHOL 157 12/28/2019 LDLCALC 64 12/28/2019 TRIG 78 12/28/2019 HDL 77 12/28/2019 Creatinine clearance cannot be calculated (Patient's most recent lab result is older than the maximum 14 days allowed.) documented in this encounter [facility] 09-11-2021 Instructions Sakshi Olvera MA - 09/11/2021 10:04 AM EDT How to Contact your Care Team: Provider: Dr. Adán Gorman MD Director Of Neighborhood Service Center: Lupis Brown RN documented in this encounter [facility] 07-26-2021 Instructions HETAL Sahni - 07/26/2021 8:12 AM EDT Please contact 's office for an appointment. documented in this encounter [facility] 07-26-2021 History of Present illness Narrative [facility] CARDIOLOGY HEART FAILURE CLINIC NAME: Aarti Garcia DATE OF : 1965 MEDICAL RECORD#: [id number] [employer] APPRENTICE [employer]: Adán Gorman MD TODAY'S DATE: 07/26/2021 Subjective Aarti Garcia is a 56 y.o. male with a h/o HFrEF, hypertension, atrial fib, ICD, CAD who presents today for his follow up visit to the heart failure clinic. The patient is accompanied today by his . Mr. Garcia presented after an OV with Dr. Gorman. At that visit, he had evidence of congestion with increased shortness of breath. His Optivol was elevated and his defibrillator showed intermittent a fib. He was started on spironolactone and Eliquis. We discussed his cardiac history and symptoms to monitor and report. He admits that he has PND 3 nights a week. His lungs are clear, no pedal edema. We discussed guideline directed medical therapy for HFrEF. He is on an adequate beta blockade and ARB. He is on an aldosterone receptor antagonist. We discussed the importance of increasing these to their highest tolerated doses to achieve maximal benefit. We discussed Entresto and how it could benefit him. His BP is adequate and he was interested in transitioning to Entresto 24/26 mg BID. He will stop losartan and start Entresto 24/26 mg BID, taking at lunch and bedtime to limit hypotension. He stated that he was feeling much better since starting Entresto. He has not used any breathing treatments. He denied PND or cough. HIs weight is up 5 lb. HIs lungs are clear, no pedal edema. He reports improved exercise tolerance. BPs have been 100-110 systolic at home. His heart rate is not under optimal control, however he is mildy hypotensive. He was encouraged to continue to monitor vitals at home, with the intent to increase carvedilol in the future. At his last visit, his weight is stable, lungs are clear, no pedal edema or c/o congestion. He notes BPs 110-130 systolic, heart rates 76-90 at home. His BP is adequate and his heart rate would benefit from increasing carvedilol to 25 mg BID. He called the next week with c/o increased weakness on the 25 mg BID carvedilol dose. He resumed the 12.5 mg BID dose. Today, he stated that he was doing well. He denied congestive or hypotensive symptoms. His weight is stable, lungs are clear, no pedal edema. We discussed a low sodium meal plan. He eats a very high sodium diet. We discussed lower sodium alternatives. He does not drink excessive fluids. We discussed a low level activity plan. He is currently walking around his property 20 minutes three times daily. Congestive Heart Failure Intake General Data In CHF program?: Yes Heart Failure etiology: Ischemic Heart Failure type: Systolic Device: ICD Received HF educational booklet: Pos 6 minute walk in past year: Neg NYHA functional class: II Last Ejection Fraction: 31 Date: 10/12/19 Modality: Echocardiogram Systolic HF medication titration data On BetaBlocker?: Yes Dosing: Still being titrated On ALYSSA/ARB/ARNI: ARNI Dosing: Still being titrated On Aldosterone Antagonist?: Yes On Ivabradine?: No On Digoxin?: No On Hydralazine?: No On Nitrate?: No CARDIAC HISTORY INCLUDES: 11/30/2020 Cath #1. Moderately severe LV systolic dysfunction with an estimated LV ejection fraction of 28-30%. 2. Normal left ventricular end-diastolic pressure. 3. Severe seminole multivessel coronary artery disease. 4. Patent left internal mammary graft to the mid left anterior descending. 5. Patent saphenous vein graft to the obtuse marginal branch of the circumflex, reidentification of moderate disease in the proximal body of the graft. 6. Patent saphenous vein graft to the right coronary artery, reidentification of moderate disease in the proximal body of the graft. 10/12/2019 Echo Summary 1. Technically difficult echo windows, Definity used to optimize study. 2. LV appears dilated with global dysfunction with segmental features. Biplane LVEF 31%. 3. Mild RV enlargement with mild RV dysfunction. Device wire noted in right heart. 4. Elevated left atrial pressure. 5. There is mild tricuspid valve regurgitation. 6. There is pulmonary hypertension, estimated pulmonary arterial systolic pressure is 45 mmHg. 7. There is moderate mitral valve regurgitation. 8. Prior ejection fraction of 30% noted from nuclear stress perfusion study from 2015. Histories: Past Medical History: Diagnosis Date Acute anterolateral myocardial infarction (HCC) Anoxic encephalopathy (HCC) CAD (coronary artery disease) CABG Cardiac arrest (HCC) ICD (implantable cardioverter-defibrillator) in place 03/18/2016 Vertigo Past Surgical History: Procedure Laterality Date CABG CARDIAC CATHETERIZATION CARDIAC DEFIBRILLATOR PLACEMENT CORONARY ANGIOPLASTY 2013 CORONARY ARTERY BYPASS GRAFT BARAJAS to LAD, VG to OM of circ and RCA EYE SURGERY LEFT HEART CATH N/A 11/30/2020 Procedure: Left Heart Cath; Surgeon: Rubén Martinez MD; Location: [facility]; Service: Cardiovascular PACEMAKER INSERTION and defilibrator Current Medications: Current Outpatient Medications Medication Sig Dispense Refill albuterol (PROVENTIL) 2.5 mg /3 mL (0.083 %) nebulizer solution Take 2.5 mg by nebulization every 6 (six) hours as needed for wheezing . apixaban (Eliquis) 5 mg Tab Take 1 (one) tablet (5 mg total) by mouth 2 (two) times a day Blood thinner . 180 tablet 3 aspirin 81 MG EC tablet Take 81 mg by mouth daily atorvastatin (LIPITOR) 10 MG tablet Take 1 (one) tablet (10 mg total) by mouth daily . 90 tablet 3 carvediloL (COREG) 12.5 MG tablet Take 1 (one) tablet (12.5 mg total) by mouth 2 (two) times a day . 180 tablet 3 eplerenone (Inspra) 25 MG tablet Take 1 (one) tablet (25 mg total) by mouth daily Taking whole tablet daily . 90 tablet 3 sacubitriL-valsartan (Entresto) 24-26 mg per tablet Take 1 (one) tablet by mouth 2 (two) times a day . 180 tablet 3 albuterol 90 mcg/actuation inhaler Inhale 2 puffs every 4 (four) hours as needed for shortness of breath . tiotropium Br/olodaterol HCl (STIOLTO RESPIMAT INHL) Inhale . Current Facility-Administered Medications Medication Dose Route Frequency Provider Last Rate Last Admin nitroGLYCERIN (NITROSTAT) SL tablet 0.4 mg 0.4 mg Sublingual Q5 Min PRN Jade Rivera, CUSTOMER SUPPORT COORDINATOR Allergies Allergen Reactions Lisinopril Other (See Comments) Cough Review of Systems Constitutional: Positive for weight loss. Negative for malaise/fatigue and weight gain. Cardiovascular: Positive for dyspnea on exertion. Negative for leg swelling and paroxysmal nocturnal dyspnea. Respiratory: Negative for cough. Skin: Negative for rash. Musculoskeletal: Negative. Gastrointestinal: Negative for constipation and diarrhea. Genitourinary: Negative for dysuria. Neurological: Negative for dizziness and light-headedness. Psychiatric/Behavioral: Positive for depression. The patient does not have insomnia. Objective: Physical Exam Constitutional: Appearance: Normal appearance. He is well-developed. Comments: thin HENT: Head: Normocephalic and atraumatic. Eyes: Conjunctiva/sclera: Conjunctivae normal. Neck: Vascular: No JVD. Cardiovascular: Rate and Rhythm: Normal rate and regular rhythm. Pulses: Radial pulses are 2+ on the right side and 2+ on the left side. Dorsalis pedis pulses are 0 on the right side and 0 on the left side. Posterior tibial pulses are 0 on the right side and 0 on the left side. Heart sounds: Normal heart sounds. Pulmonary: Effort: Pulmonary effort is normal. No respiratory distress. Breath sounds: Normal breath sounds. No wheezing or rales. Abdominal: General: Bowel sounds are normal. There is no distension. Palpations: Abdomen is soft. Musculoskeletal: General: Normal range of motion. Cervical back: Neck supple. Right lower leg: No edema. Left lower leg: No edema. Skin: General: Skin is warm and dry. Neurological: Mental Status: He is alert and oriented to person, place, and time. Mental status is at baseline. Psychiatric: Behavior: Behavior normal. Thought Content: Thought content normal. Judgment: Judgment normal. Vitals: Vitals: 07/26/21 0749 BP: 114/70 Pulse: 83 SpO2: 98% Weight: 69.4 kg (153 lb) Height: 5' 11 Lab Review: Recent labs reviewed with patient Assessment & Plan: Plan IMPRESSION: HFrEF Etiology: ischemic Most recent known EF:31 Stage: C NYHA Class: II No symptoms of congestion Essential hypertension: Currently hypotensive CAD - CABG. 11/30/2020 cath with patent grafts. Hyperlipidemia- On atorvastatin Sleep Apnea-to be evaluated ICD - last device check 06/06/2021 Remote transmission dual chamber CD Est. Battery Time: 3 years Presenting EGM: /VS AP: 12.6% DYNAMOMETER TUNER: 0.1% AFib Tyler: < 0.1% AHR Episodes: 0 VHR Episodes: 2, No therapies delivered Short V - V: 0 Sensing, Thresholds, Impedances: stable Histograms: 60-120 bpm Optivol crossed the threshold 05 Jun 2021 and is ongoing, will be sent to HETAL Ruth Medications per EPIC: eliquis, baby asa, coreg, entresto Yearly In Clinic Device Check Due: October 2021 Notes/Summary: 2019 Echo EF=31% Atrial fibrilllation- started on Eliquis , carvedilol PLAN: Patient placed on guideline directed therapy including: ALYSSA/ARB/ARNI Entresto 24/26 mg BID BB: Carvedilol 12.5 mg BID Aldosterone antagonist Spironolactone 25 mg QD Diuretic no Potassium no Medications: No changes Labs to be drawn: BMP recently done Activity goal: walk 20 minutes BID Patient encouraged w/ daily weight and recording. Diet counseling: Patient was counseled on low sodium heart healthy diet. FOLLOW-UP SCHEDULE: Patient is currently scheduled to follow-up with Dr. Gorman Patient will return to see us in January 30 minutes was spent w/ the patient. Over half of this time was spent in counseling regarding medication therapy, treatments, activity, diet planning including teaching and review of reports with patient. There is collaboration between the CUSTOMER SUPPORT COORDINATOR and the consulting/collaborating physician regarding this patient's plan of care. Dr. Adán Gorman MD has been updated regarding the patient's status via EMR. Thank you for allowing us to participate in the care of our patient. Please call if you have any further questions. Signature: HETAL Ruth documented in this encounter [facility] 06-07-2021 History of Present illness Narrative Elevated Optivol Images from the original note were not included. Carelink remote received showing Optivol crossed the threshold on 05 Jun 2021 and is ongoing. To be reviewed by HETAL Ruth. documented in this encounter [facility] 03-08-2021 History of Present illness Narrative [facility] CARDIOLOG[facility] HEART FAILURE CLINIC NAME: Aarti Garcia DATE OF : 1965 MEDICAL RECORD#: [id number] IRONWORKER APPRENTICE SHOP: Adán Gorman MD TODAY'S DATE: 03/08/2021 Subjective Aarti Garcia is a 55 y.o. male with a h/o HFrEF, hypertension, atrial fib, ICD, CAD who presents today for his follow up visit to the heart failure clinic. The patient is accompanied today by his . Mr. Garcia presented after an OV with Dr. Gorman. At that visit, he had evidence of congestion with increased shortness of breath. His Optivol was elevated and his defibrillator showed intermittent a fib. He was started on spironolactone and Eliquis. We discussed his cardiac history and symptoms to monitor and report. He admits that he has PND 3 nights a week. His lungs are clear, no pedal edema. We discussed guideline directed medical therapy for HFrEF. He is on an adequate beta blockade and ARB. He is on an aldosterone receptor antagonist. We discussed the importance of increasing these to their highest tolerated doses to achieve maximal benefit. We discussed Entresto and how it could benefit him. His BP is adequate and he was interested in transitioning to Entresto 24/26 mg BID. He will stop losartan and start Entresto 24/26 mg BID, taking at lunch and bedtime to limit hypotension. He stated that he was feeling much better since starting Entresto. He has not used any breathing treatments. He denied PND or cough. HIs weight is up 5 lb. HIs lungs are clear, no pedal edema. He reports improved exercise tolerance. BPs have been 100-110 systolic at home. His heart rate is not under optimal control, however he is mildy hypotensive. He was encouraged to continue to monitor vitals at home, with the intent to increase carvedilol in the future. At his last visit, his weight is stable, lungs are clear, no pedal edema or c/o congestion. He notes BPs 110-130 systolic, heart rates 76-90 at home. His BP is adequate and his heart rate would benefit from increasing carvedilol to 25 mg BID. He called the next week with c/o increased weakness on the 25 mg BID carvedilol dose. He resumed the 12.5 mg BID dose. Today, he stated that he was doing well. He denied congestive or hypotensive symptoms. His weight is stable, lungs are clear, no pedal edema. We discussed a low sodium meal plan. He eats a very high sodium diet. We discussed lower sodium alternatives. He does not drink excessive fluids. We discussed a low level activity plan. He is currently walking around his property 20 minutes three times daily. Congestive Heart Failure Intake General Data In CHF program?: Yes Heart Failure etiology: Ischemic Heart Failure type: Systolic Device: ICD Received HF educational booklet: Pos 6 minute walk in past year: Neg NYHA functional class: II Last Ejection Fraction: 31 Date: 10/12/19 Modality: Echocardiogram Systolic HF medication titration data On BetaBlocker?: Yes Dosing: Still being titrated On ALYSSA/ARB/ARNI: ARNI Dosing: Still being titrated On Aldosterone Antagonist?: Yes On Ivabradine?: No On Digoxin?: No On Hydralazine?: No On Nitrate?: No CARDIAC HISTORY INCLUDES: 11/30/2020 Cath #1. Moderately severe LV systolic dysfunction with an estimated LV ejection fraction of 28-30%. 2. Normal left ventricular end-diastolic pressure. 3. Severe seminole multivessel coronary artery disease. 4. Patent left internal mammary graft to the mid left anterior descending. 5. Patent saphenous vein graft to the obtuse marginal branch of the circumflex, reidentification of moderate disease in the proximal body of the graft. 6. Patent saphenous vein graft to the right coronary artery, reidentification of moderate disease in the proximal body of the graft. 10/12/2019 Echo Summary 1. Technically difficult echo windows, Definity used to optimize study. 2. LV appears dilated with global dysfunction with segmental features. Biplane LVEF 31%. 3. Mild RV enlargement with mild RV dysfunction. Device wire noted in right heart. 4. Elevated left atrial pressure. 5. There is mild tricuspid valve regurgitation. 6. There is pulmonary hypertension, estimated pulmonary arterial systolic pressure is 45 mmHg. 7. There is moderate mitral valve regurgitation. 8. Prior ejection fraction of 30% noted from nuclear stress perfusion study from 2016. Histories: Past Medical History: Diagnosis Date Acute anterolateral myocardial infarction (HCC) Anoxic encephalopathy (HCC) CAD (coronary artery disease) CABG Cardiac arrest (HCC) ICD (implantable cardioverter-defibrillator) in place 03/18/2016 Vertigo Past Surgical History: Procedure Laterality Date CABG CARDIAC CATHETERIZATION CARDIAC DEFIBRILLATOR PLACEMENT CORONARY ANGIOPLASTY 2013 CORONARY ARTERY BYPASS GRAFT BARAJAS to LAD, VG to OM of circ and RCA EYE SURGERY LEFT HEART CATH N/A 11/30/2020 Procedure: Left Heart Cath; Surgeon: Rubén Martinez MD; Location: [facility]; Service: Cardiovascular PACEMAKER INSERTION and defilibrator Current Medications: Current Outpatient Medications Medication Sig Dispense Refill apixaban (Eliquis) 5 mg Tab Take 1 (one) tablet (5 mg total) by mouth 2 (two) times a day Blood thinner . 180 tablet 3 aspirin 81 MG EC tablet Take 81 mg by mouth daily atorvastatin (LIPITOR) 10 MG tablet Take 1 (one) tablet (10 mg total) by mouth daily . 90 tablet 3 carvediloL (COREG) 12.5 MG tablet Take 1 (one) tablet (12.5 mg total) by mouth 2 (two) times a day . 180 tablet 3 sacubitriL-valsartan (Entresto) 24-26 mg per tablet Take 1 (one) tablet by mouth 2 (two) times a day . 180 tablet 3 albuterol (PROVENTIL) 2.5 mg /3 mL (0.083 %) nebulizer solution Take 2.5 mg by nebulization every 6 (six) hours as needed for wheezing . albuterol 90 mcg/actuation inhaler Inhale 2 puffs every 4 (four) hours as needed for shortness of breath . eplerenone (Inspra) 25 MG tablet Take 1 (one) tablet (25 mg total) by mouth daily Taking whole tablet daily . 90 tablet 3 tiotropium Br/olodaterol HCl (STIOLTO RESPIMAT INHL) Inhale . Current Facility-Administered Medications Medication Dose Route Frequency Provider Last Rate Last Admin nitroGLYCERIN (NITROSTAT) SL tablet 0.4 mg 0.4 mg Sublingual Q5 Min PRN Jade Rivera, CUSTOMER SUPPORT COORDINATOR Allergies Allergen Reactions Lisinopril Other (See Comments) Cough Review of Systems Constitutional: Positive for weight gain. Negative for malaise/fatigue. Cardiovascular: Positive for dyspnea on exertion. Negative for leg swelling and paroxysmal nocturnal dyspnea. Respiratory: Negative for cough. Skin: Positive for rash (on right knee). Musculoskeletal: Negative. Gastrointestinal: Negative for constipation and diarrhea. Genitourinary: Negative for dysuria. Neurological: Negative for dizziness and light-headedness. Psychiatric/Behavioral: Positive for depression. The patient does not have insomnia. Objective: Physical Exam Constitutional: Appearance: He is well-developed. Comments: thin HENT: Head: Normocephalic and atraumatic. Eyes: Conjunctiva/sclera: Conjunctivae normal. Neck: Vascular: No JVD. Cardiovascular: Rate and Rhythm: Normal rate and regular rhythm. Pulses: Radial pulses are 2+ on the right side and 2+ on the left side. Dorsalis pedis pulses are 0 on the right side and 0 on the left side. Posterior tibial pulses are 0 on the right side and 0 on the left side. Heart sounds: Normal heart sounds. Pulmonary: Effort: Pulmonary effort is normal. No respiratory distress. Breath sounds: Normal breath sounds. No wheezing or rales. Abdominal: General: Bowel sounds are normal. There is no distension. Palpations: Abdomen is soft. Musculoskeletal: General: Normal range of motion. Cervical back: Neck supple. Skin: General: Skin is warm and dry. Neurological: Mental Status: He is alert and oriented to person, place, and time. Psychiatric: Behavior: Behavior normal. Thought Content: Thought content normal. Judgment: Judgment normal. Vitals: Vitals: 03/08/21 0818 BP: 114/63 Pulse: 70 SpO2: 98% Weight: 70.3 kg (155 lb) Lab Review: Recent labs reviewed with patient Assessment & Plan: Plan IMPRESSION: HFrEF Etiology: ischemic Most recent known EF:31 Stage: C NYHA Class: II He no longer has congestive symptoms of PND and cough Essential hypertension: Currently hypotensive CAD - CABG. 11/30/2020 cath with patent grafts. Hyperlipidemia- On atorvastatin Sleep Apnea-to be evaluated ICD - last device check 02/22/2021 Remote transmission dual chamber CD Est. Battery Time: 3.2 years (2.95V) charge time: 4.2 sec Presenting EGM: /VS rate 70's AP: 6 % RVP: <0.1 % AFib Tyler: 0 % AHR Episodes: 0 VHR Episodes: 3 listed lasting 1-2 sec with avg V rates of 222-258; one egm for review appears as NSVT. No therapies delivered Short V - V: 0 Sensing, Thresholds, Impedances: stable Histograms: 60-120 bpm Heart Failure Alerts: No Medications per EPIC: eliquis, baby asa, coreg, entresto Yearly In Clinic Device Check Due: October 2021 Notes/Summary: 2019 Echo EF=31% Atrial fibrilllation- started on Eliquis , carvedilol PLAN: Patient placed on guideline directed therapy including: ALYSSA/ARB/ARNI Entresto 24/26 mg BID BB: Carvedilol 12.5 mg BID Aldosterone antagonist Spironolactone 25 mg QD Diuretic no Potassium no Medications: No changes Labs to be drawn: BMP recently done Activity goal: walk 20 minutes BID Patient encouraged w/ daily weight and recording. Diet counseling: Patient was counseled on low sodium heart healthy diet. FOLLOW-UP SCHEDULE: Patient is currently scheduled to follow-up with Dr. Gorman Patient will return to see us in August 17 minutes was spent w/ the patient. Over half of this time was spent in counseling regarding medication therapy, treatments, activity, diet planning including teaching and review of reports with patient. There is collaboration between the CUSTOMER SUPPORT COORDINATOR and the consulting/collaborating physician regarding this patient's plan of care. Dr. Adán Gorman MD has been updated regarding the patient's status via EMR. Thank you for allowing us to participate in the care of our patient. Please call if you have any further questions. Signature: HETAL Ruth documented in this encounter [facility] 12-07-2020 History of Present illness Narrative 12/07/20 Aarti Garcia 1965 Heart Failure Clinic Aarti Garcia is a 55 y.o. male seen today in the Heart Failure Clinic for follow up. He is accompanied by his today. Aarti is not experiencing any more episodes of dizziness or leg weakness. He is not experiencing chest pains or SOB, except for when he carried a couch from his living room to his burn pile. He walks his property with no SOB and is able to shower and get dressed without problem. Aarti does not exhibit s/s of congestion today. He reports that his appetite is good and that he does not sleep well due to having worked early in the morning for so many years. I do observe a tremor to bilateral hands. Congestive Heart Failure Intake General Data In CHF program?: Yes Heart Failure etiology: Ischemic Heart Failure type: Systolic Device: ICD Received HF educational booklet: Pos 6 minute walk in past year: Neg NYHA functional class: II Last Ejection Fraction: 31 Date: 10/12/19 Modality: Echocardiogram Systolic HF medication titration data On BetaBlocker?: Yes Dosing: Still being titrated On ALYSSA/ARB/ARNI: ARNI Dosing: Still being titrated On Aldosterone Antagonist?: Yes On Ivabradine?: No On Digoxin?: No On Hydralazine?: No On Nitrate?: No Last Lab: Lab Results Component Value Date CREATININE 0.84 11/15/2020 BUN 9 11/15/2020 NA 138 11/15/2020 K 4.6 11/15/2020 CL 104 11/15/2020 BICARB 27 11/15/2020 Lab Results Component Value Date WBC 6.87 11/15/2020 HGB 15.2 11/15/2020 HCT 46.0 11/15/2020 MCV 94.3 11/15/2020 PLT 267 11/15/2020 Lab Results Component Value Date ALT 41 01/16/2020 AST 34 01/16/2020 ALKPHOS 87 01/16/2020 BILITOT 0.9 01/16/2020 Subjective/Objective Vitals: 12/07/20 0813 BP: (!) 117/56 BP Location: Left arm Patient Position: Sitting BP Cuff Size: Adult Pulse: 79 Resp: 14 SpO2: 99% Weight: 68.1 kg (150 lb 1.6 oz) Height: 5' 11 Prior to Admission medications Medication Sig Start Date End Date Taking? Authorizing Provider albuterol (PROVENTIL) 2.5 mg /3 mL (0.083 %) nebulizer solution Take 2.5 mg by nebulization every 6 (six) hours as needed for wheezing . Yes Historical Provider, albuterol 90 mcg/actuation inhaler Inhale 2 puffs every 4 (four) hours as needed for shortness of breath . Yes Historical Provider, apixaban (Eliquis) 5 mg Tab Take 1 (one) tablet (5 mg total) by mouth 2 (two) times a day Blood thinner . 11/02/20 Yes HETAL Sahni aspirin 81 MG EC tablet Take 81 mg by mouth daily Yes Historical Provider, atorvastatin (LIPITOR) 10 MG tablet Take 1 (one) tablet (10 mg total) by mouth daily . 11/02/20 Yes HETAL Sahni carvediloL (COREG) 12.5 MG tablet Take 1 (one) tablet (12.5 mg total) by mouth 2 (two) times a day . 11/02/20 11/02/21 Yes HETAL Sahni eplerenone (Inspra) 25 MG tablet Take 1/2 tablet daily. . 11/02/20 Yes Jade Rivera CUSTOMER SUPPORT COORDINATOR sacubitriL-valsartan (Entresto) 24-26 mg per tablet Take 1 (one) tablet by mouth 2 (two) times a day . 12/29/19 12/28/20 Yes HETAL Sahni tiotropium Br/olodaterol HCl (STIOLTO RESPIMAT INHL) Inhale . Yes Historical Provider, Wt Readings from Last 3 Encounters: 12/07/20 68.1 kg (150 lb 1.6 oz) 11/30/20 65.8 kg (145 lb) 11/15/20 68 kg (150 lb) General: Thin, disheveled Psych: Normal mood and affect, makes good eye contact Skin: PWD, denies open areas or rashes Breath Sounds: CTA AP SOB: denies PND: denies Pt can sleep flat: no Heart Sounds: Regular Edema: none appreciated JVD: distention at 2 cm above the clavicle at 45 degrees Dizzy or lightheadedness: denies, admits improvement with this GI/: no problems identified Activity: remains very active, walks property for exercise, has a couple of small hills Appetite: no problems identified Education: Diet: 2000mg (2 gm) Sodium diet. Do not add salt to food or cook with salt. Check labels for Sodium (Na). 2 liter (64ounces) fluid restriction Weigh yourself each day: Record your weight in your weight log. Call Heart Failure clinic ([phone]) for Difficulty breathing, especially at rest or when lying flat in bed Frequent dry, hacking cough, especially when lying down Waking up breathless at night Swollen feet, ankles, legs, or abdomen Increased tiredness or fatigue If you become dizzy or Lightheaded. Assessment & Plan this visit: Continue as you are. Return to see us in February please. Call us with any issues in the meantime. Isabella Darby RN, CCRN, CHFN documented in this encounter [facility] 11-30-2020 History of Present illness Narrative Here for routine medcheckCAD/AICD/HISTORY [place] and CABG/ISCHEMIC CARDIOMYOPATHY/HTN -Finished cardiac rehab. Had heart cath done 11/30/20 at [facility]. Everything looked good. Still sees Ashanti FONG and Dr. Gorman. Last visit 11/15/20/report reviewed. Next visit 03/08/21. BP good today. Thinks good at home <130/80. Has been checking about every 2 weeks.Denies CP or SOBCOPD - No further SOB. No problems. No recent need for breathing treatments. No further cough at night but will cough a little before going to bed. Has been doing well. Only using the Stiolto as needed. Hasn't seen the boxer operator recently. Has had virtual visit with Dr. Pride 01/03/21 Discussed follow up with boxer operator. PFT's done 12/20/2019.IMPOTENCE - Viagra has been working well. If he takes it with food it seems to make him vomit. Takes it with gatorade.Sent the Cologuard in and report showing negative results 12/18/20.Has had both COVID vaccines.Feeling well [facility] Work Phone: 11-30-2020 History of Present illness Narrative Here with She for routine medcheckCAD/AICD/HISTORY [place] and CABG/ISCHEMIC CARDIOMYOPATHY/HTN -Finished cardiac rehab. Had heart cath done 11/30/20 at [facility]. Everything looked good. Still sees Ashanti FONG and Dr. Gorman. Last visit 11/15/20/report reviewed. Next visit 03/08/21. BP good today. Thinks good at home <130/80. Has been checking about every 2 weeks.Denies CP or SOBCOPD - No further SOB. No problems. No recent need for breathing treatments. No further cough at night but will cough a little before going to bed. Has been doing well. Only using the Stiolto as needed. Hasn't seen the boxer operator recently. Has had virtual visit with Dr. Pride 01/04/2020. Discussed follow up with boxer operator. PFT's done 12/20/2019.IMPOTENCE - Viagra has been working well. If he takes it with food it seems to make him vomit. Takes it with gatorade.Sent the Cologuard in and report showing negative results 12/18/20.Has had both COVID vaccines.Feeling well [facility] Work Phone: 11-15-2020 Miscellaneous Notes Addended by: DAY BELLO on: 11/15/2020 10:32 AM Modules accepted: Orders Associated Problem(s): 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 Patient and are concerned he has had a couple of spells while walking where he feels weak in his legs. Some mild increase shortness of breath but overall continues to be functional class II no chest pains but he said he never had chest pain before his heart attack either. Had lightheadedness weakness prior to his heart attack he is concerned about that. Last heart catheterization in 2015 following an abnormal nuclear stress test was found to have 3 of 3 patent grafts. History of ejection fraction stable 31% with moderate mitral valve regurgitation. Patient euvolemic today. Pulse regular at 72 blood pressure 111/69 O2 sat 98% quit all tobacco products in 2012 at the time of his heart attack. ICD does show for episodes of a short 1 to 2-second ventricular high rate episode suggesting a nonsustained VT. Recommend ischemic work-up nuclear stress test quite abnormal in 2015 prior to left heart cath at which time was found to have 3 of 3 patent grafts this time go directly to left heart catheterizations but almost 5 years patient is in agreement with that. Renal function has been intact no change in medications today. If heart cath unremarkable recommended taking his morning pills with some food which might help prevent the weak spells well walking in the a.m. Reluctant to cut back on his guideline directed medical therapy Follow BP at home documented in this encounter [facility] 11-15-2020 History of Present illness Narrative [facility] [address] [facility] [address] [facility] [id number] Subjective: Aarti Garcia is a 55 y.o. male seen in the office today for Chief Complaint Patient presents with Follow-up DEVICE CHECK & 6 MO Fatigue Dizziness Gastroesophageal Reflux Overview of Problems Addressed: Problem Coronary Artery Disease Involving [place] Coronary Artery of [place] Heart Without Angina Pectoris Echo cardiogram summer 2019 ejection fraction 31%. Moderate mitral valve regurgitation moderate pulmonary hypertension. EF similar to nuclear stress test dating back 2015. had out of hospital cardiac arrest in 2013. He had severe anoxic encephalopathy initially. He underwent initial catheterization ultimately had bypass surgery. Left internal mammary artery graft was placed to left anterior descending, vein graft and obtuse marginal, vein graft to the PDA branch of the right. He has an ICD placed for primary prevention. Repeat heart catheterization March 2016 with 3 of 3 patent grafts ejection fraction 30%. LV filling pressure was normal. Continue medical therapy is recommended. Prophylactic ICD Assessment & Plan: 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 Patient and are concerned he has had a couple of spells while walking where he feels weak in his legs. Some mild increase shortness of breath but overall continues to be functional class II no chest pains but he said he never had chest pain before his heart attack either. Had lightheadedness weakness prior to his heart attack he is concerned about that. Last heart catheterization in 2015 following an abnormal nuclear stress test was found to have 3 of 3 patent grafts. History of ejection fraction stable 31% with moderate mitral valve regurgitation. Patient euvolemic today. Pulse regular at 72 blood pressure 111/69 O2 sat 98% quit all tobacco products in 2012 at the time of his heart attack. ICD does show for episodes of a short 1 to 2-second ventricular high rate episode suggesting a nonsustained VT. Recommend ischemic work-up nuclear stress test quite abnormal in 2016 prior to left heart cath at which time was found to have 3 of 3 patent grafts this time go directly to left heart catheterizations but almost 5 years patient is in agreement with that. Renal function has been intact no change in medications today. If heart cath unremarkable recommended taking his morning pills with some food which might help prevent the weak spells well walking in the a.m. Reluctant to cut back on his guideline directed medical therapy Follow BP at home Histories: Past Medical History: Diagnosis Date Acute anterolateral myocardial infarction (HCC) Anoxic encephalopathy (HCC) CAD (coronary artery disease) CABG Cardiac arrest (HCC) ICD (implantable cardioverter-defibrillator) in place 03/18/2016 Vertigo Past Surgical History: Procedure Laterality Date CABG CARDIAC CATHETERIZATION CARDIAC DEFIBRILLATOR PLACEMENT CORONARY ANGIOPLASTY 2013 CORONARY ARTERY BYPASS GRAFT BARAJAS to LAD, VG to OM of circ and RCA EYE SURGERY PACEMAKER INSERTION and defilibrator Family History Problem Relation Age of Onset Heart attack Father Social History Tobacco Use Smoking status: Former Smoker Types: Cigarettes Quit date: 10/08/2012 Years since quittin.1 Smokeless tobacco: Never Used Vaping Use Vaping Use: Former Substance Use Topics Alcohol use: No Alcohol/week: 0.0 standard drinks Drug use: No Patient's Medications New Prescriptions No medications on file Previous Medications ALBUTEROL (PROVENTIL) 2.5 MG /3 ML (0.083 %) NEBULIZER SOLUTION Take 2.5 mg by nebulization every 6 (six) hours as needed for wheezing . ALBUTEROL 90 MCG/ACTUATION INHALER Inhale 2 puffs every 4 (four) hours as needed for shortness of breath . APIXABAN (ELIQUIS) 5 MG TAB Take 1 (one) tablet (5 mg total) by mouth 2 (two) times a day Blood thinner . ASPIRIN 81 MG EC TABLET Take 81 mg by mouth daily ATORVASTATIN (LIPITOR) 10 MG TABLET Take 1 (one) tablet (10 mg total) by mouth daily . CARVEDILOL (COREG) 12.5 MG TABLET Take 1 (one) tablet (12.5 mg total) by mouth 2 (two) times a day . EPLERENONE (INSPRA) 25 MG TABLET Take 1/2 tablet daily. . SACUBITRIL-VALSARTAN (ENTRESTO) 24-26 MG PER TABLET Take 1 (one) tablet by mouth 2 (two) times a day . TIOTROPIUM BR/OLODATEROL HCL (STIOLTO RESPIMAT INHL) Inhale . Modified Medications No medications on file Discontinued Medications No medications on file Allergies Allergen Reactions Lisinopril Other (See Comments) Cough Review of Systems Constitutional: Positive for malaise/fatigue. Cardiovascular: Negative for chest pain, dyspnea on exertion, leg swelling and palpitations. Neurological: Positive for dizziness. Objective: Physical Exam Vitals and nursing note reviewed. Constitutional: General: He is not in acute distress. Appearance: He is not diaphoretic. Comments: No acute distress Body mass index is 19.67 kg/m . HENT: Head: Normocephalic. Eyes: General: No scleral icterus. Comments: Pupils equal. Neck: Vascular: No JVD. Cardiovascular: Rate and Rhythm: Regular rhythm. Pulses: Radial pulses are 2+ on the right side and 2+ on the left side. Heart sounds: S1 normal and S2 normal. No murmur heard. No gallop. No S3 or S4 sounds. Comments: Feet warm bilateral. Soft 1/6 short systolic murmur left lower sternal border. Pulse regular neck veins not elevated lungs are clear no significant pedal edema. Pulmonary: Effort: No respiratory distress. Breath sounds: Normal breath sounds. No stridor. No wheezing or rales. Abdominal: General: There is no distension. Palpations: Abdomen is soft. Tenderness: There is no abdominal tenderness. There is no guarding. Musculoskeletal: General: No tenderness. Skin: General: Skin is warm and dry. Neurological: Mental Status: He is alert and oriented to person, place, and time. Vitals: Vitals: 11/15/20 0906 BP: 111/69 BP Location: Left arm Patient Position: Sitting BP Cuff Size: Adult Pulse: 72 SpO2: 98% Weight: 68 kg (150 lb) Height: 5' 11 Body mass index is 20.92 kg/m . No orders of the defined types were placed in this encounter. Follow Up Ordered: No follow-ups on file. Adán Gorman MD Review of Systems Constitutional: Positive for malaise/fatigue. Cardiovascular: Negative for chest pain, dyspnea on exertion, leg swelling and palpitations. Neurological: Positive for dizziness. documented in this encounter [facility] 11-15-2020 History of Present illness Narrative Images from the original note were not included. PRELIMINARY REVIEW: Routed to Dr. Gorman and EP for review/signature: AARTI GARCIA was seen at [facility] on October. The patient's underlying rhythm was Sinus. This evaluation showed the patient was not pacing dependent. The evaluation results are as follows: ICD - Medtronic [id number] Bib MARTINEZ DR (On Alert). This device was implanted on 10/14/2013 and is 85 months old. The battery voltage was 2.95 V (recommended replacement = 2.73 V). Atrial Lead - Medtronic [id number] CapSureFix Novus. This lead was implanted on 10/14/2013. A pacing threshold of 0.75 V @ 0.4 ms was determined during today's evaluation. The P wave was sensed at 5.5 mV. The lead impedance was 418 ?. Right Ventricular Lead - Medtronic 6935M Sprint Quattro Secure S. This lead was implanted on 10/14/2013. A pacing threshold of 1.0 V @ 0.4 ms was determined during today's evaluation. The R wave was sensed at 6.75 mV. The lead impedance was 418 ?. A dual chamber ICD routine In Clinic Device Check and OV with Dr. Gorman Device Site: left chest without signs or symptoms of infection or erosion. Est. Battery: 3.6 years Underlying Rhythm: Sinus Presenting EGM: /VS rate 70's AP: 5.1 % RVP: <0.1 % AFib Tyler: <0.1 % AHR Episodes: 0 VHR Episodes: 4 egms appear NSVT lasting 1-2 seconds with avg V rates of 194-222 bpm V - V: 0 Sensing, Thresholds, Impedances: stable Histograms: 60-110 bpm Heart Failure Alerts: No Medications per EPIC: eliquis, baby asa, coreg, entresto Device tones demonstrated and discussed what to do if receives a shock; verbalized understanding. Notes/Summary: 2019 Echo EF=31% Changes Made: none Signature: Modesto Feliciano RN ___I have reviewed the device function, programmed parameters and heart rhythm. ___Pt will return to the Device Clinic per protocol or as directed. ___No changes made. documented in this encounter [facility] 11-15-2020 Instructions Dedra Nettles MA - 11/15/2020 9:06 AM EDT How to Contact your Care Team: Provider: Dr. Adán Gorman MD Director Of Neighborhood Service Center: Day Bello RN REFILLS: When in need for refills please call your care team or the office at [phone]. Please include medication name, pharmacy name, and specify 30-day or 90-day supply. Please check with your pharmacy within 24 hours of request for your refill. You must follow up as directed to continue current refills. Thank you! Heart Catheterization Date and Time of your procedure Thursday11/30/20 9 AM Please arrive at [facility] and check in at the Outpatient Registration by 7 AM DO NOT eat or drink anything after midnight on night prior to cath The morning of your procedure you should take your medications with as little water as possible. Bring a list of all medications you take along with dosage and frequency that you take the medications. DO NOT take Coumadin for 3 days prior to the procedure. If you take Xarelto, Pradaxa, or Eliquis, do not take for 2 days prior to the procedure. Be sure to get the required blood work done as soon as possible. You will be given a sedative for the procedure and therefore you will not be able to drive home. Please have a ride arranged. Please be advised that occasionally you may experience significant delays for up to several hours due to emergencies and/or unavoidable circumstances. If you have any questions or concerns please contact us at [phone]. documented in this encounter [facility] 11-02-2020 History of Present illness Narrative 11/02/20 Aarti Garcia 1965 Heart Failure Follow Up Aarit Garcia is a 55 y.o. male seen today in the Heart Failure Clinic for follow up. He is accompanied by his She today. Aarti is not exhibiting symptoms of congestion today, see assessment below. Aarti is, however, having some other concerning symptoms, which were discussed with HETAL Morrow. She tells me that Aarti is having episodes, usually in the evening hours, where he is ataxic like he is drunk but she is sure that he is not. Aarti also tells me of an episode in which he was out walking his property, as he does each morning, and developed an extreme weakness in his legs that was associated with excessive diaphoresis and fatigue. He reports that he was able to get to the house but that he slept the rest of the day. He denies that he had associated chest pain, pressure or palpitations. She also expresses concern over a tremor that is evident in Aarti's hands. It never goes away. It is worse over the last month. He does not notice weakness and does not notice a tremor to any other part of the body. Aarti does not have NTG tablets at home. We discussed what this drug is for, how it works, and how to take it. They are able to verbalize the instructions back to me. Congestive Heart Failure Intake General Data In CHF program?: Yes Heart Failure etiology: Ischemic Heart Failure type: Systolic Device: ICD Received HF educational booklet: Pos NYHA functional class: II Last Ejection Fraction: 31 Date: 10/12/19 Modality: Echocardiogram Systolic HF medication titration data On BetaBlocker?: Yes Dosing: Still being titrated On ALYSSA/ARB/ARNI: ARNI Dosing: Still being titrated On Aldosterone Antagonist?: Yes On Ivabradine?: No On Digoxin?: No On Hydralazine?: No On Nitrate?: No Last Lab: Lab Results Component Value Date CREATININE 0.98 07/27/2020 BUN 10 07/27/2020 NA 135 07/27/2020 K 4.4 07/27/2020 CL 102 07/27/2020 BICARB 24 07/27/2020 Lab Results Component Value Date WBC 7.99 01/16/2020 HGB 15.0 01/16/2020 HCT 44.4 01/16/2020 MCV 92.1 01/16/2020 PLT 264 01/16/2020 Lab Results Component Value Date ALT 41 01/16/2020 AST 34 01/16/2020 ALKPHOS 87 01/16/2020 BILITOT 0.9 01/16/2020 Subjective/Objective Vitals: 11/02/20 0825 BP: 100/64 BP Location: Left arm Patient Position: Sitting BP Cuff Size: Adult Pulse: 74 Resp: 14 SpO2: 97% Weight: 66.7 kg (147 lb 1.6 oz) Height: 5' 11 Prior to Admission medications Medication Sig Start Date End Date Taking? Authorizing Provider albuterol (PROVENTIL) 2.5 mg /3 mL (0.083 %) nebulizer solution Take 2.5 mg by nebulization every 6 (six) hours as needed for wheezing . Yes Historical Provider, albuterol 90 mcg/actuation inhaler Inhale 2 puffs every 4 (four) hours as needed for shortness of breath . Yes Historical Provider, apixaban (Eliquis) 5 mg Tab Take 1 (one) tablet (5 mg total) by mouth 2 (two) times a day Blood thinner . 11/02/20 Yes HETAL Sahni aspirin 81 MG EC tablet Take 81 mg by mouth daily Yes Historical Provider, atorvastatin (LIPITOR) 10 MG tablet Take 1 (one) tablet (10 mg total) by mouth daily . 11/02/20 Yes HETAL Sahni carvediloL (COREG) 12.5 MG tablet Take 1 (one) tablet (12.5 mg total) by mouth 2 (two) times a day . 11/02/20 11/02/21 Yes HETAL Sahni eplerenone (Inspra) 25 MG tablet Take 1/2 tablet daily. . 11/02/20 Yes HETAL Sahni sacubitriL-valsartan (Entresto) 24-26 mg per tablet Take 1 (one) tablet by mouth 2 (two) times a day . 12/29/19 12/28/20 Yes HETAL Sahni tiotropium Br/olodaterol HCl (STIOLTO RESPIMAT INHL) Inhale . Yes Historical Provider, apixaban (Eliquis) 5 mg Tab Take 1 (one) tablet (5 mg total) by mouth 2 (two) times a day Blood thinner . 04/25/20 11/02/20 Yes Adán Gorman MD atorvastatin (LIPITOR) 10 MG tablet Take 1 (one) tablet (10 mg total) by mouth daily. 10/08/20 11/02/20 Yes Adán Gorman MD carvediloL (COREG) 12.5 MG tablet Take 1 (one) tablet (12.5 mg total) by mouth 2 (two) times a day . 03/01/20 11/02/20 Yes HETAL Sahni eplerenone (Inspra) 25 MG tablet Take 1 (one) tablet (25 mg total) by mouth daily . 07/27/20 11/02/20 Yes HETAL Sahni Wt Readings from Last 3 Encounters: 11/02/20 66.7 kg (147 lb 1.6 oz) 07/27/20 68.5 kg (151 lb) 04/27/20 69.9 kg (154 lb) General: Thin, disheveled, chronically ill appearing Psych: Normal mood and affect, makes good eye contact Skin: Sallow, warm, dry; denies rashes or open areas; has multiple ecchymotic areas to BUE I'm not sure how I got those Breath Sounds: expiratory wheeze SOB: denies, however rarely exerts PND: denies Pt can sleep flat: yes, on side with 1 pillow Heart Sounds: Regular Edema: None appreciated JVD: not evident today Dizzy or lightheadedness: on occasion, he feels he has vertigo, BP runs on the low side and I have asked them to start monitoring BP daily at home and with any of these episodes GI/: Usually does not eat when he takes his morning medications. Encouraged to do so to help with hypotension and nausea Activity: walks rolling property 2-3 times daily Appetite: not great, sometimes only eating one meal per day. Encouraged to have small healthy snacks frequently throughout the day despite lack of appetite. He has lost 4 # since his last visit without trying. Education: Diet: 2000mg (2 gm) Sodium diet. Do not add salt to food or cook with salt. Check labels for Sodium (Na). 2 liter (64ounces) fluid restriction Weigh yourself each day: Record your weight in your weight log. Call Heart Failure clinic ([phone]) for Difficulty breathing, especially at rest or when lying flat in bed Frequent dry, hacking cough, especially when lying down Waking up breathless at night Swollen feet, ankles, legs, or abdomen Increased tiredness or fatigue If you become dizzy or Lightheaded. Assessment & Plan this visit: Refills will be sent today as requested Try cutting your Inspra in half to see if this helps with hypotension Please check BP at home Please report the symptoms that you shared with me today with Dr Gorman at your visit on 11/15 Return to see us in November Take Nitroglycerin as discussed, only if needed For any chest pain, pressure, passing out or racing heartbeats, please call 911 Isabella Darby RN, CCRN, CHFN documented in this encounter [facility] 10-08-2020 Miscellaneous Notes Last ov 04/25/20 Upcoming 11/15/20 documented in this encounter [facility] Evaluation note Diagnosis Chronic systolic congestive heart failure (HCC)- [facility] Diagnosis 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 [facility] Diagnosis 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 [facility] Diagnosis Chronic systolic congestive heart failure (HCC)- Primary [facility] Diagnosis Chronic systolic congestive heart failure (HCC)- Primary Essential hypertension Unspecified essential hypertension ICD (implantable cardioverter-defibrillator) in place [facility] Diagnosis Ischemic cardiomyopathy- Primary Other specified forms of chronic ischemic heart disease Essential hypertension Unspecified essential hypertension ICD (implantable cardioverter-defibrillator) in place [facility] Diagnosis Coronary artery disease, unspecified vessel or lesion type, unspecified whether angina present, unspecified whether seminole or transplanted heart- Primary Atrial fibrillation, unspecified type (HCC) HFrEF (heart failure with reduced ejection fraction) (HCC) History of ischemic cardiomyopathy ICD (implantable cardioverter-defibrillator) in place Benign essential HTN [facility] Diagnosis Essential hypertension- Primary Unspecified essential hypertension Ischemic cardiomyopathy Other specified forms of chronic ischemic heart disease 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 Atrial fibrillation, unspecified type (HCC) ICD (implantable cardioverter-defibrillator) in place [facility] Diagnosis Ischemic cardiomyopathy- Primary Other specified forms of chronic ischemic heart disease [facility] Diagnosis Chronic systolic congestive heart failure (HCC)- Primary [facility] Diagnosis Chronic obstructive pulmonary disease, unspecified COPD type (CMS/HCC)- Primary Male erectile dysfunction, unspecified Primary hypertension Unspecified essential hypertension documented in this encounter [facility] Work Phone: [phone] note* Diagnosis Mitral valve insufficiency, unspecified etiology- Primary Atrial fibrillation, unspecified type (HCC) 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 [facility]* Diagnosis Lipid screening- Primary Screening for lipoid disorders Prostate cancer screening Special screening for malignant neoplasm of prostate Chronic obstructive pulmonary disease, unspecified COPD type (CMS/HCC) Atrial fibrillation, unspecified type (CMS/HCC) Primary hypertension Unspecified essential hypertension documented in this encounter [facility] Work Phone: [phone] note* Diagnosis Chronic systolic congestive heart failure (HCC)- Primary Diastolic dysfunction Unspecified heart disease Screening for diabetes mellitus Hypercholesterolemia Pure hypercholesterolemia Prediabetes Other abnormal glucose [facility] ICD (implantable cardioverter-defibrillator) battery depletion- Primary ICD (implantable cardioverter-defibrillator) battery depletion- Primary ICD (implantable cardioverter-defibrillator) battery depletion [facility] Elevated PSA Elevated prostate specific antigen (PSA) documented in this encounter [facility] Work Phone: [phone] note* Diagnosis Elevated PSA, between 10 and less than 20 ng/ml documented in this encounter [facility] Work Phone: [phone] note* Diagnosis Elevated PSA, between 10 and less than 20 ng/ml BPH without obstruction/lower urinary tract symptoms documented in this encounter [facility] Work Phone: [phone] note* Diagnosis Colon cancer screening- Primary Special screening for malignant neoplasms, colon Chronic obstructive pulmonary disease, unspecified COPD type (Multi) Elevated PSA, between 10 and less than 20 ng/ml documented in this encounter [facility] Work Phone: [phone] note* Diagnosis Elevated PSA- Primary Elevated prostate specific antigen (PSA) documented in this encounter [facility] Work Phone: [phone] note* Diagnosis Elevated PSA, between 10 and less than 20 ng/ml- Primary Male erectile dysfunction, unspecified documented in this encounter [facility] Work Phone: [phone] note* Diagnosis Chronic obstructive pulmonary disease, unspecified COPD type (CMS/HCC)- Primary Primary hypertension Unspecified essential hypertension documented in this encounter [facility] Work Phone: Evaluation note* Diagnosis BPH without obstruction/lower urinary tract symptoms- Primary Elevated PSA, between 10 and less than 20 ng/ml Screening for prostate cancer Special screening for malignant neoplasm of prostate documented in this encounter [facility] Work Phone: Evaluation note* Diagnosis Elevated PSA, between 10 and less than 20 ng/ml Coronary artery disease, unspecified vessel or lesion type, unspecified whether angina present, unspecified whether seminole or transplanted heart documented in this encounter [facility] Work Phone: Evaluation note* Diagnosis Elevated PSA, between 10 and less than 20 ng/ml Malignant neoplasm of prostate (Multi) Malignant neoplasm of prostate Nocturia documented in this encounter [facility] Work Phone: Evaluation note* Diagnosis Prostate cancer (Multi)- Primary Malignant neoplasm of prostate Prostate cancer (Multi) Malignant neoplasm of prostate documented in this encounter [facility] Work Phone: Evaluation note* Diagnosis 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- Primary Drug therapy Encounter for other specified aftercare Coronary artery disease, angina presence unspecified, unspecified vessel or lesion type, unspecified whether seminole or transplanted heart- Primary Essential hypertension Unspecified essential hypertension ICD (implantable cardioverter-defibrillator) in place Coronary artery disease, angina presence unspecified, unspecified vessel or lesion type, unspecified whether seminole or transplanted heart- Primary ICD (implantable cardioverter-defibrillator) in place 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 Essential hypertension- Primary Unspecified essential hypertension Ischemic cardiomyopathy Other specified forms of chronic ischemic heart disease 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 Atrial fibrillation, unspecified type (HCC) ICD (implantable cardioverter-defibrillator) in place Mitral valve insufficiency, unspecified etiology- Primary Atrial fibrillation, unspecified type (HCC) 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 Atrial fibrillation, unspecified type (HCC)- Primary 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 Prostate cancer (HCC)- Primary Malignant neoplasm of prostate Atrial fibrillation, unspecified type (HCC) Ischemic cardiomyopathy Other specified forms of chronic ischemic heart disease 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 [facility] Diagnosis Malignant neoplasm of prostate (Multi)- Primary Malignant neoplasm of prostate Male erectile dysfunction, unspecified Elevated PSA, between 10 and less than 20 ng/ml documented in this encounter [facility] Work Phone: Evaluation note* Diagnosis Hypertensive heart disease with heart failure Unspecified hypertensive heart disease with heart failure Chronic systolic congestive heart failure Chronic obstructive pulmonary disease, unspecified COPD type (Multi) documented in this encounter [facility] Work Phone: History of Present illness Narrative* Comorbid Illnesses: [place] 2013. * Symptoms: denies impaired vision, denies dyspnea, denies chest pain, denies intermittent leg claudication and denies lower extremity edema. Associated symptoms include no headache, no focal neurologic deficits and no memory loss. * Home monitoring: The patient is not checking blood pressure at home. * Lifestyle: Diet: He does not have a healthy diet.Weight Issues: He does not have any weight concerns.Exercise: He does not exercise regularly.Smoking: He uses tobacco.Alcohol: He denies alcohol use.Drug Use: He denies drug use. * Disease Management: the patient is doing well with his blood pressure goals. Goals for hypertensionmanagement: Blood pressure: at or near goal. Weight: at or near goal. Exercise: at or near goal. Diet: at or near goal. [facility] Work Phone: History of Present illness Narrative* Aarti is a 56 yo male here today fro 3 month follow up. PMHx significant fro COPD, CAD s/p CABG, [place],and HTN. * Aarti reports he remains a nonsmoker, he denies any acute health concerns, * Labs reviewed calcium level is low, patient reports poor dietary consumption. States he does not eat much nor does he eat dairy products. [facility] Work Phone: History of Present illness Narrative* Aarti is a 56 yo male, here today fro 3 month follow up, at last appointment we discussed high calcium diet. Vitamin D was low he started on Vitamin D3 supplement. is compliant with medication. Has not changed diet. * He states he is feeling good, * blood pressure well controlled * Follows with cardiology in [facility] and is on Entresto * Reports he has used nebulizer a few times in last three months due to coughing. * denies swelling, SOB, or CP -[facility] Work Phone: Hospital Discharge instructions* Attachments The following attachments cannot be sent through Care Everywhere. * Fiducial Markers Discharge Instructions (Cymro) documented in this [facility] Work Phone: reason for referral (narrative)* Consultation (Routine) - Authorized Specialty Diagnoses / Procedures Referred By Hansel vallejo Referred To Contact Primary Care Procedures Follow Up In Primary Care - Health Maintenance Walter Fermin APRN-ANNE MARIE [address] [facility], [address] [address] Referral ID Status Reason Start Date Expiration Date V isits Requested Visits Authorized [id number] Authorized 01/14/2023 07/13/2023 1 1 [facility] Work Phone: reason for referral (narrative)* Consultation (Routine) - Authorized Specialty Diagnoses / Procedures Referred By Hansel vallejo Referred To Contact Urology Diagnoses Elevated PSA, between 10 and less than 20 ng/ml Fatimah Wilcox MD MPH [address] [facility], [address] [address] Aarti Gonzalez MD [address] [place] [id number] Referral ID Status Reason Start Date Expiration Date Visits Requested Visits Authorized [id number] Authorized Specialty Services Required 11/04/2023 11/03/2024 1 1 [facility] Work Phone: Reason for referral (narrative)* Consultation (Routine) - Authorized Specialty Diagnoses / Procedures Referred By Hansel t Referred To Contact Primary Care Procedures Follow Up In Primary Care Walter Fermin, .NET ARCHITECT-PLATE SETTER [address] [facility] [place], [place] [address] Referral ID Status Reason Start Date Expiration Date V isits Requested Visits Authorized [id number] Authorized 07/11/2022 01/07/2023 1 1 [facility] Work Phone: Regtuj for visit Narrative* Auth/Cert Specialty Diagnoses / Procedures Referred By Hansel vallejo Referred To Contact Diagnoses Elevated PSA Elevated PSA [R97.20] Procedures NH PROSTATE NEEDLE BIOPSY ANY APPROACH CHG US TRANSRECTAL CHG US GUIDANCE NEEDLE PLACEMENT IMG S&I Biopsy Prostate Ultrasonography Transrectal Prostate Ultrasound guidance for prostate fusion biopsy Aarti Gonzalez MD [address] [place] [address] Phone: tel: fax: [facility] [place] [address] [place] [address] fax: Referral ID Status Reason Start Date Expiration Date Visits Re quested Visits Authorized [id number] 1 1 [facility] Work Phone: Reaxbs for visit Narrative* Auth/Cert Specialty Diagnoses / Procedures Referred By Hansel t Referred To Contact Diagnoses Prostate cancer (Multi) Prostate cancer (Multi) [C61] Procedures NH PLMT INTERSTITIAL DEV RADIAT [place] PROSTATE 1/MULT Insertion Fiducial Marker Prostate Aarti Gonzalez MD [address] [place] [address] Phone: tel: fax: [facility] [place] [address] [place], [place] [phone] fax: Referral ID Status Reason Start Date Expiration Date Visits Re quested Visits Authorized [id number] 1 1 [facility] Work Phone: Summary Purpose Family History No Family History Records Found Mother Name Dates Details Family history of malignant neoplasm of female genital organ(V16.49, Z80.49) Status:Active Father Name Dates Details Family history of type 2 guillermina betes mellitus(V18.0, Z83.3) Status:Active Family history of cardiac di sorder(V17.49, Z82.49) Status:Active Brother Name Dates Details Family history of type 1 guillermina betes mellitus(V18.0, Z83.3) Status:Active Mother Name Dates Details Family history of malignant neoplasm of female genital organ(V16.49, Z80.49) Status:Active Father Name Dates Details Family history of type 2 guillermina betes mellitus(V18.0, Z83.3) Status:Active Family history of cardiac di sorder(V17.49, Z82.49) Status:Active Brother Name Dates Details Family history of type 1 guillermina betes mellitus(V18.0, Z83.3) Status:Active Unknown Family Member Name Dates Details Family history of type 1 guillermina betes mellitus: Brother(V18.0, Z83.3) Status:Active Family history of cardiac di sorder: Father(V17.49, Z82.49) Status:Active Family history of type 2 guillermina betes mellitus: Father(V18.0, Z83.3) Status:Active Family history of malignant neoplasm of female genital organ: Mother(V16.49, Z80.49) Status:Active Unknown Family Member Name Dates Details Family history of malignant neoplasm of female genital organ: Mother(V16.49, Z80.49) Status:Active Family history of type 2 guillermina betes mellitus: Father(V18.0, Z83.3) Status:Active Family history of cardiac di sorder: Father(V17.49, Z82.49) Status:Active Family history of type 1 guillermina betes mellitus: Brother(V18.0, Z83.3) Status:Active Unknown Family Member Name Dates Details Family history of malignant neoplasm of female genital organ: Mother(V16.49, Z80.49) Status:Active Family history of type 2 guillermina betes mellitus: Father(V18.0, Z83.3) Status:Active Family history of cardiac di sorder: Father(V17.49, Z82.49) Status:Active Family history of type 1 guillermina betes mellitus: Brother(V18.0, Z83.3) Status:Active Unknown Family Member Name Dates Details Family history of malignant neoplasm of female genital organ: Mother(V16.49, Z80.49) Status:Active Family history of type 2 guillermina betes mellitus: Father(V18.0, Z83.3) Status:Active Family history of cardiac di sorder: Father(V17.49, Z82.49) Status:Active Family history of type 1 guillermina betes mellitus: Brother(V18.0, Z83.3) Status:Active Unknown Family Member Name Dates Details Family history of malignant neoplasm of female genital organ: Mother(V16.49, Z80.49) Status:Active Family history of type 2 guillermina betes mellitus: Father(V18.0, Z83.3) Status:Active Family history of cardiac di sorder: Father(V17.49, Z82.49) Status:Active Family history of type 1 guillermina betes mellitus: Brother(V18.0, Z83.3) Status:Active Unknown Family Member Name Dates Details Family history of malignant neoplasm of female genital organ: Mother(V16.49, Z80.49) Status:Active Family history of type 2 guillermina betes mellitus: Father(V18.0, Z83.3) Status:Active Family history of cardiac di sorder: Father(V17.49, Z82.49) Status:Active Family history of type 1 guillermina betes mellitus: Brother(V18.0, Z83.3) Status:Active Unknown Family Member Name Dates Details Family history of malignant neoplasm of female genital organ: Mother(V16.49, Z80.49) Status:Active Family history of type 2 guillermina betes mellitus: Father(V18.0, Z83.3) Status:Active Family history of cardiac di sorder: Father(V17.49, Z82.49) Status:Active Family history of type 1 guillermina betes mellitus: Brother(V18.0, Z83.3) Status:Active Unknown Family Member Name Dates Details Family history of malignant neoplasm of female genital organ: Mother(V16.49, Z80.49) Status:Active Family history of type 2 guillermina betes mellitus: Father(V18.0, Z83.3) Status:Active Family history of cardiac di sorder: Father(V17.49, Z82.49) Status:Active Family history of type 1 guillermina betes mellitus: Brother(V18.0, Z83.3) Status:Active Unknown Family Member Name Dates Details Family history of malignant neoplasm of female genital organ: Mother(V16.49, Z80.49) Status:Active Family history of type 2 guillermina betes mellitus: Father(V18.0, Z83.3) Status:Active Family history of cardiac di sorder: Father(V17.49, Z82.49) Status:Active Family history of type 1 guillermina betes mellitus: Brother(V18.0, Z83.3) Status:Active Advance Directives No Advanced Directives Records Found Date Activated Date Inactivated Comments 01/05/2024 4:25 PM 01/11/2024 11:02 AM Date Activated Date Inactivated Comments 11/30/2020 7:01 AM 11/30/2020 10:24 AM Date Activated Date Inactivated Comments 10/12/2019 8:47 AM 10/13/2019 2:28 PM Documents on File Type Date Recorded Patient Gambreler Expl anation Advance Directives and Livin g Will 10/09/2019 1:02 PM Documents on File Type Date Recorded Patient Gambreler Expl anation Advance Directives and Livin g Will 12/15/2019 2:52 PM Latest Code Status on File Code Status Date Activated Date Inactivated Comments Full Code 10/12/2019 8:47 AM 10/13/2019 2:28 PM Documents on File Type Date Recorded Patient Gambreler Expl anation Advance Directives and Livin g Will 12/15/2019 2:52 PM Latest Code Status on File Code Status Date Activated Date Inactivated Comments Full Code 10/12/2019 8:47 AM 10/13/2019 2:28 PM Documents on File Type Date Recorded Patient Gambreler Expl anation Advance Directives and Livin g Will 01/16/2020 12:00 AM Documents on File Type Date Recorded Patient Gambreler Expl anation Advance Directives and Livin g Will 01/16/2020 12:00 AM Documents on File Type Date Recorded Patient Gambreler Expl anation Advance Directives and Livin g Will 10/12/2019 12:00 AM Documents on File Type Date Recorded Patient Gambreler Expl anation Advance Directives and Livin g Will 11/15/2020 8:50 AM Documents on File Type Date Recorded Patient Gambreler Expl anation Advance Directives and Livin g Will 11/30/2020 8:50 AM Latest Code Status on File Code Status Date Activated Date Inactivated Comments Full Code 11/30/2020 7:01 AM 11/30/2020 10:24 AM Full Code 10/12/2019 8:47 AM 10/13/2019 2:28 PM Documents on File Type Date Recorded Patient Gambreler Expl anation Advance Directives and Livin g Will 05/30/2021 7:56 AM Documents on File Type Date Recorded Patient Gambreler Expl anation Advance Directives and Livin g Will 05/30/2021 7:56 AM Latest Code Status on File Code Status Date Activated Date Inactivated Comments Full Code 11/30/2020 7:01 AM 11/30/2020 10:24 AM Full Code 10/12/2019 8:47 AM 10/13/2019 2:28 PM Latest Code Status on File Code Status Date Activated Date Inactivated Comments Full Code 11/30/2020 7:01 AM 11/30/2020 10:24 AM Code Status History Code Status Date Activated Date Inactivated Comments Full Code 10/12/2019 8:47 AM 10/13/2019 2:28 PM Latest Code Status on File Code Status Date Activated Date Inactivated Comments Full Code 11/30/2020 7:01 AM 11/30/2020 10:24 AM Code Status History Code Status Date Activated Date Inactivated Comments Full Code 10/12/2019 8:47 AM 10/13/2019 2:28 PM Date Activated Date Inactivated Comments 11/30/2020 7:01 AM 11/30/2020 10:24 AM Date Activated Date Inactivated Comments 10/12/2019 8:47 AM 10/13/2019 2:28 PM Date Activated Date Inactivated Comments 01/05/2024 4:25 PM Date Activated Date Inactivated Comments 03/08/2024 7:02 AM Question Answer Comments Plan of Care: Code Status Discussion Completed Decision Maker: Patient Date Activated Date Inactivated Comments 01/13/2024 4:57 PM 01/13/2024 9:03 PM Date Activated Date Inactivated Comments 01/05/2024 4:25 PM 01/11/2024 11:02 AM Date Activated Date Inactivated Comments 11/30/2020 7:01 AM 11/30/2020 10:24 AM Date Activated Date Inactivated Comments 10/12/2019 8:47 AM 10/13/2019 2:28 PM Date Activated Date Inactivated Comments 03/08/2024 7:02 AM Question Answer Comments Plan of Care: Code Status Discussion Completed Decision Maker: Patient Discharge Instructions * Instructions* Dianne Mulligan MD - 10/09/2019 Today's studies are diagnostic for pneumonia of your left lower lung. Please take all your prescriptions as prescribed. If you develop increased shortness of breath please return to emergency room immediately. Of note, your COVID 19 test was negative * Attachments The following attachments cannot be sent through Care Everywhere. * Pneumonia (Cymro) documented in this encounter* Attachments The following attachments cannot be sent through Care Everywhere. * Back Pain (Cymro) documented in this encounter* Instructions* Andrew Coburn RN - 10/13/2019 Pneumonia: Care Instructions Your Care Instructions Pneumonia is an infection of the lungs. Most cases are caused by infections from bacteria or viruses. Pneumonia may be mild or very severe. If it is caused by bacteria, you will be treated with antibiotics. It may take a few weeks to a few months to recover fully from pneumonia, depending on how sickyou were and whether your overall health is good. Follow-up care is a baldwin part of your treatment and safety. Be sure to make and go to all appointments, and call your doctor if you are having problems. It's also a good idea to know your test resultsand keep a list of the medicines you take. How can you care for yourself at home? Take your antibiotics exactly as directed. Do not stop taking the medicine just because you are feeling better. You need to take the full course of antibiotics. Take your medicines exactly as prescribed. Call your doctor if you think you are having a problem with your medicine. Get plenty of rest and sleep. You may feel weak and tired for a while, but your energy level will improve with time. To prevent dehydration, drink plenty of fluids, enough so that your urine is light yellow or clear like water. Choose water and other caffeine-free clear liquids until you feel better. If you have kidney, heart, or liver disease and have to limit fluids, talk with your doctor before you increase the amount of fluids you drink. Take care of your cough so you can rest. A cough that brings up mucus from your lungs is common with pneumonia. It is one way your body gets rid of the infection. But if coughing keeps you from resting or causes severe fatigue and chest-wall pain, talk to your doctor. He or she may suggest that youtake a medicine to reduce the cough. Use a vaporizer or humidifier to add moisture to your bedroom. Follow the directions for cleaning the machine. Do not smoke or allow others to smoke around you. Smoke will make your cough last longer. If you need help quitting, talk to your doctor about stop-smoking programs and medicines. These can increase your chances of quitting for good. Take an gbnr-qvb-mfvqmov pain medicine, such as acetaminophen (Tylenol), ibuprofen (Advil, Motrin),or naproxen (Aleve). Read and follow all instructions on the label. Do not take two or more pain medicines at the same time unless the doctor told you to. Many pain medicines have acetaminophen, which is Tylenol. Too much acetaminophen (Tylenol) can be harmful. If you were given a spirometer to measure how well your lungs are working, use it as instructed. This can help your doctor tell how your recovery is going. To prevent pneumonia in the future, talk to your doctor about getting a flu vaccine (once a year) and a pneumococcal vaccine (one time only for most people). When should you call for help? Call 911 anytime you think you may need emergency care. For example, call if: You have severe trouble breathing. Call your doctor now or seek immediate medical care if: You cough up dark brown or bloody mucus (sputum). You have new or worse trouble breathing. You are dizzy or lightheaded, or you feel like you may faint. Watch closely for changes in your health, and be sure to contact your doctor if: You have a new or higher fever. You are coughing more deeply or more often. You are not getting better after 2 days (48 hours). You do not get better as expected. Where can you learn more? Log into your personal health record on https://[employer] and enter D336 in the Education box to learn more about Pneumonia: Care Instructions. Current as of: September 26, 2018 Content Version: 12.3 2819-6147 [employer]. Care instructions adapted under license by your healthcare professional. If you have questions about a medical condition or this instruction, always ask your healthcare professional. [employer] disclaims any warranty or liability for your use of this information. documented in this encounter Assessments Diagnosis Pneumonia of left lower lobe due to infectious organism (HCC) Diagnosis 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- Primary Chronic systolic congestive heart failure (HCC) LOPEZ (dyspnea on exertion) Other dyspnea and respiratory abnormality ICD (implantable cardioverter-defibrillator) in place Ischemic cardiomyopathy Other specified forms of chronic ischemic heart disease Diagnosis Essential hypertension- Primary Unspecified essential hypertension Chronic systolic congestive heart failure (HCC) ICD (implantable cardioverter-defibrillator) in place Diagnosis Acute right-sided thoracic back pain- Primary Diagnosis Chronic systolic congestive heart failure (HCC)- Primary Essential hypertension Unspecified essential hypertension ICD (implantable cardioverter-defibrillator) in place Diagnosis Chronic systolic congestive heart failure (HCC)- Primary Essential hypertension Unspecified essential hypertension ICD (implantable cardioverter-defibrillator) in place Diagnosis 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 Diagnosis Sepsis, due to unspecified organism, unspecified whether acute organ dysfunction present (HCC) Hypoxia Hypoxemia Pneumonia of left lower lobe due to infectious organism (HCC) CAP (community acquired pneumonia) Pneumonia, organism unspecified 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 Essential hypertension Unspecified essential hypertension History of Present Illness * George Daniel, KORTNEY - 12/15/2019 4:16 PM EDT PRELIMINARY REVIEW: ROUTED TO Dr. Gorman and EP FOR REVIEW/SIGNATURE AARTI GARCIA was seen at [facility] on November. The patient's underlying rhythm was Sinus Rhythm. This evaluation showed the patient was not pacing dependent. The evaluation results are as follows: ICD - Medtronic [id number] Evera XT This device was implanted on 10/14/2013 and is 74 months old. The battery voltage was 2.95 V (recommended replacement = 2.73 V). Atrial Lead - Medtronic 5076 CapSureFix Novus. This lead was implanted on 10/14/2013. A pacing threshold of 0.625 V @ 0.4 ms was determined during today's evaluation. The P wave was sensed at 6.375 mV. The lead impedance was 399 ?. Right Ventricular Lead - Medtronic 6935M Sprint Quattro Secure S. This lead was implanted on 10/14/2013. A pacing threshold of 1.125 V @ 0.4 ms was determined during today's evaluation. The R wave was sensed at 7 mV. The lead impedance was 361 ?. The patient was seen by Dr. Gorman today. The device pocket shows no signs of infection or erosion. An in child support case officer evaluation demonstrates acceptable thresholds. The estimated time until electivereplacement is 4.0 years. Histograms indicate 20.2% atrial and <0.1% ventricular paced events. The AT/AF burden is <0.1% with 4 episodes listed since last remote transmission on 12-03-2016. All episodes appear to be AF on EGM with longest episode lasting 2 hours 58 minutes on Dec 02, 2019. This appears to be a new finding. There were also 27 ventricular high rates listed lasting 1-2 seconds that appear to be NSVT with retrograde conduction. There was one sustained episode of VT with retrogr ortega conduction on Feb 02, 2018 that lasted 12 seconds and was treated/converted with 2 Sequences ofATP therapy. Pt. voices compliance with Coreg. Most recent echo shows LVEF of 31%. Optivol fluid levels were elevated also. This check will be reviewed with Dr. Gorman. The patients device notifierswere demonstrated and patient verbalized an understanding that medical follow up would be needed. Reviewed by: Mariela Daniel RN ___I have reviewed the device function, programmed parameters and heart rhythm. ___Pt will return to the [facility] per protocol or as directed. ___Changes made per Protocol and approved. Alerts turned ON: AT/AF burden >1 hour. Number of shocks in an episode. documented in this encounter* Adán Gorman MD - 12/15/2019 5:01 PM EDT [facility] [address] [facility] [address] [facility] [id number] Subjective: Aarti Garcia is a 54 y.o. male seen in the office today for Chief Complaint Patient presents with Follow-up hospital follow up review echo The patient comes in for initial followup, not seen here in 3 years. History of myocardial infarction with cardiac arrest and anoxic encephalopathy, which resolved. In 2013, history of coronary bypass grafting at that time. History of moderate to severe LV dysfunction, ejection fraction 30% in the past. Was hospitalized, observation [facility] in September. ProBNP was 3000. Ejection fraction 31% with moderate mitral valve regurgitation noted. The patient comes in today for ICD followup. Found to have episodes of paroxysmal atrial fibrillation 2 hours and 30 minutes, the longest recently. Back in 2018, had ventricular high rate episode treated with ATP. None since then. The patient has been a little bit more short of breath lately. Has been compliant with his medications, but has not had Cardiology followup. Other lab work reviewed. Potassium normal at 4.6, BUN and creatinine normal. OptiVol is reported as elevated on this visit. No chest pains. Denies smoking. Denies alcoholic beverages. Follows a low-salt diet. Overview of Problems Addressed: Problem Ischemic Cardiomyopathy Hx of [place]. Coronary Artery Disease Involving [place] Coronary Artery of [place] Heart Without Angina Pectoris had out of hospital cardiac arrest in 2013. He had severe anoxic encephalopathy initially. He underwent initial catheterization ultimately had bypass surgery. Left internal mammary artery graft was placed to left anterior descending, vein graft and obtuse marginal, vein graft to the PDA branch of the right. He has an ICD placed for primary prevention. Repeat heart catheterization March 2016 with 3 of 3 patent grafts ejection fraction 30%. LV filling pressure was normal. Continue medical therapy is recommended. Prophylactic ICD Assessment & Plan: PLAN Will start spironolactone 25 mg once a day with his elevated OptiVol. We will start Eliquis 5 mg twice a day. He has had no bleeding issues. Continue on the baby aspirin. CBC was normal in September 2019.We will set up with Heart Failure Clinic in [place]. We will check blood work as listed a couple of days before his Heart Failure Clinic visit in [place]. May be a candidate for Entresto if otherwise stabilized with these other medications. Has basicallyclass 2 to 3 dyspnea on exertion, but no acute exacerbation of his heart failure. Sleeps on 2 pillows. Otherwise we will see back in 3 months. He would like to follow up in [place] if at all possiblein the future. No problem-specific Assessment & Plan notes found for this encounter. Histories: Past Medical History: Diagnosis Date Acute anterolateral myocardial infarction (HCC) Anoxic encephalopathy (HCC) CAD (coronary artery disease) CABG Cardiac arrest (HCC) ICD (implantable cardioverter-defibrillator) in place 03/18/2016 Vertigo Past Surgical History: Procedure Laterality Date CABG CARDIAC CATHETERIZATION CARDIAC DEFIBRILLATOR PLACEMENT CORONARY ANGIOPLASTY 2013 CORONARY ARTERY BYPASS GRAFT BARAJAS to LAD, VG to OM of circ and RCA EYE SURGERY PACEMAKER INSERTION and defilibrator Family History Problem Relation Age of Onset Heart attack Father Social History Tobacco Use Smoking status: Former Smoker Types: Cigarettes Quit date: 10/08/2012 Years since quittin.1 Smokeless tobacco: Never Used Substance Use Topics Alcohol use: No Alcohol/week: 0.0 standard drinks Drug use: No Patient's Medications New Prescriptions APIXABAN (ELIQUIS) 5 MG TAB Take 1 (one) tablet (5 mg total) by mouth 2 (two) times a day Blood thinner . SPIRONOLACTONE (ALDACTONE) 25 MG TABLET Take 1 (one) tablet (25 mg total) by mouth daily For heart . Previous Medications ALBUTEROL 90 MCG/ACTUATION INHALER Inhale 2 puffs every 4 (four) hours as needed for shortness of breath . ASPIRIN 81 MG EC TABLET Take 81 mg by mouth daily Modified Medications Modified Medication Previous Medication ATORVASTATIN (LIPITOR) 10 MG TABLET atorvastatin (LIPITOR) 10 MG tablet Take 1 (one) tablet (10 mg total) by mouth daily . Take 10 mg by mouth daily CARVEDILOL (COREG) 12.5 MG TABLET carvedilol (COREG) 12.5 MG tablet Take 1 (one) tablet (12.5 mg total) by mouth 2 (two) times a day . Take 12.5 mg by mouth 2 (two) times a day LOSARTAN (COZAAR) 25 MG TABLET losartan (COZAAR) 25 MG tablet Take 1 (one) tablet (25 mg total) by mouth daily . Take 25 mg by mouth daily . Discontinued Medications FUROSEMIDE (LASIX) 20 MG TABLET Take 20 mg by mouth daily For 5 days starting 10/07/19 . PREDNISONE (DELTASONE) 10 MG TABLET PACK Take 4 pills p.o. in a.m. x3 days; take 3 pills p.o. in a.m. x3 days; take 2 pills p.o. in a.m. x3 days; take 1 pill p.o. in the a.m. x3 days; take 1/2 pill p.o. in a.m. x3 days then stop . No Known Allergies Review of Systems Constitution: Positive for malaise/fatigue. Negative for diaphoresis, weight gain and weight loss. HENT: Negative for hearing loss, nosebleeds and tinnitus. Eyes: Negative for blurred vision and visual disturbance. Cardiovascular: Positive for dyspnea on exertion. Negative for chest pain, claudication, cyanosis, irregular heartbeat, leg swelling, near-syncope, orthopnea, palpitations, paroxysmal nocturnal dyspnea and syncope. Respiratory: Negative for hemoptysis, shortness of breath and snoring. Endocrine: Negative for cold intolerance and heat intolerance. Hematologic/Lymphatic: Does not bruise/bleed easily. Skin: Negative for flushing, poor wound healing and rash. Musculoskeletal: Negative for back pain, muscle weakness and myalgias. Gastrointestinal: Negative for abdominal pain, change in bowel habit, melena, nausea and vomiting. Genitourinary: Negative for decreased libido and hematuria. Neurological: Negative for loss of balance and numbness. Psychiatric/Behavioral: Negative for memory loss. The patient is not nervous/anxious. Objective: Physical Exam Constitutional: He is oriented to person, place, and time. No distress. No acute distress Body mass index is 19.67 kg/m . HENT: Head: Normocephalic. Eyes: No scleral icterus. Pupils equal. Neck: No JVD present. Cardiovascular: Regular rhythm, S1 normal and S2 normal. Exam reveals no gallop, no S3 and no S4. No murmur heard. Pulses: Radial pulses are 2+ on the right side and 2+ on the left side. Feet warm bilateral. Pulmonary/Chest: Breath sounds normal. No stridor. No respiratory distress. He has no wheezes. He has no rales. Abdominal: Soft. He exhibits no distension. There is no abdominal tenderness. There is no guarding. Musculoskeletal: General: No tenderness or edema. Neurological: He is alert and oriented to person, place, and time. Skin: Skin is warm and dry. He is not diaphoretic. Psychiatric: He has a normal mood and affect. Nursing note and vitals reviewed. Vitals: Vitals: 12/15/19 1630 BP: 116/64 Pulse: 94 SpO2: 97% Weight: 64 kg (141 lb) Height: 5' 11 Body mass index is 19.67 kg/m . Orders Placed This Encounter Procedures Basic Metabolic Panel Standing Status: Standing Number of Occurrences: 1 Standing Expiration Date: 12/15/2020 CBC Standing Status: Future Standing Expiration Date: 12/15/2020 Lipid Panel Standing Status: Standing Number of Occurrences: 1 Standing Expiration Date: 12/15/2020 NT PRO BNP Standing Status: Future Standing Expiration Date: 12/14/2020 Ambulatory referral to Heart Failure Clinic Standing Status: Future Standing Expiration Date: 12/14/2020 Referral Priority: Routine Referral Type: Evaluate and Treat Referred to Provider: HETAL Sahni Number of Visits Requested: 1 Follow Up Ordered: Return in about 3 months (around 03/16/2020). Adán Gorman MD documented in this encounter* Jade Rivera CNS - 12/29/2019 2:30 PM EDT [facility] CARD[facility]OLOG[facility] HEART FAILURE CLINIC NAME: Aarti Garcia DATE OF : 1965 MEDICAL RECORD#: [id number] [employer] APPRENTICE SHOP: Adán Gorman MD TODAY'S DATE: 12/29/2019 Subjective Aarti Garcia is a 54 y.o. male with a h/o HFrEF, hypertension, atrial fib, ICD, CAD who presents today for his first visit to the heart failure clinic. Mr. Garcia presents after a recent OV with Dr. Gorman. At that visit, he had evidence of congestion with increased shortness of breath. His Optivol was elevated and his defibrillator showed intermittent a fib. He was started on spironolactone and Eliquis. The patient is accompanied today by his . We discussed his cardiac history and symptoms to monitor and report. He admits that he has PND 3 nights a week. His lungs are clear, no pedal edema. We discussed guideline directed medical therapy for HFrEF. He is on an adequate beta blockade and ARB. He is on an aldosterone receptor antagonist. We discussed the importance of increasing these to their highest tolerated doses to achieve maximal benefit. We discussed Entresto and how it could benefit him. His BP is adequate and he was interested in transitioning to Entresto 24/26 mg BID. He will stop losartan and start Entresto 24/26 mg BID, taking at lunch and bedtime to limit hypotension. We discussed a low sodium meal plan. He eats a very high sodium diet. We discussed lower sodium alternatives. He does not drink excessive fluids. We discussed a low level activity plan. We discussed cardiac rehab. He is currently walking around his property 20 minutes twice daily. He is to be evaluated for a sleep study. Congestive Heart Failure Intake General Data In CHF program?: Yes Heart Failure etiology: Ischemic Heart Failure type: Systolic Device: ICD Received HF educational booklet: Pos NYHA functional class: II Last Ejection Fraction: 31 Date: 10/12/19 Modality: Echocardiogram Systolic HF medication titration data On BetaBlocker?: Yes Dosing: Still being titrated On ALYSSA/ARB/ARNI: ARNI Dosing: Still being titrated On Aldosterone Antagonist?: Yes On Ivabradine?: No On Digoxin?: No On Hydralazine?: No On Nitrate?: No CARDIAC HISTORY INCLUDES: Summary 1. Technically difficult echo windows, Definity used to optimize study. 2. LV appears dilated with global dysfunction with segmental features. Biplane LVEF 31%. 3. Mild RV enlargement with mild RV dysfunction. Device wire noted in right heart. 4. Elevated left atrial pressure. 5. There is mild tricuspid valve regurgitation. 6. There is pulmonary hypertension, estimated pulmonary arterial systolic pressure is 45 mmHg. 7. There is moderate mitral valve regurgitation. 8. Prior ejection fraction of 30% noted from nuclear stress perfusion study from 2016.10/12/2019 Echo Histories: Past Medical History: Diagnosis Date Acute anterolateral myocardial infarction (HCC) Anoxic encephalopathy (HCC) CAD (coronary artery disease) CABG Cardiac arrest (HCC) ICD (implantable cardioverter-defibrillator) in place 03/18/2016 Vertigo Past Surgical History: Procedure Laterality Date CABG CARDIAC CATHETERIZATION CARDIAC DEFIBRILLATOR PLACEMENT CORONARY ANGIOPLASTY 2013 CORONARY ARTERY BYPASS GRAFT BARAJAS to LAD, VG to OM of circ and RCA EYE SURGERY PACEMAKER INSERTION and defilibrator Current Medications: Current Outpatient Medications Medication Sig Dispense Refill albuterol (PROVENTIL) 2.5 mg /3 mL (0.083 %) nebulizer solution Take 2.5 mg by nebulization every 6(six) hours as needed for wheezing . albuterol 90 mcg/actuation inhaler Inhale 2 puffs every 4 (four) hours as needed for shortness of breath . apixaban (Eliquis) 5 mg Tab Take 1 (one) tablet (5 mg total) by mouth 2 (two) times a day Blood thinner . 180 tablet 1 aspirin 81 MG EC tablet Take 81 mg by mouth daily atorvastatin (LIPITOR) 10 MG tablet Take 1 (one) tablet (10 mg total) by mouth daily . 90 tablet 3 carvediloL (COREG) 12.5 MG tablet Take 1 (one) tablet (12.5 mg total) by mouth 2 (two) times a day . 180 tablet 3 losartan (COZAAR) 25 MG tablet Take 1 (one) tablet (25 mg total) by mouth daily . 90 tablet 3 spironolactone (Aldactone) 25 MG tablet Take 1 (one) tablet (25 mg total) by mouth daily For heart . 90 tablet 1 tiotropium Br/olodaterol HCl (STIOLTO RESPIMAT INHL) Inhale . No current facility-administered medications for this visit. Allergies Allergen Reactions Lisinopril Other (See Comments) Cough Review of Systems Constitution: Positive for malaise/fatigue. Cardiovascular: Positive for dyspnea on exertion and paroxysmal nocturnal dyspnea (3 nights a week). Negative for leg swelling. Respiratory: Positive for cough. Skin: Positive for rash (on right knee). Musculoskeletal: Negative. Gastrointestinal: Negative for constipation and diarrhea. Genitourinary: Negative for dysuria. Neurological: Negative for dizziness and light-headedness. Psychiatric/Behavioral: Positive for depression. The patient does not have insomnia. Objective: Physical Exam Constitutional: He is oriented to person, place, and time. He appears well- developed and well-nourished. thin HENT: Head: Normocephalic and atraumatic. Eyes: Conjunctivae are normal. Neck: Neck supple. No JVD present. Cardiovascular: Normal rate, regular rhythm and normal heart sounds. Pulses: Radial pulses are 2+ on the right side and 2+ on the left side. Dorsalis pedis pulses are 0 on the right side and 0 on the left side. Posterior tibial pulses are 0 on the right side and 0 on the left side. Pulmonary/Chest: Effort normal and breath sounds normal. No respiratory distress. He has no wheezes. He has no rales. Abdominal: Soft. Bowel sounds are normal. Musculoskeletal: Normal range of motion. General: No edema. Neurological: He is alert and oriented to person, place, and time. Skin: Skin is warm and dry. Psychiatric: He has a normal mood and affect. His behavior is normal. Judgment and thought content normal. Vitals: Vitals: 12/29/19 1434 BP: 118/78 Pulse: 89 SpO2: 98% Weight: 64 kg (141 lb) Height: 5' 11 Lab Review: Recent labs reviewed with patient Assessment & Plan: Plan IMPRESSION: HFrEF Etiology: ischemic Most recent known EF:31 Stage: C NYHA Class: II He has congestive symptoms of PND 3 nights a week Essential hypertension: Currently under good control CAD - CABG. Cath 2015 with patent grafts. Hyperlipidemia- On atorvastatin Sleep Apnea-to be evaluated ICD - last device check 12/15/2019 The device pocket shows no signs of infection or erosion. An in child support case officer evaluation demonstrates acceptable thresholds. The estimated time until elective replacement is 4.0 years. Histograms indicate 20.2% atrial and <0.1% ventricular paced events. The AT/AF burden is <0.1% with 4 episodes listed since last remote transmission on 12-03-2016. All episodes appear to be AF on EGM with longest episode lasting 2 hours 58 minutes on Dec 02, 2019. This appears to be a new finding. Therewere also 27 ventricular high rates listed lasting 1 -2 seconds that appear to be NSVT with retrograde conduction. There was one sustained episode of VTwith retrograde conduction on Feb 02, 2018 that lasted 12 seconds and was treated/converted with 2 Sequences of ATP therapy. Pt. voices compliance with Coreg. Most recent echo shows LVEF of 31%. Optivol fluid levels were elevated also. Atrial fibrilllation- started on Eliquis , carvedilol PLAN: Patient placed on guideline directed therapy including: ALYSSA/ARB/ARNI Losartan 25 mg QD , stopped today. To start Entresto 24/26 mg BID BB: Carvedilol 12.5 mg BID Aldosterone antagonist Spironolactone 25 mg QD Diuretic no Potassium no Medications: Losartan 25 mg QD , stopped today. To start Entresto 24/26 mg BID Labs to be drawn: BMP next visit Activity goal: walk 20 minutes BID Patient encouraged w/ daily weight and recording. Diet counseling: Patient was counseled on low sodium heart healthy diet. FOLLOW-UP SCHEDULE: Patient is currently scheduled to follow-up with Dr. Gorman Patient will return to see us in 3 weeks 60 minutes was spent w/ the patient. Over half of this time was spent in counseling regarding medication therapy, treatments, activity, diet planning including teaching and review of reports with patient. There is collaboration between the HETAL and the consulting/collaborating physician regarding this patient's plan of care. Dr. Adán Gorman MD has been updated regarding the patient's status via EMR. Thank you for allowing us to participate in the care of our patient. Please call if you have any further questions. Signature: HETAL Ruth documented in this encounter* Jade Rivera CNS - 01/20/2020 9:30 AM EDT [facility] CARDIOLOG[facility] HEART FAILURE CLINIC NAME: Aarti Garcia DATE OF : 1965 MEDICAL RECORD#: [id number] [employer] APPRENTICE SHOP: Adán Gorman MD TODAY'S DATE: 01/20/2020 Subjective Aarti Garcia is a 54 y.o. male with a h/o HFrEF, hypertension, atrial fib, ICD, CAD who presents today for his follow up visit to the heart failure clinic. The patient is accompanied today by his . Mr. Garcia presented after an OV with Dr. Gorman. At that visit, he had evidence of congestion with increased shortness of breath. His Optivol was elevated and his defibrillator showed intermittent a fib. He was started on spironolactone and Eliquis. We discussed his cardiac history and symptoms to monitor and report. He admits that he has PND 3 nights a week. His lungs are clear, no pedal edema. We discussed guideline directed medical therapy for HFrEF. He is on an adequate beta blockade and ARB. He is on an aldosterone receptor antagonist. We discussed the importance of increasing these to their highest tolerated doses to achieve maximal benefit. We discussed Entresto and how it could benefit him. His BP is adequate and he was interested in transitioning to Entresto 24/26 mg BID. He will stop losartan and start Entresto 24/26 mg BID, taking at lunch and bedtime to limit hypotension. Today, he stated that he is feeling much better since starting Entresto. He has not used any breathing treatments. He denied PND or cough. HIs weight is up 5 lb. HIs lungs are clear, no pedal edema. He reports improved exercise tolerance. BPs have been 100-110 systolic at home. His heart rate is not under optimal control, however he is mildy hypotensive. He was encouraged to continue to monitor vitals at home, with the intent to increase carvedilol in the future. We discussed a low sodium meal plan. He eats a very high sodium diet. We discussed lower sodium alternatives. He does not drink excessive fluids. We discussed a low level activity plan. We discussed cardiac rehab and this was ordered today. . Heis currently walking around his property 20 minutes twice daily. He is to be evaluated for a sleep study. Congestive Heart Failure Intake General Data In CHF program?: Yes Heart Failure etiology: Ischemic Heart Failure type: Systolic Device: ICD Received HF educational booklet: Pos NYHA functional class: II Last Ejection Fraction: 31 Date: 10/12/19 Modality: Echocardiogram Systolic HF medication titration data On BetaBlocker?: Yes Dosing: Still being titrated On ALYSSA/ARB/ARNI: ARNI Dosing: Still being titrated On Aldosterone Antagonist?: Yes On Ivabradine?: No On Digoxin?: No On Hydralazine?: No On Nitrate?: No CARDIAC HISTORY INCLUDES: Summary 1. Technically difficult echo windows, Definity used to optimize study. 2. LV appears dilated with global dysfunction with segmental features. Biplane LVEF 31%. 3. Mild RV enlargement with mild RV dysfunction. Device wire noted in right heart. 4. Elevated left atrial pressure. 5. There is mild tricuspid valve regurgitation. 6. There is pulmonary hypertension, estimated pulmonary arterial systolic pressure is 45 mmHg. 7. There is moderate mitral valve regurgitation. 8. Prior ejection fraction of 30% noted from nuclear stress perfusion study from 2016.10/12/2019 Echo Histories: Past Medical History: Diagnosis Date Acute anterolateral myocardial infarction (HCC) Anoxic encephalopathy (HCC) CAD (coronary artery disease) CABG Cardiac arrest (HCC) ICD (implantable cardioverter-defibrillator) in place 03/18/2016 Vertigo Past Surgical History: Procedure Laterality Date CABG CARDIAC CATHETERIZATION CARDIAC DEFIBRILLATOR PLACEMENT CORONARY ANGIOPLASTY 2013 CORONARY ARTERY BYPASS GRAFT BARAJAS to LAD, VG to OM of circ and RCA EYE SURGERY PACEMAKER INSERTION and defilibrator Current Medications: Current Outpatient Medications Medication Sig Dispense Refill albuterol (PROVENTIL) 2.5 mg /3 mL (0.083 %) nebulizer solution Take 2.5 mg by nebulization every 6(six) hours as needed for wheezing . albuterol 90 mcg/actuation inhaler Inhale 2 puffs every 4 (four) hours as needed for shortness of breath . apixaban (Eliquis) 5 mg Tab Take 1 (one) tablet (5 mg total) by mouth 2 (two) times a day Blood thinner . 180 tablet 1 aspirin 81 MG EC tablet Take 81 mg by mouth daily atorvastatin (LIPITOR) 10 MG tablet Take 1 (one) tablet (10 mg total) by mouth daily . 90 tablet 3 carvediloL (COREG) 12.5 MG tablet Take 1 (one) tablet (12.5 mg total) by mouth 2 (two) times a day . 180 tablet 3 methocarbamoL (Robaxin-750) 750 MG tablet Take 1 (one) tablet (750 mg total) by mouth 3 (three) times a day as needed for muscle spasms . 30 tablet 0 sacubitriL-valsartan (Entresto) 24-26 mg per tablet Take 1 (one) tablet by mouth 2 (two) times a day . 60 tablet 11 spironolactone (Aldactone) 25 MG tablet Take 1 (one) tablet (25 mg total) by mouth daily For heart . 90 tablet 1 tiotropium Br/olodaterol HCl (STIOLTO RESPIMAT INHL) Inhale . No current facility-administered medications for this visit. Allergies Allergen Reactions Lisinopril Other (See Comments) Cough Review of Systems Constitution: Positive for weight gain. Negative for malaise/fatigue. Cardiovascular: Positive for dyspnea on exertion. Negative for leg swelling and paroxysmal nocturnal dyspnea. Respiratory: Negative for cough. Skin: Positive for rash (on right knee). Musculoskeletal: Negative. Gastrointestinal: Negative for constipation and diarrhea. Genitourinary: Negative for dysuria. Neurological: Negative for dizziness and light-headedness. Psychiatric/Behavioral: Positive for depression. The patient does not have insomnia. Objective: Physical Exam Constitutional: He is oriented to person, place, and time. He appears well- developed and well-nourished. thin HENT: Head: Normocephalic and atraumatic. Eyes: Conjunctivae are normal. Neck: Neck supple. No JVD present. Cardiovascular: Normal rate, regular rhythm and normal heart sounds. Pulses: Radial pulses are 2+ on the right side and 2+ on the left side. Dorsalis pedis pulses are 0 on the right side and 0 on the left side. Posterior tibial pulses are 0 on the right side and 0 on the left side. Pulmonary/Chest: Effort normal and breath sounds normal. No respiratory distress. He has no wheezes. He has no rales. Abdominal: Soft. Bowel sounds are normal. Musculoskeletal: Normal range of motion. General: No edema. Neurological: He is alert and oriented to person, place, and time. Skin: Skin is warm and dry. Psychiatric: He has a normal mood and affect. His behavior is normal. Judgment and thought content normal. Vitals: Vitals: 01/20/20 0851 01/20/20 0909 BP: 109/70 104/72 BP Location: Right arm Patient Position: Sitting BP Cuff Size: Adult Pulse: 87 SpO2: 98% Weight: 66.2 kg (146 lb) Height: 5' 11 Lab Review: Recent labs reviewed with patient Assessment & Plan: Plan IMPRESSION: HFrEF Etiology: ischemic Most recent known EF:31 Stage: C NYHA Class: II He no longer has congestive symptoms of PND and cough Essential hypertension: Currently hypotensive CAD - CABG. Cath 2016 with patent grafts. Hyperlipidemia- On atorvastatin Sleep Apnea-to be evaluated ICD - last device check 12/15/2019 The device pocket shows no signs of infection or erosion. An in child support case officer evaluation demonstrates acceptable thresholds. The estimated time until elective replacement is 4.0 years. Histograms indicate 20.2% atrial and <0.1% ventricular paced events. The AT/AF burden is <0.1% with 4 episodes listed since last remote transmission on 12-03-2016. All episodes appear to be AF on EGM with longest episode lasting 2 hours 58 minutes on Dec 02, 2019. This appears to be a new finding. Therewere also 27 ventricular high rates listed lasting 1 -2 seconds that appear to be NSVT with retrograde conduction. There was one sustained episode of VTwith retrograde conduction on Feb 02, 2018 that lasted 12 seconds and was treated/converted with 2 Sequences of ATP therapy. Pt. voices compliance with Coreg. Most recent echo shows LVEF of 31%. Optivol fluid levels were elevated also. Atrial fibrilllation- started on Eliquis , carvedilol PLAN: Patient placed on guideline directed therapy including: ALYSSA/ARB/ARNI Entresto 24/26 mg BID BB: Carvedilol 12.5 mg BID Aldosterone antagonist Spironolactone 25 mg QD Diuretic no Potassium no Medications: no changes Labs to be drawn: BMP recently done Activity goal: walk 20 minutes BID Patient encouraged w/ daily weight and recording. Diet counseling: Patient was counseled on low sodium heart healthy diet. FOLLOW-UP SCHEDULE: Patient is currently scheduled to follow-up with Dr. Gorman Patient will return to see us in March 19 minutes was spent w/ the patient. Over half of this time was spent in counseling regarding medication therapy, treatments, activity, diet planning including teaching and review of reports with patient. There is collaboration between the HETAL and the consulting/collaborating physician regarding this patient's plan of care. Dr. Adná Gorman MD has been updated regarding the patient's status via EMR. Thank you for allowing us to participate in the care of our patient. Please call if you have any further questions. Signature: HETAL Ruth documented in this encounter* Jade Rivera CNS - 02/24/2020 9:30 AM EST [facility] CARDIOLOG[facility] HEART FAILURE CLINIC NAME: Aarti Garcia DATE OF : 1965 MEDICAL RECORD#: [id number] [employer] APPRENTICE SHOP: Adán Gorman MD TODAY'S DATE: 02/24/2020 Subjective Aarti Garcia is a 54 y.o. male with a h/o HFrEF, hypertension, atrial fib, ICD, CAD who presents today for his follow up visit to the heart failure clinic. The patient is accompanied today by his . Mr. Garcia presented after an OV with Dr. Gorman. At that visit, he had evidence of congestion with increased shortness of breath. His Optivol was elevated and his defibrillator showed intermittent a fib. He was started on spironolactone and Eliquis. We discussed his cardiac history and symptoms to monitor and report. He admits that he has PND 3 nights a week. His lungs are clear, no pedal edema. We discussed guideline directed medical therapy for HFrEF. He is on an adequate beta blockade and ARB. He is on an aldosterone receptor antagonist. We discussed the importance of increasing these to their highest tolerated doses to achieve maximal benefit. We discussed Entresto and how it could benefit him. His BP is adequate and he was interested in transitioning to Entresto 24/26 mg BID. He will stop losartan and start Entresto 24/26 mg BID, taking at lunch and bedtime to limit hypotension. At his last visit, he stated that he was feeling much better since starting Entresto. He has not used any breathing treatments. He denied PND or cough. HIs weight is up 5 lb. HIs lungs are clear, no pedal edema. He reports improved exercise tolerance. BPs have been 100-110 systolic at home. His heart rate is not under optimal control, however he is mildy hypotensive. He was encouraged to continueto monitor vitals at home, with the intent to increase carvedilol in the future. Today, his weight is stable, lungs are clear, no pedal edema or c/o congestion. He notes BPs 110-130 systolic, heart rates 76-90 at home. His BP is adequate and his heart rate would benefit from increasing carvedilol to 25 mg BID. We discussed a low sodium meal plan. He eats a very high sodium diet. We discussed lower sodium alternatives. He does not drink excessive fluids. We discussed a low level activity plan. He is currently walking around his property 20 minutes three times daily. He is to start cardiac rehab in [place] next week. He is to be evaluated for a sleep study. Congestive Heart Failure Intake General Data In CHF program?: Yes Heart Failure etiology: Ischemic Heart Failure type: Systolic Device: ICD Received HF educational booklet: Pos NYHA functional class: II Last Ejection Fraction: 31 Date: 10/12/19 Modality: Echocardiogram Systolic HF medication titration data On BetaBlocker?: Yes Dosing: Still being titrated On ALYSSA/ARB/ARNI: ARNI Dosing: Still being titrated On Aldosterone Antagonist?: Yes On Ivabradine?: No On Digoxin?: No On Hydralazine?: No On Nitrate?: No CARDIAC HISTORY INCLUDES: 10/12/2019 Echo Summary 1. Technically difficult echo windows, Definity used to optimize study. 2. LV appears dilated with global dysfunction with segmental features. Biplane LVEF 31%. 3. Mild RV enlargement with mild RV dysfunction. Device wire noted in right heart. 4. Elevated left atrial pressure. 5. There is mild tricuspid valve regurgitation. 6. There is pulmonary hypertension, estimated pulmonary arterial systolic pressure is 45 mmHg. 7. There is moderate mitral valve regurgitation. 8. Prior ejection fraction of 30% noted from nuclear stress perfusion study from 2016. Histories: Past Medical History: Diagnosis Date Acute anterolateral myocardial infarction (HCC) Anoxic encephalopathy (HCC) CAD (coronary artery disease) CABG Cardiac arrest (HCC) ICD (implantable cardioverter-defibrillator) in place 03/18/2016 Vertigo Past Surgical History: Procedure Laterality Date CABG CARDIAC CATHETERIZATION CARDIAC DEFIBRILLATOR PLACEMENT CORONARY ANGIOPLASTY 2013 CORONARY ARTERY BYPASS GRAFT BARAJAS to LAD, VG to OM of circ and RCA EYE SURGERY PACEMAKER INSERTION and defilibrator Current Medications: Current Outpatient Medications Medication Sig Dispense Refill albuterol (PROVENTIL) 2.5 mg /3 mL (0.083 %) nebulizer solution Take 2.5 mg by nebulization every 6(six) hours as needed for wheezing . albuterol 90 mcg/actuation inhaler Inhale 2 puffs every 4 (four) hours as needed for shortness of breath . apixaban (Eliquis) 5 mg Tab Take 1 (one) tablet (5 mg total) by mouth 2 (two) times a day Blood thinner . 180 tablet 1 aspirin 81 MG EC tablet Take 81 mg by mouth daily atorvastatin (LIPITOR) 10 MG tablet Take 1 (one) tablet (10 mg total) by mouth daily . 90 tablet 3 sacubitriL-valsartan (Entresto) 24-26 mg per tablet Take 1 (one) tablet by mouth 2 (two) times a day . 60 tablet 11 spironolactone (Aldactone) 25 MG tablet Take 1 (one) tablet (25 mg total) by mouth daily For heart . 90 tablet 1 tiotropium Br/olodaterol HCl (STIOLTO RESPIMAT INHL) Inhale . carvediloL (COREG) 25 MG tablet Take 1 (one) tablet (25 mg total) by mouth 2 (two) times a day . 60tablet 11 No current facility-administered medications for this visit. Allergies Allergen Reactions Lisinopril Other (See Comments) Cough Review of Systems Constitution: Positive for weight gain. Negative for malaise/fatigue. Cardiovascular: Positive for dyspnea on exertion. Negative for leg swelling and paroxysmal nocturnal dyspnea. Respiratory: Negative for cough. Skin: Positive for rash (on right knee). Musculoskeletal: Negative. Gastrointestinal: Negative for constipation and diarrhea. Genitourinary: Negative for dysuria. Neurological: Negative for dizziness and light-headedness. Psychiatric/Behavioral: Positive for depression. The patient does not have insomnia. Objective: Physical Exam Constitutional: He is oriented to person, place, and time. He appears well- developed and well-nourished. thin HENT: Head: Normocephalic and atraumatic. Eyes: Conjunctivae are normal. Neck: Neck supple. No JVD present. Cardiovascular: Normal rate, regular rhythm and normal heart sounds. Pulses: Radial pulses are 2+ on the right side and 2+ on the left side. Dorsalis pedis pulses are 0 on the right side and 0 on the left side. Posterior tibial pulses are 0 on the right side and 0 on the left side. Pulmonary/Chest: Effort normal and breath sounds normal. No respiratory distress. He has no wheezes. He has no rales. Abdominal: Soft. Bowel sounds are normal. Musculoskeletal: Normal range of motion. General: No edema. Neurological: He is alert and oriented to person, place, and time. Skin: Skin is warm and dry. Psychiatric: He has a normal mood and affect. His behavior is normal. Judgment and thought content normal. Vitals: Vitals: 02/24/20 0852 BP: 116/67 Pulse: 76 SpO2: 97% Weight: 65.6 kg (144 lb 11.2 oz) Height: 5' 11 Lab Review: Recent labs reviewed with patient Assessment & Plan: Plan IMPRESSION: HFrEF Etiology: ischemic Most recent known EF:31 Stage: C NYHA Class: II He no longer has congestive symptoms of PND and cough Essential hypertension: Currently hypotensive CAD - CABG. Cath 2016 with patent grafts. Hyperlipidemia- On atorvastatin Sleep Apnea-to be evaluated ICD - last device check 12/15/2019 The device pocket shows no signs of infection or erosion. An in child support case officer evaluation demonstrates acceptable thresholds. The estimated time until elective replacement is 4.0 years. Histograms indicate 20.2% atrial and <0.1% ventricular paced events. The AT/AF burden is <0.1% with 4 episodes listed since last remote transmission on 12-03-2016. All episodes appear to be AF on EGM with longest episode lasting 2 hours 58 minutes on Dec 02, 2019. This appears to be a new finding. Therewere also 27 ventricular high rates listed lasting 1 -2 seconds that appear to be NSVT with retrograde conduction. There was one sustained episode of VTwith retrograde conduction on Feb 02, 2018 that lasted 12 seconds and was treated/converted with 2 Sequences of ATP therapy. Pt. voices compliance with Coreg. Most recent echo shows LVEF of 31%. Optivol fluid levels were elevated also. Atrial fibrilllation- started on Eliquis , carvedilol PLAN: Patient placed on guideline directed therapy including: ALYSSA/ARB/ARNI Entresto 24/26 mg BID BB: Carvedilol 12.5 mg BID, increased to 25 mg BID today Aldosterone antagonist Spironolactone 25 mg QD Diuretic no Potassium no Medications: Carvedilol 12.5 mg BID, increased to 25 mg BID today Labs to be drawn: BMP recently done Activity goal: walk 20 minutes BID Patient encouraged w/ daily weight and recording. Diet counseling: Patient was counseled on low sodium heart healthy diet. FOLLOW-UP SCHEDULE: Patient is currently scheduled to follow-up with Dr. Gorman in March Patient will return to see us in April 30 minutes was spent w/ the patient. Over half of this time was spent in counseling regarding medication therapy, treatments, activity, diet planning including teaching and review of reports with patient. There is collaboration between the CUSTOMER SUPPORT COORDINATOR and the consulting/collaborating physician regarding this patient's plan of care. Dr. Adán Gorman MD has been updated regarding the patient's status via EMR. Thank you for allowing us to participate in the care of our patient. Please call if you have any further questions. Signature: HETAL Ruth documented in this encounter* Adán Gorman MD - 04/25/2020 4:48 PM EST [facility] [address] [facility] [address] [facility] [id number] Subjective: Aarti Garcia is a 54 y.o. male seen in the office today for Chief Complaint Patient presents with Follow-up 3 mo Fatigue pt states his BP drops to 80 systolic a coule times a week - states he drinks fluids and feels back to normal Overview of Problems Addressed: Problem Coronary Artery Disease Involving [place] Coronary Artery of [place] Heart Without Angina Pectoris Echo cardiogram summer 2019 ejection fraction 31%. Moderate mitral valve regurgitation moderate pulmonary hypertension. EF similar to nuclear stress test dating back 2015. had out of hospital cardiac arrest in 2013. He had severe anoxic encephalopathy initially. He underwent initial catheterization ultimately had bypass surgery. Left internal mammary artery graft was placed to left anterior descending, vein graft and obtuse marginal, vein graft to the PDA branch of the right. He has an ICD placed for primary prevention. Repeat heart catheterization March 2016 with 3 of 3 patent grafts ejection fraction 30%. LV filling pressure was normal. Continue medical therapy is recommended. Prophylactic ICD Assessment & Plan: 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 Following closely with CHF clinic. Patient is doing well has had no cough on the Entresto did have a cough on losartan and lisinopril in the past. He is happy with his exercise capacity takes about 2or 3 15-minute walks [place] on a regular basis. No chest pain no orthopnea no leg swelling Recent lab work through [facility] will get a copy of that. History of low burden of paroxysmal atrial fibrillation continue on long-term oral anticoagulation. Prophylactic ICD. Continue to follow closely with heart failure clinic and they do want to keep their visit in 2 days. Review laboratory at that time. Will see back from my standpoint in 6 months consider repeat echocardiogram at that time. Histories: Past Medical History: Diagnosis Date Acute anterolateral myocardial infarction (HCC) Anoxic encephalopathy (HCC) CAD (coronary artery disease) CABG Cardiac arrest (HCC) ICD (implantable cardioverter-defibrillator) in place 03/18/2016 Vertigo Past Surgical History: Procedure Laterality Date CABG CARDIAC CATHETERIZATION CARDIAC DEFIBRILLATOR PLACEMENT CORONARY ANGIOPLASTY 2013 CORONARY ARTERY BYPASS GRAFT BARAJAS to LAD, VG to OM of circ and RCA EYE SURGERY PACEMAKER INSERTION and defilibrator Family History Problem Relation Age of Onset Heart attack Father Social History Tobacco Use Smoking status: Former Smoker Types: Cigarettes Quit date: 10/08/2012 Years since quittin.5 Smokeless tobacco: Never Used Substance Use Topics Alcohol use: No Alcohol/week: 0.0 standard drinks Drug use: No Patient's Medications New Prescriptions No medications on file Previous Medications ALBUTEROL (PROVENTIL) 2.5 MG /3 ML (0.083 %) NEBULIZER SOLUTION Take 2.5 mg by nebulization every 6(six) hours as needed for wheezing . ALBUTEROL 90 MCG/ACTUATION INHALER Inhale 2 puffs every 4 (four) hours as needed for shortness of breath . ASPIRIN 81 MG EC TABLET Take 81 mg by mouth daily ATORVASTATIN (LIPITOR) 10 MG TABLET Take 1 (one) tablet (10 mg total) by mouth daily . CARVEDILOL (COREG) 12.5 MG TABLET Take 1 (one) tablet (12.5 mg total) by mouth 2 (two) times a day . SACUBITRIL-VALSARTAN (ENTRESTO) 24-26 MG PER TABLET Take 1 (one) tablet by mouth 2 (two) times a day . TIOTROPIUM BR/OLODATEROL HCL (STIOLTO RESPIMAT INHL) Inhale . Modified Medications Modified Medication Previous Medication APIXABAN (ELIQUIS) 5 MG TAB apixaban (Eliquis) 5 mg Tab Take 1 (one) tablet (5 mg total) by mouth 2 (two) times a day Blood thinner . Take 1 (one) tablet (5 mg total) by mouth 2 (two) times a day Blood thinner . SPIRONOLACTONE (ALDACTONE) 25 MG TABLET spironolactone (Aldactone) 25 MG tablet Take 1 (one) tablet (25 mg total) by mouth daily For heart . Take 1 (one) tablet (25 mg total) by mouth daily For heart . Discontinued Medications No medications on file Allergies Allergen Reactions Lisinopril Other (See Comments) Cough Review of Systems Constitution: Positive for malaise/fatigue. Negative for diaphoresis, weight gain and weight loss. HENT: Negative for hearing loss, nosebleeds and tinnitus. Eyes: Negative for blurred vision and visual disturbance. Cardiovascular: Negative for chest pain, claudication, cyanosis, dyspnea on exertion, irregular heartbeat, leg swelling, near-syncope, orthopnea, palpitations, paroxysmal nocturnal dyspnea and syncope. Respiratory: Negative for hemoptysis, shortness of breath and snoring. Endocrine: Negative for cold intolerance and heat intolerance. Hematologic/Lymphatic: Does not bruise/bleed easily. Skin: Negative for flushing, poor wound healing and rash. Musculoskeletal: Negative for back pain, muscle weakness and myalgias. Gastrointestinal: Negative for abdominal pain, change in bowel habit, melena, nausea and vomiting. Genitourinary: Negative for decreased libido and hematuria. Neurological: Negative for loss of balance and numbness. Psychiatric/Behavioral: Negative for memory loss. The patient is not nervous/anxious. Objective: Physical Exam Constitutional: He is oriented to person, place, and time. No distress. No acute distress Body mass index is 19.67 kg/m . HENT: Head: Normocephalic. Eyes: No scleral icterus. Pupils equal. Neck: No JVD present. Cardiovascular: Regular rhythm, S1 normal and S2 normal. Exam reveals no gallop, no S3 and no S4. No murmur heard. Pulses: Radial pulses are 2+ on the right side and 2+ on the left side. Feet warm bilateral. Pulmonary/Chest: Breath sounds normal. No stridor. No respiratory distress. He has no wheezes. He has no rales. Abdominal: Soft. He exhibits no distension. There is no abdominal tenderness. There is no guarding. Musculoskeletal: General: No tenderness or edema. Neurological: He is alert and oriented to person, place, and time. Skin: Skin is warm and dry. He is not diaphoretic. Psychiatric: He has a normal mood and affect. Nursing note and vitals reviewed. Vitals: Vitals: 04/25/20 1612 BP: 119/69 BP Location: Left arm Patient Position: Sitting BP Cuff Size: Adult Pulse: 84 SpO2: 97% Weight: 68.9 kg (152 lb) Height: 5' 11 Body mass index is 21.2 kg/m . No orders of the defined types were placed in this encounter. Follow Up Ordered: Return in about 6 months (around 10/23/2020). Adán Gorman MD * Dedra Nettles MA - 04/25/2020 4:21 PM EST Review of Systems Constitution: Positive for malaise/fatigue. Negative for diaphoresis, weight gain and weight loss. HENT: Negative for hearing loss, nosebleeds and tinnitus. Eyes: Negative for blurred vision and visual disturbance. Cardiovascular: Negative for chest pain, claudication, cyanosis, dyspnea on exertion, irregular heartbeat, leg swelling, near-syncope, orthopnea, palpitations, paroxysmal nocturnal dyspnea and syncope. Respiratory: Negative for hemoptysis, shortness of breath and snoring. Endocrine: Negative for cold intolerance and heat intolerance. Hematologic/Lymphatic: Does not bruise/bleed easily. Skin: Negative for flushing, poor wound healing and rash. Musculoskeletal: Negative for back pain, muscle weakness and myalgias. Gastrointestinal: Negative for abdominal pain, change in bowel habit, melena, nausea and vomiting. Genitourinary: Negative for decreased libido and hematuria. Neurological: Negative for loss of balance and numbness. Psychiatric/Behavioral: Negative for memory loss. The patient is not nervous/anxious. documented in this encounter* Jade Rivera CNS - 04/27/2020 8:00 AM EST [facility] CARD[facility]OLOG[facility] HE[facility] FAILURE CLINIC NAME: Aarti Garcia DATE OF : 1965 MEDICAL RECORD#: [id number] IRONWORKER APPRENTICE SHOP: Adán Gorman MD TODAY'S DATE: 04/27/2020 Subjective Aarti Garcia is a 54 y.o. male with a h/o HFrEF, hypertension, atrial fib, ICD, CAD who presents today for his follow up visit to the heart failure clinic. The patient is accompanied today by his . Mr. Garcia presented after an OV with Dr. Gorman. At that visit, he had evidence of congestion with increased shortness of breath. His Optivol was elevated and his defibrillator showed intermittent a fib. He was started on spironolactone and Eliquis. We discussed his cardiac history and symptoms to monitor and report. He admits that he has PND 3 nights a week. His lungs are clear, no pedal edema. We discussed guideline directed medical therapy for HFrEF. He is on an adequate beta blockade and ARB. He is on an aldosterone receptor antagonist. We discussed the importance of increasing these to their highest tolerated doses to achieve maximal benefit. We discussed Entresto and how it could benefit him. His BP is adequate and he was interested in transitioning to Entresto 24/26 mg BID. He will stop losartan and start Entresto 24/26 mg BID, taking at lunch and bedtime to limit hypotension. He stated that he was feeling much better since starting Entresto. He has not used any breathing treatments. He denied PND or cough. HIs weight is up 5 lb. HIs lungs are clear, no pedal edema. He reports improved exercise tolerance. BPs have been 100-110 systolic at home. His heart rate is not under optimal control, however he is mildy hypotensive. He was encouraged to continue to monitor vitals at home, with the intent to increase carvedilol in the future. At his last visit, his weight is stable, lungs are clear, no pedal edema or c/o congestion. He notes BPs 110-130 systolic, heart rates 76-90 at home. His BP is adequate and his heart rate would benefit from increasing carvedilol to 25 mg BID. He called the next week with c/o increased weakness on the 25 mg BID carvedilol dose. He resumed the 12.5 mg BID dose. Today, he stated that he was doing well. He has noticed tremors in his hands. He was encouraged to discuss with his PCP for evaluation. His weight is stable, lungs are clear, no pedal edema or congestive symptoms. He reports BPs in 90s systolic a few times a week. No change to medications. We discussed a low sodium meal plan. He eats a very high sodium diet. We discussed lower sodium alternatives. He does not drink excessive fluids. We discussed a low level activity plan. He is currently walking around his property 20 minutes three times daily. He is to be evaluated for a sleep study. Congestive Heart Failure Intake General Data In CHF program?: Yes Heart Failure etiology: Ischemic Heart Failure type: Systolic Device: ICD Received HF educational booklet: Pos NYHA functional class: II Last Ejection Fraction: 31 Date: 10/12/19 Modality: Echocardiogram Systolic HF medication titration data On BetaBlocker?: Yes Dosing: Still being titrated On ALYSSA/ARB/ARNI: ARNI Dosing: Still being titrated On Aldosterone Antagonist?: Yes On Ivabradine?: No On Digoxin?: No On Hydralazine?: No On Nitrate?: No CARDIAC HISTORY INCLUDES: 10/12/2019 Echo Summary 1. Technically difficult echo windows, Definity used to optimize study. 2. LV appears dilated with global dysfunction with segmental features. Biplane LVEF 31%. 3. Mild RV enlargement with mild RV dysfunction. Device wire noted in right heart. 4. Elevated left atrial pressure. 5. There is mild tricuspid valve regurgitation. 6. There is pulmonary hypertension, estimated pulmonary arterial systolic pressure is 45 mmHg. 7. There is moderate mitral valve regurgitation. 8. Prior ejection fraction of 30% noted from nuclear stress perfusion study from 2016. Histories: Past Medical History: Diagnosis Date Acute anterolateral myocardial infarction (HCC) Anoxic encephalopathy (HCC) CAD (coronary artery disease) CABG Cardiac arrest (HCC) ICD (implantable cardioverter-defibrillator) in place 03/18/2016 Vertigo Past Surgical History: Procedure Laterality Date CABG CARDIAC CATHETERIZATION CARDIAC DEFIBRILLATOR PLACEMENT CORONARY ANGIOPLASTY 2013 CORONARY ARTERY BYPASS GRAFT BARAJAS to LAD, VG to OM of circ and RCA EYE SURGERY PACEMAKER INSERTION and defilibrator Current Medications: Current Outpatient Medications Medication Sig Dispense Refill albuterol (PROVENTIL) 2.5 mg /3 mL (0.083 %) nebulizer solution Take 2.5 mg by nebulization every 6(six) hours as needed for wheezing . albuterol 90 mcg/actuation inhaler Inhale 2 puffs every 4 (four) hours as needed for shortness of breath . apixaban (Eliquis) 5 mg Tab Take 1 (one) tablet (5 mg total) by mouth 2 (two) times a day Blood thinner . 180 tablet 3 aspirin 81 MG EC tablet Take 81 mg by mouth daily atorvastatin (LIPITOR) 10 MG tablet Take 1 (one) tablet (10 mg total) by mouth daily . 90 tablet 3 carvediloL (COREG) 12.5 MG tablet Take 1 (one) tablet (12.5 mg total) by mouth 2 (two) times a day . 60 tablet 11 sacubitriL-valsartan (Entresto) 24-26 mg per tablet Take 1 (one) tablet by mouth 2 (two) times a day . 60 tablet 11 spironolactone (Aldactone) 25 MG tablet Take 1 (one) tablet (25 mg total) by mouth daily For heart . 90 tablet 3 tiotropium Br/olodaterol HCl (STIOLTO RESPIMAT INHL) Inhale . No current facility-administered medications for this visit. Allergies Allergen Reactions Lisinopril Other (See Comments) Cough Review of Systems Constitution: Positive for weight gain. Negative for malaise/fatigue. Cardiovascular: Positive for dyspnea on exertion. Negative for leg swelling and paroxysmal nocturnal dyspnea. Respiratory: Negative for cough. Skin: Positive for rash (on right knee). Musculoskeletal: Negative. Gastrointestinal: Negative for constipation and diarrhea. Genitourinary: Negative for dysuria. Neurological: Negative for dizziness and light-headedness. Psychiatric/Behavioral: Positive for depression. The patient does not have insomnia. Objective: Physical Exam Constitutional: He is oriented to person, place, and time. He appears well- developed and well-nourished. thin HENT: Head: Normocephalic and atraumatic. Eyes: Conjunctivae are normal. Neck: Neck supple. No JVD present. Cardiovascular: Normal rate, regular rhythm and normal heart sounds. Pulses: Radial pulses are 2+ on the right side and 2+ on the left side. Dorsalis pedis pulses are 0 on the right side and 0 on the left side. Posterior tibial pulses are 0 on the right side and 0 on the left side. Pulmonary/Chest: Effort normal and breath sounds normal. No respiratory distress. He has no wheezes. He has no rales. Abdominal: Soft. Bowel sounds are normal. He exhibits no distension. Musculoskeletal: Normal range of motion. General: No edema. Neurological: He is alert and oriented to person, place, and time. Skin: Skin is warm and dry. Psychiatric: He has a normal mood and affect. His behavior is normal. Judgment and thought content normal. Vitals: Vitals: 04/27/20 0754 BP: (!) 102/55 Pulse: 77 SpO2: 94% Weight: 69.9 kg (154 lb) Height: 5' 11 Lab Review: Recent labs reviewed with patient Assessment & Plan: Plan IMPRESSION: HFrEF Etiology: ischemic Most recent known EF:31 Stage: C NYHA Class: II He no longer has congestive symptoms of PND and cough Essential hypertension: Currently hypotensive CAD - CABG. Cath 2016 with patent grafts. Hyperlipidemia- On atorvastatin Sleep Apnea-to be evaluated ICD - last device check 03/26/2020 The estimated remaining device longevity is 4.3 years. Histogramsindicate 6.2% atrial paced and < 0.1% ventricular paced events. The AT/AF burden is < 0.1%. There were no ventricular tachy therapies listed Atrial fibrilllation- started on Eliquis , carvedilol PLAN: Patient placed on guideline directed therapy including: ALYSSA/ARB/ARNI Entresto 24/26 mg BID BB: Carvedilol 12.5 mg BID Aldosterone antagonist Spironolactone 25 mg QD Diuretic no Potassium no Medications: No changes Labs to be drawn: BMP recently done Activity goal: walk 20 minutes BID Patient encouraged w/ daily weight and recording. Diet counseling: Patient was counseled on low sodium heart healthy diet. FOLLOW-UP SCHEDULE: Patient is currently scheduled to follow-up with Dr. Gorman in October Patient will return to see us in July 30 minutes was spent w/ the patient. Over half of this time was spent in counseling regarding medication therapy, treatments, activity, diet planning including teaching and review of reports with patient. There is collaboration between the HETAL and the consulting/collaborating physician regarding this patient's plan of care. Dr. Adán Gorman MD has been updated regarding the patient's status via EMR. Thank you for allowing us to participate in the care of our patient. Please call if you have any further questions. Signature: HETAL Ruth documented in this encounter Reason for Referral Status Reason Specialty Diagnoses / Procedures Referred By Contact Referred To Contact Authorized Cardiology Diagnoses Chronic systolic congestive heart failure (HCC) Adán Gorman MD [address] [address] Jade Rivera CNS [address] [facility] [place] [address] Status Reason Specialty Diagnoses / Procedures Referred By Contact Referred To Contact Authorized Cardiac Rehabilitation Diagnoses Chronic systolic congestive heart failure (HCC) Essential hypertension ICD (implantable cardioverter-defi brillator) in place Jade Rivera CNS [address] [place] [address] Specialty Diagnoses / Procedures Referred By Contac t Referred To Contact Jade Rivera, CUSTOMER SUPPORT COORDINATOR [address] [id number] Referral ID Status Reason Start Date Expiration Date V isits Requested Visits Authorized [id number] Pending Review 1 1 Specialty Diagnoses / Procedures Referred By Contac t Referred To Contact Cardiology Diagnoses Ischemic cardiomyopathy Procedures ECG 12 lead South, Klaus Moy, PLATE SETTER [address] [id number] Referral ID Status Reason Start Date Expiration Date V isits Requested Visits Authorized [id number] Authorized 04/25/2022 04/25/2023 1 1 Specialty Diagnoses / Procedures Referred By Contac t Referred To Contact Cardiology Diagnoses Mitral valve insufficiency, unspecified etiology Procedures Echocardiogram complete Adán Gorman MD [address] [address] Referral ID Status Reason Start Date Expiration Date V isits Requested Visits Authorized [id number] Pending Review 04/08/2023 04/07/2024 1 1 Specialty Diagnoses / Procedures Referred By Contac t Referred To Contact Cardiology Diagnoses Elevated PSA Procedures Cardiac Device Check - MRI Nely Ricardo MD [facility], [place] [address] Referral ID Status Reason Start Date Expiration Date Visits Requested Visits Authorized [id number] Pending Review Perform Procedure 4 01/27/2025 1 1 Specialty Diagnoses / Procedures Referred By Contac t Referred To Contact Radiology Diagnoses Elevated PSA, between 10 and less than 20 ng/ml Procedures MR prostate with malaika boundaries if pirads 3 or above Aarti Gonzalez MD [address] [place] [address] Referral ID Status Reason Start Date Expiration Date Visits Requested Visits Authorized [id number] Authorized Perform Procedure 12/02/2023 12/01/2024 1 1 Referral ID Status Reason Start Date Expiration Date Visits Requested Visits Authorized [id number] Pending Review Perform Procedure 01/27/2025 1 1 Referral ID Status Reason Start Date Expiration Date Visits Requested Visits Authorized [id number] Pending Review Perform Procedure 12/02/2023 12/01/2024 1 1 Specialty Diagnoses / Procedures Referred By Contac t Referred To Contact Radiology Diagnoses Elevated PSA, between 10 and less than 20 ng/ml Coronary artery disease, unspecified vessel or lesion type, unspecified whether angina present, unspecified whether seminole or transplanted heart Procedures XR chest 2 views Aarti Gonzalez MD [address] [place] [address] Referral ID Status Reason Start Date Expiration Date Visits Requested Visits Authorized [id number] Authorized Perform Procedure 12/18/2023 12/17/2024 1 1 Instructions * Patient Instructions* Dedra Nettels MA - 04/25/2020 4:18 PM EST How to Contact your Care Team: Provider: Dr. Adán Gorman MD Director Of Neighborhood Service Center: Day Bello RN REFILLS: When in need for refills please call your care team or the office at [phone]. Please include medication name, pharmacy name, and specify 30-day or 90-day supply. Please check with your pharmacy within 24 hours of request for your refill. You must follow up as directed to continue current refills. Thank you! documented in this encounter* Patient Instructions* Jade Rivera CNS - 02/24/2020 9:05 AM EST Please increase carvedilol to 25 mg twice a day. documented in this encounter* Patient Instructions* Jade Rivera CNS - 12/29/2019 3:09 PM EDT Please stop losartan. Please start Entresto 24/26 mg twice a day, taking at lunch and bedtime. documented in this encounter* Patient Instructions* Day Bello RN - 12/15/2019 3:28 PM EDT How to Contact your Care Team: Provider: Dr. Adán Gorman MD Director Of Neighborhood Service Center: Day Bello RN REFILLS: When in need for refills please call your care team or the office at [phone]. Please include medication name, pharmacy name, and specify 30-day or 90-day supply. Please check with your pharmacy within 24 hours of request for your refill. You must follow up as directed to continue current refills. Thank you! documented in this encounter Chief Complaint 3 month med check.3 month med check.3 month med check.3 month follow-up.3 month follow-up. Additional Source Comments (unrecognized sect ion and content) No Status Records FoundNo Status Records FoundNo Status Records FoundNo Status Records FoundNo Status Records FoundNo Status Records FoundNo Status Records FoundNo Status Records FoundNo Status Records FoundNo Status Records FoundNo Status Records FoundNo Status Records FoundNo Status Records Found INFORMATION SOURCE (unrecogn ized section and content) DATE CREATED AUTHOR 10/06/2017 [facility] DATE CREATED AUTHOR AUTHOR'S ORGANIZ ATION 04/11/2018 [facility] DATE CREATED AUTHOR AUTHOR'S ORGANIZ ATION 07/02/2020 [facility] DATE CREATED AUTHOR AUTHOR'S ORGANIZ ATION 01/20/[address] [facility] DATE CREATED AUTHOR AUTHOR'S ORGANIZ ATION 01/20/2022 [employer] DATE CREATED AUTHOR AUTHOR'S ORGANIZ ATION 04/12/2024 [facility] DATE CREATED AUTHOR AUTHOR'S ORGANIZ ATION 05/01/2024 [facility] DATE CREATED AUTHOR AUTHOR'S ORGANIZ ATION 05/03/2024 [facility] DATE CREATED AUTHOR AUTHOR'S ORGANIZ ATION 07/04/[address] [facility] DATE CREATED AUTHOR AUTHOR'S ORGANIZ ATION 07/16/2024 [facility] DATE CREATED AUTHOR AUTHOR'S ORGANIZ ATION 08/24/2024 [facility] DATE CREATED AUTHOR AUTHOR'S ORGANIZ ATION 08/26/2024 [facility] DATE CREATED AUTHOR AUTHOR'S ORGANIZ ATION 10/04/2024 [facility] Reason for Visit (unrecogniz ed section and content) Reason Comments Shortness of Breath Reason Comments Follow-up hospital follow up r eview echo Reason Comments Congestive Heart Failure Pt states that he does not have concerns. Status Reason Specialty Diagnoses / Procedures Referre d By Contact Referred To Contact Closed Cardiology Diagnoses Chronic systolic congestive heart failure (HCC) Adán Gorman MD [address] [address] Jade Rivera, [facility] [address] [place] [address] Reason Comments Flank Pain Reason Comments Congestive Heart Failure Pt states that he does not have concerns today. Entresto is going ok, he has not had a cough he has been breathing better and using less breathing treatments Reason Comments Congestive Heart Failure Pt states that he is feeling good and has no concerns today Reason Comments Follow-up 3 mo Fatigue pt states his BP luz ps to 80 systolic a coule times a week - states he drinks fluids and feels back to normal Reason Comments Cough Shortness of Breath Reason Comments Congestive Heart Failure Reason Comments Medication Refill Reason Comments Follow-up DEVICE CHECK & 6 MO Fatigue Dizziness Gastroesophageal Reflux Reason Comments Congestive Heart Failure Pt states that he is feeling well today and does not have any concerns today Reason Comments Congestive Heart Failure Pt states that he has been feeling good. No concerns to talk about today Reason Comments Follow-up Pt complains of no c ardiac symptoms today. Check up. Reason Onset Date Comments Medication Refill 11/07/2021 Reason Comments Follow-up [address] check [address] ov -no complaints Reason Comments Congestive Heart Failure Pt states that he does not have any concerns today. He was last seen in July. He was started on Jardiance by Telma. He was given 2 weeks of samples he has been done with those for a few days. He is on Medicaid so he should be able to obtain from pharmacy Reason Onset Date Comments Medication Refill 10/15/2022 Reason Comments COPD 6 month Specialty Diagnoses / Procedures Referred By Hansel vallejo Referred To Contact Primary Care Procedures Follow Up In Primary Care Walter Fermin APRN-PLATE SETTER [address] [facility] [place], [address] [place] [phone] Referral ID Status Reason Start Date Expiration Date V isits Requested Visits Authorized [id number] Authorized 07/11/2022 01/07/2023 1 1 Reason Comments Follow-up Yearly ov // patient has no cardiac concerns today Reason Comments Follow-up PT is here today for 6 month FUV. Used to see another provider in the office. Specialty Diagnoses / Procedures Referred By Hansel vallejo Referred To Contact Primary Care Procedures Follow Up In Primary Care - Health Maintenance Walter Fermin APRN-PLATE SETTER [address] [facility] [place], [place] [place] [phone] Referral ID Status Reason Start Date Expiration Date Visits Re quested Visits Authorized [id number] Closed 01/14/2023 07/13/2023 1 1 Reason Onset Date Comments Medication Refill 07/20/2023 Reason Onset Date Comments Medication Refill 10/17/2023 Reason Onset Date Comments Medication Refill 01/11/2024 Specialty Diagnoses / Procedures Referred By Hansel vallejo Referred To Contact Cardiology Diagnoses Elevated PSA Procedures Cardiac Device Check - MRI Nely Ricardo MD [address] [facility] [place], [place] [address] Referral ID Status Reason Start Date Expiration Date Visits Requested Visits Authorized [id number] Pending Review Perform Procedure 4 01/27/2025 1 1 Specialty Diagnoses / Procedures Referred By Hansel vallejo Referred To Contact Radiology Diagnoses Elevated PSA, between 10 and less than 20 ng/ml Procedures MR prostate with malaika boundaries if pirads 3 or above Aarti Gonzalez MD [address] [place] [address] Referral ID Status Reason Start Date Expiration Date Visits Requested Visits Authorized [id number] Authorized Perform Procedure 12/02/2023 12/01/2024 1 1 Referral ID Status Reason Start Date Expiration Date Visits Requested Visits Authorized [id number] Pending Review Perform Procedure 01/27/2025 1 1 Reason Comments prostate mri results Reason Comments Follow-up PT is here today for a 3 month FUV. Reason Comments Follow-up Pt is here today for 6 month OV. Colonoscopy needs ordered. Lipids good 10/15/28 Reason Comments Hypertension 6 month follow-up COPD Hypocalcemia Reason Comments Elevated PSA Specialty Diagnoses / Procedures Referred By Contac t Referred To Contact Urology Diagnoses Elevated PSA, between 10 and less than 20 ng/ml Fatimah Wilcox MD MPH [address] [facility], [address] [address] Aarti Gonzalez MD [facility] [place] [address] Referral ID Status Reason Start Date Expiration Date Visits Requested Visits Authorized [id number] Authorized Specialty Services Required 11/04/2023 11/03/2024 1 1 Specialty Diagnoses / Procedures Referred By Contac t Referred To Contact Radiology Diagnoses Elevated PSA, between 10 and less than 20 ng/ml Coronary artery disease, unspecified vessel or lesion type, unspecified whether angina present, unspecified whether seminole or transplanted heart Procedures XR chest 2 views Aarti Gonzalez MD [facility] [place] [address] Referral ID Status Reason Start Date Expiration Date Visits Requested Visits Authorized [id number] Authorized Perform Procedure 12/18/2023 12/17/2024 1 1 Reason Comments Prostate Cancer Reason Comments Appointment Reason Comments Follow-up 6 mo -no complaints Reason Comments COPD Hypertension Hyperlipidemia Martine Delarosa RN - 10/09/2019 1:25 PM Shraddha Silva RN - 10/09/2019 12:36 PM Shraddha Silva RN - 10/09/2019 11:38 AM Isidro De Jesus RN - 01/16/2020 10:46 AM EDT ED Notes (unrecognized secti on and content) Pt ambulatory to restroom. Denies sob at this time. Steady gait. Isolation D/C'd, COVID negative. Xray cart side Pt states he was seen at [facility] on Thursday for SOB, CXR was obtained and pt was prescribed medications and an inhaler, and states he is not feeling any better and has a difficult time catching his breath. PT placed in a gown and placed on cardiac cath technologist. Denies any other symptoms. Pt denies fever. Denies being around any individuals that he is aware of that has been diagnosed with COVID. ..Special isolation precautions are in place with signage outside this patient's room. This RN and Kaye MARIO performs hand hygiene and enters the patient room wearing: ? gloves ? an appropriately fitting (N-95, PAPR, Aura) mask ? face shield ? protective gown to provide care. See documentation for the care provided. documented in this encounter DC INSTRUCTIONS AND RX REVIEWED. PT DECLINED WC TO LOBBY LEFT AMB WITH [facility] ED Attending Note: NAME: Aarti Garcia 54 y.o. CSN: [id number] PCP: Monie Waite CNP History: Chief Complaint: Flank Pain HPI: The history was obtained from the patient and spouse. Aarti is a 54 y.o. male who presents with a chief complaint of Flank Pain. The patient is a 54-year-old male with a history of cardiac disease who presents from home with sudden onset of right flank pain at approximately 2:00 this morning, 5 and half hours prior to arrival. It has been constant and worsening. It is nonradiating. He denies any blood in his urine, any urinary frequency or urgency. He denies any abdominal pain or focal neurologic deficits. The pain is sometimes worse than others but has not resolved. He denies any previous similar symptoms. He denies any trauma or injury. PMHx: Past Medical History: Diagnosis Date Acute anterolateral myocardial infarction (HCC) Anoxic encephalopathy (HCC) CAD (coronary artery disease) CABG Cardiac arrest (HCC) ICD (implantable cardioverter-defibrillator) in place 03/18/2016 Vertigo PMSx: Past Surgical History: Procedure Laterality Date CABG CARDIAC CATHETERIZATION CARDIAC DEFIBRILLATOR PLACEMENT CORONARY ANGIOPLASTY 2013 CORONARY ARTERY BYPASS GRAFT BARAJAS to LAD, VG to OM of circ and RCA EYE SURGERY PACEMAKER INSERTION and defilibrator FAM. Hx: Family History Problem Relation Age of Onset Heart attack Father SOC. Hx: Social History Socioeconomic History Marital status: Spouse name: Not on file Number of children: Not on file Years of education: Not on file Highest education level: Not on file Occupational History Not on file Social Needs Financial resource strain: Not on file Food insecurity Worry: Not on file Inability: Not on file Transportation needs Medical: Not on file Non-medical: Not on file Tobacco Use Smoking status: Former Smoker Types: Cigarettes Quit date: 10/08/2012 Years since quittin.2 Smokeless tobacco: Never Used Substance and Sexual Activity Alcohol use: No Alcohol/week: 0.0 standard drinks Drug use: No Sexual activity: Not on file Lifestyle Physical activity Days per week: Not on file Minutes per session: Not on file Stress: Not on file Relationships Social connections Talks on phone: Not on file Gets together: Not on file Attends judaism service: Not on file Active member of club or organization: Not on file Attends meetings of clubs or organizations: Not on file Relationship status: Not on file Other Topics Concern Not on file Social History Narrative Not on file MEDs: Previous Medications Medication Sig albuterol (PROVENTIL) 2.5 mg /3 mL (0.083 %) nebulizer solution Take 2.5 mg by nebulization every 6 (six) hours as needed for wheezing . albuterol 90 mcg/actuation inhaler Inhale 2 puffs every 4 (four) hours as needed for shortness of breath . apixaban (Eliquis) 5 mg Tab Take 1 (one) tablet (5 mg total) by mouth 2 (two) times a day Blood thinner . aspirin 81 MG EC tablet Take 81 mg by mouth daily atorvastatin (LIPITOR) 10 MG tablet Take 1 (one) tablet (10 mg total) by mouth daily . carvediloL (COREG) 12.5 MG tablet Take 1 (one) tablet (12.5 mg total) by mouth 2 (two) times a day . sacubitriL-valsartan (Entresto) 24-26 mg per tablet Take 1 (one) tablet by mouth 2 (two) times a day . spironolactone (Aldactone) 25 MG tablet Take 1 (one) tablet (25 mg total) by mouth daily For heart . tiotropium Br/olodaterol HCl (STIOLTO RESPIMAT INHL) Inhale . ALL: Allergies Allergen Reactions Lisinopril Other (See Comments) Cough ROS: Positives and pertinent negatives as per HPI. All other systems were reviewed and are negative. Physical Exam: Patient Vitals for the past 24 hrs: BP Temp Temp src Pulse Resp SpO2 Height Weight 01/16/20 1002 123/60 80 16 98 % 01/16/20 0815 120/76 74 16 94 % 01/16/20 0729 129/84 98 F (36.7 C) Oral 89 16 98 % 5' 11 63.5 kg (140 lb) Physical Exam Vitals signs and nursing note reviewed. Constitutional: Appearance: Normal appearance. HENT: Head: Normocephalic. Mouth/Throat: Mouth: Mucous membranes are moist. Eyes: Extraocular Movements: Extraocular movements intact. Pupils: Pupils are equal, round, and reactive to light. Neck: Musculoskeletal: Normal range of motion. Cardiovascular: Rate and Rhythm: Normal rate and regular rhythm. Pulmonary: Effort: Pulmonary effort is normal. Breath sounds: Normal breath sounds. Abdominal: General: Abdomen is flat. Bowel sounds are normal. Palpations: Abdomen is soft. Comments: Completely nontender to my exam, no right upper quadrant pain. There is tenderness over the right flank and right stereo and postero-lateral lower chest on palpation Musculoskeletal: Normal range of motion. Skin: General: Skin is warm and dry. Neurological: General: No focal deficit present. Mental Status: He is alert and oriented to person, place, and time. Psychiatric: Mood and Affect: Mood normal. Behavior: Behavior normal. Laboratory & Radiological Imaging (if done): Labs Reviewed PT/INR - Abnormal; Notable for the following components: Result Value Protime (PT) 14.8 (*) INR 1.2 (*) All other components within normal limits Narrative: During the induction phase of oral anticoagulation, the INR may not reflect the anticoagulation status of the patient. Therapeutic ranges for INR's are: Most clinical situations: INR 2.0-3.0 Mechanical Prosthetic Valve: INR 2.5-3.5 Critical: INR >5.0 URINALYSIS - Abnormal; Notable for the following components: Color, Urine Alicja (*) Hyaline Casts 11-20 (*) All other components within normal limits Narrative: Microscopic examination is performed on all urinalysis samples and only positive findings are reported. The test for blood on the chemical analytic portion of urinalysis may also be positive due to hemoglobinuria and myoglobinuria and if red blood cells are present they are quantified by microscopic examination. BASIC METABOLIC PANEL - Normal Narrative: The eGFR should be used for monitoring renal function only and not for medication dosing. HEPATIC FUNCTION PANEL - Normal CBC AND DIFFERENTIAL Narrative: The following orders were created for panel order CBC w/ Diff. Procedure Abnormality Status --------- ------ CBC Auto Differential[[id number]] Final result Please view results for these tests on the individual orders. CBC WITH AUTO DIFFERENTIAL CTA Pulm Art and CT Abd Pelvis with IV contrast Non-public Result 1. Negative for pulmonary embolism. 2. Small dependent layering left pleural effusion with mild basilar atelectasis. There is mild central bronchial wall thickening suggesting bronchitis or inflammatory airways disease. 3. No signs of an acute inflammatory process in the abdomen or pelvis. 4. Postoperative changes of median sternotomy surgery/CABG with mild cardiomegaly. Left pectoral transvenous pacer in place. 5. Scattered atherosclerotic vascular. Negative for aneurysm. No overt changes of acute aortic pathology. 6. Remote healed fractures of the posterior left 11th and 12th ribs. Workstation ID: [id number] CT Kidney Stone Preliminary Result 1. No KUB stones or hydronephrosis. 2. Normal appendix. No signs of an acute inflammatory process. 3. Partially imaged is a small left pleural effusion. 4. Scattered atherosclerotic vascular disease of the aorta. Negative for aortic aneurysm. JAR/hff Workstation ID: [id number] Procedures: Procedures ED Course / Medical Decision Making: Work-up with the patient shows negative CT with and without contrast of the chest abdomen pelvis. Patient urinalysis and lab testing otherwise normal. He is reassured and be discharged home with prescriptions for Robaxin, as I am unable to give him an anti-inflammatory due to the fact that he is on Eliquis. Will follow-up with his primary care provider. . Clinical Impression: 1. Acute right-sided thoracic back pain Disposition: Patient is being discharged to home New Prescriptions methocarbamoL (Robaxin-750) 750 MG tablet Take 1 (one) tablet (750 mg total) by mouth 3 (three) times a day as needed for muscle spasms . Lilly Ahumada MD [facility] Emergency Department (Please note that portions of this note have been completed with a voice recognition software. Efforts were made to correct any errors, but occasionally words are mis-transcribed.) Lilly Ahumada MD 01/16/20 1013 Patient has complaints of right side flank pain that started around 2 am. Pain stays consistent, rates 8/10. Denies any fever or chills, Denies any problems with urination, no burning, frequency or blood in urine. Denies any injury documented in this encounter Special isolation precautions are in place with signage outside this patient's room. This RN performs hand hygiene and enters the patient room wearing: ? gloves ? an appropriately fitting (N-95, PAPR, Aura) mask ? face shield ? protective gown to provide nursing care. See nursing documentation for the care provided. RT CARTSIDE GIVING PT BREATHING TREATMENT. PT UPDATED ON POC AT THIS TIME. NO CONCERNS VOICED BY PT. PT TO XRAY RT CALLED FOR BREATHING TREATMENT PT PLACED ON 2 L NC D/T O2 SAT OF 89% WHEN PT WAS COUGHING. PT 92% ON 2L NC PER DR DOMINIQUE, D/C SPECIAL PRECAUTIONS D/T PT TESTING NEGATIVE FOR COVID IN THE LAST 72 HOURS. STATES NO NEED TO RETEST AT THIS TIME [facility] ED Attending Note: NAME: Aarti Garcia 54 y.o. CSN: [id number] PCP: Bubba Tran MD History: Chief Complaint: Cough and Shortness of Breath HPI: The history was obtained from the patient. Aarti is a 54 y.o. male who presents with a chief complaint of Cough and Shortness of Breath. Patient 54-year-old male presents with cough and shortness of breath. Patient has had progressive shortness of breath, over the last week and a half. Initially diagnosed with bronchitis, started on Z-Kelton and prednisone which helped, but after finishing the medication, had symptoms return. Seen here again 3 days ago, chest x-ray showed questionable pneumonia, started on prednisone and Z-Kelton again, but has not had any improvement, now coughing up clear sputum. No fevers or chills, continued shortness of breath and cough, no significant chest pain nausea vomiting diarrhea. Has not smoked for 6 years PMHx: Past Medical History: Diagnosis Date Acute anterolateral myocardial infarction (HCC) Anoxic encephalopathy (HCC) CAD (coronary artery disease) CABG Cardiac arrest (HCC) ICD (implantable cardioverter-defibrillator) in place 03/18/2016 Vertigo PMSx: Past Surgical History: Procedure Laterality Date CABG CARDIAC CATHETERIZATION CARDIAC DEFIBRILLATOR PLACEMENT CORONARY ANGIOPLASTY 2013 CORONARY ARTERY BYPASS GRAFT BARAJAS to LAD, VG to OM of circ and RCA EYE SURGERY PACEMAKER INSERTION and defilibrator FAM. Hx: Family History Problem Relation Age of Onset Heart attack Father SOC. Hx: Social History Socioeconomic History Marital status: Spouse name: Not on file Number of children: Not on file Years of education: Not on file Highest education level: Not on file Occupational History Not on file Social Needs Financial resource strain: Not on file Food insecurity Worry: Not on file Inability: Not on file Transportation needs Medical: Not on file Non-medical: Not on file Tobacco Use Smoking status: Former Smoker Types: Cigarettes Smokeless tobacco: Never Used Substance and Sexual Activity Alcohol use: No Alcohol/week: 0.0 standard drinks Drug use: No Sexual activity: Not on file Lifestyle Physical activity Days per week: Not on file Minutes per session: Not on file Stress: Not on file Relationships Social connections Talks on phone: Not on file Gets together: Not on file Attends judaism service: Not on file Active member of club or organization: Not on file Attends meetings of clubs or organizations: Not on file Relationship status: Not on file Other Topics Concern Not on file Social History Narrative Not on file MEDs: Previous Medications Medication Sig albuterol 90 mcg/actuation inhaler Inhale 2 puffs every 4 (four) hours as needed for shortness of breath . amiodarone (CORDARONE) 200 MG tablet Take 200 mg by mouth daily aspirin 81 MG EC tablet Take 81 mg by mouth daily atorvastatin (LIPITOR) 10 MG tablet Take 10 mg by mouth daily azithromycin (ZITHROMAX) 250 MG tablet Take 1 (one) tablet (250 mg total) by mouth daily for 4 days . carvedilol (COREG) 12.5 MG tablet Take 12.5 mg by mouth 2 (two) times a day doxycycline monohydrate (MONODOX) 100 MG capsule Take 100 mg by mouth 2 (two) times a day For 10 days starting 10/07/19 . furosemide (LASIX) 20 MG tablet Take 20 mg by mouth daily For 5 days starting 10/07/19 . lisinopril (PRINIVIL,ZESTRIL) 5 MG tablet Take 5 mg by mouth 2 (two) times a day losartan (COZAAR) 25 MG tablet Take 25 mg by mouth daily . pantoprazole (PROTONIX) 40 MG tablet Take 40 mg by mouth daily predniSONE (DELTASONE) 10 mg tablet pack Take 4 pills p.o. in a.m. x3 days; take 3 pills p.o. in a.m. x3 days; take 2 pills p.o. in a.m. x3 days; take 1 pill p.o. in the a.m. x3 days; take 1/2 pill p.o. in a.m. x3 days then stop . ALL: No Known Allergies PACU Vitals 10/12/19 0830 BP: 112/73 Pulse: 94 Resp: Temp: SpO2: 93% Review of Systems Constitutional: Negative for activity change and appetite change. HENT: Negative for congestion, facial swelling and sinus pain. Respiratory: Positive for cough and shortness of breath. Negative for choking. Cardiovascular: Negative for chest pain. Gastrointestinal: Negative for abdominal distention and abdominal pain. Genitourinary: Negative for dysuria and flank pain. Musculoskeletal: Negative for neck pain. Neurological: Negative for dizziness and syncope. Psychiatric/Behavioral: Negative for confusion and suicidal ideas. All other systems reviewed and are negative. Physical Exam Vitals signs and nursing note reviewed. Constitutional: Appearance: Normal appearance. He is not diaphoretic. HENT: Head: Normocephalic and atraumatic. Nose: Nose normal. No congestion or rhinorrhea. Mouth/Throat: Mouth: Mucous membranes are moist. Eyes: General: No scleral icterus. Extraocular Movements: Extraocular movements intact. Conjunctiva/sclera: Conjunctivae normal. Pupils: Pupils are equal, round, and reactive to light. Neck: Musculoskeletal: Neck supple. Cardiovascular: Rate and Rhythm: Normal rate and regular rhythm. Pulses: Normal pulses. Heart sounds: Normal heart sounds. No murmur. No gallop. Pulmonary: Effort: Respiratory distress present. Breath sounds: Rales present. No wheezing. Comments: Coarse breath sounds in bilateral bases with wheezing in the right lower lung base Midline old sternal scar Chest: Chest wall: No tenderness. Abdominal: Palpations: Abdomen is soft. There is no mass. Tenderness: There is no abdominal tenderness. There is no guarding or rebound. Musculoskeletal: General: No swelling. Right lower leg: No edema. Left lower leg: No edema. Skin: General: Skin is warm. Neurological: General: No focal deficit present. Mental Status: He is alert and oriented to person, place, and time. Mental status is at baseline. Psychiatric: Mood and Affect: Mood normal. Laboratory & Radiological Imaging (if done): Recent Results (from the past 24 hour(s)) Chem 7 Collection Time: 10/12/19 7:32 AM Result Value Ref Range Sodium 138 135 - 145 mmol/L Potassium 4.2 3.5 - 5.1 mmol/L Chloride 106 98 - 108 mmol/L Bicarbonate 26 21 - 32 mmol/L Creatinine 1.01 0.50 - 1.30 mg/dL Glucose 118 (H) 65 - 99 mg/dL BUN 14 8 - 25 mg/dL eGFR 85 >=60 mL/min/1.73 m2 BUN/Creatinine Ratio 13.9 10.0 - 20.0 Anion Gap 10 10 - 20 mmol/L CBC Auto Differential Collection Time: 10/12/19 7:32 AM Result Value Ref Range WBC 13.18 (H) 4.50 - 11.00 K/mcL RBC 5.21 4.50 - 5.90 M/mcL Hemoglobin 16.0 13.5 - 17.5 g/dL Hematocrit 49.0 41.0 - 53.0 % MCV 94.0 80.0 - 100.0 fL MCH 30.7 26.0 - 34.0 pg MCHC 32.7 31.0 - 37.0 g/dL Platelets 282 150 - 400 K/mcL RDW - CV 13.2 11.6 - 14.8 % MPV 10.1 9.4 - 12.4 fL Neutrophils 78.5 % Lymphocytes 12.8 % Monocytes 6.8 % Eosinophils 0.7 % Basophils 0.3 % IG Percent 0.90 % Neutrophils Abs 10.34 (H) 1.70 - 7.00 K/mcL Lymphocytes Abs 1.69 0.90 - 4.00 K/mcL Monocytes Abs 0.90 0.30 - 0.90 K/mcL Eosinophils Abs 0.09 0.00 - 0.50 K/mcL Basophils Abs 0.04 0.00 - 0.30 K/mcL IG Absolute 0.12 0.00 - 0.30 K/mcL Nucleated RBC 0.0 % Nucleated RBC Abs 0.00 0.00 - 0.00 K/mcL NT Pro BNP Collection Time: 10/12/19 7:32 AM Result Value Ref Range NT-Pro BNP 3,202 (H) 0 - 300 pg/mL XR Chest AP/PA and LAT Non-public Result Patchy airspace disease in the left lower lobe consistent with pneumonia in the appropriate clinical setting. This is superimposed on chronic interstitial lung disease. Workstation ID: [id number] Procedures: Procedures ED Course / Medical Decision Making: Patient negative COVID swab less than 72 hours ago, with over 1-1/2 weeks of symptoms, is on prednisone but is progressively getting worse, concerning for pneumonia. Will get chest x-ray two-view lab work including BNP, mildly tachycardic here, will give 500 mL of fluid and reevaluate Heart rate improved with 500 mL bolus, patient's initial oxygen saturation was 95%, did start ceftriaxone, given suspicion for bacterial pneumonia especially after failure on azithromycin and clinical worsening. 2 view chest x-ray confirms left lower lobar pneumonia. Oxygen saturations did drop into the low 90s to high 80s. Given this was placed on 2 L of oxygen. Patient will require admission to the hospital now. A lactate will be drawn as he does qualify for sepsis, given his EF, as heart rate improved with 500 mL of fluid, I will not give any further fluid. Did discuss with patient, he has declined sepsis protocol. We will hold off on 30 mL/kg bolus of fluids. And be more judicious with fluids given his EF. EKG 913, rate 94 QRS 98 QTC 452, T wave inversions in aVL V6 nonspecific ST changes Clinical Impression: 1. Sepsis, due to unspecified organism, unspecified whether acute organ dysfunction present (HCC) 2. Hypoxia 3. Pneumonia of left lower lobe due to infectious organism (HCC) Oswald Dominique MD [facility] Emergency Department (Please note that portions of this note have been completed with a voice recognition software. Efforts were made to correct any errors, but occasionally words are mis-transcribed.) Oswald Dominique MD 10/12/19 0841 Oswald Dominique MD 10/12/19 0917 PT PRESENTS TO THE ED FOR C/0 ONGOING COUGH AND SOB X1 WEEK. STATES THAT HE WAS SEEN HERE ON Thursday AND DIAGNOSED WITH PNEUMONIA AND STARTED ON ATB. STATES THAT HE TESTED NEGATIVE ON Thursday FOR COVID. STATES HE IS NOT GETTING BETTER Special isolation precautions are in place with signage outside this patient's room. This RN AND JOBY SHEETS performs hand hygiene and enters the patient room wearing: ? gloves ? an appropriately fitting (N-95, PAPR, Aura) mask ? face shield ? protective gown to provide nursing care. See nursing documentation for the care provided. Special isolation precautions are in place with signage outside this patient's room. Eva SHEETS performs hand hygiene and enters the patient room wearing: ? gloves ? an appropriately fitting (N-95, PAPR, Aura) mask ? face shield ? protective gown to provide nursing care. See nursing documentation for the care provided. documented in this encounter Assessment & Plan Note - Adán Gorman MD - 04/25/2020 4:52 PM ESTQuick Note - Andrew Coburn RN - 10/13/2019 9:37 AM EDTPlan of Care - She Bermudez RN - 10/13/2019 12:46 AM EDT Miscellaneous Notes (unrecog nized section and content) Associated Problem(s): 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 Following closely with CHF clinic. Patient is doing well has had no cough on the Entresto did have a cough on losartan and lisinopril in the past. He is happy with his exercise capacity takes about 2 or 3 15-minute walks on [place] on a regular basis. No chest pain no orthopnea no leg swelling Recent lab work through [facility] will get a copy of that. History of low burden of paroxysmal atrial fibrillation continue on long-term oral anticoagulation. Prophylactic ICD. Continue to follow closely with heart failure clinic and they do want to keep their visit in 2 days. Review laboratory at that time. Will see back from my standpoint in 6 months consider repeat echocardiogram at that time. documented in this encounter Patient noted to be resting in the bed with eyes open, denies pain at this time. Morning medication administered without issue. Will continue to monitor. Problem: Pain Goal: Manage acute pain Outcome: Partially Met Goal: Manage chronic pain Outcome: Partially Met Goal: Reduced pain sensation Outcome: Partially Met Goal: Achievement of comfort function goal Outcome: Partially Met Problem: Actual or potential alteration in health Goal: Absence of healthcare acquired conditions Outcome: Partially Met Goal: Knowledge of Interdisciplinary Plan of Care Outcome: Partially Met Goal: Knowledge of Enviroment Outcome: Partially Met Problem: Plan for Discharge Goal: Knowledge of discharge plan and instructions Outcome: Partially Met Problem: Gas Exchange - Impaired Goal: Adequate oxygenation Outcome: Partially Met Problem: Pain Goal: Manage acute pain 10/12/2019 1008 by Andrew Coburn RN Outcome: Not Met 10/12/2019 1000 by Andrew Coburn RN Outcome: Not Met Goal: Manage chronic pain 10/12/2019 1008 by Andrew Coburn RN Outcome: Not Met 10/12/2019 1000 by Andrew Coburn RN Outcome: Not Met Goal: Reduced pain sensation 10/12/2019 1008 by Andrew Coburn RN Outcome: Not Met 10/12/2019 1000 by Andrew Coburn RN Outcome: Not Met Goal: Achievement of comfort function goal 10/12/2019 1008 by Andrew Coburn RN Outcome: Not Met 10/12/2019 1000 by Andrew Coburn RN Outcome: Not Met Patient admitted to the unit at this time, spouse at bedside. Admission assessment and navigator completed at this time. Will continue to monitor. Problem: Pain Goal: Manage acute pain Outcome: Not Met Goal: Manage chronic pain Outcome: Not Met Goal: Reduced pain sensation Outcome: Not Met Goal: Achievement of comfort function goal Outcome: Not Met documented in this encounter Aline Mcclain CNP - 10/12/2019 12:59 PM EDT H&P Notes (unrecognized sect ion and content) [facility] Medicine Inpatient H&P 10/12/2019 Aline Mcclain CNP [facility] Patient: Aarti Garcia Date of : 1965 (54 y.o.) PCP: Bubba Tran MD Assessment Aarti Garcia 54 y.o. male with history of Active Problems: CAP (community acquired pneumonia) 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 Essential hypertension Plan: Community-acquired pneumonia semi-: Failed outpatient therapy Levaquin 750 mg daily, bronchodilators scheduled and PRN, urine for Legionella antigen, urine for S pneumoniae antigen, sputum culture, blood cultures x2, Elevated BNP, Echocardiogram ordered, he was given 1 dose of Lasix in the emergency room we will give 2 additional doses every 12 hours apart., Daily weight, I&O The patient's home medications Are as a database further expands orders be forthcoming SUBJECTIVE: Chief Complaint: Dyspnea History of Presenting Illness: Aarti Garcia is a 54 y.o. male presenting from home with complaints of shortness of breath. Mr. Garcia has a history of hypertension, coronary artery disease, ICD pacemaker implantation. He presented to the emergency room in [place] approximately 2 weeks ago with complaints of shortness of breath he states he was diagnosed with bronchitis he took his Z-Kelton and he states he immediately got worse once this was done. He presented to [facility] emergency room on 621 and was diagnosed with left lower lobe pneumonia. He was given antibiotics which he states he has been taking as ordered along with his prednisone. However his breathing worsened and he returned to the emergency room. Patient denies headache, visual changes, syncope, dizziness. He denies chest pain however he endorses shortness of breath. He endorses intermittent cough that is nonproductive. He denies abdominal pain, nausea, vomiting, diarrhea. He denies change in bowel or bladder habit. He denies hematochezia hematuria or hematemesis. He denies difficulty with ambulation. Patient was referred to the hospitalist for admission. Review of Systems: 10 systems reviewed and negative other than noted in HPI History: Past Medical History: Diagnosis Date Acute anterolateral myocardial infarction (HCC) Anoxic encephalopathy (HCC) CAD (coronary artery disease) CABG Cardiac arrest (HCC) ICD (implantable cardioverter-defibrillator) in place 03/18/2016 Vertigo Past Surgical History: Procedure Laterality Date CABG CARDIAC CATHETERIZATION CARDIAC DEFIBRILLATOR PLACEMENT CORONARY ANGIOPLASTY 2013 CORONARY ARTERY BYPASS GRAFT BARAJAS to LAD, VG to OM of circ and RCA EYE SURGERY PACEMAKER INSERTION and defilibrator Family History Problem Relation Age of Onset Heart attack Father Social History Tobacco Use Smoking Status Former Smoker Types: Cigarettes Smokeless Tobacco Never Used Social History Substance and Sexual Activity Alcohol Use No Alcohol/week: 0.0 standard drinks Family and Social History reviewed and non-pertinent to this visit Allergies: Patient has no known allergies. Home Medications: Outpatient Medications as of 10/12/2019 Medication Sig albuterol 90 mcg/actuation inhaler Inhale 2 puffs every 4 (four) hours as needed for shortness of breath . aspirin 81 MG EC tablet Take 81 mg by mouth daily atorvastatin (LIPITOR) 10 MG tablet Take 10 mg by mouth daily carvedilol (COREG) 12.5 MG tablet Take 12.5 mg by mouth 2 (two) times a day losartan (COZAAR) 25 MG tablet Take 25 mg by mouth daily . predniSONE (DELTASONE) 10 mg tablet pack Take 4 pills p.o. in a.m. x3 days; take 3 pills p.o. in a.m. x3 days; take 2 pills p.o. in a.m. x3 days; take 1 pill p.o. in the a.m. x3 days; take 1/2 pill p.o. in a.m. x3 days then stop . azithromycin (ZITHROMAX) 250 MG tablet Take 1 (one) tablet (250 mg total) by mouth daily for 4 days . doxycycline monohydrate (MONODOX) 100 MG capsule Take 100 mg by mouth 2 (two) times a day For 10 days starting 10/07/19 . furosemide (LASIX) 20 MG tablet Take 20 mg by mouth daily For 5 days starting 10/07/19 . OBJECTIVE: Physical Examination: BP 112/70 Pulse 87 Temp 97.8 F (36.6 C) (Oral) Resp 18 Ht 5' 11 Wt 64.9 kg (143 lb) SpO2 93% BMI 19.94 kg/m General Appearance: Alert, well appearing, and in no acute distress. HEENT: Head - Normocephalic, atraumatic. Eyes - MARIETTA bilaterally and EOMI. Ears - normal external appearance, hearing intact. Nose - normal, no erythema. Throat - mucous membranes moist, pharynx without lesions. Neck: Supple, trachea midline. Cardiovascular: S1, S2 normal. No murmurs, rubs, clicks or gallops appreciated. No pedal edema. Respiratory: bibasilar rhonchi heard. Abdomen: Soft, non-tender, normal bowel sounds, non-distended, no masses or organomegaly appreciated. Neurological: Grossly normal motor and sensory exam. No focal deficits. Musculoskeletal: No joint tenderness, deformity or swelling. Skin: Normal coloration and turgor. No rashes. Psych: Alert, oriented x 3. Normal mood and affect. Laboratory and Additional Data Reviewed: Results/Medications Reviewed 10/12/19 1:01 PM: Results from last 7 days Lab Units 10/12/19 0732 10/09/19 1154 SODIUM mmol/L 138 136 POTASSIUM mmol/L 4.2 4.6 CHLORIDE mmol/L 106 105 BUN mg/dL 14 14 CREATININE mg/dL 1.01 1.03 GLUCOSE mg/dL 118* 116* CALCIUM mg/dL -- 8.6 Results from last 7 days Lab Units 10/12/19 0732 10/09/19 1154 WBC K/mcL 13.18* 13.88* HGB g/dL 16.0 16.5 HCT % 49.0 49.6 PLT K/mcL 282 292 Results from last 7 days Lab Units 10/09/19 1154 ALK PHOS U/L 77 BILIRUBIN TOTAL mg/dL 1.0 BILIRUBIN DIRECT mg/dL 0.2 TOTAL PROTEIN g/dL 7.3 ALTR U/L 43 AST U/L 21 CULTURES: Reviewed 1:01 PM IMAGING: Reviewed 1:01 PM Associated attestation - Landon Dominique MD - 10/12/2019 2:02 PM EDT Patient seen, evaluated and managed by PLATE SETTER independently. I was not involved in the care of this patient, but was readily available for consultation if needed by PLATE SETTER. Patient seen, evaluated and managed by PLATE SETTER independently. I was not involved in the care of this patient, but was readily available for consultation if needed by PLATE SETTER.documented in this encounter Care Teams (unrecognized sec tion and content) Commercial Hvac Technician Relationship Specialty Start Date End Date Monie Waite CNP [address] [place] [address] PCP - General Nurse Practitioner 01/16/20 Monie Waite CNP [address] [place] [address] Nurse Practitioner Nurse Practitioner 12/15/19 Commercial Hvac Technician Relationship Specialty Start Date End Date Monie Waite CNP [address] [place] [address] PCP - General Nurse Practitioner 01/16/20 Monie Waite, [facility] [address] [place] [address] Nurse Practitioner Nurse Practitioner 12/15/19 Commercial Hvac Technician Relationship Specialty Start Date End Date Monie Waite, [facility] [address] [place] [address] PCP - General Nurse Practitioner 01/16/20 Monie Waite, [facility] [address] [place] [address] Nurse Practitioner Nurse Practitioner 12/15/19 Commercial Hvac Technician Relationship Specialty Start Date End Date Monie Waite, [facility] [address] [place] [address] PCP - General Nurse Practitioner 01/16/20 Monie Waite, [facility] [address] [place] [address] Nurse Practitioner Nurse Practitioner 12/15/19 Commercial Hvac Technician Relationship Specialty Start Date End Date Monie Waite, [facility] [address] [place] [address] PCP - General Nurse Practitioner 01/16/20 Monie Waite, [facility] [address] [place] [address] Nurse Practitioner Nurse Practitioner 12/15/19 Commercial Hvac Technician Relationship Specialty Start Date End Date Monie Waite, [facility] [address] [place] [address] PCP - General Nurse Practitioner 01/16/20 Monie Waite, [employer] [address] [place] [address] Nurse Practitioner Nurse Practitioner 12/15/19 Commercial Hvac Technician Relationship Specialty Start Date End Date BinghamtonWalter fitzgerald Asa, PLATE SETTER [address] [place] [address] PCP - General Nurse Practitioner 03/21/22 Monie Waite, [employer] [address] [place] [address] Nurse Practitioner Nurse Practitioner 12/15/19 Commercial Hvac Technician Relationship Specialty Start Date End Date Sung Ferminie Asa, PLATE [employer]TER [address] [place] [address] PCP - General Nurse Practitioner 03/21/22 Monie Waite CNP [address] [place] [address] Nurse Practitioner Nurse Practitioner 12/15/19 Commercial Hvac Technician Relationship Specialty Start Date End Date RitchieWalter fitzgerald Asa, PLATE SETTER [address] [place] [address] PCP - General Nurse Practitioner 03/21/22 Monie Waite, [employer] [address] [place] [address] Nurse Practitioner Nurse Practitioner 12/15/19 Commercial Hvac Technician Relationship Specialty Start Date End Date RitchieWalter fitzgerald ANNE MARIE Bray [address] [place] [address] PCP - General Nurse Practitioner 03/21/22 Monie Waite, ANNE MARIE [address] [place] [address] Nurse Practitioner Nurse Practitioner 12/15/19 Commercial Hvac Technician Relationship Specialty Start Date End Date Walter Fermin CNP [address] [place] [address] PCP - General Nurse Practitioner 03/21/22 Adán Gorman MD [address] [place] [address] Consulting Physician Cardiovascular Disease 10/27/22 Commercial Hvac Technician Relationship Specialty Start Date End Date Walter Fermin APRN-PLATE SETTER [address] [place] [facility], [facility] [address] [place] [address] PCP - General 07/05/21 Walter Fermin APRN-PLATE SETTER [address] [facility], [facility] [address] [place] [address] PCP - [facility] Medicaid PCP 10/18/22 Commercial Hvac Technician Relationship Specialty Start Date End Date Walter Fermin CNP [address] [place] [address] PCP - General Nurse Practitioner 03/21/22 Adán Gorman MD [address] [place] [address] Consulting Physician Cardiovascular Disease 10/27/22 Commercial Hvac Technician Relationship Specialty Start Date End Date Walter Fermin CNP [address] [place] [address] PCP - General Nurse Practitioner 03/21/22 Adán Gorman MD [address] [place] [address] Consulting Physician Cardiovascular Disease 10/27/22 Commercial Hvac Technician Relationship Specialty Start Date End Date RitchieSung fitzgeraldanna Blackman APRN-PLATE SETTER [address] [place] [facility], [place] [address] [place] [address] PCP - [facility] Medicaid PCP 10/18/22 Fatimah Wilcox MD MPH [address] [place] [facility], [place] [address] [place] [address] PCP - General Family Medicine 07/01/23 Commercial Hvac Technician Relationship Specialty Start Date End Date Walter Fermin CNP [address] [place] [address] PCP - General Nurse Practitioner 03/21/22 Adán Gorman MD [address] [place] [address] Consulting Physician Cardiovascular Disease 10/27/22 Commercial Hvac Technician Relationship Specialty Start Date End Date Fatimah Wilcox MD [address] [place] [facility], [place] [address] [place] [address] PCP - General Family Medicine 08/12/23 Adán Gorman MD [address] [facility] [address] Consulting Physician Cardiovascular Disease 10/27/22 Commercial Hvac Technician Relationship Specialty Start Date End Date Fatimah Wilcox MD [address] [place] [facility], [place] [address] [place] [address] PCP - General Family Medicine 08/12/23 Adán Gorman MD [address] [facility] [place] [address] Consulting Physician Cardiovascular Disease 10/27/22 Commercial Hvac Technician Relationship Specialty Start Date End Date Fatimah Wilcox MD [address] [place] [facility], [facility] [address] [place] [id number] PCP - General Family Medicine 08/12/23 Adán Gorman MD [address] [place] [address] Consulting Physician Cardiovascular Disease 10/27/22 Commercial Hvac Technician Relationship Specialty Start Date End Date Fatimah Wilcox MD [address] [place] [facility], [place] [address] PCP - General Family Medicine 08/12/23 Adán Gorman MD [address] [place] [address] Consulting Physician Cardiovascular Disease 10/27/22 Commercial Hvac Technician Relationship Specialty Start Date End Date Fatimah Wilcox MD [address] [place] [facility], [place] [address] [place] [id number] PCP - General Family Medicine 08/12/23 Adán Gorman MD [address] [place] [address] Consulting Physician Cardiovascular Disease 10/27/22 Commercial Hvac Technician Relationship Specialty Start Date End Date Fatimah Wilcox MD [address] [place] [facility], [place] [address] [place] [phone] PCP - General Family Medicine 08/12/23 Adán Gorman MD [facility] [place] [id number] Consulting Physician Cardiovascular Disease 10/27/22 Commercial Hvac Technician Relationship Specialty Start Date End Date Nely Ricardo MD [address] [facility], [place] [address] [place] [id number] PCP - General Family Medicine 12/23/23 Commercial Hvac Technician Relationship Specialty Start Date End Date Nely Ricardo MD [address] [facility] [place] [address] [place] [phone] PCP - General Family Medicine 12/23/23 Commercial Hvac Technician Relationship Specialty Start Date End Date [facility]ely Ricardo MD [address] [facility], [place] [address] [place] [phone] PCP - General Family Medicine 12/23/23 Commercial Hvac Technician Relationship Specialty Start Date End Date [facility]ely Ricardo MD [address] [facility] [place], [place] [address] [id number] PCP - General Family Medicine 12/23/23 Commercial Hvac Technician Relationship Specialty Start Date End Date Nely Ricardo MD [address] [facility] [place], [place] [address] [phone] PCP - General Family Medicine 12/23/23 Commercial Hvac Technician Relationship Specialty Start Date End Date Walter Fermin, .NET ARCHITECT-PLATE SETTER [address] [place] [address] Dr Monie Altamirano, [place] [address] [place] [address] PCP - [facility] Medicaid PCP 10/18/22 Fatimah Wilcox MD MPH [address] [facility], [place] [address] [id number] PCP - General Family Medicine 07/01/23 Walter Fermin APRN-PLATE SETTER [address], [place] [address] [id number] PCP - [facility] ACO Attributed Provider 04/20/23 Commercial Hvac Technician Relationship Specialty Start Date End Date Walter Fermin APRN-PLATE SETTER [address] [facility] [place], [place] [address] [place] [address] PCP - General 07/05/21 Commercial Hvac Technician Relationship Specialty Start Date End Date Walter Fermin APRN-PLATE SETTER [address], [place] [phone] PCP - [facility] Medicaid PCP 10/18/22 Fatimah Wilcox MD MPH [address] [facility] [place], [place] [address] [phone] PCP - General Family Medicine 07/01/23 Walter Fermin APRN-PLATE SETTER [address], [address] [address] PCP - [facility] ACO Attributed Provider 04/20/23 Commercial Hvac Technician Relationship Specialty Start Date End Date Walter Fermin APRN-PLATE SETTER [address] Monie Altamirano, [facility] [address] [place] [address] PCP - [facility] Medicaid PCP 10/18/22 Nely Ricardo MD [address] [facility] [place], [place] [address] [phone] PCP - General Family Medicine 12/23/23 Commercial Hvac Technician Relationship Specialty Start Date End Date Nely Ricardo MD [address] [facility] [place], [place] [address] [phone] PCP - General Family Medicine 12/23/23 Walter Fermin, .NET ARCHITECT-PLATE SETTER [address] Monie Altamirano, [place] [phone] PCP - [facility] Medicaid PCP 01/19/24 Commercial Hvac Technician Relationship Specialty Start Date End Date Nely Ricardo MD [address] [place] [id number] PCP - General Family Medicine 01/17/24 Commercial Hvac Technician Relationship Specialty Start Date End Date Nely Ricardo MD [address] [facility] [place], [place] [address] [phone] PCP - General Family Medicine 12/23/23 Walter Fermin, .NET ARCHITECT-PLATE SETTER [address], [facility] [address] [place] [address] PCP - [facility] Medicaid PCP 01/19/24 Commercial Hvac Technician Relationship Specialty Start Date End Date Nely Ricardo MD [address] [place] [phone] PCP - General Family Medicine 01/17/24 Commercial Hvac Technician Relationship Specialty Start Date End Date Nely Ricardo MD [address] [facility] [place], [place] [address] [place], [id number] PCP - General Family Medicine 12/23/23 Commercial Hvac Technician Relationship Specialty Start Date End Date Nely Ricardo MD [address] [place] [address] PCP - General Family Medicine 01/17/24 Commercial Hvac Technician Relationship Specialty Start Date End Date Nely Ricardo MD [address] [facility] [place], [place] [address] [place], [id number] PCP - General Family Medicine 12/23/23 Scheduled Active and Recently Administ ered Medications (unrecognized section and content) Medication Order 03/06/2024 03/07/2024 03/08/2024 acetaminophen (Tylenol) tablet 975 mg (COMPLETED) 975 mg, oral, Once, On Thu03/08/24 at 0730, For 1 dose, Preprocedure, Administer with small amount of water preoperatively., If ordered PRN for pain, nurse is permitted to administer this medication for higher pain scores based on patient preference? Yes 0741 (Given - Provid er: Geri Cerrato RN) Continuous Medication Order 03/06/2024 03/07/2024 03/08/2024 lactated Ringer's infusion 100 mL/hr, intravenous, Continuous, Starting on Thu03/08/24 at 0930, For 1 day, Recovery (only) 0930 (Due) PRN Medication Order 03/06/2024 03/07/2024 03/08/2024 labetaloL (Normodyne,Trandate) injection 5 mg 5 mg, intravenous, Administer over 1 Minutes, Once as needed, systolic blood pressure greater than 180 mmHg, dystolic blood pressure greater than 100 mmHg and heart rate greater than 60 BPM, Starting on Thu03/08/24 at 0910, For 1 dose, Recovery (only) morphine injection 2 mg 2 mg, intravenous, Every 5 min PRN, pain moderate (4-6), first line, Starting on Thu03/08/24 at 0910, Recovery (only), Max total of 20 mg regardless of dose. morphine injection 4 mg 4 mg, intravenous, Every 5 min PRN, pain severe (7-10), first line, Starting on Thu03/08/24 at 0910, Recovery (only), Max total of 20 mg regardless of dose. ondansetron (Zofran) injection 4 mg 4 mg, intravenous, Once as needed, nausea/vomiting, first line, Starting on Thu03/08/24 at 0910, For 1 dose, Recovery (only), When administering via IV Push, administer over 3-5 minutes. oxyCODONE (Roxicodone) immediate release tablet 5 mg 5 mg, oral, Every 4 hours PRN, pain mild (1-3), first line, Starting on Thu03/08/24 at 0910, Recovery (only), When able to take oral medications., If ordered PRN for pain, nurse is permitted to administer this medication for higher pain scores based on patient preference? Yes promethazine (Phenergan) 6.25 mg in sodium chloride 0.9% 50 mL IV 6.25 mg, intravenous, Administer over 15 Minutes, Once as needed, Nausea/vomiting, second line, Starting on Thu03/08/24 at 0910, For 1 dose, Recovery (only) Scheduled Medication Order 05/29/2024 05/30/2024 05/31/2024 acetaminophen (Tylenol) tablet 975 mg (COMPLETED) 975 mg, oral, Once, On Thu05/31/24 at 0900, For 1 dose, Preprocedure, Administer with small amount of water preoperatively., If ordered PRN for pain, nurse is permitted to administer this medication for higher pain scores based on patient preference? Yes 0811 (Given - Provid er: Ritu Palacios RN) levoFLOXacin (Levaquin) 500 mg in dextrose 5% IV 100 mL (COMPLETED) 500 mg, intravenous, at 100 mL/hr, Administer over 60 Minutes, Once, On Thu05/31/24 at 0830, For 1 dose, Intraprocedure, premix bag, Dosing of this medication varies based on severity of illness. Does this patient have sepsis or concern for sepsis (probable or documented infection plus systemic manifestations of infection)? No, Suspected Indication (Select all that apply): Surgical Prophylaxis, Indications: Surgical Prophylaxis 0849 (New Bag - Prov ider: Ritu Palacios RN)0949 (Due: Stopped - Provider: Ritu Palacios RN) ondansetron (Zofran) injection 4 mg (COMPLETED) 4 mg, intravenous, Once, On Thu05/31/24 at 0900, For 1 dose, Preprocedure, When administering via IV Push, administer over 3-5 minutes. 0847 (Given - Provid er: Ritu Palacios RN) Continuous Medication Order 05/29/2024 05/30/2024 05/31/2024 lactated Ringer's infusion 100 mL/hr, intravenous, Continuous, Starting on Thu05/31/24 at 1100, For 1 day, Recovery (only) 1100 (Due) PRN Medication Order 05/29/2024 05/30/2024 05/31/2024 labetaloL (Normodyne,Trandate) injection 5 mg 5 mg, intravenous, Administer over 1 Minutes, Once as needed, systolic blood pressure greater than 180 mmHg, dystolic blood pressure greater than 100 mmHg and heart rate greater than 60 BPM, Starting on Thu05/31/24 at 1042, For 1 dose, Recovery (only) morphine injection 2 mg 2 mg, intravenous, Every 5 min PRN, pain moderate (4-6), first line, Starting on Thu05/31/24 at 1042, Recovery (only), Max total of 20 mg regardless of dose. morphine injection 4 mg 4 mg, intravenous, Every 5 min PRN, pain severe (7-10), first line, Starting on Thu05/31/24 at 1042, Recovery (only), Max total of 20 mg regardless of dose. ondansetron (Zofran) injection 4 mg 4 mg, intravenous, Once as needed, nausea/vomiting, first line, Starting on Thu05/31/24 at 1042, For 1 dose, Recovery (only), When administering via IV Push, administer over 3-5 minutes. oxyCODONE (Roxicodone) immediate release tablet 5 mg 5 mg, oral, Every 4 hours PRN, pain mild (1-3), first line, Starting on Thu05/31/24 at 1042, Recovery (only), When able to take oral medications., If ordered PRN for pain, nurse is permitted to administer this medication for higher pain scores based on patient preference? Yes promethazine (Phenergan) 6.25 mg in sodium chloride 0.9% 50 mL IV 6.25 mg, intravenous, Administer over 15 Minutes, Once as needed, Nausea/vomiting, second line, Starting on Thu05/31/24 at 1042, For 1 dose, Recovery (only) sodium chloride bacteriostatic 0.9 % injection (CANCELED) As needed, Starting on Thu05/31/24 at 1013, Intraprocedure 1013 (Given - Provid er: Aarti Gonzalez MD) Source Comments (unrecognize d section and content) In the event this informatio n is protected by the Federal Confidentiality of Alcohol and Drug Abuse Patient Records regulations: The Federal rules restrict any use of the information to criminally investigate or prosecute any alcohol or drug abuse patient.[facility] FOR RECORDS PERTAINING TO PATIENTS WHO ARE OR HAVE BEEN ENROLLED IN A CHEMICAL DEPENDENCY/SUBSTANCEABUSE PROGRAM, SOME INFORMATION MAY BE OMITTED. This clinical summary was aggregated from multiple sources. Caution should be exercised in using it in the provision of clinical care. This summary normalizes information from multiple sources, and as a consequence, information in this document may materially change the coding, format and clinical context of patient data. In addition, data may be omitted in some cases. CLINICAL DECISIONS SHOULD BE BASED ON THE PRIMARY CLINICAL RECORDS. [facility]. provides no warranty or guarantee of the accuracy or completeness of information in this document.
[2024-10-07 09:07] LABS: PSA,Total- Diagnostic 6.36 ng/mL (0.00-4.00)
== END | disposition home or self-care (01) ==
LOC: LAB 08:00
PROVIDERS: PCP Family Medicine; Referring Provider Student in an Organized Health Care Education/Training Program; Visit Provider Student in an Organized Health Care Education/Training Program
DX: C61 Malignant neoplasm of prostate (principal)
CPT/HCPCS: 36415; 84153

== ENCOUNTER → 2025-03-31 | Outpatient (CLI) | payer MEDICARE, MEDICAID, SELFPAY ==
[2025-03-31 09:11] LABS: PSA,Total- Diagnostic 3.24 ng/mL (0.00-4.00)
== END | disposition home or self-care (01) ==
LOC: LAB 08:00
PROVIDERS: PCP Family Medicine; Referring Provider Student in an Organized Health Care Education/Training Program; Visit Provider Student in an Organized Health Care Education/Training Program
DX: C61 Malignant neoplasm of prostate (principal)
CPT/HCPCS: 36415; 84153